=== PATIENT | female | born 1940 | race Caucasian/White ===

== ENCOUNTER 2024-01-27 08:31 | Outpatient (OUT) | payer MEDICARE, SELFPAY ==
[2024-01-27 09:09] LABS: Basophils Absolute Auto 0.1 10^3/uL (0.0-0.1); Basophils Percent Auto 0.9 % (0.2-2.0); Eosinophils Absolute Auto 0.7 10^3/uL (0.0-0.7); Eosinophils Percent Auto 8.2 % (0.9-7.0); Hematocrit 35.4 % (36.0-48.0); Immature Granulocytes Abs Auto 0.03 10^3/uL (0.00-0.03); Immature Granulocytes Pct Auto 0.4 % (0.0-0.5); Lymphocytes Absolute Auto 2.7 10^3/uL (1.2-3.8); Lymphocytes Percent Auto 32.1 % (20.5-60.0); Mean Corpuscular HGB Conc 31.1 g/dL (29.9-35.2); Mean Corpuscular Volume 102.9 fL (81.0-99.0); Mean Platelet Volume 10.3 fL (9.5-13.5); Monocytes Absolute Auto 0.7 10^3/uL (0.3-0.8); Monocytes Percent Auto 8.2 % (1.7-12.0); Neutrophils Absolute Auto 4.3 10^3/uL (1.4-6.5); Neutrophils Percent Auto 50.2 % (43.0-75.0); Platelet Count 171 10^3/uL (150-450); Red Blood Count 3.44 10^6/uL (4.20-5.40); Red Cell Distribution Width 13.3 % (11.0-15.0); White Blood Count 8.5 10^3/uL (4.0-11.0)
[2024-01-27 09:13] LABS: Alanine Aminotransferase 30 U/L (14-59); Albumin Globulin Ratio 0.8; Alkaline Phosphatase 92 U/L (46-116); Anion Gap 12.2; Aspartate Amino Transferase 38 U/L (15-37); BUN Creatinine Ratio 20.8; Bilirubin Total 0.9 mg/dL (0.2-1.0); Calcium 8.6 mg/dL (8.5-10.1); Carbon Dioxide 25.1 mmol/L (21.0-32.0); Chloride 107 mmol/L (98-107); Chol HDL Ratio 3.2; Cholesterol 155 mg/dL (<=200); Estimated GFR (African America 28 (>=60); Estimated GFR (Non-African Ame 23 (>=60); Globulin 3.9 g/dL; Glucose 109 mg/dL (74-106); HDL Cholesterol 48 mg/dL (40-60); Potassium 4.3 mmol/L (3.5-5.1); Sodium 140 mmol/L (136-145); Total Protein 6.9 g/dL (6.4-8.2); Triglycerides 243 mg/dL (<=150); VLDL CHOLESTEROL 48.6 mg/dL
== END 2024-01-27 08:32 | disposition home or self-care (01) ==
LOC: LAB 08:32
PROVIDERS: PCP Internal Medicine; Visit Provider Physician Assistant
DX: Z00.00 Encounter for general adult medical examination without abnormal findings (principal); E11.9 Type 2 diabetes mellitus without complications; I50.32 Chronic diastolic (congestive) heart failure; E78.2 Mixed hyperlipidemia
CPT/HCPCS: 36415; 80053; 80061; 85025

== ENCOUNTER 2024-02-29 23:01 | Emergency (ER) | payer MEDICARE, SELFPAY ==
[2024-02-29 23:12] VITALS: BP 155/60; PULSE 83; TEMP 36.7; O2SAT 95; BMI 26.7
--- NOTE | 2024-02-29 23:17 | XR_ITS ---
The [address] [address] Patient Name: NATALIE LOVELACE MRN: [id number] date: 1940 Sex: F Assigned Patient Location: ER Current Patient Location: ER Accession/Order Number: [id number] Exam Date: 02/29/2024 23:20 Report Date: 03/01/2024 00:05 At the request of: VALERIE ULLOA Procedure: XR ankle RT 2V EXAM: XR foot RT 2V, XR ankle RT 2V HISTORY: The patient is an 83-year-old female, injury COMPARISON: None. FINDINGS: The 2 views of the right foot are radiographically negative with no evidence of fracture, dislocation, joint space narrowing, or other osseous or articular abnormalities. No acute or ununited fractures are seen within or around the right ankle joint on the 2 views of the right ankle. The ankle mortise is intact and uniform. The syndesmosis is maintained. No soft tissue swelling is seen. XR/XR ankle RT 2V IMPRESSION: No fracture seen on the 2 views of the right foot or the 2 views of the right ankle. Electronically authenticated by: ARJUN SPENCE Date: 03/01/2024 00:05
--- NOTE | 2024-02-29 23:17 | XR_ITS ---
The [address] [address] Patient Name: NATALIE LOVELACE MRN: [id number] date: 1940 Sex: F Assigned Patient Location: ER Current Patient Location: ER Accession/Order Number: [id number] Exam Date: 02/29/2024 23:20 Report Date: 03/01/2024 00:05 At the request of: VALERIE ULLOA Procedure: XR foot RT 2V EXAM: XR foot RT 2V, XR ankle RT 2V HISTORY: The patient is an 83-year-old female, injury COMPARISON: None. FINDINGS: The 2 views of the right foot are radiographically negative with no evidence of fracture, dislocation, joint space narrowing, or other osseous or articular abnormalities. No acute or ununited fractures are seen within or around the right ankle joint on the 2 views of the right ankle. The ankle mortise is intact and uniform. The syndesmosis is maintained. No soft tissue swelling is seen. XR/XR foot RT 2V IMPRESSION: No fracture seen on the 2 views of the right foot or the 2 views of the right ankle. Electronically authenticated by: ARJUN SPENCE Date: 03/01/2024 00:05
--- OUTSIDE RECORDS SUMMARY | 2024-02-29 23:21 | XMS_ITS | CCD ---
Author Organization [facility] CliniSyoh Care Team Providers Care Stapler Machine Name Role Phone PHYSICIAN, DEFAULT Unavailable Unavailable PHYSICIAN, DEFAULT Unavailable Unavailable KINJAL ADAMS Unavailable Unavailable PHYSICIAN, DEFAULT Unavailable Unavailable PHYSICIAN, DEFAULT Unavailable Unavailable KINJAL ADAMS Unavailable Unavailable DOMINIQUE, DR LAYTON Primary Care Unavailable DOMINIQUE, DR LAYTON Admitting Unavailable ADAMS, DR LAYTON Attending Unavailable ADAMS, DR LAYTON Consulting Unavailable ZIEBER, DR SUSANA Alvarez Consulting Unavailable ADAMS, DR LAYTON Primary Care Unavailable DEBBIE CHEN Attending Unavailable APRILDEBBIE CAMPOS Consulting Unavailable APRIL, DEBBIE Admitting Unavailable APRILDEBBIE ANDREWS Attending Unavailable DEBBIE CHEN Consulting Unavailable ADAMS, DR LAYTON Primary Care Unavailable APRIL, DEBBIE Admitting Unavailable APRIL, DEBBIE Admitting Unavailable APRIL, DEBBIE Attending Unavailable ADAMS, DR LAYTON Primary Care Unavailable APRIL, DEBBIE Consulting Unavailable ADAMS, DR LAYTON Primary Care Unavailable APRIL, DEBBIE Attending Unavailable APRIL, DEBBIE Admitting Unavailable ADAMS, DR LAYTON Primary Care Unavailable APRIL, DEBBIE Attending Unavailable APRIL, DEBBIE Admitting Unavailable APRIL, DEBBIE Attending Unavailable TYSHAWN BO Attending Unavailable Problems Active Problems Problem Classification Problem Date Documented Date Episodic/Chronic Coronary atherosclerosis and other heart disease (6 sources) Atherosclerotic heart disease of [place] coronary artery without angina pectoris; Translations: [ASHD UPPER [place] CA W/O ANGINA PECTORIS] Onset: 02-27-2022 Chronic Disorders of lipid metabolism (2 sources) Mixed hyperlipidemia; Translations: [Mixed hyperlipidemia] Onset: 10-02-2022 Chronic Esophageal disorders (2 sources) Gastro-esophageal reflux disease without esophagitis; Translations: [Gastro-esophageal reflux disease without esophagitis] Onset: 10-08-2023 Chronic Heart valve disorders (4 sources) Nonrheumatic aortic (valve) stenosis; Translations: [NONRHEUMATIC AORTIC VALVE STENOSIS] Onset: 09-24-2022 Chronic Menopausal disorders (4 sources) Other primary ovarian failure; Translations: [OTHER PRIMARY OVARIAN FAILURE] Onset: 04-15-2022 Chronic Past or Other Problems Problem Classification Problem Date Documented Da te Episodic/Chronic Other bone disease and musculoskeletal deformities (1 source) Other specified disorders of bone density and structure, other site; Translations: [OTH D/O BONE DEN STRUCT OTH SITE] Onset: 04-16-2022 Episodic Results Test Name Value Interpretation Reference Range Facility Office Visiton 10-08-2023 Follow-up visit [id number] Dionna Lovelace ma 1940 F Date Provider Department Center 10/08/2023 DEBBIE [facility] No family history on file Level of Service:52850 [place] OFFICE/OUTPATIENT ESTABLISHED LOW MDM 20 MIN Reason for Visit and Comments: Coronary Artery Disease [187] Valve Disorder [3372] Hypertension [486729] Hyperlipidemia [182] Normal [facility] ECHOCARDIO M/2D COMPLETEon 0 09-24-2022 ECHOCARDIO M/2D COMPLETE Patient: NATALIE LOVELACE Exam Date: 09/24/2022 : 1940 Gender:F Ordering : DEBBIE CHEN [facility] Admission #: [id number] Family : Order #: [id number] CLICK HERE TO VIEW EXAM ECHOCARDIOGRAM REPORT PROCEDURE: CARDIO PULMONARY ECHOCARDIO M/2D COMP INDICATIONS: Aortic valve stenosis COMPARISON: None. DESCRIPTION: COMPLETE ECHOCARDIOGRAM Real-time transthoracic echocardiography with 2D, M-mode, spectral and color flow Doppler performed. QUALITY: Technical quality was good. LEFT VENTRICLE: Normal chamber size. Moderate concentric left ventricular hypertrophy. Normal left ventricular systolic function. Visual estimation of left ventricular ejection fraction is 70-75%. LV EF: DIASTOLIC: Grade I diastolic dysfunction. ATRIAL SEPTUM: LEFT ATRIUM: Normal chamber size. RIGHT ATRIUM: Normal chamber size. RIGHT VENTRICLE: Normal chamber size. Normal right ventricular systolic function. TRICUSPID VALVE: Normal mobility and thickness. No stenosis with trivial regurgitation. No evidence of pulmonary hypertension. RVSP is 26 mmHg MITRAL VALVE: Normal mobility and thickness. No mitral valve prolapse. No evidence of mitral valve stenosis. Moderate mitral annular calcification. Trivial mitral regurgitation. AORTIC VALVE: Normal trileaflet appearance. Moderately calcified aortic valve. Mildly diminished mobility. Doppler velocity suggest moderate aortic valve stenosis. DVI 0.5, JESUSITA 1.46 cm2, Mean gradient 15 mmHg. No aortic regurgitation. AORTIC ROOT: Normal diameter and appearance. PULMONIC VALVE: Normal thickness and mobility. No stenosis. No regurgitation. PERICARDIUM: No evidence of pericardial effusion. IVC: Collapses with inspirations. Normal size. PLEURA: CONCLUSION: 1. Moderate concentric left ventricular hypertrophy. Normal ventricular systolic function. LVEF is 70 to 75%. 2. Moderate aortic valve stenosis. 3. Normal right-sided pressures. 4. No pericardial effusion. Adult Echocardiography Procedure Report Left Ventricle LVEDD (3.7 - 5.6 cm): 3.08 cm LVESD (2.2 - 4.0 cm): 2.03 cm LVIVS thickness (0.6 - 1.2 cm): 1.53 cm LVPW thickness (0.5 - 1.0 cm): 1.36 cm e': 0.09 m/s E - e': 7.01 LVOT Max Gradient: 5.33 mm[Hg], 5.17 mm[Hg] Peak Velocity (LVOT): 1.15 m/s, 1.14 m/s Mean Velocity (LVOT): 0.77 m/s, 0.81 m/s LVOT Diameter 2.05 cm Left Ventricular Ejection Fraction: 70-75 % Left Atrium LA Volume Index (2D A2C): 44.95 ml, 44.95 ml Left Atrium Systolic Dimension: 3.71 cm Mitral Valve MV E to A Ratio: 0.69 Mitral Valve A-Wave Peak Velocity: 0.95 m/s Mitral Valve E-Wave Peak Velocity: 0.66 m/s Right Ventricle RV Internal Diastolic Dimension: 3.08 cm Aorta AO Root Diam: 2.83 cm Ascending Ao Diam: 2.69 cm Aortic Valve AoV Area (Peak Marcus): 1.58 cm2, 1.66 cm2 AoV Area (VTI): 1.64 cm2, 1.74 cm2 Peak Velocity(Antegrade Flow): 2.29 m/s, 2.47 m/s Peak Gradient(Antegrade Flow): 20.89 mm[Hg], 24.45 mm[Hg] Mean Velocity(Antegrade Flow): 1.52 m/s, 1.84 m/s Mean Gradient(Antegrade Flow): 10.67 mm[Hg], 14.68 mm[Hg] Velocity Time Integral: 45.49 cm, 54.34 cm Tricuspid Valve Peak Velocity (Regurgitant Flow): 2.22 m/s, 2.05 m/s, 2.40 m/s Peak Velocity: 0.65 m/s Pulmonic Valve Mean Gradient: 3.89 mm[Hg] Mean Velocity: 0.92 m/s Peak Velocity: 1.37 m/s, 1.19 m/s Peak Gradient: 7.50 mm[Hg], 5.68 mm[Hg] Right Atrium Right Atrium Systolic Pressure: 37.28 ml, 37.28 ml Dictated by: Ravinder Pérez M.D. on 09/25/2022 at 18:25 Approved by: Ravinder Pérez M.D. on 09/25/2022 at 18:30 Normal [facility] XR DEXA BONE DENSITYon 04-15 XR DEXA BONE DENSITY EXAMINATION: XR DEXA BONE DENSITY, 04/15/2022 1:07 PM EDT HISTORY: Primary ovarian failure COMPARISON: DEXA bone densitometry 01/26/2019 TECHNIQUE: Dual-energy X-ray absorptiometry (DEXA) bone density study performed for the axial skeleton. FINDINGS: SPINE ANALYSIS: Average bone mineral density is 1.237 g/cm2. T-score (standard deviation relative to young adult mean): 0.5 . +1.4% change since prior study. HIP ANALYSIS: Lowest bone mineral density is within the right femoral neck, 0.797 g/cm2. T-score (standard deviation relative to young adult mean): -1.7 . -10.6% change since prior study. IMPRESSION: World [employer] Classification: Osteopenia - Moderate Fracture Risk Electronically authenticated by: SUSANA REYEZ Date: 2022-04-15 15:15 Normal [facility] PROF CHEM 8 (BAS METB)on Anion gap [Moles/Vol] 11.9 mmol/L Normal [facility] Comment on above: Performed By: #### B MP #### [facility] [address] [place] [address] Dr. Troy Pickett Calcium [Mass/Vol] 8.6 mg/dL Normal 8.5-10.1 [facility] Comment on above: Performed By: #### B MP #### [facility] [address] [address] [address] Troy Pickett Chloride [Moles/Vol] 109 mmol/L Critically high 98-107 [facility] Comment on above: Performed By: #### B MP #### [facility] [address] [address] [address] Troy Pickett CO2 [Moles/Vol] 29.5 mmol/L Normal 21.0-32.0 [facility] Comment on above: Performed By: #### B MP #### [facility] [address] [address] [address] Troy Pickett Creatinine [Mass/Vol] 1.34 mg/dL Critically high 0.55-1.02 [facility] Comment on above: Performed By: #### B MP #### [facility] [address] [place] [address] Dr. Troy Pickett EGFR-AF MOROCCAN 46 mL/min/1.73m2 Critically low >=60 [facility] Comment on above: Performed By: #### B MP #### [facility] [address] [place] [address] Dr. Troy Pickett EGFR-NON AF M[place]AN 38 mL/min/1.73m2 Critically low >=60 [facility] Comment on above: Performed By: #### B MP #### [facility] [address] [address] [address] Troy Pickett Glucose [Mass/Vol] 130 mg/dL Critically high 74-106 [facility] Comment on above: Performed By: #### B MP #### [facility] [address] [address] [address] Troy Pickett Potassium [Moles/Vol] 4.4 mmol/L Normal 3.5-5.1 [facility] Comment on above: Performed By: #### B MP #### [facility] [address] [address] [address] Troy Pickett Sodium [Moles/Vol] 146 mmol/L Critically high 136-145 [facility] Comment on above: Performed By: #### B MP #### [facility] [address] [place] [address] Dr. Troy Pickett Urea nitrogen [Mass/Vol] 21.0 mg/dL Critically high 7.0-18.0 [facility] Comment on above: Performed By: #### B MP #### [facility] [address] [place] [address] Dr. Troy Pickett Urea nitrogen/Creatinin e [Mass ratio] 15.7 mg/mg Normal [facility] Comment on above: Performed By: #### B MP #### [facility] [address] [place] [address] Dr. Troy Pickett CBC AUTO DIFFon 11-15-2021 BASO # 0.1 103/ul Normal 0.0-0.1 [facility] Comment on above: Performed By: #### C BC #### [facility] [address] [place] [address] Dr. Troy Pickett Basophils/100 WBC (Bld) 0.8 % Normal 0.2-2.0 [facility] Comment on above: Performed By: #### C BC #### [facility] [address] [place] [address] Dr. Troy Pickett EO # 0.5 103/ul Normal 0.0-0.7 [facility] Comment on above: Performed By: #### C BC #### [facility] [address] [place] [address] Dr. Troy Pickett Eosinophils/100 WBC (Bld) 6.1 % Normal 0.9-7.0 [facility] Comment on above: Performed By: #### C BC #### [facility] [address] [place] [address] Dr. Troy Pickett Erythrocyte distribution width (RBC) [Ratio] 13.4 % Normal 11.0-15.0 [facility] Comment on above: Performed By: #### C BC #### [facility] [address] [place] [address] Dr. Troy Pickett Hematocrit (Bld) [Volume fraction] 35.7 % Critically low 36.0-48.0 [facility] Comment on above: Performed By: #### C BC #### [facility] [address] [place] [address] Dr. Troy Pickett Hemoglobin (Bld) [Mass/Vol] 11.3 g/dL Critically low 12.0-16.0 [facility] Comment on above: Performed By: #### C BC #### [facility] [address] [place] [address] Dr. Troy Pickett IG # 0.02 10e3/ul Normal 0.00-0.03 [facility] Comment on above: Performed By: #### C BC #### [facility] [address] [place] [address] Dr. Troy Pickett IG % 0.3 % Normal 0.0-0.5 [facility] Comment on above: Performed By: #### C BC #### [facility] [address] [place] [address] Dr. Troy Pickett LYMPH # 2.4 103/ul Normal 1.2-3.8 [facility] Comment on above: Performed By: #### C BC #### [facility] [address] [place] [address] Dr. Troy Pickett Lymphocytes/100 WBC (Bld) 30.9 % Normal 20.5-60.0 [facility] Comment on above: Performed By: #### C BC #### [facility] [address] [place] [address] Dr. Troy Pickett MANUAL DIFF REQ NO Normal [facility] Comment on above: Performed By: #### C BC #### [facility] [address] [place] [address] Dr. Troy Pickett MCH (RBC) [Entitic mass] 31.5 pg Normal 26.7-34.0 [facility] Comment on above: Performed By: #### C BC #### [facility] [address] [place] [address] Dr. Troy Pickett MCHC (RBC) [Mass/Vol] 31.7 g/dL Normal 29.9-35.2 [facility] Comment on above: Performed By: #### C BC #### [facility] [address] [address] [address] Troy Pickett MCV (RBC) [Entitic vol] 99.4 fL Critically high 81.0-99.0 [facility] Comment on above: Performed By: #### C BC #### [facility] [address] [address] [address] Troy Pickett MONO # 0.6 103/ul Normal 0.3-0.8 [facility] Comment on above: Performed By: #### C BC #### [facility] [address] [address] [address] Troy Pickett Monocytes/100 WBC (Bld) 7.4 % Normal 1.7-12.0 [facility] Comment on above: Performed By: #### C BC #### [facility] [address] [address] [address] Troy Pickett NEUT # 4.3 103/ul Normal 1.4-6.5 [facility] Comment on above: Performed By: #### C BC #### [facility] [address] [address] [address] Troy Pickett Neutrophils/100 WBC (Bld) 54.5 % Normal 43.0-75.0 [facility] Comment on above: Performed By: #### C BC #### [facility] [address] [address] [address] Troy Pickett Platelet mean volume (Bld) [Entitic vol] 9.2 fL Critically low 9.5-13.5 [facility] Comment on above: Performed By: #### C BC #### [facility] [address] [address] [address] Troy Pickett PLT 197 103/ul Normal 150-450 [facility] Comment on above: Performed By: #### C BC #### [facility] [address] [address] [address] Troy Pickett RBC 3.59 106/ul Critically low 4.20-5.40 [facility] Comment on above: Performed By: #### C BC #### [facility] [address] [place] [address] Dr. Troy Pickett WBC 7.9 103/ul Normal 4.0-11.0 [facility] Comment on above: Performed By: #### C BC #### [facility] [address] [place] [address] Dr. Troy Pickett LIPID PROFILEon 11-15-2021 CHOL-HDL RATIO NORM SEE BELOW Normal [facility] Comment on above: Result Comment: 3.3 - 4.4 LOW RISK 4.4 - 7.1 AVERAGE RISK 7.1 - 11.0 MODERATE RISK >11.0 HIGH RISK Performed By: #### C MP, LIPID #### [facility] [address] [place] [address] Dr. Troy Pickett Cholesterol [Mass/Vol] 173 mg/dL Normal <=200 [facility] Comment on above: Performed By: #### C MP, LIPID #### [facility] [address] [place] [address] Dr. Troy Pickett Cholesterol in HDL [Mass/Vol] 43 mg/dL Normal 40-60 [facility] Comment on above: Performed By: #### C MP, LIPID #### [facility] [address] [place] [address] Dr. Troy Pickett Cholesterol in LDL [Mass/Vol] 66.0 mg/dL Normal [facility] Comment on above: Performed By: #### C MP, LIPID #### [facility] [address] [place] [address] Dr. Troy Pickett Cholesterol.total/ Cholesterol in HDL [Mass ratio] 4.0 {ratio} Normal [facility] Comment on above: Performed By: #### C MP, LIPID #### [facility] [address] [place] [address] Dr. Troy Pickett HDL NORMAL > or = 60 mg/dl - LO W CARDIOVASCULAR RISK <40 mg/dl - HIGH CARDIOVASCULAR RISK Normal [facility] Comment on above: Performed By: #### C MP, LIPID #### [facility] [address] [place] [address] Dr. Troy Pickett LDL CALC NORMAL SEE BELOW Normal [facility] Comment on above: Result Comment: <100 mg/dl OPTIMAL 100 - 129 mg/dl NEAR OR ABOVE OPTIMAL 130 - 159 mg/dl BORDERLINE HIGH 160 - 189 mg/dl HIGH >190 mg/dl VERY HIGH Performed By: #### C MP, LIPID #### [facility] [address] [address] [address] Troy Pickett Triglyceride [Mass/Vol] 320 mg/dL Critically high <=150 [facility] Comment on above: Performed By: #### C MP, LIPID #### [facility] [address] [address] [address] Troy Pickett VLDL CALC 64.0 mg/dL Normal [facility] Comment on above: Performed By: #### C MP, LIPID #### [facility] [address] [place] [address] Dr. Troy Pickett PROF 14(COMP METB)on 022 Albumin [Mass/Vol] 3.3 g/dL Critically low 3.5-5.0 [facility] Comment on above: Performed By: #### C MP, LIPID #### [facility] [address] [address] [address] Troy Pickett Albumin/Globulin [Mass ratio] 0.9 {ratio} Normal [facility] Comment on above: Performed By: #### C MP, LIPID #### [facility] [address] [address] [address] Troy Pickett ALP [Catalytic activity/Vol] 103 U/L Normal 38-126 [facility] Comment on above: Performed By: #### C MP, LIPID #### [facility] [address] [address] [address] Troy Pickett ALT [Catalytic activity/Vol] 28 U/L Normal 9-52 [facility] Comment on above: Performed By: #### C MP, LIPID #### [facility] [address] [address] [address] Troy Pickett Anion gap [Moles/Vol] 12.1 mmol/L Normal [facility] Comment on above: Performed By: #### C MP, LIPID #### [facility] [address] [address] [address] Troy Pickett AST [Catalytic activity/Vol] 30 U/L Normal 14-36 [facility] Comment on above: Performed By: #### C MP, LIPID #### [facility] [address] [address] [address] Troy Pickett Bilirubin [Mass/Vol] 1.2 mg/dL Normal 0.2-1.3 [facility] Comment on above: Performed By: #### C MP, LIPID #### [facility] [address] [address] [address] Troy Pickett Calcium [Mass/Vol] 8.7 mg/dL Normal 8.4-10.2 [facility] Comment on above: Performed By: #### C MP, LIPID #### [facility] [address] [place] [address] Dr. Troy Pickett Chloride [Moles/Vol] 105 mmol/L Normal 98-107 [facility] Comment on above: Performed By: #### C MP, LIPID #### [facility] [address] [address] [address] Troy Pickett CO2 [Moles/Vol] 30.6 mmol/L Critically high 22.0-30.0 [facility] Comment on above: Performed By: #### C MP, LIPID #### [facility] [address] [address] [address] Troy Pickett Creatinine [Mass/Vol] 1.61 mg/dL Critically high 0.52-1.04 [facility] Comment on above: Performed By: #### C MP, LIPID #### [facility] [address] [address] [address] Troy Pickett EGFR-AF [place] 37 mL/min/1.73m2 Critically low >=60 [facility] Comment on above: Performed By: #### C MP, LIPID #### [facility] [address] [address] [address] Troy Pickett EGFR-NON AF [place] 31 mL/min/1.73m2 Critically low >=60 [facility] Comment on above: Performed By: #### C MP, LIPID #### [facility] [address] [address] [address] Troy Pickett Globulin (S) [Mass/Vol] 3.7 g/dL Normal [facility] Comment on above: Performed By: #### C MP, LIPID #### [facility] [address] [address] [address] Troy Pickett Glucose [Mass/Vol] 115 mg/dL Critically high 74-106 [facility] Comment on above: Performed By: #### C MP, LIPID #### [facility] [address] [address] [address] Troy Pickett Potassium [Moles/Vol] 4.7 mmol/L Normal 3.4-5.0 [facility] Comment on above: Performed By: #### C MP, LIPID #### [facility] [address] [address] [address] Troy Pickett Protein [Mass/Vol] 7.0 g/dL Normal 6.1-8.2 [facility] Comment on above: Performed By: #### C MP, LIPID #### [facility] [address] [address] [address] Troy Pickett Sodium [Moles/Vol] 143 mmol/L Normal 137-145 [facility] Comment on above: Performed By: #### C MP, LIPID #### [facility] [address] [address] [address] Troy Pickett Urea nitrogen [Mass/Vol] 24.0 mg/dL Critically high 7.0-17.0 [facility] Comment on above: Performed By: #### C MP, LIPID #### [facility] [address] [address] [address] Troy Pickett Urea nitrogen/Creatinin e [Mass ratio] 14.9 mg/mg Normal [facility] Comment on above: Performed By: #### C MP, LIPID #### [facility] [address] [address] [address] Troy Pickett Encounters Encounter Date Encounter Type Care Provider Facility Start: 11-12-2023 End: 11-12-2023 ambulatory TYSHAWN BO Not Available Start: 10-08-2023 End: 10-08-[address] [facility] Start: 09-24-2022 End: 09-25-2022 ambulatory DEBBIE CHEN Facility:[facility] Start: 06-01-[address] KINJAL ADAMS Facilit y:[facility] Start: 04-15-2022 End: 04-16-[address] KINJAL ADAMS Facility:[facility] Start: 02-27-2022 End: 02-28-[address] KINJAL ADAMS Facility:[facility] Start: 01-03-[address] KINJAL ADAMS Facilit y:[facility] Start: 11-15-2021 End: 11-16-2021 ambulatory DEBBIE MARTÍNEZCKER Facility:[facility] Start: 04-27-2018 End: 04-28-2018 Patient encounter DEFAULT PHYSICIAN Facility:[facility] Start: 04-20-2018 End: 04-21-2018 Patient encounter DEFAULT PHYSICIAN Facility:[facility] Payers Date Payer Category Payer Unknown [id number] Self-pay [id number] 1961 Unknown [id number] 1940 Unknown [id number] 2.16.84 [id number] 1940 Unknown [id number] 2.16.84 [id number] 1940 Unknown [id number] 2.16.84 [id number] 1940 Unknown [id number] 2.16.84 [id number] 1940 Unknown [id number] 2.16.84 [id number] 1940 Unknown [id number] 2.16.84 [id number] 1940 Unknown [id number] 2.16.84 [id number] Unknown Progress note 10-08-2023 Note Date & Type Note Facility 10-08-2023 Note Cardiovascular Medic [facility] SUBJECTIVE Chief Complaint Patient presents with Coronary Artery Disease Valve Disorder Hypertension Hyperlipidemia Natalie Lovelace is a 83 y.o. female here for follow-up. Her daughter accompanied her. HPI PMHx: CAD (mild to mod dz per 2012 cath), HTN, mild aortic stenosis, HLD She denies any changes since last seen. Her dyspnea is stable. Denies c/o CP, orthopnea, PND, LE edema, dizziness/LH, palpitations, syncope. 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 Social History Tobacco Use Smoking status: Former Types: Cigarettes Smokeless tobacco: Never Substance Use Topics Alcohol use: Not Currently No Known Allergies ROS HENT: Positive for hearing loss. Cardiovascular: Positive for leg swelling (minimal). All other systems reviewed and are negative. OBJECTIVE Visit Vitals BP 120/62 (BP Location: Right arm, Patient Position: Sitting) Pulse 68 Ht 1.549 m (5' 1 ) Wt 71.2 kg (157 lb) SpO2 97% BMI 29.66 kg/m??? Smoking Status Former BSA 1.75 m??? Medications: Current Outpatient Medications: aspirin 81 mg chewable tablet, in the morning., Disp: , Rfl: atorvastatin (Lipitor) 80 mg tablet, atorvastatin 80 mg tablet, Disp: , Rfl: citalopram (CeleXA) 40 mg tablet, citalopram 40 mg tablet, Disp: , Rfl: furosemide (Lasix) 20 mg tablet, Take 20 mg by mouth every other day., Disp: , Rfl: meloxicam (Mobic) 15 mg tablet, meloxicam 15 mg tablet, Disp: , Rfl: metoprolol tartrate (Lopressor) 25 mg tablet, Take 25 mg by mouth in the morning and at bedtime., Disp: , Rfl: oxybutynin XL (Ditropan-XL) 10 mg 24 hr tablet, oxybutynin chloride ER 10 mg tablet,extended release 24 hr, Disp: , Rfl: pantoprazole (ProtoNix) 40 mg EC tablet, Take 1 tablet (40 mg) by mouth before breakfast. Do not crush, chew, or split., Disp: 90 tablet, Rfl: 3 Physical Exam Vitals reviewed. Constitutional: Appearance: Normal appearance. She is normal weight. HENT: Head: Normocephalic and atraumatic. Right Ear: External ear normal. Left Ear: External ear normal. Eyes: Extraocular Movements: Extraocular movements intact. Conjunctiva/sclera: Conjunctivae normal. Pupils: Pupils are equal, round, and reactive to light. Neck: Vascular: No carotid bruit. Cardiovascular: Rate and Rhythm: Normal rate and regular rhythm. Pulses: Normal pulses. Heart sounds: Murmur heard. Pulmonary: Effort: Pulmonary effort is normal. Breath sounds: Normal breath sounds. Abdominal: General: Bowel sounds are normal. Palpations: Abdomen is soft. Musculoskeletal: Cervical back: Neck supple. Right lower leg: No edema. Left lower leg: No edema. Skin: General: Skin is warm and dry. Neurological: General: No focal deficit present. Mental Status: She is alert and oriented to person, place, and time. Psychiatric: Mood and Affect: Mood normal. Behavior: Behavior normal. Thought Content: Thought content normal. Judgment: Judgment normal. Labs: 11/15/2021 Hgb 11.3, hct35.7 plt 197 Cr 1.61, BUN 24, K 4.7, Na 143, eGFR 31, ALT 28, AST 30 Chol 173, HDL 43, trig 320, LDL 98 Testing/Procedures: Echocardiogram 09/2022: Global left ventricular systolic function is hyperdynamic. EF is 70 to 75%. Moderate concentric left ventricular hypertrophy. Mild to moderate aortic valve stenosis; Doppler velocities show a mean gradient of 50 mmHg. DVI 0.5. Aortic valve area is 1.46 cm grade.. Normal right-sided pressures. ECHO (08/30/2020) 1. Normal ventricular systolic function 2. Mild diastolic dysfunction 3. Mild aortic stenosis 4. Normal right-sided pressures 5. No pericardial effusion Echocardiogram 04/27/2018 Global left ventricular systolic function is hyperdynamic. Mild diastolic dysfunction. Mild aortic valve stenosis. Mild elevated right-sided pressures. Treadmill nuclear stress gena (more content not included)... [facility] Progress note 10-08-2023 Note Date & Type Note Facility 10-08-2023 Note Patient here for 1 y ear follow up CAD, hypertension, and valve disorder. Doing great. Denies chest pain, SOB, palpitations, and lightheadedness/syncope. No recent labs/imaging. Sees Dr. Adams next month for routine check up. Review of Systems HENT: Positive for hearing loss. Cardiovascular: Positive for leg swelling (minimal). All other systems reviewed and are negative. [facility] Summary Purpose Family History No Family History Records FoundNo Family History Records FoundNo Family History Records FoundNo Family History Records Found Advance Directives No Advanced Directives Records FoundNo Advanced Directives Records FoundNo Advanced Directives Records FoundNo Advanced Directives Records Found Additional Source Comments INFORMATION SOURCE (unrecogn ized section and content) DATE CREATED AUTHOR 04/30/2018 [facility] DATE CREATED AUTHOR AUTHOR'S ORGANIZ ATION 09/26/2022 [facility] DATE CREATED AUTHOR AUTHOR'S ORGANIZ ATION 10/17/2023 [facility] DATE CREATED AUTHOR AUTHOR'S ORGANIZ ATION 11/14/2023 [facility] FOR RECORDS PERTAINING TO PATIENTS WHO ARE OR HAVE BEEN ENROLLED IN A CHEMICAL DEPENDENCY/SUBSTANCEABUSE PROGRAM, SOME INFORMATION MAY BE OMITTED. This clinical summary was aggregated from multiple sources. Caution should be exercised in using it in the provision of clinical care. This summary normalizes information from multiple sources, and as a consequence, information in this document may materially change the coding, format and clinical context of patient data. In addition, data may be omitted in some cases. CLINICAL DECISIONS SHOULD BE BASED ON THE PRIMARY CLINICAL RECORDS. [employer] provides no warranty or guarantee of the accuracy or completeness of information in this document.
--- NOTE | 2024-03-01 00:09 | ED.LOWEXI1 ---
HPI HPI - Extremity Injury (Lower) General Chief Complaint: Extremity Injury, Lower Stated Complaint: R ANKLE PAIN Time Seen by Provider: 02/29/24 23:22 Source: patient Mode of arrival: Wheelchair Limitations: no limitations History of Present Illness HPI Narrative: left ankle injury. Wedged ankle in between wall and shed last week. Given Mobic for pain and it help. tonight again complaining of pain of the ankle. given another dose of Mobic. Brought to ER for evaluation. Not able to take Mobic regularly due to CKD no complaint of ankle weakness Related Data Allergies Allergy/AdvReac Type Severity Reaction Status Date / Time No Known Drug Allergies Allergy Verified 02/29/24 23:15 Opioid HPI Opioid Management Most Recent Pain and Opioid Data: No Data to Display Review of Systems ROS Status of ROS 10 or more systems reviewed and unremarkable except as noted in history and below Exam Constitutional Vital Signs, click to edit/add: Last Vital Signs Temp 98.0 F 02/29/24 23:12 Pulse 83 02/29/24 23:12 Resp 20 02/29/24 23:12 BP 155/60 H 02/29/24 23:12 Pulse Ox 95 02/29/24 23:12 O2 Del Method Room Air 02/29/24 23:12 Common normals: no apparent distress, average body habitus, oriented x3, no limitations, healthy appearing, alert and well nourished [facility] Common normals: normocephalic and head/scalp atraumatic Eye Common normals: EOMs intact bilaterally and conjunctivae normal Respiratory Common normals: normal respiratory effort, no retractions and no use of accessory muscles Cardio Common normals: regular rate, regular rhythm, S1 normal heart sound and S2 normal heart sound Extremity Other: right ankle exam grossly normal . no swelling or discoloration. mild tenderness Neuro Common normals: CN's II-XII intact bilaterally, moves all extremities and no focal motor deficits Psych Appearance: grossly normal Course Vital Signs Vital signs: Vital Signs Temperature 98.0 F 02/29/24 23:12 Pulse Rate 83 02/29/24 23:12 Respiratory Rate 20 02/29/24 23:12 Blood Pressure 155/60 H 02/29/24 23:12 Pulse Oximetry 95 02/29/24 23:12 Oxygen Delivery Method Room Air 02/29/24 23:12 Temperature 98.0 F 02/29/24 23:12 Pulse Rate 83 02/29/24 23:12 Respiratory Rate 20 02/29/24 23:12 Blood Pressure 155/60 H 02/29/24 23:12 Pulse Oximetry 95 02/29/24 23:12 Oxygen Delivery Method Room Air 02/29/24 23:12 MDM - Extremity Injury (Lower) MDM Narrative Medical decision making narrative: patient presents after injury to right ankle one week ago. Continues to have pain and limping gait. xray neg for acute fracture. Patient not able to take NSAID daily due to her CKD. given dose of prednisone in the department and a prescription for home Discharge Plan Discharge Stand Alone Forms: Portal Instructions Chief Complaint: Extremity Injury, Lower Clinical Impression: Ankle sprain and strain Patient Disposition: Home, Self-Care Print Language: Latvian Instructions: Ankle Sprain (ED) Referrals: KINJAL FOX [Primary Care Provider] - 1 week
[2024-03-01] MEDS: PREDNISONE 20 MG TABLET 40 MG PO (00:22)
== END 2024-03-01 00:46 | disposition home or self-care (01) ==
PROVIDERS: Emergency Provider Internal Medicine; PCP Internal Medicine
DX: S93.401A Sprain of unspecified ligament of right ankle, initial encounter (principal); S96.911A Strain of unspecified muscle and tendon at ankle and foot level, right foot, initial encounter; W23.0XXA Caught, crushed, jammed, or pinched between moving objects, initial encounter; N18.9 Chronic kidney disease, unspecified
CPT/HCPCS: 73600; 73620; 99284; J7512

== ENCOUNTER 2024-03-02 09:03 | Outpatient (OUT) | payer MEDICARE, SELFPAY ==
--- OUTSIDE RECORDS SUMMARY | 2024-03-02 09:09 | XMS_ITS ---
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 Conditioning Service Technician Name Role Phone PHYSICIAN, DEFAULT Unavailable Unavailable PHYSICIAN, DEFAULT Unavailable Unavailable KINJAL ADAMS Unavailable Unavailable PHYSICIAN, DEFAULT Unavailable Unavailable PHYSICIAN, DEFAULT Unavailable Unavailable KINJAL ADAMS Unavailable Unavailable DOMINIQUE, DR LAYTON Primary Care Unavailable ADAMS, DR LAYTON Admitting Unavailable ADAMS, DR LAYTON Attending Unavailable ADAMS, DR LAYTON Consulting Unavailable ZISLAVA, DR SUSANA Alvarez Consulting Unavailable ADAMS, DR LAYTON Primary Care Unavailable APRIL, DEBBIE Attending Unavailable DEBBIE CHEN Consulting Unavailable APRIL, DEBBIE Admitting Unavailable DEBBIE CHEN Attending Unavailable APRIL, DEBBIE Consulting Unavailable DOMINIQUE, DR LAYTON Primary Care Unavailable APRIL, DEBBIE Admitting Unavailable APRIL, DEBBIE Admitting Unavailable APRIL, DEBBIE Attending Unavailable ADAMS, DR LAYTON Primary Care Unavailable APRIL, DEBBIE Consulting Unavailable ADAMS, DR LAYTON Primary Care Unavailable APRIL, DEBBIE Attending Unavailable APRIL, DEBBIE Admitting Unavailable ADAMS, DR LAYTON Primary Care Unavailable APRIL, DEBBIE Attending Unavailable APRIL, DEBBIE Admitting Unavailable DEBBIE CHEN Attending Unavailable TYSHAWN BO Attending Unavailable Encounters Encounter Date Encounter Type Care Provider Facility Start: 11-12-2023 End: 11-12-2023 ambulatory TYSHAWN BO Not Available Start: 10-08-2023 End: 10-08-2023 ambulatory DEBBIE CHEN [facility] Start: 09-24-2022 End: 09-25-2022 ambulatory DEBBIE CHEN Facility:[facility] Start: 06-01-[address] KINJAL ADAMS Facilit y:[facility] Start: 04-15-2022 End: 04-16-[address] KINJAL ADAMS Facility:[facility] Start: 02-27-2022 End: 02-28-[address] KINJAL ADAMS Facility:[facility] Start: 01-03-[address] KINJAL ADAMS Kishan y:[facility] Start: 11-15-2021 End: 11-16-2021 ambulatory DEBBIE CHEN Facility:[facility] Start: 04-27-2018 End: 04-28-2018 Patient encounter DEFAULT PHYSICIAN Facility:[facility] Start: 04-20-2018 End: 04-21-2018 Patient encounter DEFAULT PHYSICIAN Facility:[facility] Payers Date Payer Category Payer Unknown [id number] Self-pay [id number] 1961 Unknown [id number] 1940 Unknown [id number] 2.16.84 [id number] 1940 Unknown [id number] 2.16.84 [id number] 1940 Unknown [id number] 2.16.84 [id number] 1940 Unknown [id number] 2.16.84 [id number] 1940 Unknown [id number] 2.16.84 [id number] 1940 Unknown [id number] 2.16.84 [id number] 1940 Unknown [id number] 2.16.84 [id number] Unknown Problems Active Problems Problem Classification Problem Date Documented Date Episodic/Chronic Coronary atherosclerosis and other heart disease (6 sources) Atherosclerotic heart disease of [place] coronary artery without angina pectoris; Translations: [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 PECTORIS] Onset: 02-27-2022 Chronic [...] Range Facility Office Visiton 10-08-2023 Follow-up visit [id number] Dionna Lovelace ma 1940 F Date Provider Department Center 10/08/2023 DEBBIE [facility] No family history on file Level of Service:41986 [place] OFFICE/OUTPATIENT ESTABLISHED LOW MDM 20 MIN Reason for Visit and Comments: Coronary Artery Disease [187] Valve Disorder [3372] Hypertension [271563] Hyperlipidemia [182] Normal [facility] ECHOCARDIO M/2D COMPLETEon 0 09-24-2022 ECHOCARDIO M/2D COMPLETE Patient: NATALIE LOVELACE Exam Date: 09/24/2022 : 1940 Gender:F Ordering : DEBBIE CHEN [facility] Admission #: [id number] Family : Order #: [id number] CLICK HERE TO VIEW EXAM ECHOCARDIOGRAM REPORT [...] Pérez M.D. on 09/25/2022 at 18:30 Normal [facility] XR DEXA BONE DENSITYon 04-15 XR DEXA [...] SUSANA REYEZ Date: 2022-04-15 15:15 Normal [facility] PROF CHEM 8 (BAS METB)on Anion gap [Moles/Vol] 11.9 mmol/L Normal [facility] Comment on above: Performed By: #### B MP #### [facility] [address] [place] [address] Dr. Troy Pickett Calcium [Mass/Vol] 8.6 mg/dL Normal 8.5-10.1 [facility] Comment on above: Performed By: #### B MP #### [facility] [address] [address] [address] Troy Pickett Chloride [Moles/Vol] 109 mmol/L Critically high 98-107 [facility] Comment on above: Performed By: #### B MP #### [facility] [address] [address] [address] Troy Pickett CO2 [Moles/Vol] 29.5 mmol/L Normal 21.0-32.0 [facility] Comment on above: Performed By: #### B MP #### [facility] [address] [address] [address] Troy Pickett Creatinine [Mass/Vol] 1.34 mg/dL Critically high 0.55-1.02 [facility] Comment on above: Performed By: #### B MP #### [facility] [address] [address] [address] Troy Pickett EGFR-AF MOSOTHO 46 mL/min/1.73m2 Critically low >=60 [facility] Comment on above: Performed By: #### B MP #### [facility] [address] [address] [address] Troy Pickett EGFR-NON AF [place] 38 mL/min/1.73m2 Critically low >=60 [facility] Comment on above: Performed By: #### B MP #### [facility] [address] [address] [address] Troy Pickett Glucose [Mass/Vol] 130 mg/dL Critically high 74-106 [facility] Comment on above: Performed By: #### B MP #### [facility] [address] [address] [address] Troy Pickett Potassium [Moles/Vol] 4.4 mmol/L Normal 3.5-5.1 [facility] Comment on above: Performed By: #### B MP #### [facility] [address] [address] [address] Troy Pickett Sodium [Moles/Vol] 146 mmol/L Critically high 136-145 [facility] Comment on above: Performed By: #### B MP #### [facility] [address] [place] [address] Dr. Troy Pickett Urea nitrogen [Mass/Vol] 21.0 mg/dL Critically high 7.0-18.0 [facility] Comment on above: Performed By: #### B MP #### [facility] [address] [place] [address] Dr. Troy Pickett Urea nitrogen/Creatinin e [Mass ratio] 15.7 mg/mg Normal [facility] Comment on above: Performed By: #### B MP #### [facility] [address] [place] [address] Dr. Troy Pickett CBC AUTO DIFFon 11-15-2021 BASO # 0.1 103/ul Normal 0.0-0.1 [facility] Comment on above: Performed By: #### C BC #### [facility] [address] [place] [address] Dr. Troy Pickett Basophils/100 WBC (Bld) 0.8 % Normal 0.2-2.0 [facility] Comment on above: Performed By: #### C BC #### [facility] [address] [place] [address] Dr. Troy Pickett EO # 0.5 103/ul Normal 0.0-0.7 [facility] Comment on above: Performed By: #### C BC #### [facility] [address] [place] [address] Dr. Troy Pickett Eosinophils/100 WBC (Bld) 6.1 % Normal 0.9-7.0 [facility] Comment on above: Performed By: #### C BC #### [facility] [address] [place] [address] Dr. Troy Pickett Erythrocyte distribution width (RBC) [Ratio] 13.4 % Normal 11.0-15.0 [facility] Comment on above: Performed By: #### C BC #### [facility] [address] [place] [address] Dr. Troy Pickett Hematocrit (Bld) [Volume fraction] 35.7 % Critically low 36.0-48.0 [facility] Comment on above: Performed By: #### C BC #### [facility] [address] [place] [address] Dr. Troy Pickett Hemoglobin (Bld) [Mass/Vol] 11.3 g/dL Critically low 12.0-16.0 [facility] Comment on above: Performed By: #### C BC #### [facility] [address] [place] [address] Dr. Troy Pickett IG # 0.02 10e3/ul Normal 0.00-0.03 [facility] Comment on above: Performed By: #### C BC #### [facility] [address] [place] [address] Dr. Troy Pickett IG % 0.3 % Normal 0.0-0.5 [facility] Comment on above: Performed By: #### C BC #### [facility] [address] [place] [address] Dr. Troy Pickett LYMPH # 2.4 103/ul Normal 1.2-3.8 [facility] Comment on above: Performed By: #### C BC #### [facility] [address] [place] [address] Dr. Troy Pickett Lymphocytes/100 WBC (Bld) 30.9 % Normal 20.5-60.0 [facility] Comment on above: Performed By: #### C BC #### [facility] [address] [place] [address] Dr. Troy Pickett MANUAL DIFF REQ NO Normal [facility] Comment on above: Performed By: #### C BC #### [facility] [address] [place] [address] Dr. Troy Pickett MCH (RBC) [Entitic mass] 31.5 pg Normal 26.7-34.0 [facility] Comment on above: Performed By: #### C BC #### [facility] [address] [place] [address] Dr. Troy Pickett MCHC (RBC) [Mass/Vol] 31.7 g/dL Normal 29.9-35.2 [facility] Comment on above: Performed By: #### C BC #### [facility] [address] [address] [address] Troy Pickett MCV (RBC) [Entitic vol] 99.4 fL Critically high 81.0-99.0 [facility] Comment on above: Performed By: #### C BC #### [facility] [address] [place] [address] Dr. Troy Pickett MONO # 0.6 103/ul Normal 0.3-0.8 [facility] Comment on above: Performed By: #### C BC #### [facility] [address] [place] [address] Dr. Troy Pickett Monocytes/100 WBC (Bld) 7.4 % Normal 1.7-12.0 [facility] Comment on above: Performed By: #### C BC #### [facility] [address] [place] [address] Dr. Troy Pickett NEUT # 4.3 103/ul Normal 1.4-6.5 [facility] Comment on above: Performed By: #### C BC #### [facility] [address] [place] [address] Dr. Troy Pikcett Neutrophils/100 WBC (Bld) 54.5 % Normal 43.0-75.0 [facility] Comment on above: Performed By: #### C BC #### [facility] [address] [place] [address] Dr. Troy Pickett Platelet mean volume (Bld) [Entitic vol] 9.2 fL Critically low 9.5-13.5 [facility] Comment on above: Performed By: #### C BC #### [facility] [address] [place] [address] Dr. Troy Pickett PLT 197 103/ul Normal 150-450 [facility] Comment on above: Performed By: #### C BC #### [facility] [address] [place] [address] Dr. Troy Pickett RBC 3.59 106/ul Critically low 4.20-5.40 [facility] Comment on above: Performed By: #### C BC #### [facility] [address] [address] [address] Troy Pickett WBC 7.9 103/ul Normal 4.0-11.0 [facility] Comment on above: Performed By: #### C BC #### [facility] [address] [address] [address] Troy Pickett LIPID PROFILEon 11-15-2021 CHOL-HDL RATIO NORM SEE BELOW Normal [facility] Comment on above: Result Comment: 3.3 - 4.4 LOW RISK 4.4 - 7.1 AVERAGE RISK 7.1 - 11.0 MODERATE RISK >11.0 HIGH RISK Performed By: #### C MP, LIPID #### [facility] [address] [place] [address] Dr. Troy Pickett Cholesterol [Mass/Vol] 173 mg/dL Normal <=200 [facility] Comment on above: Performed By: #### C MP, LIPID #### [facility] [address] [place] [address] Dr. Troy Pickett Cholesterol in HDL [Mass/Vol] 43 mg/dL Normal 40-60 [facility] Comment on above: Performed By: #### C MP, LIPID #### [facility] [address] [place] [address] Dr. Troy Pickett Cholesterol in LDL [Mass/Vol] 66.0 mg/dL Normal [facility] Comment on above: Performed By: #### C MP, LIPID #### [facility] [address] [place] [address] Dr. Troy Pickett Cholesterol.total/ Cholesterol in HDL [Mass ratio] 4.0 {ratio} Normal [facility] Comment on above: Performed By: #### C MP, LIPID #### [facility] [address] [place] [address] Dr. Troy Pickett HDL NORMAL > or = 60 mg/dl - LO W CARDIOVASCULAR RISK <40 mg/dl - HIGH CARDIOVASCULAR RISK Normal [facility] Comment on above: Performed By: #### C MP, LIPID #### [facility] [address] [place] [address] Dr. Troy Pickett LDL CALC NORMAL SEE BELOW Normal [facility] Comment on above: Result Comment: <100 mg/dl OPTIMAL 100 - 129 mg/dl NEAR OR ABOVE OPTIMAL 130 - 159 mg/dl BORDERLINE HIGH 160 - 189 mg/dl HIGH >190 mg/dl VERY HIGH Performed By: #### C MP, LIPID #### [facility] [address] [address] [address] Troy Pickett Triglyceride [Mass/Vol] 320 mg/dL Critically high <=150 [facility] Comment on above: Performed By: #### C MP, LIPID #### [facility] [address] [address] [address] Troy Pickett VLDL CALC 64.0 mg/dL Normal [facility] Comment on above: Performed By: #### C MP, LIPID #### [facility] [address] [place] [address] Dr. Troy Pickett PROF 14(COMP METB)on 022 Albumin [Mass/Vol] 3.3 g/dL Critically low 3.5-5.0 [facility] Comment on above: Performed By: #### C MP, LIPID #### [facility] [address] [address] [address] Troy Pickett Albumin/Globulin [Mass ratio] 0.9 {ratio} Normal [facility] Comment on above: Performed By: #### C MP, LIPID #### [facility] [address] [address] [address] Troy Pickett ALP [Catalytic activity/Vol] 103 U/L Normal 38-126 [facility] Comment on above: Performed By: #### C MP, LIPID #### [facility] [address] [address] [address] Troy Pickett ALT [Catalytic activity/Vol] 28 U/L Normal 9-52 [facility] Comment on above: Performed By: #### C MP, LIPID #### [facility] [address] [address] [address] Troy Pickett Anion gap [Moles/Vol] 12.1 mmol/L Normal [facility] Comment on above: Performed By: #### C MP, LIPID #### [facility] [address] [address] [address] Troy Pickett AST [Catalytic activity/Vol] 30 U/L Normal 14-36 [facility] Comment on above: Performed By: #### C MP, LIPID #### [facility] [address] [address] [address] Troy Pickett Bilirubin [Mass/Vol] 1.2 mg/dL Normal 0.2-1.3 [facility] Comment on above: Performed By: #### C MP, LIPID #### [facility] [address] [address] [address] Troy Pickett Calcium [Mass/Vol] 8.7 mg/dL Normal 8.4-10.2 [facility] Comment on above: Performed By: #### C MP, LIPID #### [facility] [address] [address] [address] Troy Pickett Chloride [Moles/Vol] 105 mmol/L Normal 98-107 [facility] Comment on above: Performed By: #### C MP, LIPID #### [facility] [address] [address] [address] Troy Pickett CO2 [Moles/Vol] 30.6 mmol/L Critically high 22.0-30.0 [facility] Comment on above: Performed By: #### C MP, LIPID #### [facility] [address] [address] [address] Troy Pickett Creatinine [Mass/Vol] 1.61 mg/dL Critically high 0.52-1.04 [facility] Comment on above: Performed By: #### C MP, LIPID #### [facility] [address] [address] [address] Troy Pickett EGFR-AF [place]OT[place] 37 mL/min/1.73m2 Critically low >=60 [facility] Comment on above: Performed By: #### C MP, LIPID #### [facility] [address] [address] [address] Troy Pickett EGFR-NON AF [place] 31 mL/min/1.73m2 Critically low >=60 [facility] Comment on above: Performed By: #### C MP, LIPID #### [facility] [address] [address] [address] Troy Pickett Globulin (S) [Mass/Vol] 3.7 g/dL Normal [facility] Comment on above: Performed By: #### C MP, LIPID #### [facility] [address] [address] [address] Troy Pickett Glucose [Mass/Vol] 115 mg/dL Critically high 74-106 [facility] Comment on above: Performed By: #### C MP, LIPID #### [facility] [address] [address] [address] Troy Pickett Potassium [Moles/Vol] 4.7 mmol/L Normal 3.4-5.0 [facility] Comment on above: Performed By: #### C MP, LIPID #### [facility] [address] [place] [address] Dr. Troy Pickett Protein [Mass/Vol] 7.0 g/dL Normal 6.1-8.2 [facility] Comment on above: Performed By: #### C MP, LIPID #### [facility] [address] [place] [address] Dr. Troy Pickett Sodium [Moles/Vol] 143 mmol/L Normal 137-145 [facility] Comment on above: Performed By: #### C MP, LIPID #### [facility] [address] [place] [address] Dr. Troy Pickett Urea nitrogen [Mass/Vol] 24.0 mg/dL Critically high 7.0-17.0 [facility] Comment on above: Performed By: #### C MP, LIPID #### [facility] [address] [place] [address] Dr. Troy Pickett Urea nitrogen/Creatinin e [Mass ratio] 14.9 mg/mg Normal [facility] Comment on above: Performed By: #### C MP, LIPID #### [facility] [address] [place] [address] Dr. Troy Pickett Progress note 10-08-2023 Note Date & Type Note Facility 02-07-2024 Note Cardiovascular Medic [facility] SUBJECTIVE Chief Complaint Patient presents with [...] nuclear stress gena (more content not included)... [facility] Progress note 10-08-2023 Note Date & Type [...] All other systems reviewed and are negative. [facility] Summary Purpose Family History No Family History Records FoundNo Family History Records FoundNo Family History Records FoundNo Family History Records Found Advance Directives No Advanced Directives Records FoundNo Advanced Directives Records FoundNo Advanced Directives Records FoundNo Advanced Directives Records Found Additional Source Comments INFORMATION SOURCE (unrecogn ized section and content) DATE CREATED AUTHOR 04/30/2018 [facility] DATE CREATED AUTHOR AUTHOR'S ORGANIZ ATION 09/26/2022 [facility] DATE CREATED AUTHOR AUTHOR'S ORGANIZ ATION 10/17/2023 [facility] DATE CREATED AUTHOR AUTHOR'S ORGANIZ ATION 11/14/2023 [facility] FOR RECORDS PERTAINING TO PATIENTS WHO ARE [...] BE BASED ON THE PRIMARY CLINICAL RECORDS. [facility]. provides no warranty or guarantee of the accuracy or completeness of information in this document.
[2024-03-02 09:30] LABS: Basophils Percent Auto 0.4 % (0.2-2.0); Eosinophils Absolute Auto 0.2 10^3/uL (0.0-0.7); Eosinophils Percent Auto 1.6 % (0.9-7.0); Hematocrit 32.3 % (36.0-48.0); Hemoglobin 10.4 g/dL (12.0-16.0); Immature Granulocytes Abs Auto 0.04 10^3/uL (0.00-0.03); Immature Granulocytes Pct Auto 0.4 % (0.0-0.5); Lymphocytes Absolute Auto 3.6 10^3/uL (1.2-3.8); Lymphocytes Percent Auto 32.4 % (20.5-60.0); Mean Corpuscular HGB Conc 32.2 g/dL (29.9-35.2); Mean Corpuscular Hemoglobin 32.2 pg (26.7-34.0); Monocytes Absolute Auto 0.6 10^3/uL (0.3-0.8); Monocytes Percent Auto 5.8 % (1.7-12.0); Neutrophils Absolute Auto 6.5 10^3/uL (1.4-6.5); Neutrophils Percent Auto 59.4 % (43.0-75.0); Platelet Count 245 10^3/uL (150-450); Red Blood Count 3.23 10^6/uL (4.20-5.40); Red Cell Distribution Width 13.4 % (11.0-15.0)
[2024-03-02 09:56] LABS: Anion Gap 11.7; Calcium 9.3 mg/dL (8.5-10.1); Carbon Dioxide 29.5 mmol/L (21.0-32.0); Chloride 104 mmol/L (98-107); Estimated GFR (African America 33 (>=60); Estimated GFR (Non-African Ame 27 (>=60); Glucose 139 mg/dL (74-106); Potassium 3.2 mmol/L (3.5-5.1); Sodium 142 mmol/L (136-145)
== END 2024-03-02 09:04 | disposition home or self-care (01) ==
LOC: LAB 09:04
PROVIDERS: PCP Internal Medicine; Visit Provider Physician Assistant
DX: N18.4 Chronic kidney disease, stage 4 (severe) (principal)
CPT/HCPCS: 36415; 80048; 85025

== ENCOUNTER 2024-03-03 14:49 | Outpatient (OUT) | payer MEDICARE, SELFPAY ==
[2024-03-03 15:24] LABS: Reticulocyte Pct Auto 2.68 % (0.60-3.10)
== END 2024-03-03 14:50 | disposition home or self-care (01) ==
LOC: LAB 14:50
PROVIDERS: PCP Internal Medicine; Visit Provider Physician Assistant
DX: D64.9 Anemia, unspecified (principal); N18.4 Chronic kidney disease, stage 4 (severe)
CPT/HCPCS: 36415; 82607; 82746; 85045

== ENCOUNTER 2024-07-02 08:38 | Outpatient (OUT) | payer MEDICARE, SELFPAY ==
--- OUTSIDE RECORDS SUMMARY | 2024-07-02 08:44 | XMS_ITS | CCD ---
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 Name Role Phone PHYSICIAN, DEFAULT Unavailable Unavailable PHYSICIAN, DEFAULT Unavailable Unavailable KEVIN ADAMS Unavailable Unavailable PHYSICIAN, DEFAULT Unavailable Unavailable PHYSICIAN, DEFAULT Unavailable Unavailable KEVIN ADAMS Unavailable Unavailable DOMINIQUE, DR LAYTON Primary Care Unavailable DOMINIQUE, DR LAYTON Admitting Unavailable DOMINIQUE, DR LAYTON Attending Unavailable DOMINIQUE, DR LAYTON Consulting Unavailable AISSATOU, DR SUSANA Alvarez Consulting Unavailable DOMINIQUE, DR LAYTON Primary Care Unavailable DEBBIE CHEN Attending Unavailable DEBBIE CHEN Consulting Unavailable GEORGE CHENA Admitting Unavailable DEBBIE CHEN Attending Unavailable DEBBIE CHEN Consulting Unavailable DOMINIQUE, DR LAYTON Primary Care Unavailable DEBBIE CHEN Admitting Unavailable DEBBIE CHEN Admitting Unavailable DEBBIE CHEN Attending Unavailable DOMINIQUE, DR LAYTON Primary Care Unavailable DEBBIE CHEN Consulting Unavailable DOMINIQUE, DR LAYTON Primary Care Unavailable GEORGE CHENA Attending Unavailable GEORGE CHENA Admitting Unavailable DOMINIQUE, DR LAYTON Primary Care Unavailable DEBBIE CHEN Attending Unavailable DEBBIE CHEN Admitting Unavailable DEBBIE CHEN Attending Unavailable SEB Adams Primary Care Provider JENNIFER Benavidez Attending Provider BRAEDEN Bo Referring Provider Vivian Benavidez Admitting Unavail able Vivian Benavidez Attending Unavail able Leatha Bo Referring Unavailable Kevin Adams Primary Care Unavailable Kevin Adams MD Unavailable Kevin Adams MD Primary Care Provider LEATHA BO Attending Unavailable KEVIN ADAMS Attending Unavailable KEVIN ADAMS Attending Unavailable Medications Current Medications Medication Drug Class(es) Dates Sig (Normalized) Sig (Original) albuterol 0.83 mg/ml inhalation solution (4 sources) beta2-Adrenergic Agonist Start: 2024 take 2.5 mg by inhalation three times daily Albuterol Sulfate Active 2.5 MG INHALATION Three times daily 2024 12:00am ascorbic acid 250 mg oral tablet (4 sources) Vitamin C Start: 2024 take 250 mg by mouth once daily Ascorbic Acid (Vitamin C) Active 250 MG PO Daily 2024 12:00am aspirin 81 mg delayed release oral tablet (4 sources) Platelet Aggregation Inhibitor, Nonsteroidal Anti-inflammatory Drug Start: 2024 take 81 mg by mouth once daily Aspirin Active 81 MG PO Daily 2024 12:00am aspirin 81 MG ch ewable tablet Chew 1 tablet 1 (one) time each day. Active atorvastatin 80 mg oral tablet (4 sources) HMG-CoA Reductase Inhibitor Start: 06-23-2024 End: 06-23-2025 take 1 tablet by mouth once daily atorvastatin (Lipitor) 80 MG tablet Indications: Mixed hyperlipidemia (CMS/HCC) Take 1 tablet (80 mg) by mouth 1 (one) time each day at the same time 90 tablet 3 06/23/2024 06/23/2025 Active Start: 2024 take 80 mg by mouth once daily Atorvastatin Active 80 MG PO Daily 2024 12:00am calcium carbonate 1500 mg oral tablet (4 sources) Start: 2024 take 600 mg by mouth once daily Calcium Carbonate Active 600 MG PO Daily 2024 12:00am citalopram 40 mg oral tablet (4 sources) Serotonin Reuptake Inhibitor Start: 04-01-2024 End: 04-01-2025 take 40 mg by mouth once daily Citalopram Active 40 MG PO Daily 2024 12:00am donepezil hydrochloride 5 mg oral tablet (2 sources) Start: 06-25-2024 End: 06-25-2025 take 1 tablet by mouth at bedtime donepezil (Aricept) 5 MG tablet Indications: Mild cognitive impairment Take 1 tablet (5 mg) by mouth at bedtime 30 tablet 1 06/25/2024 06/25/2025 Active furosemide 20 mg oral tablet (4 sources) Loop Diuretic Start: 2024 take 20 mg by mouth once daily Furosemide Active 20 MG PO Daily 2024 12:00am take 1 tablet by mouth every oth er day furosemide (Lasix) 20 MG tablet Take 1 tablet by mouth every other day. Active metoprolol tartrate 25 mg oral tablet (4 sources) beta-Adrenergic Uzair Start: 04-01-2024 take 25 mg by mouth twice daily Metoprolol Tartrate Active 25 MG PO Twice daily 2024 12:00am MULTIPLE VITAMINS PO (3 sources) take 1 tablet by mouth once daily MULTIPLE VITAMINS PO Take 1 tablet by mouth 1 (one) time each day. Active Multivitamin (Multiple Vitamins) tablet (1 source) Start: 2024 take 1 tablet by mouth once daily Multivitamin (Multiple Vitamins) tablet Active 1 TAB PO Daily 2024 12:00am Nutritional Supplements (Boost Compact) liquid (3 sources) Nutritional Supplements (Boost Compact) liquid Take by mouth. Active 24 hr oxybutynin chloride 10 mg extended release oral tablet (4 sources) Cholinergic Muscarinic Antagonist Start: 04-01-2024 End: 04-01-2025 take 10 mg by mouth once daily Oxybutynin Chloride Active 10 MG PO Daily 2024 12:00am pantoprazole 40 mg delayed release oral tablet (4 sources) Proton Pump Inhibitor Start: 04-01-2024 End: 04-01-2025 take 40 mg by mouth once daily Pantoprazole Active 40 MG PO Daily 2024 12:00am microencapsulated potassium chloride 10 meq extended release oral tablet (4 sources) Start: 06-23-2024 End: 06-23-2025 take 1 tablet by mouth once daily potassium chloride CR (Klor-Con M10) 10 MEQ ER tablet Indications: Hypokalemia Take 1 tablet (10 mEq) by mouth Daily Do not crush or chew. 90 tablet 3 06/23/2024 06/23/2025 Active Start: 2024 Potassium Chlo ride (Klor-Con M10) 10 mEq tablet,ER particles/crystals Active 10 MEQ PO Daily 2024 12:00am zinc gluconate 50 mg oral tablet (4 sources) Start: 2024 take 50 mg by mouth once daily Zinc Gluconate Active 50 MG PO Daily 2024 12:00am Completed/Discontinued Medications Medication Drug Class(es) Dates Sig (Normalized) Sig (Original) meloxicam 15 mg oral tablet (4 sources) Nonsteroidal Anti-inflammatory Drug Start: 2024 End: 2024 take 15 mg by mouth once daily Meloxicam Discontinued 15 MG PO Daily 2024 12:00am 2024 10:59am Start: 01-27-2024 take 0.5 tablet by m outh once daily as needed for pain meloxicam (Mobic) 15 MG tablet Indications: Localized, secondary osteoarthritis of the shoulder region, unspecified laterality Take 0.5 tablets (7.5 mg) by mouth Daily as needed for moderate pain 01/27/2024 Active Problems Active Problems Problem Classification Problem Date Documented Date Episodic/Chronic Anxiety disorders (3 sources) Generalized anxiety disorder; Translations: [Generalized anxiety disorder] Onset: 03-16-2023 03-16-2023 Chronic Chronic kidney disease (3 sources) Chronic kidney disease stage 4; Translations: [Chronic kidney disease, stage 4 (severe)] Onset: 03-03-2024 03-03-2024 Chronic Chronic obstructive pulmonary disease and bronchiectasis (3 sources) Chronic obstructive lung disease; Translations: [Chronic obstructive pulmonary disease, unspecified] Onset: 03-16-2023 03-16-2023 Chronic Congestive heart failure; nonhypertensive (3 sources) Chronic diastolic heart failure; Translations: [Chronic diastolic (congestive) heart failure] Onset: 03-16-2023 03-16-2023 Chronic Coronary atherosclerosis and other heart disease (9 sources) Atherosclerotic heart disease of [place] coronary artery without angina pectoris; Translations: [Coronary atherosclerosis] Onset: 02-27-2022 Chronic Deficiency and other anemia (1 source) Iron deficiency anemia, unspecified; Translations: [Iron deficiency anemia, unspecified] Onset: 06-18-2024 Episodic Diabetes mellitus without complication (6 sources) Type 2 diabetes mellitus without complication; Translations: [Type 2 diabetes mellitus without complications] Onset: 04-01-2012 Resolved: 11-12-2023 03-16-2023 Chronic Diseases of white blood cells (3 sources) Eosinophil count raised; Translations: [Eosinophilia] Onset: 03-16-2023 03-16-2023 Chronic Disorders of lipid metabolism (5 sources) Mixed hyperlipidemia; Translations: [Mixed hyperlipidemia] Onset: 10-02-2022 Chronic Esophageal disorders (5 sources) Gastro-esophageal reflux disease without esophagitis; Translations: [Gastroesophageal reflux disease] Onset: 03-16-2023 Chronic Heart valve disorders (7 sources) Nonrheumatic aortic (valve) stenosis; Translations: [Aortic valve disorders] Onset: 09-24-2022 Chronic Menopausal disorders (7 sources) Other primary ovarian failure; Translations: [Primary ovarian failure] Onset: 04-15-2022 Chronic Mood disorders (3 sources) Depressive disorder; Translations: [Depressive disorder] Onset: 03-16-2023 03-16-2023 Chronic Osteoarthritis (3 sources) Localized, secondary osteoarthritis of the shoulder region; Translations: [Secondary osteoarthritis, unspecified shoulder] Onset: 06-07-2020 05-14-2023 Chronic Other diseases of bladder and urethra (3 sources) Overactive bladder; Translations: [Overactive bladder] Onset: 03-16-2023 03-16-2023 Chronic Other ear and sense organ disorders (3 sources) Mixed conductive AND sensorineural hearing loss; Translations: [Mixed conductive and sensorineural hearing loss, unilateral, right ear with restricted hearing on the contralateral side] Onset: 03-16-2023 03-16-2023 Chronic Other hereditary and degenerative nervous system conditions (4 sources) Impaired cognition; Translations: [Mild cognitive impairment, so stated] Onset: 06-25-2024 06-25-2024 Chronic Other nervous system disorders (3 sources) Chronic pain; Translations: [Other chronic pain] Onset: 03-16-2023 03-16-2023 Chronic Other screening for suspected conditions (not mental disorders or infectious disease) (3 sources) Radiology result abnormal; Translations: [Abnormal findings on diagnostic imaging of other specified body structures] Onset: 03-16-2023 03-16-2023 Chronic Other upper respiratory disease (3 sources) Allergic rhinitis; Translations: [Allergic rhinitis, unspecified] Onset: 03-16-2023 03-16-2023 Chronic Other upper respiratory infections (3 sources) Chronic ethmoidal sinusitis; Translations: [Chronic ethmoidal sinusitis] Onset: 03-16-2023 03-16-2023 Chronic Past or Other Problems Problem Classification Problem Date Documented Da te Episodic/Chronic Deficiency and other anemia (3 sources) Anemia; Translations: [Anemia, unspecified] Onset: 03-03-2024 03-03-2024 Episodic Fluid and electrolyte disorders (3 sources) Hypokalemia; Translations: [Hypokalemia] Onset: 03-03-2024 03-03-2024 Episodic Mood disorders (3 sources) Mood disorders Onset: 11-12-2023 11-12-2023 Nonspecific chest pain (3 sources) Chest pain; Translations: [Chest pain, unspecified] Onset: 2012 05-14-2023 Episodic Other bone disease and musculoskeletal deformities (1 source) Other specified disorders of bone density and structure, other site; Translations: [OTH D/O BONE DEN STRUCT OTH SITE] Onset: 04-16-2022 Episodic Other bone disease and musculoskeletal deformities (3 sources) Disorder of bone and articular cartilage; Translations: [Disorder of bone, unspecified] Onset: 04-01-2012 05-14-2023 Episodic Other circulatory disease (3 sources) Orthostatic hypotension; Translations: [Orthostatic hypotension] Onset: 03-16-2023 03-16-2023 Episodic Other ear and sense organ disorders (3 sources) Hearing loss; Translations: [Unspecified hearing loss, unspecified ear] Onset: 03-16-2023 Resolved: 05-14-2023 05-14-2023 Chronic Other lower respiratory disease (3 sources) Disorder of lung; Translations: [Other disorders of lung] Onset: 03-16-2023 03-16-2023 Episodic Other lower respiratory disease (3 sources) Dyspnea; Translations: [Dyspnea, unspecified] Onset: 2012 05-14-2023 Episodic Other upper respiratory disease (3 sources) Hoarse; Translations: [Dysphonia] Onset: 03-16-2023 03-16-2023 Episodic Residual codes; unclassified (3 sources) Localized edema; Translations: [Localized edema] Onset: 03-16-2023 03-16-2023 Episodic Results Test Name Value Interpretation Reference Range Facility RPR (MONITOR) W/REFL TITERon 06-28-2024 RPR (MONITOR) W/REFL TITER Non-Reactive Normal NON-REACTIVE [facility] Comment on above: Performed By: #### 3 6127, 927, 799 #### [facility] [address], [address] [place] [address] Mfts: Landen Rogers MD TSH W/REFLEX TO FT4on 2023 TSH W/REFLEX TO FT4 2.44 mIU/L Normal 0.40-4.50 [facility] Comment on above: Performed By: #### 3 6127, 927, 799 #### [facility] [address], [address] [place] [address] Mfts: Landen Rogers MD VITAMIN B12on 06-28-2024 Cobalamin (Vitamin B12) [Mass/Vol] 955 pg/mL Normal 200-1100 [facility] Comment on above: Performed By: #### 3 6127, 927, 799 #### [facility] [place] [address] Mfts: Landen Rogers MD Complete Blood Count Auto Di ffon 2024 Basophils (Bld) [#/Vol] 0.1 10*3/uL Normal 0.0-0.2 [facility] Comment on above: Result Comment: PERF ORMED BY: [place] [address] PATHOLOGIST RUG WEAVER MARGRET CALLES M.D. Performed By: #### C BC, THEODORE, FE and TIBC #### [address] #### METH, EPO #### [facility] , Basophils/100 WBC (Bld) 0.8 % Normal . [facility] Comment on above: Performed By: #### C BC, THEODORE, FE and TIBC #### [address] #### METH, EPO #### [facility] , Eosinophils (Bld) [#/Vol] 0.3 10*3/uL Normal 0.0-0.45 [facility] Comment on above: Performed By: #### C BC, THEODORE, FE and TIBC #### [place] [address] [place] #### METH, EPO #### [facility] , Eosinophils/100 WBC (Bld) 3.1 % Normal . [facility] Comment on above: Performed By: #### C BC, THEODORE, FE and TIBC #### [place] [address] [place] #### METH, EPO #### [facility] , Erythrocyte distribution width (RBC) [Ratio] 14.2 % Normal 11.9-15.3 [facility] Comment on above: Performed By: #### C BC, THEODORE, FE and TIBC #### [address] #### METH, EPO #### [facility] , Hematocrit (Bld) [Volume fraction] 35.2 % Normal 34.0-46.4 [facility] Comment on above: Performed By: #### C BC, THEODORE, FE and TIBC #### [address] #### METH, EPO #### [facility] , Hemoglobin (Bld) [Mass/Vol] 11.8 g/dL Normal 11.8-15.4 [facility] Comment on above: Performed By: #### C BC, THEODORE, FE and TIBC #### [place] [address] [place] #### METH, EPO #### [facility] , Lymphocytes (Bld) [#/Vol] 2.5 10*3/uL Normal 1.00-4.8 [facility] Comment on above: Performed By: #### C BC, THEODORE, FE and TIBC #### [place] [address] [place] #### METH, EPO #### [facility] , Lymphocytes/100 WBC (Bld) 26.8 % Normal . [facility] Comment on above: Performed By: #### C BC, THEODORE, FE and TIBC #### [place] [address] [place] #### METH, EPO #### [facility] , MCH (RBC) [Entitic mass] 32.6 pg Normal 24.7-34.3 [facility] Comment on above: Performed By: #### C BC, THEODORE, FE and TIBC #### [place] [address] [place] #### METH, EPO #### [facility] , MCV (RBC) [Entitic vol] 97.4 fL Normal 80-100 [facility] Comment on above: Performed By: #### C BC, THEODORE, FE and TIBC #### [address] #### METH, EPO #### [facility] , Mean Corpuscular HGB Conc 33.4 g/dL Normal 32.0-35.0 [facility] Comment on above: Performed By: #### C BC, THEODORE, FE and TIBC #### [address] #### METH, EPO #### [facility] , Monocytes (Bld) [#/Vol] 0.9 10*3/uL High 0.0-0.8 [facility] Comment on above: Performed By: #### C BC, THEODORE, FE and TIBC #### [place] [address] [place] #### METH, EPO #### [facility] , Monocytes/100 WBC (Bld) 9.6 % Normal . [facility] Comment on above: Performed By: #### C BC, THEODORE, FE and TIBC #### [place] [address] [place] #### METH, EPO #### [facility] , Neutrophils (Bld) [#/Vol] 5.5 10*3/uL Normal 1.8-7.7 [facility] Comment on above: Performed By: #### C BC, THEODORE, FE and TIBC #### [address] #### METH, EPO #### [facility] , Neutrophils/100 WBC (Bld) 59.7 % Normal . [facility] Comment on above: Performed By: #### C BC, THEODORE, FE and TIBC #### [address] #### METH, EPO #### [facility] , NRBC% 0.1 /100{WBC} Normal 0-0.5 [facility] Comment on above: Performed By: #### C BC, THEODORE, FE and TIBC #### [place] [address] [place] #### METH, EPO #### [facility] , Platelet mean volume (Bld) [Entitic vol] 8.4 fL Normal 6.3-10.7 [facility] Comment on above: Performed By: #### C BC, THEODORE, FE and TIBC #### [address] #### METH, EPO #### [facility] , Platelets (Bld) [#/Vol] 243 10*3/uL Normal 150-450 [facility] Comment on above: Performed By: #### C BC, THEODORE, FE and TIBC #### [place] [address] [place] #### METH, EPO #### [facility] , RBC (Bld) [#/Vol] 3.61 10*6/uL Normal 3.60-5.00 [facility] Comment on above: Performed By: #### C BC, THEODORE, FE and TIBC #### [address] #### METH, EPO #### [facility] , WBC (Bld) [#/Vol] 9.3 10*3/uL Normal 3.8-11.6 [facility] Comment on above: Performed By: #### C BC, THEODORE, FE and TIBC #### [address] #### METH, EPO #### [facility] , Erythropoetin (EPO), Serumon 2024 Erythropoetin (EPO), Serum 14.9 m[iU]/mL Normal 2.6-18.5 [facility] Comment on above: Result Comment: [employer] UniCel DxI 800 Immunoassay System Values obtained with different assay methods or kits cannot be used interchangeably. Results cannot be interpreted as absolute evidence of the presence or absence of malignant disease. Performed at: [address] [id number] Sales Program Coordinator: Srinath Patel PhD, Phone: [phone] PERFORMED BY: [place] [address] PATHOLOGIST RUG WEAVER MARGRET CALLES M.D. Performed By: #### C BC, THEODORE, FE and TIBC #### [address] #### METH, EPO #### [facility] , Ferritinon 2024 Ferritin [Mass/Vol] 27.2 ng/mL Normal 11.0-306.8 [facility] Comment on above: Result Comment: PERF ORMED BY: [place] [address] PATHOLOGIST RUG WEAVER MARGRET CALLES M.D. Performed By: #### C BC, THEODORE, FE and TIBC #### [place] [address] [place] #### METH, EPO #### [facility] , Iron and TIBC Profileon % Iron Saturation 22.7 % Normal 20-50 [facility] Comment on above: Performed By: #### C BC, THEODORE, FE and TIBC #### [place] [address] [place] #### METH, EPO #### [facility] , Iron [Mass/Vol] 83 ug/dL Normal 50-212 [facility] Comment on above: Performed By: #### C BC, THEODORE, FE and TIBC #### [place] [address] [place] #### METH, EPO #### [facility] , Total Iron Binding Capacity 365 ug/dL Normal 255-450 [facility] Comment on above: Performed By: #### C BC, THEODORE, FE and TIBC #### [place] [address] [place] #### METH, EPO #### [facility] , Transferrin [Mass/Vol] 261 mg/dL Normal 203-362 [facility] Comment on above: Performed By: #### C BC, THEODORE, FE and TIBC #### [place] [address] [place] #### METH, EPO #### [facility] , Methylmalonic Acidon 024 Methylmalonic Acid 402 High 0-378 [facility] Comment on above: Result Comment: This test was developed and its performance characteristics determined by [facility]. It has not been cleared or approved by the Food and Drug Administration. Performed at: [address] [id number] Sales Program Coordinator: Grisel Koehler MD, Phone: [phone] Performed By: #### C BC, THEODORE, FE and TIBC #### [place] [address] [place] #### METH, EPO #### [facility] , Office Visiton 10-08-2023 Follow-up visit [id number] Natalie Lovelace 1940 F Date Provider Department Center 10/08/2023 StefanoKikaDEBBIE CHEN CARD [facility] No family history on file Level of Service:28532 [place] OFFICE/OUTPATIENT ESTABLISHED LOW MDM 20 MIN Reason for Visit and Comments: Coronary Artery Disease [187] Valve Disorder [3372] Hypertension [114628] Hyperlipidemia [182] Normal [facility] ECHOCARDIO M/2D COMPLETEon 0 09-24-2022 ECHOCARDIO M/2D COMPLETE Patient: NATALIE LOVELACE Exam Date: 09/24/2022 : 1940 Gender:F Ordering : DEBBIE CHEN [facility] Admission #: [id number] Family : Order #: [id number] CLICK HERE TO VIEW EXAM ECHOCARDIOGRAM REPORT [...] Pérez M.D. on 09/25/2022 at 18:30 Normal [facility] XR DEXA BONE DENSITYon 04-15 XR DEXA [...] by: SUSANA REYEZ Date: 2022-04-15 15:15 Normal [facility] PROF CHEM 8 (BAS METB)on Anion gap [Moles/Vol] 11.9 mmol/L Normal [facility] Comment on above: Performed By: #### B MP #### [facility] [address] [address] [address] Troy Pickett Calcium [Mass/Vol] 8.6 mg/dL Normal 8.5-10.[address] [facility] Comment on above: Performed By: #### B MP #### [facility] [address] [place] [address] [address] Troy Pickett Chloride [Moles/Vol] 109 mmol/L Critically high 98-107 [facility] Comment on above: Performed By: #### B MP #### [facility] [address] [place] [address] [address] Troy Pickett CO2 [Moles/Vol] 29.5 mmol/L Normal 21.0-32.0 [facility] Comment on above: Performed By: #### B MP #### [facility] [address] [place] [address] [address] Troy Pickett Creatinine [Mass/Vol] 1.34 mg/dL Critically high 0.55-1.02 [facility] Comment on above: Performed By: #### B MP #### [facility] [address] [place] [address] [address] Troy Pickett EGFR-AF SYRIAN 46 mL/min/1.73m2 Critically low >=60 [facility] Comment on above: Performed By: #### B MP #### [facility] [address] [place] [address] [address] Troy Pickett EGFR-NON AF SYRIAN 38 mL/min/1.73m2 Critically low >=60 [facility] Comment on above: Performed By: #### B MP #### [facility] [address] [address] [address] Troy Pickett Glucose [Mass/Vol] 130 mg/dL Critically high 74-106 [facility] Comment on above: Performed By: #### B MP #### [facility] [address] [address] [address] Troy Pickett Potassium [Moles/Vol] 4.4 mmol/L Normal 3.5-5.1 [facility] Comment on above: Performed By: #### B MP #### [facility] [address] [address] [address] Troy Pickett Sodium [Moles/Vol] 146 mmol/L Critically high 136-145 [facility] Comment on above: Performed By: #### B MP #### [facility] [address] [address] [address] Troy Pickett Urea nitrogen [Mass/Vol] 21.0 mg/dL Critically high 7.0-18.0 [facility] Comment on above: Performed By: #### B MP #### [facility] [address] [address] [address] Troy Pickett Urea nitrogen/Creatinin e [Mass ratio] 15.7 mg/mg Normal [facility] Comment on above: Performed By: #### B MP #### [facility] [address] [place] [address] Dr. Troy Pickett CBC AUTO DIFFon 11-15-2021 BASO # 0.1 103/ul Normal 0.0-0.1 [facility] Comment on above: Performed By: #### C BC #### [facility] [address] [place] [address] Dr. Troy Pickett Basophils/100 WBC (Bld) 0.8 % Normal 0.2-2.0 [facility] Comment on above: Performed By: #### C BC #### [facility] [address] [place] [address] Dr. Troy Pickett EO # 0.5 103/ul Normal 0.0-0.7 [facility] Comment on above: Performed By: #### C BC #### [facility] [address] [place] [address] Dr. Troy Pickett Eosinophils/100 WBC (Bld) 6.1 % Normal 0.9-7.0 [facility] Comment on above: Performed By: #### C BC #### [facility] [address] [place] [address] Dr. Troy Pickett Erythrocyte distribution width (RBC) [Ratio] 13.4 % Normal 11.0-15.0 [facility] Comment on above: Performed By: #### C BC #### [facility] [address] [place] [address] Dr. Troy Pickett Hematocrit (Bld) [Volume fraction] 35.7 % Critically low 36.0-48.0 [facility] Comment on above: Performed By: #### C BC #### [facility] [address] [place] [address] Dr. Troy Pickett Hemoglobin (Bld) [Mass/Vol] 11.3 g/dL Critically low 12.0-16.0 [facility] Comment on above: Performed By: #### C BC #### [facility] [address] [place] [address] Dr. Troy Pickett IG # 0.02 10e3/ul Normal 0.00-0.03 [facility] Comment on above: Performed By: #### C BC #### [facility] [address] [place] [address] Dr. Troy Pickett IG % 0.3 % Normal 0.0-0.5 [facility] Comment on above: Performed By: #### C BC #### [facility] [address] [place] [address] Dr. Troy Pickett LYMPH # 2.4 103/ul Normal 1.2-3.8 [facility] Comment on above: Performed By: #### C BC #### [facility] [address] [place] [address] Dr. Troy Pickett Lymphocytes/100 WBC (Bld) 30.9 % Normal 20.5-60.0 [facility] Comment on above: Performed By: #### C BC #### [facility] [address] [place] [address] Dr. Troy Pickett MANUAL DIFF REQ NO Normal [facility] Comment on above: Performed By: #### C BC #### [facility] [address] [place] [address] Dr. Troy Pickett MCH (RBC) [Entitic mass] 31.5 pg Normal 26.7-34.0 [facility] Comment on above: Performed By: #### C BC #### [facility] [address] [place] [address] Dr. Troy Pickett MCHC (RBC) [Mass/Vol] 31.7 g/dL Normal 29.9-35.2 [facility] Comment on above: Performed By: #### C BC #### [facility] [address] [place] [address] Dr. Troy Pickett MCV (RBC) [Entitic vol] 99.4 fL Critically high 81.0-99.0 [facility] Comment on above: Performed By: #### C BC #### [facility] [address] [place] [address] Dr. Troy Pickett MONO # 0.6 103/ul Normal 0.3-0.8 [facility] Comment on above: Performed By: #### C BC #### [facility] [address] [address] [address] Troy Pickett Monocytes/100 WBC (Bld) 7.4 % Normal 1.7-12.0 [facility] Comment on above: Performed By: #### C BC #### [facility] [address] [address] [address] Troy Pickett NEUT # 4.3 103/ul Normal 1.4-6.5 [facility] Comment on above: Performed By: #### C BC #### [facility] [address] [address] [address] Troy Pickett Neutrophils/100 WBC (Bld) 54.5 % Normal 43.0-75.0 [facility] Comment on above: Performed By: #### C BC #### [facility] [address] [address] [address] Troy Pickett Platelet mean volume (Bld) [Entitic vol] 9.2 fL Critically low 9.5-13.5 [facility] Comment on above: Performed By: #### C BC #### [facility] [address] [address] [address] Troy Pickett PLT 197 103/ul Normal 150-450 [facility] Comment on above: Performed By: #### C BC #### [facility] [address] [address] [address] Troy Pickett RBC 3.59 106/ul Critically low 4.20-5.40 [facility] Comment on above: Performed By: #### C BC #### [facility] [address] [address] [address] Troy Pickett WBC 7.9 103/ul Normal 4.0-11.0 [facility] Comment on above: Performed By: #### C BC #### [facility] [address] [address] [address] Troy Pickett LIPID PROFILEon 11-15-2021 CHOL-HDL RATIO NORM SEE BELOW Normal [facility] Comment on above: Result Comment: 3.3 - 4.4 LOW RISK 4.4 - 7.1 AVERAGE RISK 7.1 - 11.0 MODERATE RISK >11.0 HIGH RISK Performed By: #### C MP, LIPID #### [facility] [address] [address] [address] Troy Pickett Cholesterol [Mass/Vol] 173 mg/dL Normal <=200 [facility] Comment on above: Performed By: #### C MP, LIPID #### [facility] [address] [address] [address] Troy Pickett Cholesterol in HDL [Mass/Vol] 43 mg/dL Normal 40-60 [facility] Comment on above: Performed By: #### C MP, LIPID #### [facility] [address] [place] [address] Dr. Troy Pickett Cholesterol in LDL [Mass/Vol] 66.0 mg/dL Normal [facility] Comment on above: Performed By: #### C MP, LIPID #### [facility] [address] [place] [address] Dr. Troy Pickett Cholesterol.total/ Cholesterol in HDL [Mass ratio] 4.0 {ratio} Normal [facility] Comment on above: Performed By: #### C MP, LIPID #### [facility] [address] [place] [address] Dr. Troy Pickett HDL NORMAL > or = 60 mg/dl - LO W CARDIOVASCULAR RISK <40 mg/dl - HIGH CARDIOVASCULAR RISK Normal [facility] Comment on above: Performed By: #### C MP, LIPID #### [facility] [address] [place] [address] Dr. Troy Pickett LDL CALC NORMAL SEE BELOW Normal [facility] Comment on above: Result Comment: <100 mg/dl OPTIMAL 100 - 129 mg/dl NEAR OR ABOVE OPTIMAL 130 - 159 mg/dl BORDERLINE HIGH 160 - 189 mg/dl HIGH >190 mg/dl VERY HIGH Performed By: #### C MP, LIPID #### [facility] [address] [place] [address] Dr. Troy Pickett Triglyceride [Mass/Vol] 320 mg/dL Critically high <=150 [facility] Comment on above: Performed By: #### C MP, LIPID #### [facility] [address] [place] [address] Dr. Troy Pickett VLDL CALC 64.0 mg/dL Normal [facility] Comment on above: Performed By: #### C MP, LIPID #### [facility] [address] [place] [address] Dr. Troy Pickett PROF 14(COMP METB)on 022 Albumin [Mass/Vol] 3.3 g/dL Critically low 3.5-5.0 [facility] Comment on above: Performed By: #### C MP, LIPID #### [facility] [address] [place] [address] Dr. Troy Pickett Albumin/Globulin [Mass ratio] 0.9 {ratio} Normal [facility] Comment on above: Performed By: #### C MP, LIPID #### [facility] [address] [place] [address] Dr. Troy Pickett ALP [Catalytic activity/Vol] 103 U/L Normal 38-126 [facility] Comment on above: Performed By: #### C MP, LIPID #### [facility] [address] [place] [address] Dr. Troy Pickett ALT [Catalytic activity/Vol] 28 U/L Normal 9-52 [facility] Comment on above: Performed By: #### C MP, LIPID #### [facility] [address] [place] [address] Dr. Troy Pickett Anion gap [Moles/Vol] 12.1 mmol/L Normal [facility] Comment on above: Performed By: #### C MP, LIPID #### [facility] [address] [place] [address] Dr. Troy Pickett AST [Catalytic activity/Vol] 30 U/L Normal 14-36 [facility] Comment on above: Performed By: #### C MP, LIPID #### [facility] [address] [place] [address] Dr. Troy Pickett Bilirubin [Mass/Vol] 1.2 mg/dL Normal 0.2-1.3 [facility] Comment on above: Performed By: #### C MP, LIPID #### [facility] [address] [address] [address] Troy Pickett Calcium [Mass/Vol] 8.7 mg/dL Normal 8.4-10.[address] [facility] Comment on above: Performed By: #### C MP, LIPID #### [facility] [address] [address] [address] Troy Pickett Chloride [Moles/Vol] 105 mmol/L Normal 98-107 [facility] Comment on above: Performed By: #### C MP, LIPID #### [facility] [address] [address] [address] Troy Pickett CO2 [Moles/Vol] 30.6 mmol/L Critically high 22.0-30.0 [facility] Comment on above: Performed By: #### C MP, LIPID #### [facility] [address] [place] [address] Dr. Troy Pickett Creatinine [Mass/Vol] 1.61 mg/dL Critically high 0.52-1.04 [facility] Comment on above: Performed By: #### C MP, LIPID #### [facility] [address] [address] [address] Troy Pickett EGFR-AF SYRIAN 37 mL/min/1.73m2 Critically low >=60 [facility] Comment on above: Performed By: #### C MP, LIPID #### [facility] [address] [place] [address] Dr. Troy Pickett EGFR-NON AF SYRIAN 31 mL/min/1.73m2 Critically low >=60 [facility] Comment on above: Performed By: #### C MP, LIPID #### [facility] [address] [address] [address] Troy Pickett Globulin (S) [Mass/Vol] 3.7 g/dL Normal [facility] Comment on above: Performed By: #### C MP, LIPID #### [facility] [address] [address] [address] Troy Pickett Glucose [Mass/Vol] 115 mg/dL Critically high 74-106 T [facility] Comment on above: Performed By: #### C MP, LIPID #### [facility] [address] [address] [address] Troy Pickett Potassium [Moles/Vol] 4.7 mmol/L Normal 3.4-5.0 [facility] Comment on above: Performed By: #### C MP, LIPID #### [facility] [address] [address] [address] Troy Pickett Protein [Mass/Vol] 7.0 g/dL Normal 6.1-8.[address] [facility] Comment on above: Performed By: #### C MP, LIPID #### [facility] [address] [address] [address] Troy Pickett Sodium [Moles/Vol] 143 mmol/L Normal 137-[address] [facility] Comment on above: Performed By: #### C MP, LIPID #### [facility] [address] [address] [address] Troy Pickett Urea nitrogen [Mass/Vol] 24.0 mg/dL Critically high 7.0-17.0 [facility] Comment on above: Performed By: #### C MP, LIPID #### [facility] [address] [address] [address] Troy Pickett Urea nitrogen/Creatinin e [Mass ratio] 14.9 mg/mg Normal [facility] Comment on above: Performed By: #### C MP, LIPID #### [facility] [address] [address] [address] Troy Pickett Vital Signs Date Time Vital Sign Value Performing Clinician Facility 06-25-2024 11: Body height 154.9 cm Kevin Adams MD Work Phone: [facility] 06-25-2024 11: Body mass index (BMI) [Ratio] 30.04 kg/m2 Kevin Adams MD Work Phone: [facility] 06-25-2024 11: Body weight 72.12 kg Kevin Adams MD Work Phone: [facility] 06-25-2024 11:040 Diastolic blood pressure 74 mm[Hg] Kevin Adams MD Work Phone: [facility] 06-25-2024 11:23-0400 Heart rate 94 /min Kevin Adams MD Work Phone: [facility] 06-25-2024 11:23-0400 SaO2% (BldA) [Mass fraction] 97 % Kevin Adams MD Work Phone: [facility] 06-25-2024 11:23-0400 Systolic blood pressure 130 mm[Hg] Kevin Adams MD Work Phone: [facility] 2024 10:56-0400 Body height 157.48 cm II Kevin Adams Work Phone: [facility] 2024 10:56-0400 Body mass index (BMI) [Ratio] 28.3 kg/m2 II Kevin Adams Work Phone: [facility] 2024 10:56-0400 Body temperature 97.8 [degF] II Kevin Adams Work Phone: [facility] 2024 10:56-0400 Body weight 70.3 kg II Kevin Adams Work Phone: [facility] 2024 10:56-0400 Diastolic blood pressure 75 mm[Hg] II Kevin Adams Work Phone: [facility] 2024 10:56-0400 Heart rate 89 /min II Kevin Adams Work Phone: [facility] 2024 10:56-0400 Respiratory rate 16 /min II Kevin Adams Work Phone: [facility] 2024 10:56-0400 SaO2% (BldA) [Mass fraction] 98 % II Kevin Adams Work Phone: [facility] 2024 10:56-0400 Systolic blood pressure 128 mm[Hg] II Kevin Adams Work Phone: [facility] Encounters Encounter Date Encounter Type Care Provider Facility Start: 06-25-2024 End: 06-25-2024 Bamboo flowsheet Kevin Adams MD Work Phone: [facility] Start: 06-25-2024 End: 06-25-2024 Bamboo flowsheet Kevin Adams MD Work Phone: [facility] Start: 06-25-2024 End: 06-25-2024 Office outpatient visit 25 minutes Kevin Adams MD Work Phone: [facility] Comment on above: Mild cognitive impai rment (Primary Dx) Start: 06-25-2024 End: 06-25-2024 ambulatory KEVIN ADAMS Not Available Start: 06-18-2024 ambulatory Vivian Benavidez Facility:[facility] Start: 05-17-2024 End: 05-17-2024 ambulatory KEVIN ADAMS Not Available Start: 2024 End: 2024 ambulatory II Kevin Adams Work Phone: [facility] Work Phone: Start: 2024 End: 2024 Patient encounter procedure II Kevin Adams Work Phone: [facility] Work Phone: Start: 2024 Registered Recurring II Kevin Adams Work Phone: [facility] Work Phone: Start: 11-12-2023 End: 11-12-2023 ambulatory LEATHA BO Not Available Start: 10-08-2023 End: 10-08-2023 ambulatory [facility] Start: 09-24-2022 End: 09-25-2022 ambulatory DEBBIE CHEN Facility:[facility] Start: 06-01-[address] KEVIN ADAMS Facilit y:[facility] Start: 04-15-2022 End: 04-16-[address] KEVIN ADAMS Facility:[facility] Start: 02-27-2022 End: 02-28-[address] KEVIN ADAMS Facility:[facility] Start: 01-03-[address] KEVIN ADAMS Facilit y:[facility] Start: 11-15-2021 End: 11-16-2021 ambulatory DEBBIE CHEN Facility:[facility] Start: 04-27-2018 End: 04-28-2018 Patient encounter DEFAULT PHYSICIAN Facility:[facility] Start: 04-20-2018 End: 04-21-2018 Patient encounter DEFAULT PHYSICIAN Facility:[facility] Plan of Treatment Date Care Activity Detail Author Start: 05-13-2026 Glaucoma screening Diabetes: R etinopathy Screening [facility] Start: 11-15-2024 End: 11-15-2024 Patient encounter procedure 11/15/2024 3:00 PM EDT Office Visit [facility] [address] [place] [id number] Kevin Adams MD [address] [place] [address] [facility] Start: 11-11-2024 Medicare Annual Well ness (AWV) Medicare Annual Wellness (AWV) [facility] Start: 06-25-2024 End: 06-25-2025 Cobalamin (Vitamin B12) [Mass/volume] in Serum or Plasma Vitamin B12 Lab Routine Mild cognitive impairment Expected: 06/25/2024 (Approximate), Expires: 06/25/2025 [facility] Comment on above: Expected: 06/25/2024 (Approximate), Expires: 06/25/2025 Start: 06-25-2024 End: 06-25-2025 Reagin Ab [Presence] in Serum by RPR RPR Lab Routine Mild cognitive impairment Expected: 06/25/2024 (Approximate), Expires: 06/25/2025 [facility] Comment on above: Expected: 06/25/2024 (Approximate), Expires: 06/25/2025 Start: 06-25-2024 End: 06-25-2025 TSH W/REFLEX TO FT4 TSH W/REFLEX TO FT4 Lab Routine Mild cognitive impairment Expected: 06/25/2024 (Approximate), Expires: 06/25/2025 [facility] Work Phone: Comment on above: Expected: 06/25/2024 (Approximate), Expires: 06/25/2025 Start: 06-25-2024 End: 06-25-2024 Patient encounter procedure 06/25/2024 11:30 AM EDT Office Visit [facility] [address] [facility] [address] [place] [id number] Kevin Adams MD [address] [facility] [address] [place] [address] Arrived [facility] Comment on above: Arrived Start: 05-02-2024 Influenza vaccination Influenza Vacc ine (#1) [facility] Start: 02-12-2024 Hemoglobin A1c measurement Diabetes: Hemoglobin A1C [facility] Start: 02-27-2023 Urine screening for protein Diabetes: Urine Protein Screening [facility] Comprehensive metabo lic 2000 panel - Serum or Plasma [facility] Erythropoietin (EPO) [Units/volume] in Serum or Plasma [facility] Immunizations Immunization Date Immunization Notes Care Provider Fa cility 10-08-2023 Influenza, Seasonal, Quadrivalent, Adjuvanted Kevin Adams MD Work Phone: [facility] 10-08-2023 Pneumococcal Conjuga te PCV 20 Kevin Adams MD Work Phone: [facility] 10-08-2023 influenza virus vacc ine, unspecified formulation Kevin Adams MD Work Phone: [facility] 06-05-2022 Influenza, High-dose Seasonal, Quadrivalent, Preservative Free Kevin Adams MD Work Phone: [facility] 06-05-2022 Pneumococcal Conjuga te PCV 20 Kevin Adams MD Work Phone: [facility] 06-05-2021 influenza, high dose seasonal, preservative-free Kevin Adams MD Work Phone: [facility] 05-24-2020 Seasonal trivalent influenza vaccine, adjuvanted, preservative free Kevin Adams MD Work Phone: [facility] 08-27-2019 zoster vaccine recombinant D hilario Adams MD Work Phone: [facility] 08-03-2019 influenza, injectabl e, quadrivalent, contains preservative Kevin Adams MD Work Phone: [facility] 05-28-2019 zoster vaccine recombinant D hilario Adams MD Work Phone: [facility] 01-20-2019 tetanus toxoid, redu dyana diphtheria toxoid, and acellular pertussis vaccine, adsorbed Kevin Adams MD Work Phone: [facility] 06-03-2018 pneumococcal polysaccharide vaccine, 23 valent Kevin Adams MD Work Phone: [facility] 06-03-2018 Seasonal trivalent influenza vaccine, adjuvanted, preservative free Kevin Adams MD Work Phone: [facility] 05-28-2017 Influenza, High-dose Seasonal, Quadrivalent, Preservative Free Kevin Adams MD Work Phone: [facility] 02-07-2017 pneumococcal conjuga te vaccine, 13 valdwaine Adams MD Work Phone: [facility] 06-29-2016 influenza, injectabl e, quadrivalent, preservative free Kevin Adams MD Work Phone: [facility] 08-17-2015 pneumococcal conjuga te vaccine, 13 valdwaine Adams MD Work Phone: [facility] 08-17-2015 pneumococcal polysaccharide vaccine, 23 valent Kevin Adams MD Work Phone: [facility] 07-11-2015 seasonal influenza, intradermal, preservative free Kevin Adams MD Work Phone: [facility] 06-27-2014 zoster vaccine, live Kevin Adams MD Work Phone: [facility] 06-01-2014 influenza, seasonal, injectable Kevin Adams MD Work Phone: [facility] 07-05-2013 seasonal influenza, intradermal, preservative free Kevin Adams MD Work Phone: [facility] 06-25-2010 pneumococcal polysaccharide vaccine, 23 valdwaine Adams MD Work Phone: [facility] 02-27-2007 tetanus and diphther ia toxoids, adsorbed, preservative free, for adult use (5 Lf of tetanus toxoid and 2 Lf of diphtheria toxoid) Kevin Adams MD Work Phone: [facility] 02-27-2007 tetanus toxoid, redu dyana diphtheria toxoid, and acellular pertussis vaccine, adsorbed Kevin Adams MD Work Phone: [facility] Payers Date Payer Category Payer Self-pay [id number] 2022 Medicare (Managed Care) [employer] [id number] 2020 Unknown [id number] 1959 Self-pay [id number] 1959 Unknown [id number] 1938 Unknown [id number] 1938 Unknown [id number] 1938 Unknown [id number] 1938 Unknown [id number] 1938 Unknown [id number] 1938 Unknown [id number] 1938 Unknown [id number] 1938 Unknown [id number] 1938 Unknown [id number] Medicare Medicare [id number] Medicare [facility] PF [id number] Unknown Unknown [employer] [id number] Unknown [id number] Social History Date Type Detail Facility Start: 05-13-2023 End: 2024 Tobacco smoking status NYIS Ex-smoker (finding) [facility] Start: 1940 Sex Assigned At Female F [facility] End: 11-01-1999 History of tobacco use Current smoker [facility] End: 11-01-1999 History of tobacco use Cigarette Smoker [facility] Start: 05-13-2023 Tobacco use and exposure Smokeless tobacco non-user [facility] Start: 05-17-2024 End: 06-25-2024 Alcoholic beverage intake Ex-drinker (finding) [facility] Start: 05-09-2023 End: 05-10-2024 History of Social function [facility] Work Phone: Start: 05-09-2023 End: 05-10-2024 [id number] Health Literacy [facility] Work Phone: How often do you nee d to have someone help you when you read instructions, pamphlets, or other written material from your doctor or pharmacy [SILS] Always [facility] Work Phone: Within the last year , have you been afraid of your partner or ex-partner? No [facility] Are you now , , , , never or living with a partner? [facility] How often to you hav e a drink containing alcohol? Monthly or less [facility] How many standard drinks containing alcohol do you have on a typical day? 1 or 2 [facility] How often do you hav e 6 or more drinks on 1 occasion? Never [facility] Do you feel stress - tense, restless, nervous, or anxious, or unable to sleep at night because your mind is troubled all the time - these days [OSQ] Only a little [facility] (I/We) worried elida er (my/our) food would run out before (I/we) got money to buy more. Never true [facility] Start: 05-13-2023 Tobacco Comment Last smoked : > 10 years [facility] Start: 05-13-2023 Alcohol Comment Caffeine intak e : 1-2 cup per day coffee [facility] Start: 1940 Sex assigned at Not on file N [facility] Start: 11-13-2022 Gender identity Identifies as female gender (finding) [facility] Medical Equipment Procedure Code Equipment Code Equipment Origin al Text Equipment Identifier Dates [id number] Start: 12-17-2022 History of Present illness Narrative 06-25-2024 Kevin Adams MD - 06/25/2024 11:30 AM EDT Note Date & Type Note Facility 06-25-2024 History of Presen t illness Narrative Images from the original note were not included. HPI HERE FOR MMSE Additional comments: Pt scored low on MWV screening Last edited by Lidia Chadwick LPN on 06/25/2024 11:23 AM. Subjective Patient ID: Natalie Lovelace is a 84 y.o. female who presents for HERE FOR MMSE (Pt scored low on MWV screening). Pt here for mmse Pt family has noticed decreased memory/forgetfulness Pt has not been driving for over 1 year family did not feel she was safe Current Outpatient Medications on File Prior to Visit Medication Sig Dispense Refill albuterol (2.5 MG/3ML) 0.083% nebulizer solution Take 3 mL by nebulization in the morning and 3 mL in the evening and 3 mL before bedtime. Ascorbic Acid (vitamin C) 250 MG tablet Take 250 mg by mouth in the morning. aspirin 81 MG chewable tablet Chew 1 tablet 1 (one) time each day. atorvastatin (Lipitor) 80 MG tablet Take 1 tablet (80 mg) by mouth 1 (one) time each day at the same time 90 tablet 3 calcium carbonate 1500 (600 Ca) MG tablet Take 1 tablet by mouth in the morning. citalopram (CeleXA) 40 MG tablet Take 1 tablet (40 mg) by mouth 1 (one) time each day at the same time 90 tablet 3 furosemide (Lasix) 20 MG tablet Take 1 tablet by mouth every other day. Lancets ([employer] Delica Plus [id number]) misc USE DAILY FOR FINGER STICK meloxicam (Mobic) 15 MG tablet Take 0.5 tablets (7.5 mg) by mouth Daily as needed for moderate pain metoprolol tartrate (Lopressor) 25 MG tablet Take 1 tablet (25 mg) by mouth in the morning and 1 tablet (25 mg) before bedtime. 180 tablet 3 MULTIPLE VITAMINS PO Take 1 tablet by mouth 1 (one) time each day. Nutritional Supplements (Boost Compact) liquid Take by mouth. [employer] Ultra test strip USE TO TEST ONCE A DAY DIRECTED 100 strip 1 oxybutynin XL (Ditropan-XL) 10 MG 24 hr tablet Take 1 tablet (10 mg) by mouth 1 (one) time each day at the same time 90 tablet 3 pantoprazole (ProtoNix) 40 MG EC tablet Take 1 tablet (40 mg) by mouth in the morning. Take before meals. 90 tablet 3 potassium chloride CR (Klor-Con M10) 10 MEQ ER tablet Take 1 tablet (10 mEq) by mouth Daily Do not crush or chew. 90 tablet 3 zinc gluconate 50 MG tablet Take 50 mg by mouth in the morning. [DISCONTINUED] atorvastatin (Lipitor) 80 MG tablet Take 1 tablet by mouth 1 (one) time each day at the same time. [DISCONTINUED] potassium chloride CR (Klor-Con M10) 10 MEQ ER tablet Take 1 tablet (10 mEq) by mouth Daily Do not crush or chew. 30 tablet 5 No current facility-administered medications on file prior to visit. I have reviewed and reconciled the history and medication list with the patient today. No Known Allergies Social History Tobacco Use Smoking status: Former Current packs/day: 0.00 Types: Cigarettes Quit date: 11/01/1999 Years since quittin.6 Smokeless tobacco: Never Tobacco comments: Last smoked : > 10 years Vaping Use Vaping status: Never Used Substance Use Topics Alcohol use: Not Currently Comment: Caffeine intake : 1-2 cup per day coffee Drug use: Never No family history on file. Past Medical History: Diagnosis Date Allergic rhinitis Anxiety Arthritis Chronic sinusitis Coronary atherosclerosis (CMS/HCC) Depression (CMS/HCC) Diabetes mellitus, type 2 (CMS/HCC) Disorder of bone and cartilage Disorder of joint GERD (gastroesophageal reflux disease) HL (hearing loss) Hoarse Joint disorder, unspecified Metrorrhagia Mixed hyperlipidemia (CMS/HCC) Orthostatic hypotension Osteoarthrosis unspecified type of vessel, [place] or graft Rotator cuff tear right Sinusitis Past Surgical History: Procedure Laterality Date CHOLECYSTECTOMY 2005 COLONOSCOPY 2003 COLONOSCOPY 2013 IR JOINT ASPIRATION Right x4 knee IR JOINT ASPIRATION Left x3 knee ROTATOR CUFF REPAIR 2004 SEPTOPLASTY 03/16/2013 and ESS TOTAL ABDOMINAL HYSTERECTOMY 1975 Visit Vitals BP 130/74 Pulse 94 Ht 5' 1 Wt 159 lb SpO2 97% BMI 30.04 kg/m Smoking Status Former BSA 1.76 m Review of Systems Objective Physical Exam Cardiovascular: Rate and Rhythm: Normal rate and regular rhythm. Pulmonary: Effort: Pulmonary effort is normal. Breath sounds: Normal breath sounds. Neurological: General: No focal deficit present. Mental Status: She is oriented to person, place, and time. Maximum Score Orientation 5 ( 0 ) What is the (year), (season), (date), (day), (month)? 5 ( 4 ) Where are we (state), (county), (town), (hospital), (floor)? Registration 3 ( 3 ) Name 3 Objects: One second to say each. Then ask the patient all 3 after you have said them. Give 1 point for each correct answer. Then repeat them until patient learns all 3. Count trials and record. Attention and Calculation 5 ( 5 ) Serial 7's: One point for each correct. Stop after 5 answers. Alternatively, spell world backwards. Recall 3 ( 0 ) Ask for 3 the 3 objects repeated above. Give 1 point for each correct. Language 2 ( 2 ) Name a pencil and watch (2 points). 1 ( 1 ) Repeat the following: No ifs ands or buts (1 point). 3 ( 3 ) Follow a 3-stage command: Take a paper in your right hand, fold it in half and put it on the floor (3 points). 1 ( 1 ) Read and obey the following: Close your eyes (1 point). 1 ( 1 ) Write a sentence (1 point). 1 ( 1 ) Copy design (1 point). Total Score ( ) 25-30: Normal score 20-24: Suggests mild dementia 13-20: Suggests moderate dementia Less than 12: Indicates severe dementia Assessment/Plan Diagnoses and all orders for this visit: Mild cognitive impairment - TSH W/REFLEX TO FT4; Future - RPR; Future - Vitamin B12; Future - donepezil (Aricept) 5 MG tablet; Take 1 tablet (5 mg) by mouth at bedtime No follow-ups on file. documented in this encounter [facility] Healthcare Progress note 10-08-2023 Note Date & Type Note Facility 10-08-2023 Note Cardiovascular Medic [facility] SUBJECTIVE Chief Complaint Patient presents [...] nuclear stress gena (more content not included)... [facility] Progress note 10-08-2023 Note Date & [...] All other systems reviewed and are negative. [facility] Evaluation note Note Date & Type Note Facility Evaluation note No assessment information [facility] Work Phone: Evaluation note Note Date & Type Note Facility Evaluation note Diagnosis Mild cognitive impairment- Primary Mild cognitive impairment, so stated documented in this encounter [facility] Summary Purpose Family History No Family History Records FoundNo Family History Records FoundNo Family History Records FoundNo Family History Records FoundNo Family History Records FoundNo Family History Records Found Advance Directives No Advanced Directives Records Found Advance Directive Response Recorded Date/ Time Advance Directives No August 5:47pm Documents on File Type Date Recorded Patient [place] [employer] Expl anation Advance Directives and Livjay g Will 12/31/2022 2022-12-23 DNR [facility] Chief Complaint and Reason for Visit Chief Complaint Macrocytic anemia NEW Macrocytic anemia Additional Source Comments INFORMATION SOURCE (unrecogn ized section and content) DATE CREATED AUTHOR 04/30/2018 [facility] DATE CREATED AUTHOR AUTHOR'S ORGANIZ ATION 09/26/2022 [facility] DATE CREATED AUTHOR AUTHOR'S ORGANIZ ATION 10/17/2023 [facility] DATE CREATED AUTHOR AUTHOR'S ORGANIZ ATION 06/20/2024 [facility] DATE CREATED AUTHOR AUTHOR'S ORGANIZ ATION 06/27/[address] [facility] EPIC DATE CREATED AUTHOR AUTHOR'S ORGANIZ ATION 06/29/2024 [facility] Care Teams (unrecognized sec tion and content) Team Status: Active Member Role Status Dates Kevin Adams II MD Primary Care Provider Active Team Status: Active Member Role Status Dates Kevin Adams II MD Primary Care Provider Active Start: 2024 Vivian Benavidez APRN Attending Provider Acti ve Start: 2024 BRAEDEN Higginbotham Referring Provider Active St art: 2024 Team Status: Inactive Member Role Status Dates Kevin Adams II MD Primary Care Provider Active Start: 2024 End: 2024 Vivian Benavidez APRN Attending Provider Acti ve Start: 2024 End: 2024 BAREDEN Higginbotham Referring Provider Active St art: 2024 End: 2024 [employer] 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 Relationship Specialty Start Date End Date Kevin Adams MD [address] [facility] [address] [place] [address] PCP - Paolo PLATA 11/30/22 Kevin Adams MD [address] [facility] [address] [place] [address] PCP - General Internal Medicine 03/17/23 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 Relationship Specialty Start Date End Date Kevin Adams MD [address] [facility] [place] [address] PCP - Paolo PLATA 11/30/22 Kevin Adams MD [address] [facility] [place] [address] PCP - General Internal Medicine 03/17/23 Goals (unrecognized section and content) Goals may be documented in a n alternate section Reason for Visit (unrecogniz ed section and content) Reason Comments HERE FOR MMSE Pt scored low on MWV screening FOR RECORDS PERTAINING TO PATIENTS WHO ARE [...] BE BASED ON THE PRIMARY CLINICAL RECORDS. [employer] [facility]. provides no warranty or guarantee of the accuracy or completeness of information in this document.
[2024-07-02 08:58] LABS: Basophils Absolute Auto 0.1 10^3/uL (0.0-0.1); Basophils Percent Auto 0.9 % (0.2-2.0); Eosinophils Absolute Auto 0.5 10^3/uL (0.0-0.7); Hematocrit 35.2 % (36.0-48.0); Hemoglobin 11.1 g/dL (12.0-16.0); Immature Granulocytes Abs Auto 0.02 10^3/uL (0.00-0.03); Immature Granulocytes Pct Auto 0.2 % (0.0-0.5); Lymphocytes Absolute Auto 2.8 10^3/uL (1.2-3.8); Lymphocytes Percent Auto 35.3 % (20.5-60.0); Mean Corpuscular HGB Conc 31.5 g/dL (29.9-35.2); Mean Corpuscular Volume 101.4 fL (81.0-99.0); Mean Platelet Volume 9.6 fL (9.5-13.5); Monocytes Absolute Auto 0.7 10^3/uL (0.3-0.8); Monocytes Percent Auto 8.2 % (1.7-12.0); Neutrophils Percent Auto 49.4 % (43.0-75.0); Platelet Count 222 10^3/uL (150-450); Red Blood Count 3.47 10^6/uL (4.20-5.40); Red Cell Distribution Width 13.9 % (11.0-15.0)
[2024-07-02 09:21] LABS: Alanine Aminotransferase 22 U/L (14-59); Albumin Globulin Ratio 0.7; Albumin Level 2.8 g/dL (3.4-5.0); Alkaline Phosphatase 100 U/L (46-116); Anion Gap 15.4; Aspartate Amino Transferase 22 U/L (15-37); BUN Creatinine Ratio 19.3; Bilirubin Total 0.6 mg/dL (0.2-1.0); Calcium 8.8 mg/dL (8.5-10.1); Carbon Dioxide 24.6 mmol/L (21.0-32.0); Chloride 109 mmol/L (98-107); Estimated GFR (African America 40 (>=60 mL/min/1.73m^2); Estimated GFR (Non-African Ame 33 (>=60 mL/min/1.73m^2); Globulin 3.8 g/dL; Glucose 122 mg/dL (74-106); Sodium 145 mmol/L (136-145); Total Protein 6.6 g/dL (6.4-8.2)
== END 2024-07-02 08:39 | disposition home or self-care (01) ==
LOC: LAB 08:39
PROVIDERS: PCP Internal Medicine; Visit Provider Nurse Practitioner Gerontology
DX: D64.9 Anemia, unspecified (principal)
CPT/HCPCS: 36415; 80053; 85025

== ENCOUNTER 2024-10-08 08:22 | Outpatient (OUT) | payer MEDICARE, SELFPAY ==
[2024-10-08 08:56] LABS: Basophils Absolute Auto 0.1 10^3/uL (0.0-0.1); Basophils Percent Auto 0.8 % (0.2-2.0); Eosinophils Absolute Auto 0.6 10^3/uL (0.0-0.7); Eosinophils Percent Auto 6.4 % (0.9-7.0); Hemoglobin 12.4 g/dL (12.0-16.0); Immature Granulocytes Abs Auto 0.02 10^3/uL (0.00-0.03); Immature Granulocytes Pct Auto 0.2 % (0.0-0.5); Lymphocytes Absolute Auto 3.4 10^3/uL (1.2-3.8); Lymphocytes Percent Auto 35.7 % (20.5-60.0); Mean Corpuscular HGB Conc 32.6 g/dL (29.9-35.2); Mean Corpuscular Hemoglobin 32.5 pg (26.7-34.0); Mean Corpuscular Volume 99.5 fL (81.0-99.0); Monocytes Absolute Auto 0.8 10^3/uL (0.3-0.8); Monocytes Percent Auto 8.2 % (1.7-12.0); Neutrophils Absolute Auto 4.6 10^3/uL (1.4-6.5); Neutrophils Percent Auto 48.7 % (43.0-75.0); Platelet Count 251 10^3/uL (150-450); Red Blood Count 3.82 10^6/uL (4.20-5.40); Red Cell Distribution Width 13.2 % (11.0-15.0); White Blood Count 9.5 10^3/uL (4.0-11.0)
[2024-10-08 10:59] LABS: Alanine Aminotransferase 25 U/L (14-59); Albumin Globulin Ratio 0.8; Albumin Level 3.3 g/dL (3.4-5.0); Alkaline Phosphatase 116 U/L (46-116); Anion Gap 12.8; Aspartate Amino Transferase 28 U/L (15-37); BUN Creatinine Ratio 19.4; Bilirubin Total 0.8 mg/dL (0.2-1.0); Calcium 8.9 mg/dL (8.5-10.1); Carbon Dioxide 29.4 mmol/L (21.0-32.0); Chloride 102 mmol/L (98-107); Estimated GFR (African America 29 (>=60 mL/min/1.73m^2); Estimated GFR (Non-African Ame 24 (>=60 mL/min/1.73m^2); Glucose 133 mg/dL (74-106); Potassium 3.2 mmol/L (3.5-5.1); Sodium 141 mmol/L (136-145); Total Protein 7.3 g/dL (6.4-8.2)
== END 2024-10-08 08:23 | disposition home or self-care (01) ==
PROVIDERS: PCP Internal Medicine; Visit Provider Nurse Practitioner Gerontology
DX: D64.9 Anemia, unspecified (principal)
CPT/HCPCS: 36415; 80053; 82668; 85025

== ENCOUNTER 2024-10-11 13:41 | Outpatient (OUT) | payer MEDICARE, SELFPAY ==
--- NOTE | 2024-10-11 13:45 | MR_ITS ---
[facility] [place] [id number] Patient Name: NATALIE LOVELACE MRN: [id number] date: 1940 Sex: F Assigned Patient Location: MRI Current Patient Location: MRI Accession/Order Number: [id number] Exam Date: 10/11/2024 14:00 Report Date: 10/11/2024 15:45 At the request of: DEWAYNE ESQUEDA Procedure: MR head/brain wo/w con MR head/brain wo/w con, 10/11/2024 2:00 PM EST INDICATION: Mild Cognitive Impairment COMPARISON: There is no appropriate prior study for comparison. TECHNIQUE: Multiplanar, multisequence MRI images of brain were obtained without and with injection of contrast. FINDINGS: The cerebral sulci as well as ventricular system are enlarged consistent with moderate ex vacuo cerebral volume loss. There is no restricted diffusion. Hyperintensities on T2 and FLAIR images in the varela radiata and centrum semiovale with sparing of U fibers are nonspecific, statistically most likely consistent with mild microvascular ischemic changes. There is no intracranial mass, mass effect, midline shift, intra or extra-axial fluid collection or large hemorrhage. No abnormal enhancing lesion is noted. Normal flow-void in the intracranial vessels is noted. The visualized portions of orbits, mastoid air cells as well as paranasal sinuses are unremarkable. MR/MR head/brain wo/w con IMPRESSION: No acute intracranial process is noted. Mild microvascular ischemic changes. No finding to suggest a typical neurodegenerative process. Electronically authenticated by: SONG MICHAEL Date: 10/11/2024 15:45
--- OUTSIDE RECORDS SUMMARY | 2024-10-11 14:03 | XMS_ITS | CCD ---
Author Organization [facility] Care Team Providers Care Business Specialist Name Role Phone PHYSICIAN, DEFAULT Unavailable Unavailable PHYSICIAN, DEFAULT Unavailable Unavailable KEVIN ADAMS Unavailable Unavailable PHYSICIAN, DEFAULT Unavailable Unavailable PHYSICIAN, DEFAULT Unavailable Unavailable KEVIN ADAMS Unavailable Unavailable BRYAN, DR BROWN Primary Care Unavailable ADAMS, DR BROWN Admitting Unavailable ADAMS, DR BROWN Attending Unavailable ADAMS, DR BROWN Consulting Unavailable ZIEBER, DR SUSANA Alvarez Consulting Unavailable ADAMS, DR BROWN Primary Care Unavailable APRIL, DEBBIE Attending Unavailable DEBBIE CHEN Consulting Unavailable APRIL, DEBBIE Admitting Unavailable GEORGE CHENA Attending Unavailable APRIL, DEBBIE Consulting Unavailable ADAMS, DR BROWN Primary Care Unavailable APRIL, DEBBIE Admitting Unavailable APRIL, DEBBIE Admitting Unavailable APRIL, DEBBIE Attending Unavailable ADAMS, DR BROWN Primary Care Unavailable APRIL, DEBBIE Consulting Unavailable ADAMS, DR BROWN Primary Care Unavailable APRIL, DEBBIE Attending Unavailable APRIL, DEBBIE Admitting Unavailable ADAMS, DR BROWN Primary Care Unavailable APRIL, DEBBIE Attending Unavailable APRIL, DEBBIE Admitting Unavailable GEORGE CHENA Attending Unavailable Bryan, SEB Brown Primary Care Provider JENNIFER Benavidez Attending Provider BRAEDEN Bo Referring Provider Kevin Adams MD Unavailable Kevin Adams MD Primary Care Provider [phone] SEB Adams Primary Care Provider [phone] JENNIFER Benavidez Attending Provider BRAEDEN Bo Referring Provider [phone] Dewayne Gilbert DO Unavailable [phone] LEATHA BO Attending Unavailable KEVIN ADAMS Attending Unavailable KEVIN ADAMS Attending Unavailable KEVIN ADAMS Attending Unavailable DEWAYNE GILBERT Attending Unavailable KEVIN ADAMS Referring Unavailable ROBBIE MÉNDEZ Attending Unavailable DEWAYNE GILBERT Referring Unavailable Vivian Benavidez Admitting Unavail able Vivian Benavidez Attending Unavail able Leatha Bo Referring Unavailable Kevin Adams Primary Care Unavailable Kevin Adams MD Unavailable [phone] Medications Current Medications Medication Drug Class(es) Dates Sig (Normalized) Sig (Original) albuterol 0.83 mg/ml inhalation solution (20 sources) beta2-Adrenergic Agonist Start: 2024 take 2.5 mg by inhalation three times daily Albuterol Sulfate Active 2.5 MG INHALATION Three times daily April 05, 2024 11:00pm ascorbic acid 250 mg oral tablet (20 sources) Vitamin C Start: 2024 take 250 mg by mouth once daily Ascorbic Acid (Vitamin C) Active 250 MG PO Daily April 05, 2024 11:00pm aspirin 81 mg delayed release oral tablet (20 sources) Platelet Aggregation Inhibitor, Nonsteroidal Anti-inflammatory Drug Start: 2024 take 81 mg by mouth once daily Aspirin Active 81 MG PO Daily April 05, 2024 11:00pm aspirin 81 MG ch ewable tablet Chew 1 tablet 1 (one) time each day. Active atorvastatin 80 mg oral tablet (20 sources) HMG-CoA Reductase Inhibitor Start: 2024 End: 06-23-2025 take 1 tablet by mouth once daily atorvastatin (Lipitor) 80 MG tablet Indications: Mixed hyperlipidemia (CMS/HCC) Take 1 tablet (80 mg) by mouth 1 (one) time each day at the same time 90 tablet 3 06/23/2024 06/23/2025 Active calcium carbonate 1500 mg oral tablet (20 sources) Start: 2024 take 600 mg by mouth once daily Calcium Carbonate Active 600 MG PO Daily April 05, 2024 11:00pm citalopram 40 mg oral tablet (20 sources) Serotonin Reuptake Inhibitor Start: 04-01-2024 End: 07-26-2025 take 1 tablet by mouth once daily citalopram (CeleXA) 40 MG tablet Indications: Depressive disorder (CMS/HCC) Take 1 tablet (40 mg) by mouth 1 (one) time each day at the same time 90 tablet 3 07/26/2024 07/26/2025 Active donepezil hydrochloride 10 mg oral tablet (18 sources) Start: 07-26-2024 End: 07-26-2025 take 1 tablet by mouth at bedtime donepezil (Aricept) 10 MG tablet Indications: Mild cognitive impairment Take 1 tablet (10 mg) by mouth at bedtime 90 tablet 3 07/26/2024 07/26/2025 Active Start: 06-25-2024 End: 06-25-2025 take 1 tablet by mouth at bedtime donepezil (Aricept) 5 MG tablet Indications: Mild cognitive impairment TAKE 1 TABLET BY MOUTH AT BEDTIME 90 tablet 1 07/19/2024 07/26/2024 Discontinued (Reorder) furosemide 20 mg oral tablet (20 sources) Loop Diuretic Start: 2024 take 20 mg by mouth once daily Furosemide Active 20 MG PO Daily April 05, 2024 11:00pm take 1 tablet by mouth every oth er day furosemide (Lasix) 20 MG tablet Take 1 tablet by mouth every other day. Active metoprolol tartrate 25 mg oral tablet (20 sources) beta-Adrenergic Uzair Start: 04-01-2024 End: 07-26-2024 take 1 tablet by mouth in the morning metoprolol tartrate (Lopressor) 25 MG tablet Indications: Chronic diastolic congestive heart failure (CMS/HCC) Take 1 tablet (25 mg) by mouth in the morning and 1 tablet (25 mg) before bedtime. 180 tablet 3 07/26/2024 Active MULTIPLE VITAMINS PO (19 sources) take 1 tablet by mouth once daily MULTIPLE VITAMINS PO Take 1 tablet by mouth 1 (one) time each day. Active Multivitamin (Multiple Vitamins) tablet (2 sources) Start: 2024 take 1 tablet by mouth once daily Multivitamin (Multiple Vitamins) tablet Active 1 TAB PO Daily April 05, 2024 11:00pm Start: 2024 take 1 tablet by jen th once daily Multivitamin (Multiple Vitamins) tablet Active 1 TAB PO Daily 2024 12:00am Nutritional Supplements (Boost Compact) liquid (19 sources) Nutritional Supplements (Boost Compact) liquid Take by mouth. Active 24 hr oxybutynin chloride 10 mg extended release oral tablet (20 sources) Cholinergic Muscarinic Antagonist Start: End: take 1 tablet by mouth once daily oxybutynin XL (Ditropan-XL) 10 MG 24 hr tablet Indications: Overactive bladder Take 1 tablet (10 mg) by mouth 1 (one) time each day at the same time 90 tablet 3 07/26/2024 07/26/2025 Active pantoprazole 40 mg delayed release oral tablet (20 sources) Proton Pump Inhibitor Start: End: take 1 tablet by mouth before mealtime pantoprazole (ProtoNix) 40 MG EC tablet Indications: Gastroesophageal reflux disease, unspecified whether esophagitis present Take 1 tablet (40 mg) by mouth in the morning. Take before meals. 90 tablet 3 07/26/2024 07/26/2025 Active microencapsulated potassium chloride 10 meq extended release oral tablet (20 sources) Start: End: take 1 tablet by mouth once daily potassium chloride CR (Klor-Con M10) 10 MEQ ER tablet Indications: Hypokalemia Take 1 tablet (10 mEq) by mouth Daily Do not crush or chew. 90 tablet 3 06/23/2024 06/23/2025 Active zinc gluconate 50 mg oral tablet (20 sources) Start: take 50 mg by mouth once daily Zinc Gluconate Active 50 MG PO Daily April 05, 2024 11:00pm Completed/Discontinued Medications Medication Drug Class(es) Dates Sig (Normalized) Sig (Original) meloxicam 15 mg oral tablet (20 sources) Nonsteroidal Anti-inflammatory Drug Start: 2024 End: 2024 take 15 mg by mouth once daily Meloxicam Discontinued 15 MG PO Daily April 05, 2024 11:00pm 2024 9:59am Start: 01-27-2024 take 0.5 tablet by m outh once daily as needed for pain meloxicam (Mobic) 15 MG tablet Indications: Localized, secondary osteoarthritis of the shoulder region, unspecified laterality Take 0.5 tablets (7.5 mg) by mouth Daily as needed for moderate pain 01/27/2024 Active Problems Active Problems Problem Classification Problem Date Documented Date Episodic/Chronic Anxiety disorders (20 sources) Generalized anxiety disorder; Translations: [Generalized anxiety disorder] Onset: 03-16-2023 03-16-2023 Chronic Chronic kidney disease (20 sources) Chronic kidney disease stage 4; Translations: [Chronic kidney disease, stage 4 (severe)] Onset: 03-03-2024 03-03-2024 Chronic Chronic obstructive pulmonary disease and bronchiectasis (19 sources) Chronic obstructive lung disease; Translations: [Chronic obstructive pulmonary disease, unspecified] Onset: 03-16-2023 03-16-2023 Chronic Congestive heart failure; nonhypertensive (20 sources) Chronic diastolic heart failure; Translations: [Chronic diastolic (congestive) heart failure] Onset: 03-16-2023 03-16-2023 Chronic Coronary atherosclerosis and other heart disease (20 sources) Atherosclerotic heart disease of [place] coronary artery without angina pectoris; Translations: [Coronary atherosclerosis] Onset: 02-27-2022 Chronic Deficiency and other anemia (1 source) Anemia, unspecified; Translations: [Anemia, unspecified] 07-07-2024 Episodic Deficiency and other anemia (1 source) Iron deficiency anemia, unspecified; Translations: [Iron deficiency anemia, unspecified] Onset: 09-17-2024 Episodic Delirium, dementia, and amnestic and other cognitive disorders (2 sources) Senile dementia; 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] 10-05-2024 Chronic Diabetes mellitus with complications (2 sources) Chronic kidney disease due to type 2 diabetes mellitus; Translations: [Type 2 diabetes mellitus with diabetic chronic kidney disease] 05-17-2024 Chronic Diabetes mellitus without complication (20 sources) Type 2 diabetes mellitus without complication; Translations: [Type 2 diabetes mellitus without complications] Onset: 04-01-2012 Resolved: 11-12-2023 03-16-2023 Chronic Diseases of white blood cells (19 sources) Eosinophil count raised; Translations: [Eosinophilia] Onset: 03-16-2023 03-16-2023 Chronic Disorders of lipid metabolism (20 sources) Mixed hyperlipidemia; Translations: [Mixed hyperlipidemia] Onset: 10-02-2022 Chronic Esophageal disorders (20 sources) Gastro-esophageal reflux disease without esophagitis; Translations: [Gastroesophageal reflux disease] Onset: 03-16-2023 Chronic Heart valve disorders (20 sources) Nonrheumatic aortic (valve) stenosis; Translations: [Aortic valve disorders] Onset: 09-24-2022 Chronic Menopausal disorders (20 sources) Other primary ovarian failure; Translations: [Primary ovarian failure] Onset: 04-15-2022 Chronic Mood disorders (20 sources) Depressive disorder; Translations: [Depressive disorder] Onset: 03-16-2023 03-16-2023 Chronic Nutritional deficiencies (2 sources) Cobalamin deficiency; Translations: [Deficiency of other specified B group vitamins] 07-07-2024 Episodic Osteoarthritis (19 sources) Localized, secondary osteoarthritis of the shoulder region; Translations: [Secondary osteoarthritis, unspecified shoulder] Onset: 06-07-2020 05-14-2023 Chronic Other diseases of bladder and urethra (20 sources) Overactive bladder; Translations: [Overactive bladder] Onset: 03-16-2023 03-16-2023 Chronic Other ear and sense organ disorders (19 sources) Mixed conductive AND sensorineural hearing loss; Translations: [Mixed conductive and sensorineural hearing loss, unilateral, right ear with restricted hearing on the contralateral side] Onset: 03-16-2023 03-16-2023 Chronic Other hereditary and degenerative nervous system conditions (20 sources) Impaired cognition; Translations: [Mild cognitive impairment, so stated] Onset: 06-25-2024 06-25-2024 Chronic Other nervous system disorders (20 sources) Chronic pain; Translations: [Other chronic pain] Onset: 03-16-2023 03-16-2023 Chronic Other nervous system disorders (6 sources) Impaired cognition 07-26-2024 Episodic Other nervous system disorders (2 sources) Trigeminal neuralgia; Translations: [Trigeminal neuralgia] 05-19-2024 Episodic Other screening for suspected conditions (not mental disorders or infectious disease) (19 sources) Radiology result abnormal; Translations: [Abnormal findings on diagnostic imaging of other specified body structures] Onset: 03-16-2023 03-16-2023 Chronic Other upper respiratory disease (19 sources) Allergic rhinitis; Translations: [Allergic rhinitis, unspecified] Onset: 03-16-2023 03-16-2023 Chronic Other upper respiratory infections (19 sources) Chronic ethmoidal sinusitis; Translations: [Chronic ethmoidal sinusitis] Onset: 03-16-2023 03-16-2023 Chronic Peripheral and visceral atherosclerosis (2 sources) Atherosclerosis of aorta; Translations: [Atherosclerosis of aorta] 05-17-2024 Chronic Residual codes; unclassified (4 sources) Insomnia; Translations: [Other insomnia] 09-13-2024 Chronic Residual codes; unclassified (2 sources) Amnesia; Translations: [Other amnesia] 09-13-2024 Episodic Past or Other Problems Problem Classification Problem Date Documented Da te Episodic/Chronic Deficiency and other anemia (20 sources) Anemia; Translations: [Anemia, unspecified] Onset: 03-03-2024 03-03-2024 Episodic Fluid and electrolyte disorders (19 sources) Hypokalemia; Translations: [Hypokalemia] Onset: 03-03-2024 03-03-2024 Episodic Mood disorders (19 sources) Mood disorders Onset: 11-12-2023 11-12-2023 Nonspecific chest pain (19 sources) Chest pain; Translations: [Chest pain, unspecified] Onset: 2012 05-14-2023 Episodic Other bone disease and musculoskeletal deformities (1 source) Other specified disorders of bone density and structure, other site; Translations: [OTH D/O BONE DEN STRUCT OTH SITE] Onset: 04-16-2022 Episodic Other bone disease and musculoskeletal deformities (19 sources) Disorder of bone and articular cartilage; Translations: [Disorder of bone, unspecified] Onset: 04-01-2012 05-14-2023 Episodic Other circulatory disease (19 sources) Orthostatic hypotension; Translations: [Orthostatic hypotension] Onset: 03-16-2023 03-16-2023 Episodic Other ear and sense organ disorders (20 sources) Hearing loss; Translations: [Unspecified hearing loss, unspecified ear] Onset: 03-16-2023 Resolved: 05-14-2023 05-14-2023 Chronic Other lower respiratory disease (19 sources) Disorder of lung; Translations: [Other disorders of lung] Onset: 03-16-2023 03-16-2023 Episodic Other lower respiratory disease (19 sources) Dyspnea; Translations: [Dyspnea, unspecified] Onset: 2012 05-14-2023 Episodic Other upper respiratory disease (19 sources) Hoarse; Translations: [Dysphonia] Onset: 03-16-2023 03-16-2023 Episodic Residual codes; unclassified (19 sources) Localized edema; Translations: [Localized edema] Onset: 03-16-2023 03-16-2023 Episodic Results Test Name Value Interpretation Reference Range Facility ALL CBC WITH AUTO DIFFon BASOPHILS ABSOLUTE AUTO 0.1 [facility] Basophils/100 WBC (Bld) 0.8 % 0.2 - 2.0 % [facility] Eosinophils/100 WBC (Bld) 6.4 % 0.9 - 7.0 % [facility] Erythrocyte distribution width (RBC) [Ratio] 13.2 % 11.0 - 15.0 % [facility] Hematocrit (Bld) [Volume fraction] 38 % 36.0 - 48.0 % [facility] Hemoglobin (Bld) [Mass/Vol] 12.4 g/dL 12.0 - 16.0 g/dL [facility] IMMATURE GRANULOCYTES ABS AUTO 0.02 [facility] Immature granulocytes/100 WBC (Bld) 0.2 % 0.0 - 0.5 % [facility] Interpretation and review of laboratory results Abnormal [facility] LYMPHOCYTES ABSOLUTE AUTO 3.4 [facility] Lymphocytes/100 WBC (Bld) 35.7 % 20.5 - 60.0 % [facility] MCH (RBC) [Entitic mass] 32.5 pg 26.7 - 34.0 pg [facility] MCHC (RBC) [Mass/Vol] 32.6 g/dL 29.9 - 35.2 g/dL [facility] MCV (RBC) [Entitic vol] 99.5 fL High 81.0 - 99.0 fL [facility] MONOCYTES ABSOLUTE AUTO 0.8 [facility] Monocytes/100 WBC (Bld) 8.2 % 1.7 - 12.0 % [facility] NEUTROPHILS ABSOLUTE AUTO 4.6 [facility] Neutrophils/100 WBC (Bld) 48.7 % 43.0 - 75.0 % [facility] Platelet mean volume (Bld) [Entitic vol] 10 fL 9.5 - 13.5 fL [facility] TBH EO # 0.6 [facility] TB PLT 251 [facility] RBC 3.82 Low [facility] WBC 9.5 [facility] ALL CBC WITH AUTO DIFFon BASOPHILS ABSOLUTE AUTO 0.1 [facility] Basophils/100 WBC (Bld) 0.9 % 0.2 - 2.0 % [facility] Eosinophils/100 WBC (Bld) 6 % 0.9 - 7.0 % [facility] Erythrocyte distribution width (RBC) [Ratio] 13.9 % 11.0 - 15.0 % [facility] Hematocrit (Bld) [Volume fraction] 35.2 % Low 36.0 - 48.0 % [facility] Hemoglobin (Bld) [Mass/Vol] 11.1 g/dL Low 12.0 - 16.0 g/dL [facility] IMMATURE GRANULOCYTES ABS AUTO 0.02 [facility] Immature granulocytes/100 WBC (Bld) 0.2 % 0.0 - 0.5 % [facility] Interpretation and review of laboratory results Abnormal [facility] LYMPHOCYTES ABSOLUTE AUTO 2.8 [facility] Lymphocytes/100 WBC (Bld) 35.3 % 20.5 - 60.0 % [facility] MCH (RBC) [Entitic mass] 32 pg 26.7 - 34.0 pg [facility] MCHC (RBC) [Mass/Vol] 31.5 g/dL 29.9 - 35.2 g/dL [facility] MCV (RBC) [Entitic vol] 101.4 fL High 81.0 - 99.0 fL [facility] MONOCYTES ABSOLUTE AUTO 0.7 [facility] Monocytes/100 WBC (Bld) 8.2 % 1.7 - 12.0 % [facility] NEUTROPHILS ABSOLUTE AUTO 4 [facility] Neutrophils/100 WBC (Bld) 49.4 % 43.0 - 75.0 % [facility] Platelet mean volume (Bld) [Entitic vol] 9.6 fL 9.5 - 13.5 fL [facility] TBH EO # 0.5 [facility] PLT 222 [facility] RBC 3.47 Low [facility] WBC 8 [facility] RPR (MONITOR) W/REFL TITERon 06-28-2024 RPR (MONITOR) W/REFL TITER Non-Reactive Normal NON-REACTIV E [facility] Comment on above: Performed By: #### 3 1043, 982, 697 #### [facility] [address], [address] [place] [address] [employer] Wheel Truer: Landen Rogers MD TSH W/REFLEX TO FT4on 2023 TSH W/REFLEX TO FT4 2.44 mIU/L Normal 0.40-4.50 [facility] Comment on above: Performed By: #### 3 6127, 927, 799 #### [facility] [address] , [address] [place] [address] [employer]er: Landen Rogers MD VITAMIN B12on 06-28-2024 Cobalamin (Vitamin B12) [Mass/Vol] 955 pg/mL Normal 200-1100 [facility] Comment on above: Performed By: #### 3 6127, 927, 799 #### [facility] [address] , [address] [place] [address] [employer]er: Landen Rogers MD Automated basophil %Ordered By: Vivian Reema on 2024 Basophils/100 WBC (Bld) 0.8 % Normal . [facility] Comment on above: Performed By: #### C BC, FE and TIBC, THEODORE #### [address] #### METH, EPO #### [facility] , Automated basophil countOrde red By: Vivian Benavidez on 2024 Basophils (Bld) [#/Vol] 0.1 10*3/uL Normal 0.0-0.[address] [facility] Comment on above: Result Comment: PERF ORMED BY: [place] [address] PATHOLOGIST POOLING OPERATOR MARGRET CALLES M.D. Performed By: #### C BC, FE and TIBC, THEODORE #### [place] [address] [place] #### METH, EPO #### [facility] , Automated blood monocyte cou ntOrdered By: Vivian Benavidez on 2024 Monocytes (Bld) [#/Vol] 0.9 10*3/uL High 0.0-0.[address] [facility] Comment on above: Performed By: #### C BC, FE and TIBC, THEODORE #### [place] [address] [place] #### METH, EPO #### [facility] , Automated eosinophil %Ordere d By: Vivian Benavidez on 2024 Eosinophils/100 WBC (Bld) 3.1 % Normal . [facility] Comment on above: Performed By: #### C BC, FE and TIBC, THEODORE #### [place] [address] [place] #### METH, EPO #### [facility] , Automated eosinophil countOr dered By: Vivian Benavidez on 2024 Eosinophils (Bld) [#/Vol] 0.3 10*3/uL Normal 0.0-0.[address] [facility] Comment on above: Performed By: #### C BC, FE and TIBC, THEODORE #### [place] [address] [place] #### METH, EPO #### [facility] , Automated monocyte %Ordered By: Vivian Benavidez on 2024 Monocytes/100 WBC (Bld) 9.6 % Normal . [facility] Comment on above: Performed By: #### C BC, FE and TIBC, THEODORE #### [place] [address] [place] #### METH, EPO #### [facility] , Automated neutrophil %Ordere d By: Vivian Benavidez on 2024 Neutrophils/100 WBC (Bld) 59.7 % Normal . [facility] Comment on above: Performed By: #### C BC, FE and TIBC, THEODORE #### [place] [address] [place] #### METH, EPO #### [facility] , Complete Blood Count Auto Di ffon 2024 Mean Corpuscular HGB Conc 33.4 g/dL Normal 32.0-35.0 [facility] Comment on above: Performed By: #### C BC, FE and TIBC, THEODORE #### [place] [address] [place] #### METH, EPO #### [facility] , NRBC% 0.1 /100{WBC} Normal 0-0.5 [facility] Comment on above: Performed By: #### C BC, FE and TIBC, THEODORE #### [place] [address] [place] #### METH, EPO #### [facility] , Erythrocyte distribution wid th [Ratio] by Automated countOrdered By: Vivian Huitronevin on 2024 Erythrocyte distribution width (RBC) [Ratio] 14.2 % Normal 11.9-15.[address] [facility] Comment on above: Performed By: #### C BC, FE and TIBC, THEODORE #### [place] [address] [place] #### METH, EPO #### [facility] , Erythrocytes [#/volume] in B lood by Automated countOrdered By: Vivian Huitronevin on 2024 RBC (Bld) [#/Vol] 3.61 10*6/uL Normal 3.60-5.00 [facility] Comment on above: Performed By: #### C BC, FE and TIBC, THEODORE #### [place] [address] [place] #### METH, EPO #### [facility] , Erythropoetin (EPO), Serumon 2024 Erythropoetin (EPO), Serum 14.9 m[iU]/mL Normal 2.6-18.5 [facility] Comment on above: Result Comment: [employer] UniCel DxI 800 Immunoassay System Values obtained with different assay methods or kits cannot be used interchangeably. Results cannot be interpreted as absolute evidence of the presence or absence of malignant disease. Performed at: [address] [id number] Neurophysiological Technician: Srinath Patel PhD, Phone: [phone] PERFORMED BY: [place] [address] PATHOLOGIST POOLING OPERATOR MARGRET CALLES M.D. Performed By: #### C BC, FE and TIBC, THEODORE #### [address] #### METH, EPO #### [facility] , Ferritin [Mass/volume] in Se rum or PlasmaOrdered By: Vivian Benavidez on 2024 Ferritin [Mass/Vol] 27.2 ng/mL Normal 11.0-306.[address] [facility] Comment on above: Result Comment: PERF ORMED BY: [place] [address] PATHOLOGIST POOLING OPERATOR MARGRET CALLES M.D. Performed By: #### C BC, FE and TIBC, THEODORE #### [address] #### METH, EPO #### [facility] , Hematocrit [Volume Fraction] of Blood by Automated countOrdered By: Vivian Benavidez on 2024 Hematocrit (Bld) [Volume fraction] 35.2 % Normal 34.0-46.[address] [facility] Comment on above: Performed By: #### C BC, FE and TIBC, THEODORE #### [place] [address] [place] #### METH, EPO #### [facility] , Hemoglobin [Mass/volume] in BloodOrdered By: Vivian Benavidez on 2024 Hemoglobin (Bld) [Mass/Vol] 11.8 g/dL Normal 11.8-15.[address] [facility] Comment on above: Performed By: #### C BC, FE and TIBC, THEODORE #### [place] [address] [place] #### METH, EPO #### [facility] , Iron [Mass/volume] in Serum or PlasmaOrdered By: Vivian Benavidez on 2024 Iron [Mass/Vol] 83 ug/dL Normal 50-[address] [facility] Comment on above: Performed By: #### C BC, FE and TIBC, THEODORE #### [facility] [address] [place] [address] [place] #### METH, EPO #### [facility] , Iron and TIBC Profileon % Iron Saturation 22.7 % Normal 20-50 [facility] Comment on above: Performed By: #### C BC, FE and TIBC, THEODORE #### [facility] [address] [place] [address] [place] #### METH, EPO #### [facility] , Total Iron Binding Capacity 365 ug/dL Normal 255-450 [facility] Comment on above: Performed By: #### C BC, FE and TIBC, THEODORE #### [facility] [address] [place] [address] [place] #### METH, EPO #### [facility] , Iron binding capacity [Mass/ volume] in Serum or PlasmaOrdered By: Vivian Benavidez on 2024 Iron binding capacity [Mass/Vol] 365 ug/dL 255-[address] [facility] Iron saturation [Mass Fracti on] in Serum or PlasmaOrdered By: Vivian Benavidez on 2024 Iron saturation [Mass fraction] 22.7 % 20-[address] [facility] Leukocytes [#/volume] correc parminder for nucleated erythrocytes in Blood by Automated counOrdered By: Vivian Benavidez on 2024 WBC corrected for nucl RBC Auto (Bld) [#/Vol] 9.3 10*3/uL 3.8-11.[address] [facility] Leukocytes [#/volume] in Blo od by Automated countOrdered By: Vivian Benavidez on 2024 WBC (Bld) [#/Vol] 9.3 10*3/uL Normal 3.8-11.6 [facility] Comment on above: Performed By: #### C BC, FE and TIBC, THEODORE #### [place] [address] [place] #### METH, EPO #### [facility] , Lymphocytes [#/volume] in Bl ood by Automated countOrdered By: Vivian Reema on 2024 Lymphocytes (Bld) [#/Vol] 2.5 10*3/uL Normal 1.00-4.[address] [facility] Comment on above: Performed By: #### C BC, FE and TIBC, THEODORE #### [place] [address] [place] #### METH, EPO #### [facility] , Lymphocytes/100 leukocytes i n Blood by Automated countOrdered By: Vivian Reema on 2024 Lymphocytes/100 WBC (Bld) 26.8 % Normal . [facility] Comment on above: Performed By: #### C BC, FE and TIBC, THEODORE #### [place] [address] [place] #### METH, EPO #### [facility] , MCH [Entitic mass] by Automa parminder countOrdered By: Vivian Reema on 2024 MCH (RBC) [Entitic mass] 32.6 pg Normal 24.7-34.[address] [facility] Comment on above: Performed By: #### C BC, FE and TIBC, THEODORE #### [place] [address] [place] #### METH, EPO #### [facility] , MCHC Auto (RBC) [Mass/Vol]Or dered By: Vivian Reema on 2024 MCHC (RBC) [Mass/Vol] 33.4 g/dL 32.0-35.[address] [facility] MCV [Entitic volume] by Auto mated countOrdered By: Vivian Reema on 2024 MCV (RBC) [Entitic vol] 97.4 fL Normal 80-[address] [facility] Comment on above: Performed By: #### C BC, FE and TIBC, THEODORE #### [place] [address] [place] #### METH, EPO #### [facility] , Methylmalonic Acidon 024 Methylmalonic Acid 402 High 0-378 [facility] Comment on above: Result Comment: This test was developed and its performance characteristics determined by [facility]. It has not been cleared or approved by the Food and Drug Administration. Performed at: [address] [id number] Neurophysiological Technician: Grisel Koehler MD, Phone: [phone] Performed By: #### C BC, FE and TIBC, THEODORE #### [place] [address] [place] #### METH, EPO #### [facility] , Neutrophils [#/volume] in Bl ood by Automated countOrdered By: Vivian Benavidez on 2024 Neutrophils (Bld) [#/Vol] 5.5 10*3/uL Normal 1.8-7.[address] [facility] Comment on above: Performed By: #### C BC, FE and TIBC, THEODORE #### [facility] [address] [place] [address] [place] #### METH, EPO #### [facility] , Nucleated erythrocytes [Pres ence] in Blood by Automated countOrdered By: Vivian Benavidez on 2024 Nucleated RBC Auto Ql (Bld) 0.1 /100{WBC} 0-0.[address] [facility] Platelet mean volume [Entiti c volume] in Blood by Automated countOrdered By: Vivian Benavidez on 2024 Platelet mean volume (Bld) [Entitic vol] 8.4 fL Normal 6.3-10.[address] [facility] Comment on above: Performed By: #### C BC, FE and TIBC, THEODORE #### [place] [address] [place] #### METH, EPO #### [facility] , Platelets [#/volume] in Bloo d by Automated countOrdered By: Vivian Benavidez on 2024 Platelets (Bld) [#/Vol] 243 10*3/uL Normal 150-[address] [facility] Comment on above: Performed By: #### C BC, FE and TIBC, THEODORE #### [facility] [address] [place] [address] [place] #### METH, EPO #### [facility] , Serum or plasma erythropoiet in (EPO) measurement (units/volume)Ordered By: Vivian Benavidez on 2024 Erythropoietin (EPO) Qn 14.9 mIU/mL 2.6-18.[address] [facility] Comment on above: Butlr el DxI 800 Immunoassay SystemValues obtained with different assay methods or kits cannotbe used interchangeably. Results cannot be interpreted asabsolute evidence of the presence or absence of malignantdisease.Performed at: [facility] [email or web address] [id number] Director: Srinath Patel PhD, Phone: [phone] Serum or plasma methylmalona te measurement (moles/volume)Ordered By: Vivian Benavidez on 2024 Methylmalonate [Moles/Vol] 402 nmol/L High 0-[address] [facility] Comment on above: This test was develo ped and its performance characteristicsdetermined by [employer]. It has not been cleared orapproved by the Food and Drug Administration.Performed at: [facility] [email or web address] [id number] Director: Grisel Koehler MD, Phone: [phone] Transferrin [Mass/volume] in Serum or PlasmaOrdered By: Vivian Huitronevin on 2024 Transferrin [Mass/Vol] 261 mg/dL Normal 203-[address] [facility] Comment on above: Performed By: #### C BC, FE and TIBC, THEODORE #### [facility] [address] [place] [address] [place] #### METH, EPO #### [facility] , Office Visiton 10-08-2023 Follow-up visit [id number] Dionna Lovelace ma 1940 F Date Provider Department Center 10/08/2023 [facility]-DEBBIE [facility] No family history on file Level of Service:13125 [place] OFFICE/OUTPATIENT ESTABLISHED LOW MDM 20 MIN Reason for Visit and Comments: Coronary Artery Disease [187] Valve Disorder [3372] Hypertension [747133] Hyperlipidemia [182] Normal [facility] ECHOCARDIO M/2D COMPLETEon 0 09-24-2022 ECHOCARDIO M/2D COMPLETE Patient: NATALIE LOVELACE Exam Date: 09/24/2022 : 1940 Gender:F Ordering : DEBBIE CHEN [facility] Admission #: [id number] Family : Order #: [id number] CLICK HERE TO VIEW EXAM ECHOCARDIOGRAM REPORT [...] Pérez M.D. on 09/25/2022 at 18:30 Normal [facility] XR DEXA BONE DENSITYon 04-15 XR DEXA [...] SUSANA REYEZ Date: 2022-04-15 15:[address] [facility] PROF CHEM 8 (BAS METB)on Anion gap [Moles/Vol] 11.9 mmol/L Normal [facility] Comment on above: Performed By: #### B MP #### [facility] [address] [address] [address] Troy Pickett Calcium [Mass/Vol] 8.6 mg/dL Normal 8.5-10.[address] [facility] Comment on above: Performed By: #### B MP #### [facility] [address] [address] [address] Troy Pickett Chloride [Moles/Vol] 109 mmol/L Critically high 98-[address] [facility] Comment on above: Performed By: #### B MP #### [facility] [address] [address] [address] Troy Pickett CO2 [Moles/Vol] 29.5 mmol/L Normal 21.0-32.0 [facility] Comment on above: Performed By: #### B MP #### [facility] [address] [address] [address] Troy Pickett Creatinine [Mass/Vol] 1.34 mg/dL Critically high 0.55-1.02 [facility] Comment on above: Performed By: #### B MP #### [facility] [address] [address] [address] Troy Pickett EGFR-AF PANAMANIAN 46 mL/min/1.73m2 Critically low >=60 [facility] Comment on above: Performed By: #### B MP #### [facility] [address] [address] [address] Troy Pickett EGFR-NON AF PANAMANIAN 38 mL/min/1.73m2 Critically low >=60 [facility] Comment on above: Performed By: #### B MP #### [facility] [address] [address] [address] Troy Pickett Glucose [Mass/Vol] 130 mg/dL Critically high 74-106 [facility] Comment on above: Performed By: #### B MP #### [facility] [address] [address] [address] Troy Pickett Potassium [Moles/Vol] 4.4 mmol/L Normal 3.5-5.1 [facility] Comment on above: Performed By: #### B MP #### [facility] [address] [address] [address] Troy Pickett Sodium [Moles/Vol] 146 mmol/L Critically high 136-145 [facility] Comment on above: Performed By: #### B MP #### [facility] [address] [address] [address] Troy Pickett Urea nitrogen [Mass/Vol] 21.0 mg/dL Critically high 7.0-18.0 [facility] Comment on above: Performed By: #### B MP #### [facility] [address] [address] [address] Troy Pickett Urea nitrogen/Creatini ne [Mass ratio] 15.7 mg/mg Normal [facility] Comment on above: Performed By: #### B MP #### [facility] [address] [address] [address] Troy Pickett CBC AUTO DIFFon 11-15-2021 BASO # 0.1 103/ul Normal 0.0-0.1 [facility] Comment on above: Performed By: #### C BC #### [facility] [address] [address] [address] Troy Pickett Basophils/100 WBC (Bld) 0.8 % Normal 0.2-2.0 [facility] Comment on above: Performed By: #### C BC #### [facility] [address] [address] [address] Troy Pickett EO # 0.5 103/ul Normal 0.0-0.7 [facility] Comment on above: Performed By: #### C BC #### [facility] [address] [place] [address] Dr. Troy Pickett Eosinophils/100 WBC (Bld) 6.1 % Normal 0.9-7.0 [facility] Comment on above: Performed By: #### C BC #### [facility] [address] [address] [address] Troy Pickett Erythrocyte distribution width (RBC) [Ratio] 13.4 % Normal 11.0-15.0 [facility] Comment on above: Performed By: #### C BC #### [facility] [address] [place] [address] Dr. Troy Pickett Hematocrit (Bld) [Volume fraction] 35.7 % Critically low 36.0-48.0 [facility] Comment on above: Performed By: #### C BC #### [facility] [address] [address] [address] Troy Pickett Hemoglobin (Bld) [Mass/Vol] 11.3 g/dL Critically low 12.0-16.0 [facility] Comment on above: Performed By: #### C BC #### [facility] [address] [address] [address] Troy Pickett IG # 0.02 10e3/ul Normal 0.00-0.03 [facility] Comment on above: Performed By: #### C BC #### [facility] [address] [place] [address] Dr. Troy Pickett IG % 0.3 % Normal 0.0-0.5 [facility] Comment on above: Performed By: #### C BC #### [facility] [address] [place] [address] Dr. Troy Pickett LYMPH # 2.4 103/ul Normal 1.2-3.8 [facility] Comment on above: Performed By: #### C BC #### [facility] [address] [place] [address] Dr. Troy Pickett Lymphocytes/100 WBC (Bld) 30.9 % Normal 20.5-60.0 [facility] Comment on above: Performed By: #### C BC #### [facility] [address] [place] [address] Dr. Troy Pickett MANUAL DIFF REQ NO Normal [facility] Comment on above: Performed By: #### C BC #### [facility] [address] [place] [address] Dr. Troy Pickett MCH (RBC) [Entitic mass] 31.5 pg Normal 26.7-34.0 [facility] Comment on above: Performed By: #### C BC #### [facility] [address] [place] [address] Dr. Troy Pickett MCHC (RBC) [Mass/Vol] 31.7 g/dL Normal 29.9-35.2 [facility] Comment on above: Performed By: #### C BC #### [facility] [address] [place] [address] Dr. Troy Pickett MCV (RBC) [Entitic vol] 99.4 fL Critically high 81.0-99.0 [facility] Comment on above: Performed By: #### C BC #### [facility] [address] [place] [address] Dr. Troy Pickett MONO # 0.6 103/ul Normal 0.3-0.8 [facility] Comment on above: Performed By: #### C BC #### [facility] [address] [address] [address] Troy Pickett Monocytes/100 WBC (Bld) 7.4 % Normal 1.7-12.0 [facility] Comment on above: Performed By: #### C BC #### [facility] [address] [address] [address] Troy Pickett NEUT # 4.3 103/ul Normal 1.4-6.5 [facility] Comment on above: Performed By: #### C BC #### [facility] [address] [address] [address] Troy Pickett Neutrophils/100 WBC (Bld) 54.5 % Normal 43.0-75.0 [facility] Comment on above: Performed By: #### C BC #### [facility] [address] [place] [address] Dr. Troy Pickett Platelet mean volume (Bld) [Entitic vol] 9.2 fL Critically low 9.5-13.5 [facility] Comment on above: Performed By: #### C BC #### [facility] [address] [address] [address] Troy Pickett PLT 197 103/ul Normal 150-450 [facility] Comment on above: Performed By: #### C BC #### [facility] [address] [place] [address] Dr. Troy Pickett RBC 3.59 106/ul Critically low 4.20-5.40 [facility] Comment on above: Performed By: #### C BC #### [facility] [address] [place] [address] Dr. Troy Pickett WBC 7.9 103/ul Normal 4.0-11.[address] [facility] Comment on above: Performed By: #### C BC #### [facility] [address] [place] [address] Dr. Troy Pickett LIPID PROFILEon 11-15-2021 CHOL-HDL RATIO NORM SEE BELOW Normal [facility] Comment on above: Result Comment: 3.3 - 4.4 LOW RISK 4.4 - 7.1 AVERAGE RISK 7.1 - 11.0 MODERATE RISK >11.0 HIGH RISK Performed By: #### C MP, LIPID #### [facility] [address] [address] [address] Troy Pickett Cholesterol [Mass/Vol] 173 mg/dL Normal <=200 [facility] Comment on above: Performed By: #### C MP, LIPID #### [facility] [address] [address] [address] Troy Pickett Cholesterol in HDL [Mass/Vol] 43 mg/dL Normal 40-60 [facility] Comment on above: Performed By: #### C MP, LIPID #### [facility] [address] [address] [address] Troy Pickett Cholesterol in LDL [Mass/Vol] 66.0 mg/dL Normal [facility] Comment on above: Performed By: #### C MP, LIPID #### [facility] [address] [place] [address] Dr. Troy Pickett Cholesterol.total /Cholesterol in HDL [Mass ratio] 4.0 {ratio} Normal [facility] Comment on above: Performed By: #### C MP, LIPID #### [facility] [address] [place] [address] Dr. Troy Pickett HDL NORMAL > or = 60 mg/dl - LO W CARDIOVASCULAR RISK <40 mg/dl - HIGH CARDIOVASCULAR RISK Normal [facility] Comment on above: Performed By: #### C MP, LIPID #### [facility] [address] [place] [address] Dr. Troy Pickett LDL CALC NORMAL SEE BELOW Normal [facility] Comment on above: Result Comment: <100 mg/dl OPTIMAL 100 - 129 mg/dl NEAR OR ABOVE OPTIMAL 130 - 159 mg/dl BORDERLINE HIGH 160 - 189 mg/dl HIGH >190 mg/dl VERY HIGH Performed By: #### C MP, LIPID #### [facility] [address] [place] [address] Dr. Troy Pickett Triglyceride [Mass/Vol] 320 mg/dL Critically high <=150 [facility] Comment on above: Performed By: #### C MP, LIPID #### [facility] [address] [place] [address] Dr. Troy Pickett VLDL CALC 64.0 mg/dL Normal [facility] Comment on above: Performed By: #### C MP, LIPID #### [facility] [address] [place] [address] Dr. Troy Pickett PROF 14(COMP METB)on 022 Albumin [Mass/Vol] 3.3 g/dL Critically low 3.5-5.0 [facility] Comment on above: Performed By: #### C MP, LIPID #### [facility] [address] [place] [address] Dr. Troy Pickett Albumin/Globulin [Mass ratio] 0.9 {ratio} Normal [facility] Comment on above: Performed By: #### C MP, LIPID #### [facility] [address] [place] [address] Dr. Troy Pickett ALP [Catalytic activity/Vol] 103 U/L Normal 38-[address] [facility] Comment on above: Performed By: #### C MP, LIPID #### [facility] [address] [place] [address] Dr. Troy Pickett ALT [Catalytic activity/Vol] 28 U/L Normal 9-[address] [facility] Comment on above: Performed By: #### C MP, LIPID #### [facility] [address] [place] [address] Dr. Troy Pickett Anion gap [Moles/Vol] 12.1 mmol/L Normal [facility] Comment on above: Performed By: #### C MP, LIPID #### [facility] [address] [place] [address] Dr. Troy Pickett AST [Catalytic activity/Vol] 30 U/L Normal 14-36 [facility] Comment on above: Performed By: #### C MP, LIPID #### [facility] [address] [place] [address] Dr. Troy Pickett Bilirubin [Mass/Vol] 1.2 mg/dL Normal 0.2-1.3 [facility] Comment on above: Performed By: #### C MP, LIPID #### [facility] [address] [address] [address] Troy Pickett Calcium [Mass/Vol] 8.7 mg/dL Normal 8.4-10.[address] [facility] Comment on above: Performed By: #### C MP, LIPID #### [facility] [address] [address] [address] Troy Pickett Chloride [Moles/Vol] 105 mmol/L Normal 98-[address] [facility] Comment on above: Performed By: #### C MP, LIPID #### [facility] [address] [place] [address] Dr. Troy Pickett CO2 [Moles/Vol] 30.6 mmol/L Critically high 22.0-30.0 [facility] Comment on above: Performed By: #### C MP, LIPID #### [facility] [address] [place] [address] Dr. Troy Pickett Creatinine [Mass/Vol] 1.61 mg/dL Critically high 0.52-1.04 [facility] Comment on above: Performed By: #### C MP, LIPID #### [facility] [address] [place] [address] Dr. Troy Pickett EGFR-AF PANAMANIAN 37 mL/min/1.73m2 Critically low >=[address] [facility] Comment on above: Performed By: #### C MP, LIPID #### [facility] [address] [place] [address] Dr. Troy Pickett EGFR-NON AF PANAMANIAN 31 mL/min/1.73m2 Critically low >=[address] [facility] Comment on above: Performed By: #### C MP, LIPID #### [facility] [address] [place] [address] Dr. Troy Pickett Globulin (S) [Mass/Vol] 3.7 g/dL Normal [facility] Comment on above: Performed By: #### C MP, LIPID #### [facility] [address] [place] [address] Dr. Troy Picktet Glucose [Mass/Vol] 115 mg/dL Critically high 74-[address] [facility] Comment on above: Performed By: #### C MP, LIPID #### [facility] [address] [address] [address] Troy Pickett Potassium [Moles/Vol] 4.7 mmol/L Normal 3.4-5.0 [facility] Comment on above: Performed By: #### C MP, LIPID #### [facility] [address] [address] [address] Troy Pickett Protein [Mass/Vol] 7.0 g/dL Normal 6.1-8.2 [facility] Comment on above: Performed By: #### C MP, LIPID #### [facility] [address] [address] [address] Troy Pickett Sodium [Moles/Vol] 143 mmol/L Normal 137-145 [facility] Comment on above: Performed By: #### C MP, LIPID #### [facility] [address] [place] [address] Dr. Troy Pickett Urea nitrogen [Mass/Vol] 24.0 mg/dL Critically high 7.0-17.0 [facility] Comment on above: Performed By: #### C MP, LIPID #### [facility] [address] [address] [address] Troy Pickett Urea nitrogen/Creatini ne [Mass ratio] 14.9 mg/mg Normal [facility] Comment on above: Performed By: #### C MP, LIPID #### [facility] [address] [place] [address] Dr. Troy Pickett Vital Signs Date Time Vital Sign Value Performing Clinician Eleno bob 09-06-2024 15:14-0500 Body mass index (BMI) [Ratio] 29.48 kg[facility]m2 [facility] [employer] Work Phone: [facility] 09-06-2024 15:14-050 Body weight 70.76 kg [facility] [employer] Work Phone: [facility] 09-06-2024 15:14-0500 Diastolic blood pressure 76 mm[Hg] [facility] [employer] Work Phone: [facility] 09-06-2024 15:14-050 Heart rate 66 /min Dewayne Gilbert DO Work Phone: [facility] 09-06-2024 15:14-0500 SaO2% (BldA) [Mass fraction] 95 % Dewayne Gilbert DO Work Phone: [facility] 09-06-2024 15:14-0500 Systolic blood pressure 138 mm[Hg] Dewayne Gilbert DO Work Phone: [facility] 07-26-2024 13:22-0500 Body height 154.9 cm Kevin Adams MD Work Phone: [facility] 07-26-2024 13:22-0500 Body mass index (BMI) [Ratio] 30.42 kg/m2 Kevin Adams MD Work Phone: [facility] 07-26-2024 13:22-0500 Body weight 73.03 kg Kevin Adams MD Work Phone: [facility] 07-26-2024 13:22-0500 Diastolic blood pressure 62 mm[Hg] Kevin Adams MD Work Phone: [facility] 07-26-2024 13:22-0500 Heart rate 80 /min Kevin Adams MD Work Phone: [facility] 07-26-2024 13:22-0500 SaO2% (BldA) [Mass fraction] 95 % Kevin Adams MD Work Phone: [facility] 07-26-2024 13:22-0500 Systolic blood pressure 130 mm[Hg] Kevin Adams MD Work Phone: [facility] 07-07-2024 13:01-0500 Body height 157.48 cm II Kevin Adams Work Phone: [facility] 07-07-2024 13:01-0500 Body mass index (BMI) [Ratio] 29.9 kg/m2 II Kevin Adams Work Phone: [facility] 07-07-2024 13:01-0500 Body temperature 97.9 [degF] II Kevin Adams Work Phone: [facility] 07-07-2024 13:01-0500 Body weight 74.38 kg II Kevin Adams Work Phone: [facility] 07-07-2024 13:01-0500 Heart rate 85 /min II Kevin Adams Work Phone: [facility] 07-07-2024 13:01-0500 Respiratory rate 20 /min II Kevin Adams Work Phone: [facility] 07-07-2024 13:01-0500 SaO2% (BldA) [Mass fraction] 95 % II Kevin Adams Work Phone: [facility] 06-25-2024 11:23-0400 Body height 154.9 cm Kevin Adams MD Work Phone: [facility] 06-25-2024 11:23-0400 Body mass index (BMI) [Ratio] 30.04 kg/m2 Kevin Adams MD Work Phone: [facility] 06-25-2024 11:23-0400 Body weight 72.12 kg Kevin Adams MD Work Phone: [facility] 06-25-2024 11:23-0400 Diastolic blood pressure 74 mm[Hg] Kevin Adams MD Work Phone: [facility] 06-25-2024 11:23-0400 Heart rate 94 /min Kevin Adams MD Work Phone: [facility] 06-25-2024 11:23-0400 SaO2% (BldA) [Mass fraction] 97 % Kevin Adams MD Work Phone: [facility] 06-25-2024 11:23-0400 Systolic blood pressure 130 mm[Hg] Kevin Adams MD Work Phone: [facility] 05-17-2024 15:05-0400 Body height 154.9 cm Kvein Adams MD Work Phone: [facility] 05-17-2024 15:05-0400 Body mass index (BMI) [Ratio] 29.85 kg/m2 Kevin Adams MD Work Phone: [facility] 05-17-2024 15:05-0400 Body weight 71.67 kg Kevin Adams MD Work Phone: [facility] 05-17-2024 15:05-0400 Diastolic blood pressure 66 mm[Hg] Kevin Adams MD Work Phone: [facility] 05-17-2024 15:05-0400 Heart rate 71 /min Kevin Adams MD Work Phone: [facility] 05-17-2024 15:05-0400 SaO2% (BldA) [Mass fraction] 96 % Kevin Adams MD Work Phone: [facility] 05-17-2024 15:05-0400 Systolic blood pressure 128 mm[Hg] Kevin Adams MD Work Phone: [facility] 2024 10:56-0400 Body height 157.48 cm II Kevin Adams Work Phone: [facility] 2024 10:56-0400 Body mass index (BMI) [Ratio] 28.3 kg/m2 II Kevin Adams Work Phone: [facility] 2024 10:56-0400 Body temperature 97.8 [degF] II Kevin Adams Work Phone: [facility] 2024 10:56-0400 Body weight 70.3 kg II Kevin Adams Work Phone: [facility] 2024 10:56-0400 Diastolic blood pressure 75 mm[Hg] II Kevin Adams Work Phone: [facility] 2024 10:56-0400 Heart rate 89 /min II Kevin Adams Work Phone: [facility] 2024 10:56-0400 Respiratory rate 16 /min II Kevin Adams Work Phone: [facility] 2024 10:56-0400 SaO2% (BldA) [Mass fraction] 98 % II Kevin Adams Work Phone: [facility] 2024 10:56-0400 Systolic blood pressure 128 mm[Hg] II Kevin Adams Work Phone: 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 Start: 09-13-2024 End: 09-13-2024 Bamboo flowsheet Robbie Méndez PhD Work Phone: [facility] Start: 09-13-2024 End: 09-13-2024 Bammargieo flowsheet Robbie Méndez PhD Work Phone: [facility] Start: 09-13-2024 End: 09-13-2024 Patient encounter procedure Robbie Méndez PhD Work Phone: [facility] Comment on above: Memory loss (Primary Dx); Anxiety; Hard of hearing; Other insomnia; Other chronic pain Start: 09-13-2024 End: 09-13-2024 ambulatory ROBBIE MÉNDEZ Not Available Start: 09-06-2024 End: 09-06-2024 Office outpatient new 45 minutes Dewayne Gilbert DO Work Phone: [facility] Comment on above: Mild cognitive impai rment Start: 09-06-2024 End: 09-06-2024 ambulatory FELECIAJUDI OFELIA Not Available Start: 09-06-2024 End: 09-06-2024 Bamboo flowsheet Dewayne Gilbert DO Work Phone: [facility] [place] [address] Start: 09-06-2024 End: 09-06-2024 Bamboo flowsheet Dewayne Gilbert DO [facility] [address] [facility] Start: 07-26-2024 End: 07-26-2024 Bamboo flowsheet Kevin Adams MD Work Phone: [facility] Start: 07-26-2024 End: 07-26-2024 Bamboo flowsheet Kevin Adams MD Work Phone: [facility] Start: 07-26-2024 End: 07-26-2024 Office outpatient visit 25 minutes Kevin Adams MD Work Phone: [facility] Comment on above: Depressive disorder (CMS/HCC); Chronic diastolic congestive heart failure (CMS/HCC); Overactive bladder; Gastroesophageal reflux disease, unspecified whether esophagitis present; Mild cognitive impairment Start: 07-26-2024 End: 07-26-2024 ambulatory KEVIN ADAMS Not Available Start: 07-07-2024 Registered Recurring II Kevin Adams Work Phone: [facility] Work Phone: Start: 07-07-2024 End: 07-07-2024 ambulatory II Kevin Adams Work Phone: [facility] Work Phone: Start: 07-07-2024 End: 07-07-2024 Patient encounter procedure II Kevin Adams [facility]: Start: 07-02-2024 End: 07-02-2024 Clinisync Result Encounter Generic External Data Provider [facility] External Department Unsolicited Start: 07-02-2024 End: 07-02-2024 Clinisync Result Encounter Generic External Data Provider [facility] External Department Unsolicited Start: 06-25-2024 End: 06-25-2024 Bamboo flowsheet Kevin [...] 06-25-2024 ambulatory KEVIN ADAMS Not Available Start: 05-17-2024 End: 05-17-2024 ambulatory KEVIN ADAMS Not Available Start: 05-17-2024 End: 05-17-2024 Office outpatient visit 25 minutes Kevin Adams MD Work Phone: [facility] Comment on above: Trigeminal neuralgia pain (CMS/HCC) (Primary Dx); 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 Work Phone: Start: 2024 Registered Recurring II Kevin Adams Work Phone: [facility] Work Phone: Start: 11-12-2023 End: 11-12-2023 ambulatory LEATHA BO Not Available Start: 10-08-2023 End: 10-08-2023 [facility] Start: 09-24-2022 End: 09-25-2022 ambulatory DEBBIE CHEN Facility:[facility] Start: 06-01-[address] KEVIN ADAMS Facilit y:[facility] Start: 04-15-2022 End: 04-16-[address] KEVIN ADAMS Facility:[facility] Start: 02-27-2022 End: 02-28-[address] KEVNI ADAMS Facility:[facility] Start: 01-03-[address] KEVIN ADAMS Facilit y:[facility] Start: 11-15-2021 End: 11-16-2021 ambulatory DEBBIE APRIL Facility:[facility] Start: 04-27-2018 End: 04-28-2018 Patient encounter DEFAULT PHYSICIAN Facility:[facility] Start: 04-20-2018 End: 04-21-2018 Patient encounter DEFAULT PHYSICIAN Facility:[facility] Procedures Date Procedure Procedure Detail Performing Clinician Start: 10-08-2024 ALL CBC WITH AUTO DIFF Generic External Data Provider Start: 07-02-2024 ALL CBC WITH AUTO DIFF Generic External Data Provider Plan of Treatment Date Care Activity Detail Author Start: 05-13-2026 Glaucoma screening Diabetes: R etinopathy Screening [facility] Start: 11-22-2024 End: 11-22-2024 Patient encounter procedure 11/22/2024 3:00 PM EDT Office Visit [facility] [address] [facility] [address] [place] [address] Kevin Adams MD [address] [facility] [address] [place] [address] [facility] Start: 11-15-2024 End: 11-15-2024 Patient encounter procedure 11/15/2024 3:00 PM EDT Office Visit [facility] [address] [facility] [address] [place] [phone] Kevin Adams MD [address] [facility] [address] [place] [address] [facility] Start: 11-11-2024 Medicare Annual Well ness (AWV) Medicare Annual Wellness (AWV) [facility] Start: 11-04-2024 End: 11-04-2024 Patient encounter procedure 11/04/2024 2:40 PM EST Office Visit [facility] [address] [place] [phone] Gloria Wolf NP [address] [place] [phone] [facility] Start: 10-06-2024 End: 10-06-2024 Patient encounter procedure 10/06/2024 3:00 PM EST Office Visit [facility] [address] [place] [phone] Gloria Wolf NP [address] [place] [phone] [facility] Start: 10-04-2024 End: 10-04-2024 Patient encounter procedure 10/04/2024 12:30 PM EST Office Visit [facility] [address] [place] [phone] [facility] Start: 09-13-2024 End: 09-13-2024 Patient encounter procedure 09/13/2024 1:30 PM EST Office Visit [facility] [address] [facility] [address] [place] [phone] Robbie Méndez, PhD [address] [place] [address] Mild cognitive impairment [facility] Comment on above: Mild cognitive impai rment Start: 09-06-2024 End: 09-06-2024 Patient encounter procedure 09/06/2024 3:30 PM EST Office Visit [facility]QU[facility] A[facility]UST[facility] [address] [place] [phone] Dewayne Glibert, [address] [place], [place] [id number] Mild cognitive impairment [facility] [place] [address] Comment on above: Mild cognitive impai rment Start: 09-06-2024 End: 09-06-2025 MR Brain WO and W contrast IV MR brain w and wo contrast routine Imaging Routine Mild cognitive impairment Expected: 09/06/2024, Expires: 09/06/2025 [facility] Work Phone: Comment on above: Expected: 09/06/2024 , Expires: 09/06/2025 Start: 07-26-2024 End: 07-26-2024 Patient encounter procedure [facility] Comment on above: Arrived Start: 06-25-2024 End: 06-25-2025 Cobalamin (Vitamin B12) [Mass/volume] in Serum or Plasma Vitamin B12 Lab Routine Mild cognitive impairment Expected: 06/25/2024 (Approximate), Expires: 06/25/2025 [facility] Comment on above: Expected: 06/25/2024 (Approximate), Expires: 06/25/2025 Start: 06-25-2024 End: 06-25-2025 Reagin Ab [Presence] in Serum by RPR RPR Lab Routine Mild cognitive impairment Expected: 06/25/2024 (Approximate), Expires: 06/25/2025 [facility] Comment on above: Expected: 06/25/2024 (Approximate), Expires: 06/25/2025 Start: 06-25-2024 End: 06-25-2025 TSH W/REFLEX TO FT4 TSH W/REFLEX TO FT4 Lab Routine Mild cognitive impairment Expected: 06/25/2024 (Approximate), Expires: 06/25/2025 [facility] Work Phone: Comment on above: Expected: 06/25/2024 (Approximate), Expires: 06/25/2025 Start: 06-25-2024 End: 06-25-2024 Patient encounter procedure 06/25/2024 11:30 AM EDT Office Visit [facility] [address] [facility] [address] [place] [phone] Kevin Adams MD [address] [facility] [address] [place] [address] Arrived [facility] Comment on above: Arrived Start: 06-08-[address] [facility] Start: 06-07-2024 End: 06-07-2024 Patient encounter procedure 06/07/2024 3:30 PM EDT Office Visit [facility] [address] [facility] [address] [place] [address] Kevin Adams MD [address] [facility] [address] [place] [address] [facility] Start: 05-02-2024 Influenza vaccination Influenza Vacc ine (#1) [facility] Start: 02-12-2024 Hemoglobin A1c measurement Diabetes: Hemoglobin A1C [facility] Start: 02-27-2023 Urine screening for protein Diabetes: Urine Protein Screening [facility] Start: 02-22-2021 Urine screening for protein Diabetes: Urine Protein Screening [facility] metabo lic 1999 panel - Serum or Plasma [facility] Comprehensive metabo lic 1999 panel - Serum or Plasma [facility] Erythropoietin (EPO) [Units/volume] in Serum or Plasma [facility] Erythropoietin (EPO) [Units/volume] in Serum or Plasma [facility] Immunizations Immunization Date Immunization Notes Care Provider Fa [facility] 10-08-2023 Influenza, Seasonal, Quadrivalent, Adjuvanted Kevin Admas MD Work Phone: [facility] 10-08-2023 Pneumococcal Conjuga te PCV 20 Kevin Adams MD Work Phone: [facility] 10-08-2023 influenza virus vacc ine, unspecified formulation Kevin Adams MD Work Phone: [facility] 06-05-2022 Influenza, High-dose Seasonal, Quadrivalent, Preservative Free Kevni Adams MD Work Phone: [facility] 06-05-2022 Pneumococcal Conjuga te PCV 20 Kevin Adams MD Work Phone: [facility] 06-05-2021 influenza, high dose seasonal, preservative-free Kevin Adams MD Work Phone: [facility] 05-24-2020 Seasonal trivalent influenza vaccine, adjuvanted, preservative free Kevin Adams MD Work Phone: [facility] 08-27-2019 zoster vaccine recombinant Sanam Adams MD Work Phone: [facility] 08-03-2019 influenza, injectabl e, quadrivalent, contains preservative Kevin Adams MD Work Phone: [facility] 05-28-2019 zoster vaccine recombinant Sanam Adams MD Work Phone: [facility] 01-20-2019 tetanus toxoid, redu dyana diphtheria toxoid, and acellular pertussis vaccine, adsorbed Kevin Adams MD Work Phone: [facility] 06-03-2018 pneumococcal polysaccharide vaccine, 23 valent Kevin Adams MD Work Phone: [facility] 06-03-2018 Seasonal trivalent influenza vaccine, adjuvanted, preservative free Kevin Adams MD Work Phone: [facility] 05-28-2017 Influenza, High-dose Seasonal, Quadrivalent, Preservative Free Kevin Adams MD Work Phone: [facility] 02-07-2017 pneumococcal conjuga te vaccine, 13 valent Kevin Adams MD Work Phone: [facility] 06-29-2016 influenza, injectabl e, quadrivalent, preservative free Kevin Adams MD Work Phone: [facility] 08-17-2015 pneumococcal conjuga te vaccine, 13 valent Kevin Adams MD Work Phone: [facility] 08-17-2015 pneumococcal polysaccharide vaccine, 23 valdwaine Adams MD Work Phone: [facility] 07-11-2015 seasonal influenza, intradermal, preservative free Kevin Adams MD Work Phone: [facility] 06-27-2014 zoster vaccine, live Kevin Adams MD Work Phone: [facility] 06-01-2014 influenza, seasonal, injectable Kevin Adams MD Work Phone: [facility] 07-05-2013 seasonal influenza, intradermal, preservative free Kevin Adams MD Work Phone: [facility] 06-25-2010 pneumococcal polysaccharide vaccine, 23 valent Kevin Adams MD Work Phone: [facility] 02-27-2007 tetanus and diphther ia toxoids, adsorbed, preservative free, for adult use (5 Lf of tetanus toxoid and 2 Lf of diphtheria toxoid) Kevin Adams MD Work Phone: [facility] 02-27-2007 tetanus toxoid, redu dyana diphtheria toxoid, and acellular pertussis vaccine, adsorbed Kevin Adams MD Work Phone: [facility] Healthcare Payers Date Payer Category Payer Medicaid [employer] MEDICARE A DVANTAGE [id number] 2024 Self-pay [id number] 2024 Medicare [id number] 2022 Medicare [id number] 2022 Medicare (Managed Care) PAOLO RAYMOND ADVANTAGE [id number] 2020 Unknown [id number] 1959 Self-pay [id number] 1959 Unknown [id number] 1938 Unknown [id number] [id number]. 593 1938 Unknown [id number] 2.16.840.1.275309.3.579.2. 593 1938 Unknown [id number] 2.16.840.1.549102.3.579.2. 593 1938 Unknown [id number] 2.16.840.1.903585.3.579.2. 593 1938 Unknown [id number] 2.16.840.1.849713.3.579.2. 593 1938 Unknown [id number] 2.16.840.1.741039.3.579.2. 593 1938 Unknown [id number] 2.16.840.1.004460.3.579.2. 1259 1938 Unknown [id number] 2.16.840.1.757868.3.579.2. 1259 1938 Unknown [id number] 2.16.840.1.051172.3.579.2. 1259 1938 Unknown [id number] 2.16.840.1.242077.3.579.2. 1259 1938 Unknown [id number] 2.16.840.1.373257.3.579.2. 1259 1938 Unknown [id number] 2.16.840.1.094955.3.579.2. 1259 1938 Unknown [id number] 2.16.840.1.702600.3.579.2. 1259 Medicare Medicare [id number] Unknown Unknown [employer] [id number] Unknown [id number]. 531 Social History Date Type Detail Facility Start: 05-13-2023 End: 2024 Tobacco smoking status PRIS Ex-smoker (finding) [facility] Start: 1940 Sex Assigned At Female F [facility] End: 11-01-1999 History of tobacco use Current smoker [facility] End: 11-01-1999 History of tobacco use Cigarette Smoker [facility] Start: 05-13-2023 Tobacco use and exposure Smokeless tobacco non-user [facility] Start: 06-25-2024 End: 07-26-2024 Alcoholic beverage intake Ex-drinker (finding) [facility] [...] Only a little [facility] (I/We) worried wheth er (my/our) food would run out before (I/we) got money to buy more. Never true [facility] Start: 05-13-2023 Tobacco Comment Last smoked : > 10 years [facility] Start: 05-13-2023 Alcohol Comment Caffeine intak e : 1-2 cup per day coffee [facility] Start: 1940 Sex assigned at Not on file N [facility] Start: 11-13-2022 Gender identity Identifies as female gender (finding) [facility] Medical Equipment Procedure Code Equipment Code Equipment Origin al Text Equipment Identifier Dates [id number] Start: 12-17-2022 Clinical Notes 10-08-2023 to 10-04-2024 Robbie Méndez, PhD - 10/04/2024 12:30 PM Yair Méndez, - 09/13/2024 1:30 PM Walt Gilbert DO - 09/06/2024 3:30 PM Briseida Adams MD - 07/26/2024 1:30 PM EST Note Date & Type Note Facility 10-04-2024 History of Present illness Narrative Images from the original note were not included. Neuropsychology Robbie Méndez, PhD NEUROPSYCHOLOGICAL EVALUATION Natalie Lovelace is a 84 y.o. female referred for neuropsychological evaluation to assist with facilitating and informing medical differential diagnosis and clinical decision-making. The following information was obtained during an interview with the patient and daughter, as well as review of available records. PRESENTING PROBLEM: Patient denied any issues with cognition or memory. Daughter reported noticing a slow progressive decline such as forgetting conversations, forgetting activities participated in such as her own birthday, and also forgot gifts received for her birthday. Daughter also reported patient has a history of excessive phlegm and has lately been wiping it on random things which is unusual for her. Additionally, experiencing urinary incontinence both day and night, wears adult diaper. Patient reported lacking sensation as well as experiencing urgency. Also experiencing poor hearing which could be contributing. Capable of ADLs although family has to fight with her in order to shower. Can forget whether or not she has eaten. Leaves food in the microwave. Minimal contribution around the home. Daughter manages finances and medication. No driving after family took the keys away about a year ago due to memory problems. Bored around the home and spends a lot of time watching mindless television or reading. Minimal physical activity. Fluctuating sleep quality. Often sleeps all day long and then is up throughout the night. Experiencing chronic back and knee pain. No prior neurological history. Prior MoCA testing and . On Aricept. No family neurological history. Psychiatric history notable for anxiety. History of heavy smoking and drinking, none for several years. [place] language Malaysian. Completed 8 years of formal education. 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 . Patient's daughter, son-in-law, and granddaughter live in her home as well. Has 3 total children. MEDICAL HISTORY/MEDICATION: MEDICATIONS: Current Outpatient Medications Medication Instructions albuterol (2.5 MG/3ML) 0.083% nebulizer solution 3 mL, 3 times daily RT aspirin 81 MG chewable tablet 1 tablet, Daily atorvastatin (LIPITOR) 80 mg, Oral, Every 24 hours calcium carbonate 1500 (600 Ca) MG tablet 1 tablet, Daily citalopram (CELEXA) 40 mg, Oral, Every 24 hours donepezil (ARICEPT) 10 mg, Oral, Nightly furosemide (Lasix) 20 MG tablet 1 tablet, Every other day Lancets (2smsuch Delica Plus [id number]) [facility] [place] DAILY FOR FINGER STICK meloxicam (MOBIC) 7.5 mg, Oral, Daily PRN metoprolol tartrate (LOPRESSOR) 25 mg, Oral, 2 times daily MULTIPLE VITAMINS PO 1 tablet, Daily Nutritional Supplements (Boost Compact) liquid Take by mouth. 2smsuch Ultra test strip USE TO TEST ONCE A DAY DIRECTED oxybutynin XL (DITROPAN-XL) 10 mg, Oral, Every 24 hours pantoprazole (PROTONIX) 40 mg, Oral, Daily before breakfast potassium chloride CR (Klor-Con M10) 10 MEQ ER tablet 10 mEq, Oral, Daily, Do not crush or chew. vitamin C 250 mg, Daily zinc gluconate 50 mg, Daily ASSESSMENT: Presented to appointment on time, alert, and Ox2, temporally disoriented . Rapport easily established. Good eye contact. Poor hearing. Ambulated independently. Purpose for current evaluation explained and patient agreed to participate. Socially very distractible and frequently interrupted testing. Difficult to keep on track. In addition, she constantly coughed up phlegm throughout assessment, necessitating regular breaks, further disrupting testing. Performance validity testing revealed variable levels of effort. Findings are therefore interpreted with caution. Vision/Visuoconstruction: Binocular near-point visual acuity 20/25. Visual varma full to confrontation. Visuoconstruction 93rd %ile. Nonverbal abstract reasoning 21st %ile. Copy of a complex geometric design >16th %ile. Motor/Speed of Processing: Right-handed. Biomedical Service Engineer strength 16th %ile, bilaterally. Speeded graphomotor transcoding 62nd %ile. Attention/Working Memory: Auditory attention/working memory 62nd %ile (6 digits forward, 3 digits backward, 3 digits during sequencing). Speeded visual scanning/attention 7th %ile. Speeded visual divided attention d/c. Speech/Language: Expressive speech fluent and absent of paraphasic errors. Comprehension adequate for current purposes. Single-word reading 25th %ile. Generative naming to phonemic and semantic cues <1st %ile. Confrontation naming 24th %ile. Verbal abstract reasoning 21st %ile. Learning and Memory: Learning of a word list <1st %ile (2-2-3-2-3), delayed recall <1st %ile. Recognition discriminability 2nd %ile. Forced-choice 13/16. Immediate recall for prose passages 14th %ile, delayed 2nd %ile. Recognition <2nd %ile. Immediate recall for a variety of geometric figures 69th %ile, delayed 7th %ile. Recognition 51-75th %ile. Executive Functioning: Novel problem-solving and cognitive flexibility >16th %ile, 2/6 categories completed in 64 sorts. Responding absent of significant perseveration. Emotional Functioning: Minimal depression and anxiety. Denied any thoughts of self-harm. FINDINGS AND RECOMMENDATIONS: CONCLUSIONS: 1. Estimated average pre-morbid intellectual functioning. 2. Preserved visual acuity without signs of visual field cut or neglect. 3. Preserved bilateral gross motor function. 4. Minimal depression and anxiety. OPINION: Current neuropsychological evaluation demonstrates highly variable levels of focus/engagement throughout assessment. As a results, findings are interpreted with caution. That being said, there are clearly some cognitive struggles going on. Most notably, patient struggles with retaining and recalling newly presented information, as well as with verbal fluency, visual attention, and complex divided visual attention. Overall findings and history raise strong suspicion for mild Alzheimer's dementia, exacerbated by poor hearing fluctuating sleep quality, and chronic pain. Minimal psychiatric contribution. RECOMMENDATIONS: Results and recommendations forwarded to treating physician for review during their next appointment. Audiology consultation for the hearing loss. Continued refrain from driving. Family should continued managing finances and medication. Continued memory agent in an attempt to temporarily slow cognitive decline. Improved sleep quality. Improved pain management. For improved attention and memory: Regularly and frequently review information that must be remembered. When encountering new information, link it in as many ways as possible to already known information. This strategy creates several avenues for remembering the information later. Extra repetition of new information, as well as rehearsal of new skills and note taking. New information should be presented in concise and succinct steps to maximize recall. Visual cues and reminders would also be beneficial, as would external memory aids such as smartphone or calendar/daily materials planner. Active listening, such as repeating and summarizing information back to presenter when learning important information for future recall may be beneficial as opposed to simply passive listening. Establish a structured and consistent daily routine. Designate a single location to keep personal belongings such as keys, wallet, glasses, watch, and phone. Establish regular physical activity for optimal cognitive function, sleep, and stress management. Neuropsychological re-evaluation deferred to family and treating physician. Thank you for allowing me to participate in the care of this individual. Please contact me with any questions at [phone]. documented in this encounter [facility] 09-13-2024 History of Present illness Narrative Images from the original note were not included. Robbie Méndez, PhD NEUROBEHAVIORAL STATUS EXAMINATION Natalie Lovelace is a 84 y.o. female referred for neuropsychological evaluation to assist with facilitating and informing medical differential diagnosis and clinical decision-making. The following information was obtained during an interview with the patient and daughter, as well as review of available records. PRESENTING PROBLEM AND HISTORY Patient denied any issues with cognition or memory. Daughter reported noticing a slow progressive decline such as forgetting conversations, forgetting activities participated in such as her own birthday, and also forgot gifts received for her birthday. Daughter also reported patient has a history of excessive phlegm and has lately been wiping it on random things which is unusual for her. Additionally, experiencing urinary incontinence both day and night, wears adult diaper. Patient reported lacking sensation as well as experiencing urgency. Also experiencing poor hearing which could be contributing. Capable of ADLs although family has to fight with her in order to shower. Can forget whether or not she has eaten. Leaves food in the microwave. Minimal contribution around the home. Daughter manages finances and medication. No driving after family took the keys away about a year ago due to memory problems. Board around the home and spends a lot of time watching mindless television or reading. Minimal physical activity. Fluctuating sleep quality. Often sleeps all day long and then is up throughout the night. Experiencing chronic back and knee pain. No prior neurological history. Prior MoCA testing and /. On Aricept. No family neurological history. Psychiatric history notable for nerves and anxiety. History of heavy smoking and drinking, none for several years. [place] language Malaysian. Completed 8 years of formal education. 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 . Patient's daughter, son-in-law, and granddaughter live in her home as well. Has 3 total children. MEDICAL HISTORY/MEDICATION: Past Medical History: Diagnosis Date Allergic rhinitis Anxiety Arthritis Chronic sinusitis Coronary atherosclerosis (CMS/HCC) Depression (CMS/HCC) Diabetes mellitus, type 2 (CMS/HCC) Disorder of bone and cartilage Disorder of joint GERD (gastroesophageal reflux disease) HL (hearing loss) Hoarse Joint disorder, unspecified Metrorrhagia Mixed hyperlipidemia (CMS/HCC) Orthostatic hypotension Osteoarthrosis unspecified type of vessel, [place] or graft Rotator cuff tear right Sinusitis MEDICATIONS: Current Outpatient Medications Medication Instructions albuterol (2.5 MG/3ML) 0.083% nebulizer solution 3 mL, 3 times daily RT aspirin 81 MG chewable tablet 1 tablet, Daily atorvastatin (LIPITOR) 80 mg, Oral, Every 24 hours calcium carbonate 1500 (600 Ca) MG tablet 1 tablet, Daily citalopram (CELEXA) 40 mg, Oral, Every 24 hours donepezil (ARICEPT) 10 mg, Oral, Nightly furosemide (Lasix) 20 MG tablet 1 tablet, Every other day Lancets (OneTouch Delica Plus [id number]) misc USE DAILY FOR FINGER STICK meloxicam (MOBIC) 7.5 mg, Oral, Daily PRN metoprolol tartrate (LOPRESSOR) 25 mg, Oral, 2 times daily MULTIPLE VITAMINS PO 1 tablet, Daily Nutritional Supplements (Boost Compact) liquid Take by mouth. OneTouch Ultra test strip USE TO TEST ONCE A DAY DIRECTED oxybutynin XL (DITROPAN-XL) 10 mg, Oral, Every 24 hours pantoprazole (PROTONIX) 40 mg, Oral, Daily before breakfast potassium chloride CR (Klor-Con M10) 10 MEQ ER tablet 10 mEq, Oral, Daily, Do not crush or chew. vitamin C 250 mg, Daily zinc gluconate 50 mg, Daily INITIAL IMPRESSION AND PLAN: Memory loss, anxiety, hard of hearing, insomnia, and chronic pain: The patient will be scheduled for neuropsychological assessment, which will include tests for memory, reasoning, language, problem-solving, attention, and mood. Thank you for allowing me to participate in the care of this individual. Please contact me with any questions at [phone]. documented in this encounter [facility] 09-06-2024 History of Present illness Narrative Images from the original note were not included. Chief complaint: Memory impairment Subjective Natalie Ben Lovelace, 84 y.o., female Patient presents today for a neurologic consult at the request of Dr. Adams for mild cognitive impairment. She is accompanied by her daughter, Bernadine. Bernadine states she has been having issues with her memory for a few years. Her daughter states she was put on donepezil by her PCP. She states this has not been helpful. Patient lives at home with her daughter. She states she is having accidents quite frequently. She is wearing depends all the time. She has also lost control of her bowels a few times. Her daughter states she is able to bathe and get dressed on her own but she has to force her to bathe. Patient admits to some anxiety and agitation. Her daughter is needing to tell her to take her medications or she will not take them. Patient states she sleeps well at night. Neither of them are unsure of how many hours because the daughter works nights. Review of Systems Constitutional: Negative for appetite change, fatigue and fever. Respiratory: Negative for cough, shortness of breath and wheezing. Cardiovascular: Negative for chest pain, palpitations and leg swelling. Gastrointestinal: Negative for abdominal pain, constipation, diarrhea and nausea. Musculoskeletal: Negative for arthralgias, gait problem and myalgias. Neurological: Negative for dizziness, tremors, numbness and headaches. Memory loss Past Medical History: Diagnosis Date Allergic rhinitis Anxiety Arthritis Chronic sinusitis Coronary atherosclerosis (CMS/HCC) Depression (CMS/HCC) Diabetes mellitus, type 2 (CMS/HCC) Disorder of bone and cartilage Disorder of joint GERD (gastroesophageal reflux disease) HL (hearing loss) Hoarse Joint disorder, unspecified Metrorrhagia Mixed hyperlipidemia (CMS/HCC) Orthostatic hypotension Osteoarthrosis unspecified type of vessel, [place] or graft Rotator cuff tear right Sinusitis Past Surgical History: Procedure Laterality Date CHOLECYSTECTOMY 2006 COLONOSCOPY 2003 COLONOSCOPY 2013 IR JOINT ASPIRATION Right x4 knee IR JOINT ASPIRATION Left x3 knee ROTATOR CUFF REPAIR 2004 SEPTOPLASTY 03/16/2013 and ESS TOTAL ABDOMINAL HYSTERECTOMY 1974 No family history on file. Social History Tobacco Use Smoking status: Former Current packs/day: 0.00 Types: Cigarettes Quit date: 11/01/1999 Years since quittin.8 Smokeless tobacco: Never Tobacco comments: Last smoked : > 10 years Substance Use Topics Alcohol use: Not Currently Comment: Caffeine intake : 1-2 cup per day coffee Allergies: Patient has no known allergies. Vitals: 09/06/24 1514 BP: 138/76 Pulse: 66 SpO2: 95% Body mass index is 29.48 kg/m . weight: 156 lb Neurologic exam: Mental status: Awake, alert to person, place and time. Impaired 3 object recall. Impaired [place] 3 step. Patient did ask me my name a few times during the encounter. Language is fluent without aphasia. Attention and concentration are normal. Fund of knowledge is appropriate for level of education. Cranial nerves: CN II: Visual acuity is normal. Visual varma full to confrontation. CN III, IV, : pupils equal round and reactive to light. Extraocular movements intact. No ptosis present. CN V: Facial sensation is normal. CN VII: Full and symmetric facial movement. CN VIII: Hearing is normal to finger rub bilaterally: CN IX and X: Palate elevates symmetrically. CN XI: Shoulder shrug is normal bilaterally. CN XII: Tongue is midline without atrophy or fasciculation. Motor: RUE Strength deltoid, , biceps , triceps , wrist extensors , wrist flexor , tire cord weaver strength 5/5. LUE Strength deltoid , biceps , triceps , wrist extensors , wrist flexor , tire cord weaver strength 5/5. RLE Strength illopsoas, quadriceps, tibialis anterior, and gastrocnemius strength 5/5. LLE Strength illopsoas, quadriceps, tibialis anterior, and gastrocnemius strength 5/5. Normal tone x4 extremities. Bulk is normal. Sensory: Sensation is intact to light touch throughout Four extremities. Reflexes: RUE biceps reflex 1+ brachioradialis reflex 2+ . LUE biceps reflex 1+ brachioradialis reflex 2+ . RLE knee reflex 0 . LLE knee reflex 0 . Ashford's sign negative. Coordination: [id number] testing and rapid alternating movements are normal Gait: Normal Review and summary of old records: TSH with reflex on 06/25/2024: Normal RPR with reflex on : Normal Vitamin B12 on 06/25/2024: 955 normal Mini-mental status examination on 07/26/2024 with primary care: and previously noted to be I have reviewed notations from primary Care noting the patient was started on Aricept 10 mg p.o. q.h.s. on 07/26/2024 Assessment/Plan Diagnoses and all orders for this visit: Mild cognitive impairment It is my impression that the patient has mild cognitive impairment. B12, TSH and RPR are negative/ normal. Mini-mental status exam was noted to be 22/30 and 21/30. Patient has been started on Aricept and seems to tolerate it well. Otherwise, neurological examination is largely unremarkable. Certainly we will need to evaluate for any other potential reversible causes of memory impairment that could be life-threatening or debilitating not correctly identified and treated. Plan: MRI of the brain with and without contrast Neuropsych evaluation to further understand the patient's memory deficits and further determine type and severity Okay to continue Aricept 10 mg p.o. q.h.s.. The patient's daughter, Lidia, accompanied her to the visit today and provided additional information. Pt has been fully educated on their diagnosis, lab results, treatment options, follow up plan, return instructions, and discussion of mental health issues documented in this encounter [facility] 07-26-2024 History of Present illness Narrative Images from the original note were not included. HPI Results Additional comments: Lab results Last edited by Lidia Chadwick LPN on 07/26/2024 1:22 PM. Subjective Patient ID: Natalie Lovelace is a 84 y.o. female who presents for Results (Lab results) and Memory Loss. Pt taking aricept as directed since last office visit-tolerating well Pt and family have not noticed much improvement in memory since starting Labs completed Todays mmse was 22 Last mmse was Memory Loss Current Outpatient Medications on File Prior to [...] 1 tablet by mouth in the morning. furosemide (Lasix) 20 MG tablet Take 1 tablet by mouth every other day. Lancets (2smsuch Delica Plus [id number]) misc USE DAILY FOR FINGER STICK meloxicam (Mobic) 15 MG tablet Take 0.5 tablets (7.5 mg) by mouth Daily as needed for moderate pain MULTIPLE VITAMINS PO Take 1 tablet by mouth 1 (one) time each day. Nutritional Supplements (Boost Compact) liquid Take by mouth. 2smsuch Ultra test strip USE TO TEST ONCE A DAY DIRECTED 100 strip 1 potassium chloride CR (Klor-Con M10) 10 MEQ ER tablet Take 1 tablet (10 mEq) by mouth Daily Do not crush or chew. 90 tablet 3 zinc gluconate 50 MG tablet Take 50 mg by mouth in the morning. [DISCONTINUED] citalopram (CeleXA) 40 MG tablet Take 1 tablet (40 mg) by mouth 1 (one) time each day at the same time 90 tablet 3 [DISCONTINUED] donepezil (Aricept) 5 MG tablet TAKE 1 TABLET BY MOUTH AT BEDTIME 90 tablet 1 [DISCONTINUED] metoprolol tartrate (Lopressor) 25 MG tablet Take 1 tablet (25 mg) by mouth in the morning and 1 tablet (25 mg) before bedtime. 180 tablet 3 [DISCONTINUED] oxybutynin XL (Ditropan-XL) 10 MG 24 hr tablet Take 1 tablet (10 mg) by mouth 1 (one) time each day at the same time 90 tablet 3 [DISCONTINUED] pantoprazole (ProtoNix) 40 MG EC tablet Take 1 tablet (40 mg) by mouth in the morning. Take before meals. 90 tablet 3 No current facility-administered medications on file prior to visit. I have reviewed and reconciled the history and medication list with the patient today. No Known Allergies Social History Tobacco Use Smoking status: Former Current packs/day: 0.00 Types: Cigarettes Quit date: 11/01/1999 Years since quittin.7 Smokeless tobacco: Never Tobacco comments: Last smoked [...] Orthostatic hypotension Osteoarthrosis unspecified type of vessel, [place] or graft Rotator cuff tear right Sinusitis Past Surgical History: Procedure Laterality Date CHOLECYSTECTOMY 2005 COLONOSCOPY 2003 COLONOSCOPY 2013 IR JOINT ASPIRATION Right x4 knee IR JOINT ASPIRATION Left x3 knee ROTATOR CUFF REPAIR 2004 SEPTOPLASTY 03/16/2013 and ESS TOTAL ABDOMINAL HYSTERECTOMY 1975 Visit Vitals BP 130/62 Pulse 80 Ht 5' 1 Wt 161 lb SpO2 95% BMI 30.42 kg/m Smoking Status Former BSA 1.77 m Review of Systems Objective Physical Exam Cardiovascular: Rate and Rhythm: Normal rate and regular rhythm. Pulmonary: Effort: Pulmonary effort is normal. Breath sounds: Normal breath sounds. Neurological: General: No focal deficit present. Mental Status: She is oriented to person, place, and time. Maximum Score Orientation 5 ( 2 ) What is the (year), (season), (date), [...] ands or buts (1 point). 3 ( 2 ) Follow a 3-stage command: Take a [...] dementia Less than 12: Indicates severe dementia Clinisync Result Encounter on 07/02/2024 Component Date Value Ref Range Status [facility] WBC 07/02/2024 8.0 4.0 - 11.0 10 3/uL Final [facility] RBC 07/02/2024 3.47 (L) 4.20 - 5.40 10 6/uL Final [facility] HGB 07/02/2024 11.1 (L) 12.0 - 16.0 g/dL Final [facility] HCT 07/02/2024 35.2 (L) 36.0 - 48.0 % Final [facility] MCV 07/02/2024 101.4 (H) 81.0 - 99.0 fL Final [facility] MCH 07/02/2024 32.0 26.7 - 34.0 pg Final [facility] MCHC 07/02/2024 31.5 29.9 - 35.2 g/dL Final [facility] RDW 07/02/2024 13.9 11.0 - 15.0 % Final [facility] PLT 07/02/2024 222 150 - 450 10 3/uL Final [facility] MPV 07/02/2024 9.6 9.5 - 13.5 fL Final NEUTROPHILS PERCENT AUTO 07/02/2024 49.4 43.0 - 75.0 % Final LYMPHOCYTES PERCENT AUTO 07/02/2024 35.3 20.5 - 60.0 % Final MONOCYTES PERCENT AUTO 07/02/2024 8.2 1.7 - 12.0 % Final [facility] EO % 07/02/2024 6.0 0.9 - 7.0 % Final BASOPHILS PERCENT AUTO 07/02/2024 0.9 0.2 - 2.0 % Final IMMATURE GRANULOCYTES PCT AUTO 07/02/2024 0.2 0.0 - 0.5 % Final NEUTROPHILS ABSOLUTE AUTO 07/02/2024 4.0 1.4 - 6.5 10 3/uL Final LYMPHOCYTES ABSOLUTE AUTO 07/02/2024 2.8 1.2 - 3.8 10 3/uL Final MONOCYTES ABSOLUTE AUTO 07/02/2024 0.7 0.3 - 0.8 10 3/uL Final [facility] EO # 07/02/2024 0.5 0.0 - 0.7 10 3/uL Final BASOPHILS ABSOLUTE AUTO 07/02/2024 0.1 0.0 - 0.1 10 3/uL Final IMMATURE GRANULOCYTES ABS AUTO 07/02/2024 0.02 0.00 - 0.03 10 3/uL Final SODIUM 07/02/2024 145 136 - 145 mmol/L Final POTASSIUM 07/02/2024 4.0 3.5 - 5.1 mmol/L Final CHLORIDE 07/02/2024 109 (H) 98 - 107 mmol/L Final CARBON DIOXIDE 07/02/2024 24.6 21.0 - 32.0 mmol/L Final ANION GAP 07/02/2024 15.4 Final GLUCOSE 07/02/2024 122 (H) 74 - 106 mg/dL Final BLOOD UREA NITROGEN 07/02/2024 29.0 (H) 7.0 - 18.0 mg/dL Final CREATININE 07/02/2024 1.50 (H) 0.55 - 1.02 mg/dL Final [facility] EGFR-AF PANAMANIAN 07/02/2024 40 (L) >=60 mL/min/1.73m 2 Final [facility] EGFR-NON AF PANAMANIAN 07/02/2024 33 (L) >=60 mL/min/1.73m 2 Final BUN CREATININE RATIO 07/02/2024 19.3 Final CALCIUM 07/02/2024 8.8 8.5 - 10.1 mg/dL Final BILIRUBIN TOTAL 07/02/2024 0.6 0.2 - 1.0 mg/dL Final ASPARTATE AMINO TRANSFERASE 07/02/2024 22 15 - 37 U/L Final ALANINE AMINOTRANSFERASE 07/02/2024 22 14 - 59 U/L Final ALKALINE PHOSPHATASE 07/02/2024 100 46 - 116 U/L Final TOTAL PROTEIN 07/02/2024 6.6 6.4 - 8.2 g/dL Final ALBUMIN LEVEL 07/02/2024 2.8 (L) 3.4 - 5.0 g/dL Final GLOBULIN 07/02/2024 3.8 g/dL Final ALBUMIN GLOBULIN RATIO 07/02/2024 0.7 Final Office Visit on 06/25/2024 Component Date Value Ref Range Status TSH W/REFLEX TO FT4 06/25/2024 2.44 0.40 - 4.50 mIU/L Final RPR (MONITOR) W/REFL TITER 06/25/2024 NON-REACTIVE NON-REACTIVE Final VITAMIN B12 06/25/2024 955 200 - 1,100 pg/mL Final Assessment/Plan Diagnoses and all orders for this visit: Depressive disorder ([facility]) - citalopram (CeleXA) 40 MG tablet; Take 1 tablet (40 mg) by mouth 1 (one) time each day at the same time Chronic diastolic congestive heart failure ([facility]) - metoprolol tartrate (Lopressor) 25 MG tablet; Take 1 tablet (25 mg) by mouth in the morning and 1 tablet (25 mg) before bedtime. Overactive bladder - oxybutynin XL (Ditropan-XL) 10 MG 24 hr tablet; Take 1 tablet (10 mg) by mouth 1 (one) time each day at the same time Gastroesophageal reflux disease, unspecified whether esophagitis present - pantoprazole (ProtoNix) 40 MG EC tablet; Take 1 tablet (40 mg) by mouth in the morning. Take before meals. Mild cognitive impairment - donepezil (Aricept) 10 MG tablet; Take 1 tablet (10 mg) by mouth at bedtime - Ambulatory referral to Neurology; Future Follow up in about 4 months (around 11/23/2024). documented in this encounter [facility] 06-25-2024 History of Present illness Narrative Images from the original note [...] tablet by mouth every other day. Lancets (2smsuch Delica Plus [id number]) misc USE DAILY FOR FINGER STICK meloxicam [...] Supplements (Boost Compact) liquid Take by mouth. 2smsuch Ultra test strip USE TO TEST ONCE [...] Orthostatic hypotension Osteoarthrosis unspecified type of vessel, [place] or graft Rotator cuff tear right Sinusitis Past Surgical History: Procedure Laterality Date CHOLECYSTECTOMY 2006 COLONOSCOPY 2004 COLONOSCOPY 2013 IR JOINT ASPIRATION Right x4 [...] Copy design (1 point). Total Score ( 21/30 ) 25-30: Normal score 20-24: Suggests mild [...] follow-ups on file. documented in this encounter [facility] 05-17-2024 History of Present illness Narrative Images from the original note were not included. Subjective Patient ID: Natalie Lovelace is a 84 y.o. female who presents for Coronary Artery Disease. Coronary Artery Disease Patient presents for routine coronary artery disease follow-up. Current symptoms: none. Denies CP,dyspnea.syncope Right ear pain x 3 days Denies cough,nasal congestion/drainage Coronary Artery Disease Current Outpatient Medications on File Prior to [...] time each day at the same time. calcium carbonate 1500 (600 Ca) MG tablet Take 1 tablet by mouth in the morning. citalopram (CeleXA) 40 MG tablet Take 1 tablet (40 mg) by mouth 1 (one) time each day at the same time 90 tablet 3 furosemide (Lasix) 20 MG tablet Take 1 tablet by mouth every other day. Lancets (2smsuch Delica Plus [id number]) [facility] [place] DAILY FOR FINGER STICK meloxicam (Mobic) [...] Supplements (Boost Compact) liquid Take by mouth. 2smsuch Ultra test strip USE TO TEST ONCE [...] not crush or chew. 30 tablet 5 zinc gluconate 50 MG tablet Take 50 mg by mouth in the morning. No current facility-administered medications on file prior to visit. I have reviewed and reconciled the history and medication list with the patient today. No Known Allergies Social History Tobacco Use Smoking status: Former Current packs/day: 0.00 Types: Cigarettes Quit date: 11/01/1999 Years since quittin.5 Smokeless tobacco: Never Tobacco comments: Last smoked [...] Orthostatic hypotension Osteoarthrosis unspecified type of vessel, [place] or graft Rotator cuff tear right Sinusitis Past Surgical History: Procedure Laterality Date CHOLECYSTECTOMY 2005 COLONOSCOPY 2003 COLONOSCOPY 2014 IR JOINT ASPIRATION Right x4 knee IR JOINT ASPIRATION Left x3 knee ROTATOR CUFF REPAIR 2004 SEPTOPLASTY 03/16/2013 and ESS TOTAL ABDOMINAL HYSTERECTOMY 1975 Visit Vitals BP 128/66 Pulse 71 Ht 5' 1 Wt 158 lb SpO2 96% BMI 29.85 kg/m Smoking Status Former BSA 1.76 m Review of Systems Objective Physical Exam Constitutional: General: She is not in acute distress. Appearance: Normal appearance. She is well-developed. HENT: Head: Normocephalic and atraumatic. Right Ear: Tympanic membrane and ear canal normal. Left Ear: Tympanic membrane and ear canal normal. Nose: Nose normal. Mouth/Throat: Mouth: Mucous membranes are moist. Pharynx: No posterior oropharyngeal erythema. Eyes: General: No scleral icterus. Extraocular Movements: Extraocular movements intact. Conjunctiva/sclera: Conjunctivae normal. Pupils: Pupils are equal, round, and reactive to light. Neck: Vascular: No carotid bruit. Cardiovascular: Rate and Rhythm: Normal rate and regular rhythm. Heart sounds: Normal heart sounds. No murmur heard. Pulmonary: Effort: Pulmonary effort is normal. No respiratory distress. Breath sounds: Normal breath sounds. No wheezing, rhonchi or rales. Abdominal: General: Bowel sounds are normal. There is no distension. Palpations: Abdomen is soft. Tenderness: There is no abdominal tenderness. There is no guarding. Musculoskeletal: General: No swelling or deformity. Normal range of motion. Cervical back: Normal range of motion and neck supple. No tenderness. Skin: General: Skin is warm and dry. Capillary Refill: Capillary refill takes less than 2 seconds. Findings: No rash. Neurological: General: No focal deficit present. Mental Status: She is alert and oriented to person, place, and time. Cranial Nerves: No cranial nerve deficit. Sensory: No sensory deficit. Motor: No weakness. Gait: Gait abnormal. Deep Tendon Reflexes: Reflexes normal. Comments: Gait slow and steady Psychiatric: Mood and Affect: Mood normal. Behavior: Behavior normal. Thought Content: Thought content normal. Judgment: Judgment normal. Assessment/Plan Diagnoses and all orders for this visit: Trigeminal neuralgia pain (CMS/HCC) - Injured at fall. Should improve over the next few weeks. Medications considered, but risks outweigh benefit. 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) - This office visit was spent in consultation regarding the patient's current medical problems, differential diagnoses, testing/imaging results, and treatment options. Greater than 25 minutes was spent in [id number] consultation and coordination of care. Chronic kidney disease, stage 4 (severe) (CMS/HCC) Atherosclerosis of aorta (CMS/HCC) Follow up in about 6 months (around 11/14/2024) for Routine F/U. documented in this encounter [facility] 10-08-2023 Note Cardiovascular Medic [facility] SUBJECTIVE Chief Complaint Patient presents [...] nuclear stress gena (more content not included)... [facility] 10-08-2023 Note Patient here for 1 y ear follow up CAD, hypertension, and valve disorder. Doing great. Denies chest pain, SOB, palpitations, and lightheadedness/syncope. No recent labs/imaging. Sees Dr. Adams next month for routine check up. Review of Systems HENT: Positive for hearing loss. Cardiovascular: Positive for leg swelling (minimal). All other systems reviewed and are negative. [facility] Evaluation note No assessment inform ation available [facility] Work Phone: Evaluation note Diagnosis Mild cognitive impairment- Primary Mild cognitive impairment, so stated [facility] Diagnosis Onset Date Resolution Status Anemia acute B12 deficiency acute [facility] Work Phone: Evaluation note* Diagnosis Depressive disorder ([facility]) Depressive disorder, not elsewhere classified Chronic diastolic congestive heart failure ([facility]) Overactive bladder Hypertonicity of bladder Gastroesophageal reflux disease, unspecified whether esophagitis present Mild cognitive impairment Mild cognitive impairment, so stated [facility] Diagnosis Trigeminal neuralgia pain ([facility])- Primary Trigeminal neuralgia Type 2 diabetes mellitus with diabetic chronic kidney disease ([facility]) Chronic kidney disease, stage 4 (severe) ([facility]) Atherosclerosis of aorta ([facility]) Atherosclerosis of aorta [facility] Diagnosis Mild cognitive impairment Mild cognitive impairment, so stated [facility]* Diagnosis Memory loss- Primary Anxiety Anxiety state, unspecified Hard of hearing Unspecified hearing loss Other insomnia Other chronic pain [facility] Diagnosis Mild late onset Alzheimer's dementia without behavioral disturbance, psychotic disturbance, mood disturbance, or anxiety ([facility])- Primary Hard of hearing Unspecified hearing loss Other insomnia Other chronic pain [facility] this [facility] N[facility]* Consultation (Routine) - Pending Review Specialty Diagnoses / Procedures Referred By Emmy t Referred To Contact Neurology Diagnoses Mild cognitive impairment Procedures [place] [facility]PATIENT [facility] Kevin Adams MD [address] [facility] [address] [place] [address] Phone: tel: fax: Dewayne Gilbert DO [address] [place] [address] Phone: tel: fax: Referral ID Status Reason Start Date Expiration Date Visits Requested Visits Authorized [id number] Pending Review Consult and Treat 4 01/22/2025 1 1 [facility]* Consultation (Routine) - Closed Specialty Diagnoses / Procedures Referred By Emmy t Referred To Contact Psychology Diagnoses Mild cognitive impairment Procedures [place] [facility] NEW HIGH MDM 60 MINUTES Dewayne Gilbert DO [address] [place] [address] Phone: tel: fax: Robbie Méndez, PhD [address] [address] Phone: tel: fax: Referral ID Status Reason Start Date Expiration Date V isits Requested Visits Authorized [id number] Closed Specialty Services Required 09/06/2024 03/05/2025 1 1 [facility] Summary Purpose Family History No Family History Records FoundNo Family History Records FoundNo Family History Records FoundNo Family History Records FoundNo Family History Records FoundNo Family History Records Found Advance Directives Advance Directive Response Recorded Date/ Time Advance Directives No August 5:47pm Documents on File Type Date Recorded Patient [employer]er Expl anation Advance Directives and Livin g Will 12/31/2022 2022-12-23 DNR CCA Advance Directive Response Recorded Date/ Time Advance Directives No August 4:47pm Documents on File Type Date Recorded Patient [employer] Expl anation Advance Directives and Livin g Will 12/31/2022 2022-12-23 DNR CCA Chief Complaint and Reason for Visit Chief Complaint Macrocytic anemia NEW Macrocytic anemia Chief Complaint Follow Up Macrocytic anemia Reason for Visit Anemia B12 deficiency Additional Source Comments INFORMATION SOURCE (unrecogn ized section and content) DATE CREATED AUTHOR 04/30/2018 [facility] DATE CREATED AUTHOR AUTHOR'S ORGANIZ ATION 09/26/2022 [facility] DATE CREATED AUTHOR AUTHOR'S ORGANIZ ATION 10/17/2023 [facility] DATE CREATED AUTHOR AUTHOR'S ORGANIZ ATION 06/29/2024 [facility] DATE CREATED AUTHOR AUTHOR'S ORGANIZ ATION 10/05/2024 [facility] DATE CREATED AUTHOR AUTHOR'S ORGANIZ ATION 10/06/2024 [facility] Care Teams (unrecognized sec tion and content) Team Status: Active Member Role Status Dates Kevin Adams II MD Primary Care Provider Active Team Status: Inactive Member Role Status Dates Kevin Adams II MD Primary Care Provider Active Start: July 07, 2024 End: July 07, 2024 Vivian Benavidez APRN Attending Provider Acti ve Start: July 07, 2024 End: July 07, 2024 Team Status: Active Member Role Status Dates Kevin Adams II MD Primary Care Provider Active Start: July 07, 2024 Vivian Benavidez APRN Attending Provider Acti ve Start: July 07, 2024 Leatha Bo NP-C Referring Provider Active St art: July 07, 2024 Team Status: Active Member Role Status Dates Kevin Adams II MD Primary Care Provider Active Start: 2024 Vivian Benavidez APRN Attending Provider Acti ve Start: 2024 Leatha Bo NP-C Referring Provider Active St art: 2024 Team Status: Inactive Member Role Status Dates Kevin Adams II MD Primary Care Provider Active Start: 2024 End: 2024 Vivian Benavidez APRN Attending Provider Acti ve Start: 2024 End: 2024 Leatha Bo BENCH SHEAR OPERATOR-C Referring Provider Active St art: 2024 End: 2024 Business Specialist Relationship Specialty Start Date End Date Kevin Adams MD [address] [facility] [address] [place] [address] PCP - Paolo PLATA 11/30/22 Kevin Adams MD [address] [facility] [address] [place] [address] PCP - General Internal Medicine 03/17/23 Business Specialist Relationship Specialty Start Date End Date Kevin Adams MD [address] [facility] [address] [place] [address] PCP - Paolo PLATA 11/30/22 Kevin Adams MD [address] [place] [address] [place] [address] PCP - General Internal Medicine 03/17/23 Business Specialist Relationship Specialty Start Date End Date Kevin Adams MD [address] [place] [address] [place] [address] PCP - Paolo PLATA 11/30/22 Kevin Adams MD [address] [place] [address] [place] [address] PCP - General Internal Medicine 03/17/23 Business Specialist Relationship Specialty Start Date End Date Kevin Adams MD [address] [place] [address] [place] [address] PCP - Paolo PLATA 11/30/22 Kevin Adams MD [address] [place] [address] [place] [address] PCP - General Internal Medicine 03/17/23 Business Specialist Relationship Specialty Start Date End Date Kevin Adams MD [address] [place] [address] [place] [address] PCP - Paolo PLATA 11/30/22 Kevin Adams MD [address] [place] [address] [place] [address] PCP - General Internal Medicine 03/17/23 Business Specialist Relationship Specialty Start Date End Date Kevin Adams MD [address] [place] [address] [place] [address] PCP - Paolo PLATA 11/30/22 Kevin Adams MD [address] [place] [address] [place] [address] PCP - General Internal Medicine 03/17/23 Business Specialist Relationship Specialty Start Date End Date Kevin Adams MD [address] [place] [address] [place] [address] PCP - Paolo PLATA 11/30/22 Kevin Adams MD [address] [place] [address] [place] [address] PCP - General Internal Medicine 03/17/23 Business Specialist Relationship Specialty Start Date End Date Kevin Adams MD [address] [place] [address] [place] [address] PCP - Paolo PLATA 11/30/22 Kevin Adams MD [address] [place] [address] [place] [address] PCP - General Internal Medicine 03/17/23 Business Specialist Relationship Specialty Start Date End Date Kevin Adams MD [address] [place] [address] [place] [address] PCP - Paolo PLATA 11/30/22 Kevin Adams MD [address] [place] [address] [place] [address] PCP - General Internal Medicine 03/17/23 Dewayne Gilbert DO [address] [place] [address] Referring Physician Neurology 09/13/24 Business Specialist Relationship Specialty Start Date End Date Kevin Adams MD [address] [place] [address] [place] [address] PCP - Paolo PLATA 11/30/22 Kevin Adams MD [address] [place] [address] [place] [address] PCP - General Internal Medicine 03/17/23 Dewayne Gilbert DO [address] [place] [address] Referring Physician Neurology 09/13/24 Business Specialist Relationship Specialty Start Date End Date Kevin Adams MD [address] [place] [address] [place] [address] PCP - Paolo PLATA 11/30/22 Kevin Adams MD [address] [place] [address] [place] [address] PCP - General Internal Medicine 03/17/23 Dewayne Gilbert DO [address] [place] [address] Referring Physician Neurology 09/13/24 Business Specialist Relationship Specialty Start Date End Date Kevin Adams MD [address] [place] [address] [place] [address] PCP - General Internal Medicine 03/17/23 Kevin Adams MD [address] [place] [address] [place] [address] PCP - Aetollie 09/01/24 Dewayne Gilbert DO [address] [address] Referring Physician Neurology 09/13/24 Goals (unrecognized section and content) Goals may be documented in a n alternate sectionGoals may be documented in an alternate section Reason for Visit (unrecogniz ed section and content) Reason Comments HERE FOR MMSE Pt scored low on MWV screening Reason Comments Results Lab results Memory Loss Reason Comments Coronary Artery Disease FOR RECORDS PERTAINING TO PATIENTS WHO ARE [...] BE BASED ON THE PRIMARY CLINICAL RECORDS. [facility] [employer] [facility]. provides no warranty or guarantee of the accuracy or completeness of information in this document.
== END 2024-10-11 13:42 | disposition home or self-care (01) ==
LOC: MRI 13:41
PROVIDERS: PCP Internal Medicine; Visit Provider Psychiatry & Neurology Neurology
DX: G31.84 Mild cognitive impairment of uncertain or unknown etiology (principal)
CPT/HCPCS: 70553; A9575

== ENCOUNTER 2024-11-30 13:39 | Outpatient (OUT) | payer MEDICARE, SELFPAY | END 2024-11-30 13:40 | disposition home or self-care (01) | LOC: RAD 13:39 | PROVIDERS: PCP Internal Medicine; Visit Provider Internal Medicine | DX: E28.39 Other primary ovarian failure (principal); M81.0 Age-related osteoporosis without current pathological fracture; M85.80 Other specified disorders of bone density and structure, unspecified site | CPT/HCPCS: 77080 ==

== ENCOUNTER 2024-12-30 13:05 | Outpatient (OUT) | payer MEDICARE, SELFPAY ==
--- NOTE | 2024-12-30 13:00 | CA_ITS ---
Patient Name: NATALIE LOVELACE MR#: [id number] : 1940 Exam Date: 12/30/2024 Ordering Doctor: DR WAYNE GAN M.D. ECHOCARDIOGRAM REPORT PROCEDURE: CA ECHO DOPPLER COMPLETE INDICATIONS: Mitral valve and aortic valve stenosis, diabetes COMPARISON: None. DESCRIPTION: COMPLETE ECHOCARDIOGRAM Real-time transthoracic echocardiography with 2D, M-mode, spectral and color flow Doppler performed. QUALITY: Technical quality was good. LEFT VENTRICLE: Normal chamber size. Mild concentric left ventricular hypertrophy. Normal systolic function. LV EF: Normal left ventricular ejection fraction, (60-65%). DIASTOLIC: ATRIAL SEPTUM: Visually appears intact. LEFT ATRIUM: Normal chamber size. RIGHT ATRIUM: Normal chamber size. RIGHT VENTRICLE: Normal chamber size. Normal right ventricular systolic function. TRICUSPID VALVE: Normal mobility and thickness. No stenosis with trivial regurgitation. No evidence of pulmonary hypertension. RVSP 26 mmHg MITRAL VALVE: Normal mobility and thickness. No mitral valve stenosis. Mean gradient 1.2 mmHg at a heart rate of 62 bpm. Moderate mitral annular calcification. Trivial mitral regurgitation. AORTIC VALVE: Normal trileaflet appearance. Moderately calcified aortic valve. Moderately diminished mobility. Doppler velocity suggest moderate aortic valve stenosis. Mean gradient 14 mmHg. DVI 0.42, JESUSITA 1.3 cm2. No aortic regurgitation. AORTIC ROOT: Normal diameter and appearance (3.2 cm). Aortic arch is normal in size. PULMONIC VALVE: Normal thickness and mobility. No stenosis. No regurgitation. PERICARDIUM: No evidence of pericardial effusion. IVC: Collapses with inspirations. PLEURA: CONCLUSION: 1. Mild concentric left ventricular hypertrophy with normal systolic function. LVEF is estimated at 60-65%. 2. Normal right ventricular size and systolic function. 3. Moderate aortic valve stenosis. 4. Moderate mitral annular calcifications with no significant mitral stenosis. 5. Normal right sided pressures. Adult Echocardiography Procedure Report Left Ventricle LVEDD (3.7 - 5.6 cm): 3.31 cm LVESD (2.2 - 4.0 cm): 2.11 cm LVIVS thickness (0.6 - 1.2 cm): 1.13 cm LVPW thickness (0.5 - 1.0 cm): 1.32 cm e': 0.07 m/s E - e': 9.18 LVOT Max Gradient: 3.81 mm[Hg] LVOT Area (cm2): 0.98 m/s Peak Velocity (LVOT): 0.98 m/s Mean Velocity (LVOT): 0.63 m/s LVOT Diameter 2.03 cm Left Atrium LA Volume Index (2D A2C): 26.00 ml/m2 Left Atrium Systolic Dimension: 3.08 cm Mitral Valve MV E to A Ratio: 0.70 Mitral Valve A-Wave Peak Velocity: 0.86 m/s Mitral Valve E-Wave Peak Velocity: 0.60 m/s Right Ventricle Aorta AO Root Diam: 3.23 cm Aortic Valve AoV Area (Peak Marcus): 1.35 cm2, 1.35 cm2 AoV Area (VTI): 1.24 cm2, 1.38 cm2 Peak Velocity(Antegrade Flow): 2.35 m/s, 2.26 m/s Peak Gradient(Antegrade Flow): 22.16 mm[Hg], 20.45 mm[Hg] Mean Velocity(Antegrade Flow): 1.71 m/s, 1.60 m/s Mean Gradient(Antegrade Flow): 13.67 mm[Hg], 11.48 mm[Hg] Velocity Time Integral: 51.22 cm, 57.23 cm Tricuspid Valve Peak Velocity (Regurgitant Flow): 2.38 m/s Pulmonic Valve Mean Gradient: 1.84 mm[Hg] Mean Velocity: 0.64 m/s Peak Velocity: 0.91 m/s, 1.03 m/s Peak Gradient: 4.27 mm[Hg], 3.32 mm[Hg] Right Atrium Right Atrium Systolic Pressure: 32.55 ml, 32.55 ml Dictated by: Ravinder Pérez M.D. on 12/30/2024 at 18:37 Approved by: Ravinder Pérez M.D. on 12/30/2024 at 18:42
== END 2024-12-30 13:06 | disposition home or self-care (01) ==
LOC: CARD 13:06
PROVIDERS: PCP Internal Medicine; Visit Provider Internal Medicine Interventional Cardiology
DX: I08.0 Rheumatic disorders of both mitral and aortic valves (principal)
CPT/HCPCS: 93306

== ENCOUNTER 2024-12-30 13:09 | Outpatient (OUT) | payer MEDICARE, SELFPAY ==
[2024-12-30 14:32] LABS: Basophils Absolute Auto 0.1 10^3/uL (0.0-0.1); Basophils Percent Auto 0.8 % (0.2-2.0); Eosinophils Absolute Auto 0.5 10^3/uL (0.0-0.7); Hematocrit 37.5 % (36.0-48.0); Hemoglobin 12.2 g/dL (12.0-16.0); Immature Granulocytes Abs Auto 0.03 10^3/uL (0.00-0.03); Immature Granulocytes Pct Auto 0.3 % (0.0-0.5); Lymphocytes Absolute Auto 2.4 10^3/uL (1.2-3.8); Lymphocytes Percent Auto 27.1 % (20.5-60.0); Mean Corpuscular HGB Conc 32.5 g/dL (29.9-35.2); Mean Corpuscular Hemoglobin 32.5 pg (26.7-34.0); Mean Platelet Volume 10.3 fL (9.5-13.5); Monocytes Absolute Auto 0.7 10^3/uL (0.3-0.8); Monocytes Percent Auto 8.1 % (1.7-12.0); Neutrophils Absolute Auto 5.3 10^3/uL (1.4-6.5); Neutrophils Percent Auto 58.7 % (43.0-75.0); Platelet Count 201 10^3/uL (150-450); Red Blood Count 3.75 10^6/uL (4.20-5.40); Red Cell Distribution Width 13.6 % (11.0-15.0); White Blood Count 8.9 10^3/uL (4.0-11.0)
[2024-12-30 15:05] LABS: Alanine Aminotransferase 32 U/L (14-59); Albumin Globulin Ratio 0.9; Albumin Level 3.4 g/dL (3.4-5.0); Alkaline Phosphatase 95 U/L (46-116); Anion Gap 11.6; Aspartate Amino Transferase 32 U/L (15-37); BUN Creatinine Ratio 19.2; Bilirubin Total 0.9 mg/dL (0.2-1.0); Calcium 9.3 mg/dL (8.5-10.1); Carbon Dioxide 31.4 mmol/L (21.0-32.0); Chloride 103 mmol/L (98-107); Estimated GFR (African America 27 (>=60 mL/min/1.73m^2); Estimated GFR (Non-African Ame 22 (>=60 mL/min/1.73m^2); Globulin 3.8 g/dL; Glucose 108 mg/dL (74-106); Sodium 142 mmol/L (136-145); Total Protein 7.2 g/dL (6.4-8.2)
[2024-12-31 16:09] LABS: Erythropoietin (EPO), Serum 13.9 mIU/mL (2.6-18.5)
== END 2024-12-30 13:10 | disposition home or self-care (01) ==
LOC: LAB 13:11
PROVIDERS: PCP Internal Medicine; Visit Provider Nurse Practitioner Gerontology
DX: D64.9 Anemia, unspecified (principal)
CPT/HCPCS: 36415; 80053; 82668; 85025

== ENCOUNTER 2025-07-06 11:09 | Outpatient (OUT) | payer MEDICARE, SELFPAY ==
--- OUTSIDE RECORDS SUMMARY | 2025-07-06 11:14 | XMS_ITS | Clinical Summary ---
Author Organization [facility] Healthcare Address [address] [place] [address] Care Team Providers Care Inspector Machined Parts Name Role Phone Kevin Adams MD Primary Care Provider [phone] Oliver Gilbert DO Unavailable [phone] Kevin Adams MD Unavailable [phone] Gloria Wolf NP Unavailable Unavailable Allergies No known active allergies Medications MedicationSigDispense QuantityRefillsLast FilledStart DateEnd DateStatus calcium carbonate 1500 (600 Ca) MG tablet Take 1 tablet by mouth in the morning.Active MULTIPLE VITAMINS PO Take 1 tablet by mouth 1 (one) time each day.Active albuterol (2.5 MG/3ML) 0.083% nebulizer solution Take 3 mL by nebulization in the morning and 3 mL in the evening and 3 mL before bedtime.Active Lancets (OneTouch Delica Plus Jbezug33K) misc USE DAILY FOR FINGER STICK12/17/2022ctive aspirin 81 MG chewable tablet Chew 1 tablet 1 (one) time each day.Active zinc gluconate 50 MG tablet Take 50 mg by mouth DailyActive Ascorbic Acid (vitamin C) 250 MG tablet Take 250 mg by mouth in the morning.Active Nutritional Supplements (Boost Compact) liquid Take by mouth.Active OneTouch Ultra test strip Indications:Type 2 diabetes mellitus without complication, without long-term current use of insulin (HCC)USE TO TEST ONCE A DAY DIRECTED 100 strip ctive donepezil (Aricept) 10 MG tablet Indications:Mild cognitive impairmentTake 1 tablet (10 mg) by mouth at bedtime 90 tablet 305//108736/ctive atorvastatin (Lipitor) 80 MG tablet Indications:Mixed hyperlipidemiaTake 1 tablet (80 mg) by mouth 1 (one) time each day at the same time 100 tablet ctive oxybutynin XL (Ditropan-XL) 10 MG 24 hr tablet Indications:Overactive bladderTake 1 tablet (10 mg) by mouth 1 (one) time each day at the same time 90 tablet ctive pantoprazole (ProtoNix) 40 MG EC tablet Indications:Gastroesophageal reflux disease, unspecified whether esophagitis presentTake 1 tablet (40 mg) by mouth in the morning. Take before meals. 90 tablet ctive metoprolol tartrate (Lopressor) 25 MG tablet Indications:Chronic diastolic congestive heart failure (HCC)Take 1 tablet (25 mg) by mouth in the morning and 1 tablet (25 mg) before bedtime. 180 tablet tive potassium chloride CR (Klor-Con M10) 10 MEQ ER tablet Indications:HypokalemiaTake 1 tablet (10 mEq) by mouth Daily Do not crush or chew. 90 tablet ctive furosemide (Lasix) 20 MG tablet Indications:Chronic diastolic congestive heart failure (HCC)Take 1 tablet (20 mg) by mouth every other day 15 tablet tive citalopram (CeleXA) 20 MG tablet Indications:Depressive disorderTake 1 tablet (20 mg) by mouth 1 (one) time each day at the same time 90 tablet 5005/23/2026ctive Active Problems ProblemNoted DateDiagnosed DateMild cognitive triddpjsxy04/25/2024Hypokalemia 03/03/20247967Htwfao56/03/2024KD (chronic kidney disease) stage 4, GFR 15-29 ml/min 03/03/2024bnormal radiographic xdwyhfmdwas99/16/2023ortic stenosis, mild 03/16/2023hronic diastolic congestive heart qnfoizi6703/16/2023hronic ethmoidal ngkbuprnj25/16/2023llergic pqgyxead72/16/2023hronic obstructive pulmonary uothnlc8903/16/2023oronary hbmcmkryhlixajv61/16/2023epressive kiphawwz65/16/2023 DM w/o complication type II03/16/20230640Ogfbqijqirtq04/16/2023Esophageal reflux 03/16/2023eneralized anxiety /16/7400Qlwudb99/16/2023Localized edema 03/16/2023Mixed conductive and sensorineural hearing loss, unilateral, right ear with restricted hearing on the contralateral side03/16/2023Mixed hyperlipidemia 03/16/2023Orthostatic heyulihzzgl55/16/2023Other chronic pain03/16/2023 Overactive efukagq6603/16/2023rimary ovarian cmqxvxg8003/16/2023Small airways axisyiz3703/16/2023Localized, secondary osteoarthritis of the shoulder region 06/07/2020Chest pain04/06/20122498Gydnezt49/06/2012Disorder of bone and articular utpenphzn59/01/2012 Resolved Problems ProblemNoted DateDiagnosed DateResolved DateHearing lossType 1 diabetes hfmbobew64 Encounters DateTypeDepartmentCare UbbxQjiegbruvee80/22/2025 3:15 PM EDTOffice Visit [facility] [address] [place] [address] Kevin Adams MD Chronic diastolic congestive heart failure (HCC) (Primary Dx); Chronic obstructive pulmonary disease, unspecified COPD type (HCC); Type 2 diabetes mellitus without complication, without long-term current use of insulin (HCC); Major depressive disorder, recurrent, in remission, unspecified ; Depressive /22/2025amboo flowsheet [facility] [address] [place] [address] Kevin Adams MD 05/23/2025Travelfrom Last 3 Months Immunizations ImmunizationAdministration DatesNext DueInfluenza, High Dose Seasonal, Preservative Free06/05/2021Influenza, High-dose Seasonal, Quadrivalent, Preservative Free06/05/2022,05/28/2017Influenza, Seasonal, Quadrivalent, Ppugrubpbx25/07/2024Influenza, injectable, wgamyumygryk53/03/2019Influenza, injectable, quadrivalent, preservative free06/29/2016Influenza, seasonal, xfosfpmlpk98/01/2014Influenza, seasonal, intradermal, preservative free 07/11/2015,07/05/2013Influenza, trivalent, bvavyzxtjp16/23/2020,06/03/2018 Pneumococcal Conjugate PCV 1306,08/17/2015Pneumococcal Conjugate PCV 20 10/08/2023,2Pneumococcal Polysaccharide WNGC9806,08/17/2015, 06/25/2010Td (adult), 5 Lf tetanus toxoid, preservative free, qlflopdf09/29/2007 Tdap01/20/2019,02/27/2007Zoster, Flygwsdhlsw73/27/2019,05/28/2019Zoster, live 06/27/2014 Family History RelationNameStatusCommentsFatherDeceasedMotherDeceased Social History Tobacco UseTypesPacks/DayYears UsedDateSmoking Tobacco: FormerCigarettesQuit: 11/01/1999Smokeless Tobacco: Never Tobacco Cessation:Counseling Given: Not Answered Comments:Last smoked : > 10 years Alcohol UseStandard Drinks/WeekCommentsNot Currently0 (1 standard drink = 0.6 oz pure alcohol)Caffeine intake : 1-2 cup per day mffoiyF6242 Health LiteracyAnswer Date RecordedHow often do you need to have someone help you when you read instructions, pamphlets, or other written material from your doctor or pharmacy? Stadpg0505/10/2024Humiliation, Afraid, Rape, and Kick questionnaireAnswerDate RecordedWithin the last year, have you been afraid of your partner or ex-partner?No05/10/2024Within the last year, have you been humiliated or emotionally abused in other ways by your partner or ex-partner?No05/10/2024 Within the last year, have you been kicked, hit, slapped, or otherwise physically hurt by your partner or ex-partner?No05/10/2024Within the last year, have you been raped or forced to have any kind of sexual activity by your part ner or ex-partner?No05/10/2024Social Connection and Isolation PanelAnswerDate RecordedIn a typical week, how many times do you talk on the phone with family, friends, or neighbors?Once a week05/09/2023How often do you get together with friends or relatives?Once a week05/09/2023How often do you attend restorationism or episcopal services?Never05/09/2023o you belong to any clubs or organizations such as restorationism groups, unions, fraternal or athletic groups, or school groups?No 05/09/2023How often do you attend meetings of the clubs or organizations you belong to?Never05/09/2023re you , , , , never , or living with a partner?Qbkvbnx1305/09/2023UDIT-CAnswerDate RecordedQ1: How often do you have a drink containing alcohol?Monthly or less05/09/2023Q2: How many drinks containing alcohol do you have on a typical day when you are drinking?1 or Q3: How often do you have six or more drinks on one occasion?Never05/09/2023Overall Financial Resource Strain (CARDIA)AnswerDate RecordedHow hard is it for you to pay for the very basics like food, housing, medical care, and heating?Not hard at all05/09/2023HQ-2AnswerDate Recorded Patient Health Questionnaire-2 Fthtm791Finhe[facility] [place] of Occupational Health - Occupational Stress QuestionnaireAnswerDate RecordedDo you feel stress - tense, restless, nervous, or anxious, or unable to sleep at night because your mind is troubled all the time - these days?Only a tadzmr1005/09/2023Exercise Vital SignAnswerDate RecordedOn average, how many days per week do you engage in moderate to strenuous exercise (like a brisk walk)?0 days05/09/2023On average, how many minutes do you engage in exercise at this level?0 min05/09/2023Hunger Vital SignAnswerDate RecordedWithin the past 12 months, you worried that your food would run out before you got the money to buymore.Never true05/09/2023 Within the past 12 months, the food you bought just didn't last and you didn't have money to get more.Never true05/09/2023RAPARE - TransportationAnswerDate RecordedIn the past 12 months, has lack of transportation kept you from medical appointments or from getting medications?No05/09/2023In the past 12 months, has lack of transportation kept you from meetings, work, or from getting things needed for daily living?No05/09/2023Housing Stability Vital SignAnswerDate RecordedIn the last 12 months, was there a time when you were not able to pay the mortgage or rent on time?No05/09/2023In the last 12 months, how many places have you lived?In the last 12 months, was there a time when you did not have a steady place to sleep or slept in ashelter (including now)?No 05/09/2023CommentsUnknownSex and Gender InformationValueDate RecordedSex Assigned at BirthNot on fileLegal RpvBnkcwq57/15/2023 7:01 PM EDTGender Identity Cjtuto0011/13/2022 7:01 PM EDTSexual OrientationNot on file Last Filed Vital Signs Vital SignReadingTime TakenCommentsBlood Snqshfla147/7809 3:21 PM EDT Jnghe8861 3:21 PM EDTTemperature--Respiratory Lono0822 3:08 PM EDTOxygen Jbsoheehxw46%05/23/2025 3:21 PM EDTInhaled Oxygen Concentration-- Fjijdc86.7 kg (136 lb)05/23/2025 3:21 PM WDYDqpaye123.9 cm (5' 1 )05/23/2025 3:21 PM EDTBody Mass Index25.709 3:21 PM EDT Plan of Treatment DateTypeDepartmentCare Team (Latest Contact Info)Yyunxicfzrx88/17/2025 2:00 PM ESTOffice Visit [facility] [address] [place] [id number] Kevin Adams MD [address] [facility] [address] [place] [address] Health MaintenanceDue DateLast DoneCommentsDiabetes: Urine Protein Screening /, 01/20/2019, 11/26/2017COVID-19 Vaccine ( season)511/09/2020, 10/19/2020, 09/18/2020Influenza Vaccine (#1) 502/03/2024, 06/05/2022, 06/05/2021, Additional history existsDiabetes: Hemoglobin A1C9/, 11/12/2023, 05/14/2023, Additional history existsMedicare Annual Wellness (AWV)6011/15/2024, 11/15/2024, 11/12/2023, Additional history existsDiabetes: Retinopathy Ktnalvzsv76/12/2026 05/13/2024, 05/13/2023, 08/17/2018Pneumococcal Vaccine: 65+ YearsCompleted 10/08/2023, 06/05/2022, 06/03/2018, Additional history exists Procedures Procedure NamePriorityDate/TimeAssociated DiagnosisCommentsPOCT GLYCATED HEMOGLOBIN, JSDMEIhdinyp93/22/2025 4:33 PM EDT Type 2 diabetes mellitus without complication, without long-term current use of insulin (HCC) DIABETIC RETINOPATHY SCREENING - OU - BOTH ITPHTvyhrqt99/12/2024 MICROALBUMIN / CREATININE URINE DVTTIAkzwnox48/24/2020 from Last 3 Months or Most Recently Relevant to Health Maintenance Results * POCT Glycated hemoglobin, total (05/23/2025 4:33 PM EDT)ComponentValueRef RangeTest MethodAnalysis TimePerformed AtPathologist SignatureHemoglobin A1C 5.2Specimen (Source)Anatomical Location / LateralityCollection Method / Volume Collection TimeReceived XedkAfcnh86/22/2025 4:33 PM EDT Narrative Authorizing ProviderResult TypeResult StatusDadaljit Adams MDPOINT OF CARE TEST ENTER/EDIT ORDERABLESFinal Result * Diabetic Retinopathy Screening - OU - Both Eyes (05/13/2024)ComponentValueRef RangeTest MethodAnalysis TimePerformed AtPathologist SignatureRESULTSNDR Anatomical RegionLateralityModalityHeadOtherSpecimen (Source)Anatomical Location / LateralityCollection Method / VolumeCollection TimeReceived Time 05/13/2024 Narrative Authorizing ProviderResult TypeResult StatusLeatha Sherice Kiara PAOPH PHOTOGRAPHY Final Result * (ABNORMAL) Microalbumin / creatinine urine ratio (02/23/2020)ComponentValueRef RangeTest MethodAnalysis TimePerformed AtPathologist SfaedvciqLOVGP7100 - 217 [facility] LEGACY EXTERNAL LABMALB<1.2(L)[facility] LEGACY EXTERNAL LABComment: Unable to calculate mALB/Crea ratio, mALB is <1.2 mg/dL mALB reference range not established. Specimen (Source)Anatomical Location / LateralityCollection Method / Volume Collection TimeReceived Time02/23/2020 Narrative Authorizing ProviderResult TypeResult StatusDadaljit HIGUERA URINE ORDERABLESFinal ResultPerforming OrganizationAddressCity/State/ZIP CodePhone Number [facility] from Last 3 Months or Most Recently Relevant to Health Maintenance Insurance Advance Directives TypeDate RecordedPatient RepresentativeExplanationAdvance Directives and Living [phone] DNR CCA Care Teams Team MemberRelationshipSpecialtyStart DateEnd Date Kevin Adams MD [address] [facility] [address] [place] [address] PCP - GeneralInternal Medicine03/17/23 Kevin Adams MD [address] [facility] [address] [place], [place] [id number] PCP - [employer]09/01/24 Oliver Gilbert DO [address] [place] [id number] Referring PhysicianNeurolog09/13/24 Gloria Wolf NP [address] [facility] [address] [place] [address] Nurse PractitionerNeurology11/04/24
--- OUTSIDE RECORDS SUMMARY | 2025-07-06 11:14 | XMS_ITS | Clinical Summary ---
Author Organization [facility] Address [address] [place] [address] Care Team Providers Care Land Degradation Analyst Name Role Phone Kevin Adams MD Primary Care Provider [phone] Allergies No known active allergies Medications MedicationSigDispense QuantityRefillsLast FilledStart DateEnd DateStatus aspirin 81 mg chewable tablet in the morning.Active atorvastatin (Lipitor) 80 mg tablet Take 80 mg by mouth at bedtime.Active citalopram (CeleXA) 40 mg tablet citalopram 40 mg tabletActive furosemide (Lasix) 20 mg tablet Take 20 mg by mouth every other day.Active meloxicam (Mobic) 15 mg tablet meloxicam 15 mg tabletActive metoprolol tartrate (Lopressor) 25 mg tablet Take 25 mg by mouth in the morning and at bedtime.Active oxybutynin XL (Ditropan-XL) 10 mg 24 hr tablet oxybutynin chloride ER 10 mg tablet,extended release 24 hrActive pantoprazole (ProtoNix) 40 mg EC tablet Indications:Gastroesophageal reflux disease without esophagitisTake 1 tablet (40 mg) by mouth before breakfast. Do not crush, chew, or split. 90 tablet ctive donepezil (Aricept) 10 mg tablet Take 10 mg by mouth at bedtime.Active Klor-Con M10 10 mEq ER tablet Take by mouth in the morning.ctive Active Problems ProblemNoted DateDiagnosed DateMild cognitive ndtgpmpail63/25/2024nemia 03/03/2024KD (chronic kidney disease) stage 4, GFR 15-29 ml/min03/03/2024 Isyjyuozdgq54/03/2024ortic stenosis, mildM w/o complication type II/03/2024Esophageal Localized edemaOveractive qecutzn37 Localized, secondary osteoarthritis of the shoulder jdxvke3906/07/2020Chronic pain 09/06/2019Abnormal radiographic nilpgckfirt32/19/1288Wyrhapowevlb01/19/2018 Chronic ncrebelwvi31/17/6597Ebukkq25/13/2018Mixed conductive and sensorineural hearing loss of right ear with restricted hearing of left ear10/06/2017Hearing loss04/16/2017Chronic obstructive pulmonary vdrjuvi3910/10/2016Acute exacerbation of chronic obstructive airways vgtmftn0109/26/2016Chronic diastolic heart failure 08/29/2016Disorder of lung08/29/2016Chronic ethmoidal peytztlll37/08/2016 Coronary oyfrxkuhekrjzzp05/08/2016Orthostatic nbkgqfkagfe63/08/2016Arthropathy 07/09/2016Disorder of bone07/09/20165711Xdugdmjxxrjcsn15/08/2016Primary ovarian nzcimvs5207/09/2016Chest pain2012ortic valve ajcallht33/06/2012Dyspnea 2012Mixed lffktjhoxcpmno95/06/2012llergic /01/2012Depressive ictaisgc29/01/2012Disorder of bone and articular vqkmadajg81/01/2012Generalized anxiety /01/2012Type 1 diabetes /01/2012 Social History Tobacco UseTypesPacks/DayYears UsedDateSmoking Tobacco: FormerCigarettes Smokeless Tobacco: Never Tobacco Cessation:Counseling Given: Not Answered Alcohol UseStandard Drinks/WeekCommentsNot Currently0 (1 standard drink = 0.6 oz pure alcohol)UT Safety & EnvironmentAnswerDate RecordedFear of Current or Ex-PartnerNot on file10/23/2023Emotionally AbusedNot on file10/23/2023hysically AbusedNot on file10/23/2023Sexually AbusedNot on file10/23/2023hysically or Sexually AbusedNot on file10/23/2023CommentsUnknownSex and Gender InformationValueDate RecordedSex Assigned at BirthNot on fileLegal SexFemale 02/27/2022 9:50 PM EDTGender IdentityNot on fileSexual OrientationNot on file Last Filed Vital Signs Vital SignReadingTime TakenCommentsBlood Gdstbaro841/72012/08/2024 2:14 PM EDT Dvuup1623/09/2025 2:14 PM EDTTemperature--Respiratory Rate--Oxygen Gsjfkefkzv20% 12/08/2024 2:14 PM EDTInhaled Oxygen Concentration--Oseola42.6 kg (149 lb) 12/08/2024 2:14 PM NQJLvsaei969.9 cm (5' 1 )12/08/2024 2:14 PM EDTBody Mass Index28.15012/08/2024 2:14 PM EDT Plan of Treatment Health MaintenanceDue DateLast DoneCommentsDiabetes: Hemoglobin A1C1938 Medicare Annual Wellness (AWV)1938Diabetes: Retinopathy Screening 1948Depression Vmwbrhuzr68/06/1950Fall Risk Jfpzmnvqv99/06/2003Diabetes: Urine Protein Vlpdhiwod11COVID-19 Vaccine ( season) , 07/02/2021, 10/19/2020, Additional history existsInfluenza Vaccine (#1)502/03/2024, 06/05/2022, 06/05/2021, Additional history existsAdult Zxafhdf27, 02/27/2007, 02/27/2007Zoster Vaccines Eowuvihhr10/27/2019, 05/28/2019, 06/27/2014Pneumococcal Vaccine: 50+ Years Qohosvofa71/07/2024, 06/05/2022, 06/03/2018, Additional history existsHIB VaccinesAged OutNo longer eligible based on patient's age to complete this topic HPV VaccinesAged OutNo longer eligible based on patient's age to complete this topicIPV VaccinesAged OutNo longer eligible based on patient's age to complete this topicMeningococcal B VaccineAged OutNo longer eligible based on patient's age to complete this topicMeningococcal VaccineAged OutNo longer eligible based on patient's age to complete this topicRotavirus VaccinesAged OutNo longer eligible based on patient's age to complete this topic Insurance Care Teams Team MemberRelationshipSpecialtyStart DateEnd Date Kevin Adams MD [address] [facility] [address] [place] [address] PCP - General10/02/22
--- OUTSIDE RECORDS SUMMARY | 2025-07-06 11:24 | XMS_ITS | CCD ---
Author Organization [facility] Providers Care Rn Staff Name Role Phone PHYSICIAN, DEFAULT Unavailable Unavailable [...] Unavailable APRIL, DEBBIE Attending Unavailable APRIL, DEBBIE Consulting Unavailable APRIL, DEBBIE Admitting Unavailable APRILGEORGE CAMPOSA Attending Unavailable APRIL, DEBBIE Consulting Unavailable ADAMS, DR BROWN Primary Care Unavailable APRIL, DEBBIE Admitting Unavailable APRIL, DEBBIE Admitting Unavailable APRIL, DEBBIE Attending Unavailable ADAMS, DR BROWN Primary Care Unavailable APRIL, DEBBIE Consulting Unavailable ADAMS, DR BROWN Primary Care Unavailable APRIL, DEBBIE Attending Unavailable APRIL, DEBBIE Admitting Unavailable ADAMS, DR BROWN Primary Care Unavailable APRIL, DEBBIE Attending Unavailable APRIL, DEBBIE Admitting Unavailable Bryan, SEB Brown Primary Care Provider [phone] JENNIFER Benavidez Attending Provider BRAEDEN Craig Referring Provider [phone] Kevin Adams MD Unavailable Kevin Adams MD Primary Care Provider SEB Adams Primary Care Provider [phone] JENNIFER Benavidez Attending Provider BRAEDEN Craig Referring Provider [phone] Dewayne Gilbert DO Unavailable Kevin Adams MD Unavailable Gloria Corley NP Unavailable ARASH CÁRDENAS Attending Unavailable Kevin Adams II Primary Care Provider Vivian Benavidez APRN Attending Provider Hemmer DUAL HOSE CEMENTER-CLeatha Referring Provider Kevin Adams II Primary Care Provider Minnie Chou APRN Attending Provider Vivian Benavidez APRN Attending Provider Hemmer DUAL HOSE CEMENTER-CLeatha Referring Provider [phone] Luciano RODRIGUEZ-INTERNAL MEDICINE DOCTOR-CGloria Attending Provider Dewayne Gilbert DO Unavailable [phone] Gloria Corley NP Unavailable Unavailable GLORIA CORLEY Attending Unavailable KEVIN ADAMS Attending Unavailable KEVIN ADAMS Attending Unavailable KEVIN ADAMS Attending Unavailable KEVIN ADAMS Attending Unavailable DEWAYNE GILBERT Attending Unavailable KEVIN ADAMS Referring Unavailable ROBBIE MÉNDEZ Attending Unavailable DEWAYNE GILBERT Referring Unavailable Yamilet King Attending Unavailable Yamilet King Admitting Unavailable Leatha Craig Referring Unavailable Kevin Adams Primary Care Unavailable Medications Current Medications MedicationDrug Class(es)DatesSig (Normalized)Sig (Original)albuterol 0.83 mg/ml inhalation solution (20 sources)beta2-Adrenergic AgonistStart: 78-38-3815sdhx 2.5 mg by inhalation three times dailyAlbuterol Sulfate 2.5 mg /3 mL (0.083 %) solution for nebulization Active 2.5 MG INHALATION Three times daily 2024 12:00am Complies with drug therapyascorbic acid 250 mg oral tablet (20 sources)Vitamin CStart: 03-14-1099fohl 1 tablet by mouth once dailyAscorbic Acid (Vitamin C) 250 mg tablet Active 250 MG PO Daily 2024 12:00am Complies with drug therapyaspirin 81 mg delayed release oral tablet (20 sources)Platelet Aggregation Inhibitor, Nonsteroidal Anti-inflammatory Drug Start: 51-70-0074auhm 1 tablet by mouth once dailyAspirin 81 mg tablet,delayed release (DR/EC) Active 81 MG PO Daily 2024 12:00am Complies with drug therapyaspirin 81 MG chewable tablet Chew 1 tablet 1 (one) time each day. Activeatorvastatin 80 mg oral tablet (20 sources)HMG-CoA Reductase InhibitorStart: 2024 End: 34-15-1677wwqe 1 tablet by mouth once dailyatorvastatin (Lipitor) 80 MG tablet Indications: Mixed hyperlipidemia Take 1 tablet (80 mg) by mouth 1 (one) time each day at the same time 100 tablet 3 01/27/2025 01/27/2026 Activecalcium carbonate 1500 mg oral tablet (20 sources)Start: 06-17-0674qsdx 1 tablet by mouth once dailyCalcium Carbonate 600 mg calcium (1,500 mg) tablet Active 600 MG PO Daily 2024 12:00am Complies with drug therapycitalopram 20 mg oral tablet (20 sources)Serotonin Reuptake InhibitorStart: 05-23-2025 End: 57-47-3571taom 1 tablet by mouth once dailycitalopram (CeleXA) 20 MG tablet Indications: Depressive disorder Take 1 tablet (20 mg) by mouth 1 (one) time each day at the same time 90 tablet 3 05/23/2025 05/23/2026 ActiveStart: 04-01-2024 End: 09-11-3126dcek 1 tablet by mouth once dailycitalopram (CeleXA) 40 MG tablet Indications: Depressive disorder Take 1 tablet (40 mg) by mouth 1 (one) time each day at the same time 90 tablet 3 01/27/2025 05/23/2025 Discontinued (Reorder)donepezil hydrochloride 10 mg oral tablet (20 sources)Start: 07-26-2024 End: 85-31-5580zppy 1 tablet by mouth at bedtimedonepezil (Aricept) 10 MG tablet Indications: Mild cognitive impairment Take 1 tablet (10 mg) by mouth at bedtime 90 tablet 3 01/27/2025 01/27/2026 ActiveStart: 06-25-2024 End: 45-31-6713vxix 1 tablet by mouth once daily at bedtimeDonepezil 5 mg tablet Active 5 MG PO Daily at bedtime July 07, 2024 1:00am Complies with drug t herapyfurosemide 20 mg oral tablet (20 sources)Loop DiureticStart: 05-23-2025 End: 49-88-9998yxcr 1 tablet by mouth every other dayfurosemide (Lasix) 20 MG tablet Indications: Chronic diastolic congestive heart failure (HCC) Take 1 tablet (20 mg) by mouth every other day 15 tablet 3 05/23/2025 ActiveStart: 30-32-5309wetg 1 tablet by mouth once dailyFurosemide 20 mg tablet Active 20 MG PO Daily 2024 12:00am Complies with drug therapymetoprolol tartrate 25 mg oral tablet (20 sources)beta-Adrenergic BlockerStart: 70-57-3439gdog 1 tablet by mouth in the morningmetoprolol tartrate (Lopressor) 25 MG tablet Indications: Chronic diastolic congestive heart failure (HCC) Take 1 tablet (25 mg) by mouth in the morning and 1 tablet (25 mg) before bedtime. 180 tablet 3 01/27/2025 Active Start: 04-01-2024 End: 78-03-8773wtsv 1 tablet by mouth twice dailyMetoprolol Tartrate 25 mg tablet Active 25 MG PO Twice daily 2024 12:00am Complies withdrug therapyMULTIPLE VITAMINS PO (20 sources)take 1 tablet by mouth once dailyMULTIPLE VITAMINS PO Take 1 tablet by mouth 1 (one) time each day. ActiveMultivitamin (Multiple Vitamins) tablet (4 sources)Start: 77-98-4699wjqy 1 tablet by mouth once dailyMultivitamin (Multiple Vitamins) tablet Active 1 TAB PO Daily 2024 12:00am Complies with drug therapyStart: 48-95-8799hfok 1 tablet by mouth once daily Multivitamin (Multiple Vitamins) tablet Active 1 TAB PO Daily April 05, 2024 11:00pmStart: 21-18-7401yatg 1 tablet by mouth once dailyMultivitamin (Multiple Vitamins) tablet Active 1 TAB PO Daily 2024 12:00amNutritional Supplements (Boost Compact) liquid (20 sources)Nutritional Supplements (Boost Compact) liquid Take by mouth. Active 24 hr oxybutynin chloride 10 mg extended release oral tablet (20 sources)Cholinergic Muscarinic AntagonistStart: 04-01-2024 End: 46-67-2366ijbz 1 tablet by mouth once dailyoxybutynin XL (Ditropan-XL) 10 MG 24 hr tablet Indications: Overactive bladder Take 1 tablet (10 mg) by mouth 1 (one) time each day at the same time 90 tablet 3 01/27/2025 01/27/2026 Active pantoprazole 40 mg delayed release oral tablet (20 sources)Proton Pump InhibitorStart: 04-01-2024 End: 67-30-9521wbti 1 tablet by mouth before mealtimepantoprazole (ProtoNix) 40 MG EC tablet Indications: Gastroesophageal reflux disease, unspecified whether esophagitis present Take 1 tablet (40 mg) by mouth in the morning. Take before meals. 90 tablet 3 01/27/2025 01/27/2026 Activemicroencapsulated potassium chloride 10 meq extended release oral tablet (20 sources)Start: 03-03-2024 End: 27-38-3719myat 1 tablet by mouth once dailypotassium chloride CR (Klor-Con M10) 10 MEQ ER tablet Indications: Hypokalemia Take 1 tablet (10 mEq) by mouth Daily Do not crush or chew. 90 tablet 3 01/27/2025 01/27/2026 Activezinc gluconate 50 mg oral tablet (20 sources)Start: 02-69-2272gayj 1 tablet by mouth once dailyZinc Gluconate 50 mg tablet Active 50 MG PO Daily 2024 12:00am Complies with drug therapy Completed/Discontinued Medications MedicationDrug Class(es)DatesSig (Normalized)Sig (Original)meloxicam 15 mg oral tablet (20 sources)Nonsteroidal Anti-inflammatory DrugStart: 2024 End: 44-41-7498grew 1 tablet by mouth once dailyMeloxicam 15 mg tablet Discontinued 15 MG PO Daily 2024 12:00am 2024 10:59am Start: 01-27-2024 End: 49-09-9524qtwo 0.5 tablet by mouth once daily as needed for painmeloxicam (Mobic) 15 MG tablet Indications: Localized, secondary osteoarthritis of the shoulder region, unspecified laterality Take 0.5 tablets (7.5 mg) by mouth Daily as needed for moderate pain 01/27/2024 05/23/2025 Discontinued Problems Active Problems Problem ClassificationProblemDateDocumented DateEpisodic/ChronicAnxiety disorders (20 sources)Generalized anxiety disorder; Translations: [Generalized anxiety disorder]Onset: 930266-74-4723BlxezkzQnpqiot kidney disease (20 sources)Chronic kidney disease stage 4; Translations: [Chronic kidney disease, stage 4 (severe)]Onset: 396381-88-2131ErtnervDzasjoo obstructive pulmonary disease and bronchiectasis (20 sources)Chronic obstructive lung disease; Translations: [Chronic obstructive pulmonary disease, unspecified]Onset: 896176-46-7341GyzdysxWizsqbjehj heart failure; nonhypertensive (20 sources)Chronic diastolic heart failure; Translations: [Chronic diastolic (congestive) heart failure]Onset: 159818-87-2894IvcnssgPdvaejgk atherosclerosis and other heart disease (20 sources)Atherosclerotic heart disease of [place] coronary artery without angina pectoris; Translations: [Coronary atherosclerosis]Onset: 02-27-2022 ChronicDeficiency and other anemia (2 sources)Anemia, unspecified; Translations: [Anemia, unspecified]07-07-2024 EpisodicDelirium, dementia, and amnestic and other cognitive disorders (4 sources)Senile dementia; 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] 84-46-5339AqwratjLvpjqpgh mellitus with complications (2 sources)Chronic kidney disease due to type 2 diabetes mellitus; Translations: [Type 2 diabetes mellitus with diabetic chronic kidney disease]83-98-0554Zszhxff Diabetes mellitus without complication (20 sources)Type 2 diabetes mellitus without complication; Translations: [Type 2 diabetes mellitus without complications]Onset: 04-01-2012 Resolved: 998925-48-3212BggjahqYpatodab of white blood cells (20 sources)Eosinophil count raised; Translations: [Eosinophilia]Onset: 348271-22-1691ZdtlqduSvirlbmmi of lipid metabolism (20 sources)Mixed hyperlipidemia; Translations: [Mixed hyperlipidemia]Onset: 713688-70-8049OjbnuvwHreqswihjw disorders (20 sources)Gastroesophageal reflux disease; Translations: [Gastro-esophageal reflux disease without esophagitis]Onset: 604999-05-3859XnzsdoaTvkoq valve disorders (20 sources)Nonrheumatic aortic (valve) stenosis; Translations: [Aortic valve disorders]Onset: 11-90-7675JudwmkuMnqzrpltzv disorders (20 sources)Other primary ovarian failure; Translations: [Primary ovarian failure]Onset: 33-92-7065KslbzrfAorn disorders (20 sources)Depressive disorder; Translations: [Depressive disorder]Onset: 286938-48-0181WcpfjwoSyszymrbclm deficiencies (7 sources)Cobalamin deficiency; Translations: [Deficiency of other specified B group vitamins]Onset: 622957-75-0175RaxamaryPzxafcvhcabbhn (20 sources)Localized, secondary osteoarthritis of the shoulder region; Translations: [Secondary osteoarthritis, unspecified shoulder]Onset: 06-07-2020 48-24-3687IrfxgreHsgyv diseases of bladder and urethra (20 sources)Overactive bladder; Translations: [Overactive bladder]Onset: 745692-41-7949JdgeimcLpbku ear and sense organ disorders (20 sources)Mixed conductive AND sensorineural hearing loss; Translations: [Mixed conductive and sensorineural hearing loss, unilateral, right ear with restricted hearing on the contralateral side]Onset: hronic Other hereditary and degenerative nervous system conditions (20 sources)Impaired cognition; Translations: [Mild cognitive impairment, so stated]Onset: 131963-68-3657EuohudmQpxkd nervous system disorders (20 sources)Chronic pain; Translations: [Other chronic pain]Onset: 03-16-2023 01-97-6134JvammmwNolll nervous system disorders (6 sources)Impaired twvfamydx96-88-8096NzdjghcqXnpne nervous system disorders (2 sources)Trigeminal neuralgia; Translations: [Trigeminal neuralgia]05-19-2024 EpisodicOther screening for suspected conditions (not mental disorders or infectious disease) (20 sources)Radiology result abnormal; Translations: [Abnormal findings on diagnostic imaging of other specified body structures]Onset: 03-16-2023 25-94-0284NgbfehdCjjrs upper respiratory disease (20 sources)Allergic rhinitis; Translations: [Allergic rhinitis, unspecified] Onset: 915779-18-1004WfdblkmGelad upper respiratory infections (20 sources)Chronic ethmoidal sinusitis; Translations: [Chronic ethmoidal sinusitis]Onset: 875157-41-1159NuebltdKjulhnclnw and visceral atherosclerosis (2 sources)Atherosclerosis of aorta; Translations: [Atherosclerosis of aorta] 83-85-7245DinasyySdimjwhl codes; unclassified (4 sources)Insomnia; Translations: [Other insomnia]55-74-9488UpugssuAehwnhty codes; unclassified (2 sources)Amnesia; Translations: [Other amnesia]32-32-9370Lkxlngqh Past or Other Problems Problem ClassificationProblemDateDocumented DateEpisodic/ChronicDeficiency and other anemia (20 sources)Anemia; Translations: [Anemia, unspecified]Onset: 03-03-2024 03-56-6080KriaguqmQydgw and electrolyte disorders (20 sources)Hypokalemia; Translations: [Hypokalemia]Onset: 691953-43-2261 EpisodicMood disorders (20 sources)Mood disordersOnset: 115560-81-1754Fmgrhxcykyv chest pain (20 sources)Chest pain; Translations: [Chest pain, unspecified]Onset: 2012 89-22-5057ZasvbemmQeybj bone disease and musculoskeletal deformities (1 source)Other specified disorders of bone density and structure, other site; Translations: [OTH D/O BONE DEN STRUCT OTH SITE]Onset: 59-52-9006KpficgnrVgcec bone disease and musculoskeletal deformities (20 sources)Disorder of bone and articular cartilage; Translations: [Disorder of bone, unspecified]Onset: 853621-51-9250RksparghNqtcv circulatory disease (20 sources)Orthostatic hypotension; Translations: [Orthostatic hypotension] Onset: 294862-46-3793LuhmrrirRiwcy ear and sense organ disorders (20 sources)Hearing loss; Translations: [Unspecified hearing loss, unspecified ear]Onset: 03-16-2023 Resolved: 576218-17-1051ZxkntozIwmgb lower respiratory disease (20 sources)Disorder of lung; Translations: [Other disorders of lung]Onset: 264921-28-8167JoksdvtkWxets lower respiratory disease (20 sources)Dyspnea; Translations: [Dyspnea, unspecified]Onset: 2012 13-98-8584LpxjuxfkJkqdz upper respiratory disease (20 sources)Hoarse; Translations: [Dysphonia]Onset: 569333-73-1195Usmldadl Residual codes; unclassified (20 sources)Localized edema; Translations: [Localized edema]Onset: 03-16-2023 63-48-1411Gjgnravu Results Test NameValueInterpretationReference RangeFacilityLaboratory - Hematology and Cell countson 89-07-5348CnI7f (Bld) [Mass fraction]5.2 %NOMS HealthcareNo Panel Informationon 21-05-4234PRNI HealthcareALL CBC WITH AUTO DIFFon 12-30-2024 BASOPHILS ABSOLUTE AUTO0.1NOMS HealthcareBasophils/100 WBC (Bld)0.8 %0.2 - 2.0 % NOMS HealthcareEosinophils/100 WBC (Bld)5 %0.9 - 7.0 %NOM HealthcareErythrocyte distribution width (RBC) [Ratio]13.6 %11.0 - 15.0 %[facility]OMS HealthcareHematocrit (Bld) [Volume fraction]37.5 %36.0 - 48.0 %NOM HealthcareHemoglobin (Bld) [Mass/Vol]12.2 g/dL12.0 - 16.0 g/dLNOAR HealthcareIMMATURE GRANULOCYTES ABS AUTO 0.03NOMS HealthcareImmature granulocytes/100 WBC (Bld)0.3 %0.0 - 0.5 %NOM HealthcareInterpretation and review of laboratory resultsAbnormalNOAR Healthcare LYMPHOCYTES ABSOLUTE AUTO2.4NOMS HealthcareLymphocytes/100 WBC (Bld)27.1 %20.5 - 60.0 %[facility] HospitalMCH (RBC) [Entitic mass]32.5 pg26.7 - 34.0 pgNOCox NorthMCHC (RBC) [Mass/Vol]32.5 g/dL29.9 - 35.2 g/dLNOCox NorthMCV (RBC) [Entitic vol]100 gTKyty49.0 - 99.0 fLNOAR HealthcareMONOCYTES ABSOLUTE AUTO0.7 NOMS HealthcareMonocytes/100 WBC (Bld)8.1 %1.7 - 12.0 %[facility] Healthcare NEUTROPHILS ABSOLUTE AUTO5.3NOMS HealthcareNeutrophils/100 WBC (Bld)58.7 %43.0 - 75.0 %NOMS HealthcarePlatelet mean volume (Bld) [Entitic vol]10.3 fL9.5 - 13.5 fLNOMS HealthcareTBH EO #0.5NOMS HealthcareTBH [id number] HealthcareTBH RBC3.75 LowNOMS HealthcareTBH WBC8.9NOMS HealthcareCLINISYNCNOMS HealthcareCA ECHO DOPPLER COMPLETEon 10-31-6832Rrn[place] [address] Cardiology Report Signed Patient: SHASTA LOVELACE MR#: [id number] : 1940 Acct:[id number] Age/Sex: 84 / F ADM Date: 12/30/24 Loc: CARD Attending Dr: Arash Cárdenas M.D. Ordering Physician: Arash Cárdenas M.D. Date of Service: 12/30/24 Procedure(s): CA echo doppler complete Accession Number(s): [id number] cc: KEVIN ADAMS ; Arash Cárdenas M.D. Patient Name: SHASTA LOVELACE MR#: [id number] : 1940 Exam Date: 12/30/2024 Ordering Doctor: DR ARASH CÁRDENAS M.D. ECHOCARDIOGRAM REPORT PROCEDURE: CA ECHO DOPPLER COMPLETE INDICATIONS: Mitral valve and aortic valve stenosis, diabetes COMPARISON: None. DESCRIPTION: COMPLETE ECHOCARDIOGRAM Real-time transthoracic echocardiography with 2D, M-mode, spectral and color flow Doppler performed. QUALITY: Technical quality was good. LEFT VENTRICLE: Normal chamber size. Mild concentric left ventricular hypertrophy. Normal systolic function. LV EF: Normal left ventricular ejection fraction, (60-65%). DIASTOLIC: ATRIAL SEPTUM: Visually appears intact. LEFT ATRIUM: Normal chamber size. RIGHT ATRIUM: Normal chamber size. RIGHT VENTRICLE: Normal chamber size. Normal right ventricular systolic function. TRICUSPID VALVE: Normal mobility and thickness. No stenosis with trivial regurgitation. No evidence of pulmonary hypertension. RVSP 26 mmHg MITRAL VALVE: Normal mobility and thickness. No mitral valve stenosis. Mean gradient 1.2 mmHg at a heart rate of 62 bpm. Moderate mitral annular calcification. Trivial mitral regurgitation. AORTIC VALVE: Normal trileaflet appearance. Moderately calcified aortic valve. Moderately diminished mobility. Doppler velocity suggest moderate aortic valve stenosis. Mean gradient 14 mmHg. DVI 0.42, JESUSITA 1.3 cm2. No aortic regurgitation. AORTIC ROOT: Normal diameter and appearance (3.2 cm). Aortic arch is normal in size. PULMONIC VALVE: Normal thickness and mobility. No stenosis. No regurgitation. PERICARDIUM: No evidence of pericardial effusion. IVC: Collapses with inspirations. PLEURA: CONCLUSION: 1. Mild concentric left ventricular hypertrophy with normal systolic function. LVEF is estimated at 60-65%. 2. Normal right ventricular size and systolic function. 3. Moderate aortic valve stenosis. 4. Moderate mitral annular calcifications with no significant mitral stenosis. 5. Normal right sided pressures. Adult Echocardiography Procedure Report Left Ventricle LVEDD (3.7 - 5.6 cm): 3.31 cm LVESD (2.2 - 4.0 cm): 2.11 cm LVIVS thickness (0.6 - 1.2 cm): 1.13 cm LVPW thickness (0.5 - 1.0 cm): 1.32 cm e': 0.07 m/s E - e': 9.18 LVOT Max Gradient: 3.81 mm[Hg] LVOT Area (cm2): 0.98 m/s Peak Velocity (LVOT): 0.98 m/s Mean Velocity (LVOT): 0.63 m/s LVOT Diameter 2.03 cm Left Atrium LA Volume Index (2D A2C): 26.00 ml/m2 Left Atrium Systolic Dimension: 3.08 cm Mitral Valve MV E to A Ratio: 0.70 Mitral Valve A-Wave Peak Velocity: 0.86 m/s Mitral Valve E-Wave Peak Velocity: 0.60 m/s Right Ventricle Aorta AO Root Diam: 3.23 cm Aortic Valve AoV Area (Peak Marcus): 1.35 cm2, 1.35 cm2 AoV Area (VTI): 1.24 cm2, 1.38 cm2 Peak Velocity(Antegrade Flow): 2.35 m/s, 2.26 m/s Peak Gradient(Antegrade Flow): 22.16 mm[Hg], 20.45 mm[Hg] Mean Velocity(Antegrade Flow): 1.71 m/s, 1.60 m/s Mean Gradient(Antegrade Flow): 13.67 mm[Hg], 11.48 mm[Hg] Velocity Time Integral: 51.22 cm, 57.23 cm Tricuspid Valve Peak Velocity (Regurgitant Flow): 2.38 m/s Pulmonic Valve Mean Gradient: 1.84 mm[Hg] Mean Velocity: 0.64 m/s Peak Velocity: 0.91 m/s, 1.03 m/s Peak Gradient: 4.27 mm[Hg], 3.32 mm[Hg] Right Atrium Right Atrium Systolic Pressure: 32.55 ml, 32.55 ml Dictated by: Chuy Vargas M.D. on 12/30/2024 at 18:37 Approved by: Chuy Vargas M.D. on 12/30/2024 at 1 (more content not included)...TBHRadiology, Radiologist, MD - 12/30/2024 [place] [address] Cardiology Report Signed Patient: SHASTA LOVELACE MR#: [id number] : 1940 Acct:[id number] Age/Sex: 84 / F ADM Date: 12/30/24 Loc: CARD Attending Dr: Arash Cárdenas M.D. Ordering Physician: Arash Cárdenas M.D. Date of Service: 12/30/24 Procedure(s): CA echo doppler complete Accession Number(s): [id number] cc: KEVIN ADAMS ; Arash Cárdenas M.D. Patient Name: SHASTA LOVELACE MR#: [id number] : 1940 Exam Date: 12/30/2024 Ordering Doctor: DR ARASH CÁRDENAS M.D. ECHOCARDIOGRAM REPORT PROCEDURE: CA ECHO DOPPLER COMPLETE INDICATIONS: Mitral valve and aortic valve stenosis, diabetes COMPARISON: None. DESCRIPTION: COMPLETE ECHOCARDIOGRAM Real-time transthoracic echocardiography with 2D, M-mode, spectral and color flow Doppler performed. QUALITY: Technical quality was good. LEFT VENTRICLE: Normal chamber size. Mild concentric left ventricular hypertrophy. Normal systolic function. LV EF: Normal left ventricular ejection fraction, (60-65%). DIASTOLIC: ATRIAL SEPTUM: Visually appears intact. LEFT ATRIUM: Normal chamber size. RIGHT ATRIUM: Normal chamber size. RIGHT VENTRICLE: Normal chamber size. Normal right ventricular systolic function. TRICUSPID VALVE: Normal mobility and thickness. No stenosis with trivial regurgitation. No evidence of pulmonary hypertension. RVSP 26 mmHg MITRAL VALVE: Normal mobility and thickness. No mitral valve stenosis. Mean gradient 1.2 mmHg at a heart rate of 62 bpm. Moderate mitral annular calcification. Trivial mitral regurgitation. AORTIC VALVE: Normal trileaflet appearance. Moderately calcified aortic valve. Moderately diminished mobility. Doppler velocity suggest moderate aortic valve stenosis. Mean gradient 14 mmHg. DVI 0.42, JESUSITA 1.3 cm2. No aortic regurgitation. AORTIC ROOT: Normal diameter and appearance (3.2 cm). Aortic arch is normal in size. PULMONIC VALVE: Normal thickness and mobility. No stenosis. No regurgitation. PERICARDIUM: No evidence of pericardial effusion. IVC: Collapses with inspirations. PLEURA: CONCLUSION: 1. Mild concentric left ventricular hypertrophy with normal systolic function. LVEF is estimated at 60-65%. 2. Normal right ventricular size and systolic function. 3. Moderate aortic valve stenosis. 4. Moderate mitral annular calcifications with no significant mitral stenosis. 5. Normal right sided pressures. Adult Echocardiography Procedure Report Left Ventricle LVEDD (3.7 - 5.6 cm): 3.31 cm LVESD (2.2 - 4.0 cm): 2.11 cm LVIVS thickness (0.6 - 1.2 cm): 1.13 cm LVPW thickness (0.5 - 1.0 cm): 1.32 cm e': 0.07 m/s E - e': 9.18 LVOT Max Gradient: 3.81 mm[Hg] LVOT Area (cm2): 0.98 m/s Peak Velocity (LVOT): 0.98 m/s Mean Velocity (LVOT): 0.63 m/s LVOT Diameter 2.03 cm Left Atrium LA Volume Index (2D A2C): 26.00 ml/m2 Left Atrium Systolic Dimension: 3.08 cm Mitral Valve MV E to A Ratio: 0.70 Mitral Valve A-Wave Peak Velocity: 0.86 m/s Mitral Valve E-Wave Peak Velocity: 0.60 m/s Right Ventricle Aorta AO Root Diam: 3.23 cm Aortic Valve AoV Area (Peak Marcus): 1.35 cm2, 1.35 cm2 AoV Area (VTI): 1.24 cm2, 1.38 cm2 Peak Velocity(Antegrade Flow): 2.35 m/s, 2.26 m/s Peak Gradient(Antegrade Flow): 22.16 mm[Hg], 20.45 mm[Hg] Mean Velocity(Antegrade Flow): 1.71 m/s, 1.60 m/s Mean Gradient(Antegrade Flow): 13.67 mm[Hg], 11.48 mm[Hg] Velocity Time Integral: 51.22 cm, 57.23 cm Tricuspid Valve Peak Velocity (Regurgitant Flow): 2.38 m/s Pulmonic Valve Mean Gradient: 1.84 mm[Hg] Mean Velocity: 0.64 m/s Peak Velocity: 0.91 m/s, 1.03 m/s Peak Gradient: 4.27 mm[Hg], 3.32 mm[Hg] Right Atrium Right Atrium Systolic Pressure: 32.55 ml, 32.55 ml Dictated by: Chuy Vargas M.D. on 12/30/2024 at 18:37 Approved by: Chuy Vargas M.D. on 12/30/2024 at 18:42 Dictated By: CHUY VARGAS Signed By: 12/30/241842 DD/ 41 TD/TT: Solids Control Technician: JOAQUIN HealthcareRadiology Study observation (narrative)[facility] HospitalCA ECHO DOPPLER COMPLETEOrdered By: Radiologist Radiology on 34-91-5622[facility] Work Phone: Office [place] [phone]-up [phone] NomanShasta Ben 1940 F Date Provider Department Center 12/08/2024 [id number], E[facility]AB [facility] No family history on file Level of Service:51689 [place] OFFICE/OUTPATIENT ESTABLISHED MOD [facility] HEAD/BRAIN WO/W CONTRon 25-33-6170[place] [address] Magnetic Resonance Report Signed Patient: SHASTA LOVELACE Ben MR#: [id number] : 1940 Acct:[id number] Age/Sex: 84 / F ADM Date: 10/11/24 Loc: MRI Attending Dr: Dewayne Gilbert D.O. Ordering Physician: Dewayne Gilbert D.O. Date of Service: 10/11/24 Procedure(s): MR head/brain wo/w con Accession Number(s): [id number] cc: KEVIN ADAMS ; Dewayne Gilbert D.O. [place] [id number] Patient Name: SHASTA LOVELACE MRN: [id number] date: 1940 Sex: F Assigned Patient Location: MRI Current Patient Location: MRI Accession/Order Number: [id number] Exam Date: 10/11/2024 14:00 Report Date: 10/11/2024 15:45 At the request of: DEWAYNE GILBERT Procedure: MR head/brain wo/w con MR head/brain wo/w con, 10/11/2024 2:00 PM EST INDICATION: Mild Cognitive Impairment COMPARISON: There is no appropriate prior study for comparison. TECHNIQUE: Multiplanar, multisequence MRI images of brain were obtained without and with injection of contrast. FINDINGS: The cerebral sulci as well as ventricular system are enlarged consistent with moderate ex vacuo cerebral volume loss. There is no restricted diffusion. Hyperintensities on T2 and FLAIR images in the varela radiata and centrum semiovale with sparing of U fibers are nonspecific, statistically most likely consistent with mild microvascular ischemic changes. There is no intracranial mass, mass effect, midline shift, intra or extra-axial fluid collection or large hemorrhage. No abnormal enhancing lesion is noted. Normal flow-void in the intracranial vessels is noted. The visualized portions of orbits, mastoid air cells as well as paranasal sinuses are unremarkable. MR/MR head/brain wo/w con IMPRESSION: No acute intracranial process is noted. Mild microvascular ischemic changes. No finding to suggest a typical neurodegenerative process. Electronically authenticated by: HENRY MICHAEL Date: 10/11/2024 15:45 Dictated By: Henry Michael M.D. Signed By: 10/11/24 1547 DD/ 154 TD/TT: Solids Control Technician:TBHRadiology, Radiologist, - 10/11/2024 [place] [address] Magnetic Resonance Report Signed Patient: SHASTA LOVELACE MR#: [id number] : 1940 Acct:[id number] Age/Sex: 84 / F ADM Date: 10/11/24 Loc: MRI Attending Dr: Dewayne Gilbert D.O. Ordering Physician: Dewayne Gilbert D.O. Date of Service: 10/11/24 Procedure(s): MR head/brain wo/w con Accession Number(s): [id number] cc: KEVIN ADAMS ; Dewayne Gilbert D.O. The [place] [id number] Patient Name: SHASTA LOVELACE MRN: [id number] date: 1940 Sex: F Assigned Patient Location: MRI Current Patient Location: MRI Accession/Order Number: [id number] Exam Date: 10/11/2024 14:00 Report Date: 10/11/2024 15:45 At the request of: DEWAYNE GILBERT Procedure: MR head/brain wo/w con MR head/brain wo/w con, 10/11/2024 2:00 PM EST INDICATION: Mild Cognitive Impairment COMPARISON: There is no appropriate prior study for comparison. TECHNIQUE: Multiplanar, multisequence MRI images of brain were obtained without and with injection of contrast. FINDINGS: The cerebral sulci as well as ventricular system are enlarged consistent with moderate ex vacuo cerebral volume loss. There is no restricted diffusion. Hyperintensities on T2 and FLAIR images in the varela radiata and centrum semiovale with sparing of U fibers are nonspecific, statistically most likely consistent with mild microvascular ischemic changes. There is no intracranial mass, mass effect, midline shift, intra or extra-axial fluid collection or large hemorrhage. No abnormal enhancing lesion is noted. Normal flow-void in the intracranial vessels is noted. The visualized portions of orbits, mastoid air cells as well as paranasal sinuses are unremarkable. MR/MR head/brain wo/w con IMPRESSION: No acute intracranial process is noted. Mild microvascular ischemic changes. No finding to suggest a typical neurodegenerative process. Electronically authenticated by: HENRY MICHAEL Date: 10/11/2024 15:45 Dictated By: Henry Michael M.D. Signed By: 10/11/241546 DD/ 44 TD/TT: Solids Control Technician: [facility] HospitalRadiology Study observation (narrative)[facility] HospitalMRI HEAD/BRAIN WO/W CONTROrdered By: Radiologist Radiology on 72-94-4638FX[facility] Work Phone: all CBC WITH AUTO DIFFon 80-70-2582CLQOZUOYW ABSOLUTE AUTO0.1NOMS HealthcareBasophils/100 WBC (Bld)0.8 %0.2 - 2.0 %[facility]OMPer[facility] County Memorial Hospital Eosinophils/100 WBC (Bld)6.4 %0.9 - 7.0 %[facility] HealthcareErythrocyte distribution width (RBC) [Ratio]13.2 %11.0 - 15.0 %[facility] HospitalHematocrit (Bld) [Volume fraction]38 %36.0 - 48.0 %[facility] HospitalHemoglobin (Bld) [Mass/Vol]12.4 g/dL 12.0 - 16.0 g/dLRipley County Memorial HospitalIMMATURE GRANULOCYTES ABS AUTO0.02NOMS [facility] Immature granulocytes/100 WBC (Bld)0.2 %0.0 - 0.5 %[facility] HospitalInterpretation and review of laboratory resultsAbnormalNOCox NorthLYMPHOCYTES ABSOLUTE AUTO3.4NOMS [facility] CenterLymphocytes/100 WBC (Bld)35.7 %20.5 - 60.0 %[facility] HospitalMCH (RBC) [Entitic mass]32.5 pg26.7 - 34.0 pgNOReynolds County General Memorial HospitalHC (RBC) [Mass/Vol]32.6 g/dL29.9 - 35.2 g/dLRipley County Memorial HospitalMCV (RBC) [Entitic vol]99.5 fL High81.0 - 99.0 fLNOAR HealthcareMONOCYTES ABSOLUTE AUTO0.8NOMS [facility] Monocytes/100 WBC (Bld)8.2 %1.7 - 12.0 %NOM HealthcareNEUTROPHILS ABSOLUTE AUTO 4.6NOMS HealthcareNeutrophils/100 WBC (Bld)48.7 %43.0 - 75.0 %[facility] Platelet mean volume (Bld) [Entitic vol]10 fL9.5 - 13.5 fLNOCox NorthTBH EO #0.6NOMS [facility] CenterTB ERA143ZAGN [facility] RBC3.82LowNOMS [facility] WBC 9.5NOMS [facility] CenterCLINISYNCNFAIRVIEW REGIONAL [facility] HealthcareALL CBC WITH AUTO DIFFon 07-02-2024 BASOPHILS ABSOLUTE AUTO0.1NOMS HealthcareBasophils/100 WBC (Bld)0.9 %0.2 - 2.0 % NOMS HealthcareEosinophils/100 WBC (Bld)6 %0.9 - 7.0 %[facility] HospitalErythrocyte distribution width (RBC) [Ratio]13.9 %11.0 - 15.0 %NOMPerry County Memorial HospitalHematocrit (Bld) [Volume fraction]35.2 %Low36.0 - 48.0 %[facility] HospitalHemoglobin (Bld) [Mass/Vol]11.1 g/dLLow12.0 - 16.0 g/dLRipley County Memorial HospitalIMMATURE GRANULOCYTES ABS AUTO0.02NOMS [facility] CenterImmature granulocytes/100 WBC (Bld)0.2 %0.0 - 0.5 %[facility] HospitalInterpretation and review of laboratory resultsAbnormalNOCox North LYMPHOCYTES ABSOLUTE AUTO2.8NOMS [facility] CenterLymphocytes/100 WBC (Bld)35.3 %20.5 - 60.0 %[facility] HospitalMCH (RBC) [Entitic mass]32 pg26.7 - 34.0 pgNOCox North MCHC (RBC) [Mass/Vol]31.5 g/dL29.9 - 35.2 g/dLRipley County Memorial HospitalMCV (RBC) [Entitic vol]101.4 pLCldu38.0 - 99.0 fLNOCox NorthMONOCYTES ABSOLUTE AUTO0.7NOMS HealthcareMonocytes/100 WBC (Bld)8.2 %1.7 - 12.0 %NOMPerry County Memorial HospitalNEUTROPHILS ABSOLUTE PQWQ7OHDQ HealthcareNeutrophils/100 WBC (Bld)49.4 %43.0 - 75.0 %NOMPerry County Memorial HospitalPlatelet mean volume (Bld) [Entitic vol]9.6 fL9.5 - 13.5 fLNOAR HealthcareTB EO #0.5NOMS HealthcareTBH [id number] HealthcareTB RBC3.47LowNOMS HealthcareTBH [id number] HealthcareCLINISYNCNOMS HealthcareRPR (MONITOR) W/REFL TITERon 71-73-3777HBD (MONITOR) W/REFL XMHZMOan-NbducqmcJqzdxuXFR-LFYPVFNVZkuue DiagnosticsComment on above:Performed By: ###Eli 420[address], 927, 799 #### [facility] [place] [address] Marine Cargo Specialist: Landen Rogers MDTSH W/REFLEX TO FT4on 17-16-6350WLF W/REFLEX TO FT42.44 mIU/LNormal0.40-4.50Quest DiagnosticsComment on above:Performed By: ###Eli Sweet, Gavin, 799 #### [facility] [place] [address] [employer] Cargo Specialist: Landen Rogers MDVITAMIN B12on 91-78-6867Woiumfnlh (Vitamin B12) [Mass/Vol]955 pg/lTIffsye112-7381Ptaem DiagnosticsComment on above: Performed By: ###Eli Sweet, 92Kishore, 799 #### [facility] [place] [address] [employer]argo Specialist: Landen Rogers MDBasophils Auto (Bld) [#/Vol]Ordered By: Vivian Benavidez on 37-35-2090Zkocurlxs (Bld) [#/Vol]0.1 10*3/uL0.0-0.2FFayette County Memorial HospitalBasophils (Bld) [#/Vol]Automated basophil count0.0-0.2 [facility] [facility] HospitalBasophils/100 WBC Auto (Bld)Ordered By: Vivina Benavidez on 13-94-8665Ujqzkpeac/100 WBC (Bld)0.8 %.[facility] HospitalBasophils/100 WBC (Bld)Automated basophil %.[facility] HospitalEosinophils Auto (Bld) [#/Vol]Ordered By: Vivian Benavidez on 2024 Eosinophils (Bld) [#/Vol]0.3 10*3/uL0.0-0.45[facility] Eosinophils (Bld) [#/Vol]Automated eosinophil count0.0-0.45St. [facility] HospitalEosinophils/100 WBC Auto (Bld)Ordered By: Vivian Benavidez on 63-71-8928Ftswivovyvk/100 WBC (Bld)3.1 %.[facility] Eosinophils/100 WBC (Bld)Automated eosinophil %.[facility] HospitalErythrocyte distribution width Auto (RBC) [Ratio]Ordered By: Vivian Benavidez on 09-76-7519Jofskcowwlj distribution width (RBC) [Ratio]14.2 %11.9-15.3 [facility] HospitalErythrocyte distribution width (RBC) [Ratio] Erythrocyte distribution width [Ratio] by Automated count11.9-15.3FFayette County Memorial HospitalFerritin [Mass/volume] in Serum or PlasmaOrdered By: Vivian Benavidez on 36-06-6916Txlgjlql [Mass/Vol]27.2 ng/mL11.0-306.8St. [facility] HospitalFerritin [Mass/Vol]Ferritin [Mass/volume] in Serum or Plasma 11.0-306.8[facility]. [facility] HospitalHematocrit Auto (Bld) [Volume fraction]Ordered By: Vivian Benavidez on 76-42-3825Yhmhhwcecv (Bld) [Volume fraction]35.2 %34.0-46.4FFayette County Memorial HospitalHematocrit (Bld) [Volume fraction]Hematocrit [Volume Fraction] of Blood by Automated count 34.0-46.4FFayette County Memorial HospitalHemoglobin [Mass/volume] in Blood Ordered By: Vivian Benavidez on 50-22-7240Iyttwvgkwo (Bld) [Mass/Vol]11.8 g/dL 11.8-15.4FFayette County Memorial HospitalHemoglobin (Bld) [Mass/Vol]Hemoglobin [Mass/volume] in Blood11.8-15.4FFayette County Memorial HospitalIron [Mass/volume] in Serum or PlasmaOrdered By: Vivian Benavidez on 82-54-1739Ugep [Mass/Vol]83 ug/yA01-310TgnrdszseSt. Elizabeth HospitalIron [Mass/Vol]Iron [Mass/volume] in Serum or Qznena62-462BpzunlxjkSt. Elizabeth HospitalIron binding capacity [Mass/volume] in Serum or PlasmaOrdered By: Vivian Benavidez on 03-98-9410Zycb binding capacity [Mass/Vol]365 ug/rB438-366FebxrdljjSt. Elizabeth HospitalIron saturation [Mass Fraction] in Serum or PlasmaOrdered By: Vivian Benavidez on 29-43-1291Vvib saturation [Mass fraction]22.7 %20-50St. [facility] HospitalLeukocytes [#/volume] corrected for nucleated erythrocytes in Blood by Automated counOrdered By: Vivian Benavidez on 2024 WBC corrected for nucl RBC Auto (Bld) [#/Vol]9.3 10*3/uL3.8-11.6FFayette County Memorial HospitalWBC corrected for nucl RBC Auto (Bld) [#/Vol]Leukocytes [#/volume] corrected for nucleated erythrocytes in Blood by Automated coun 3.8-11.6FFayette County Memorial HospitalLymphocytes Auto (Bld) [#/Vol]Ordered By: Vivian Benavidez on 19-63-7490Rmnffprehsn (Bld) [#/Vol]2.5 10*3/uL1.00-4.8 [facility] HospitalLymphocytes (Bld) [#/Vol]Lymphocytes [#/volume] in Blood by Automated count1.00-4.8[facility] Lymphocytes/100 WBC Auto (Bld)Ordered By: Vivian Benavidez on 2024 Lymphocytes/100 WBC (Bld)26.8 %.[facility] HospitalLymphocytes/100 WBC (Bld)Lymphocytes/100 leukocytes in Blood by Automated count.[facility] Auto (RBC) [Entitic mass]Ordered By: Vivian Benavidez on 22-13-1965GTG (RBC) [Entitic mass]32.6 pg24.7-34.3FSheltering Arms Hospital (RBC) [Entitic mass]MCH [Entitic mass] by Automated count24.7-34.3 [facility] Auto (RBC) [Mass/Vol]Ordered By: Vivian Benavidez on 18-95-7593XQFR (RBC) [Mass/Vol]33.4 g/dL32.0-35.0[facility] CenterHC (RBC) [Mass/Vol]MCHC [Mass/volume] by Automated count 32.0-35.0St. [facility] HospitalMCV Auto (RBC) [Entitic vol]Ordered By: Vivian Benavidez on 77-18-3794SAP (RBC) [Entitic vol]97.4 sA11-923AststzehxOhioHealth Nelsonville Health CenterV (RBC) [Entitic vol]MCV [Entitic volume] by Automated zpaot72-471MxsyiqhezSt. Elizabeth HospitalMonocytes Auto (Bld) [#/Vol]Ordered By: Vivian Benavidez on 85-06-1742Ztttpeyrj (Bld) [#/Vol]0.9 10*3/uLHigh0.0-0.8 [facility] HospitalMonocytes (Bld) [#/Vol]Automated blood monocyte countHigh0.0-0.8St. [facility] HospitalMonocytes/100 WBC Auto (Bld) Ordered By: Vivian Benavidez on 71-63-3125Tvupmzaom/100 WBC (Bld)9.6 %.[facility] HospitalMonocytes/100 WBC (Bld)Automated monocyte %.[facility]. [facility] HospitalNeutrophils Auto (Bld) [#/Vol]Ordered By: Vivian Benavidez on 65-33-6493Kcyaltjdfqd (Bld) [#/Vol]5.5 10*3/uL1.8-7.7FFayette County Memorial HospitalNeutrophils (Bld) [#/Vol]Neutrophils [#/volume] in Blood by Automated count1.8-7.7FFayette County Memorial HospitalNeutrophils/100 WBC Auto (Bld)Ordered By: Vivian Benavidez on 10-40-1110Cxtpggoyeqi/100 WBC (Bld)59.[address] [facility] HospitalNeutrophils/100 WBC (Bld)Automated neutrophil % .[facility] HospitalNucleated erythrocytes [Presence] in Blood by Automated countOrdered By: Vivina Benavidez on 50-08-5058Rnajhpqtw RBC Auto Ql (Bld)0.1 /100{WBC}0-0.5FFayette County Memorial HospitalNucleated RBC Auto Ql (Bld)Nucleated erythrocytes [Presence] in Blood by Automated count0-0.5FFayette County Memorial HospitalPlatelet mean volume Auto (Bld) [Entitic vol]Ordered By: Vivian Reema on 06-01-8784Irifyckx mean volume (Bld) [Entitic vol]8.4 fL 6.3-10.7FFayette County Memorial HospitalPlatelet mean volume (Bld) [Entitic vol]Platelet mean volume [Entitic volume] in Blood by Automated count6.3-10.7 [facility] [facility] HospitalPlatelets Auto (Bld) [#/Vol]Ordered By: Vivian Reema on 95-56-1775Jddzatvth (Bld) [#/Vol]243 10*3/aD727-793XvzcofmoqSt. Elizabeth HospitalPlatelets (Bld) [#/Vol]Platelets [#/volume] in Blood by Automated tfjuw494-621HlsupyxtgSt. Elizabeth HospitalRBC Auto (Bld) [#/Vol] Ordered By: Vivian Reema on 51-95-7308UFG (Bld) [#/Vol]3.61 10*6/uL3.60-5.00 [facility] HospitalRBC (Bld) [#/Vol]Erythrocytes [#/volume] in Blood by Automated count3.60-5.00Ohio[facility]ady Memorial Hospitalerum or plasma erythropoietin (EPO) measurement (units/volume)Ordered By: Vivian Reema on 00-91-2835Hgvmwrbeufgjxz (EPO) Qn14.9 mIU/mL2.6-18.5FFayette County Memorial HospitalComment on above:Lidia Cactusel DxI 800 Immunoassay SystemValues obtained with different assay methods or kits cannotbe used interchangeably. Results cannot be interpreted asabsolute evidence of the presence or absence of malignantdisease.Performed at: [address] [id number] Director: Srinath Patel PhD, Phone: [phone] (EPO) QnSerum or plasma erythropoietin (EPO) measurement (units/volume)2.6-18.5FFayette County Memorial HospitalComment on above:Lidia Cactusel DxI 800 Immunoassay SystemValues obtained with different assay methods or kits cannotbe used interchangeably. Results cannot be interpreted asabsolute evidence of the presence or absence of malignantdisease.Performed at: [place] [id number] [place], [place] [id number] Director: Srinath Patel PhD, Phone: [phone] or plasma iron binding capacity measurement (mass/volume)Ordered By: Vivian Benavidez on 43-13-2586Ebbu binding capacity [Mass/Vol]Iron binding capacity [Mass/volume] in Serum or Obbzrk800-272QohtjzlquOhioHealth Grady Memorial Hospitalerum or plasma iron saturation measurement (mass fraction)Ordered By: Vivian Benavidez on 2024 Iron saturation [Mass fraction]Iron saturation [Mass Fraction] in Serum or Oekbkm23-71ZneaiobszOhioHealth Grady Memorial Hospitalerum or plasma methylmalonate measurement (moles/volume)Ordered By: Vivian Benavidez on 64-38-1247Ocbbfoplypiafd [Moles/Vol]402 nmol/LHwebster county memorial hospital029 Cox StreetComment on above: This test was developed and its performance characteristicsdetermined by [facility] [employer]. It has not been cleared orapproved by the Food and Drug Administration.Performed at: [facility] [employer] [id number] Director: Grisel Koehler MD, Phone: [phone] [Moles/Vol]Serum or plasma methylmalonate measurement (moles/volume)[facility] Reyes StreetComment on above:This test was developed and its performance characteristicsdetermined by [employer]. It has not been cleared orapproved by the Food and Drug Administration.Performed at: [facility] [employer] [id number] Director: Grisel Koehler MD, Phone: [phone] [Mass/volume] in Serum or PlasmaOrdered By: Vivian Benavidez on 90-47-9976Thrwelmsotn [Mass/Vol]261 mg/pG230-850Lvowwvjys90 Dickerson StreetTransferrin [Mass/Vol]Transferrin [Mass/volume] in Serum or Niompm932-757OmbngsnneSt. Elizabeth HospitalWBC Auto (Bld) [#/Vol]Ordered By: Vivian Benavidez on 57-53-6739KZU (Bld) [#/Vol]9.3 10*3/uL3.8-11.6FFayette County Memorial HospitalWBC (Bld) [#/Vol]Leukocytes [#/volume] in Blood by Automated count3.8-11.6FFayette County Memorial HospitalECHOCARDIO M/2D COMPLETE on 61-01-0779WPQRNMDPAJ M/2D COMPLETEPatient: SHASTA LOVELACE Exam Date: 09/24/2022 : 1940 Gender:F Ordering : DEBBIE CHEN [facility] Admission #: [id number] Family : Order #: [id number] CLICK HERE TO VIEW EXAM ECHOCARDIOGRAM REPORT [...] Pressure: 37.28 ml, 37.28 ml Dictated by: Chuy Vargas M.D. on 09/25/2022 at 18:25 Approved by: Chuy Vargas M.D. on 09/25/2022 at 18:30[facility] HospitalXR DEXA BONE DENSITYon 40-63-6781FR DEXA BONE DENSITYEXAMINATION: XR DEXA BONE DENSITY, 04/15/2022 1:07 PM [...] Electronically authenticated by: SUSANA REYEZ Date: 2022-04-15 15:15NormalAdena Health SystemPROF CHEM 8 (BAS METB)on 51-48-0908Wxeuc gap [Moles/Vol]11.9 mmol/LNormalThe [facility]ostoria Community HospitalComment on above:Performed By: #### BMP #### [facility] [address] [place] [address] Dr. Troy PickettCalcium [Mass/Vol]8.6 mg/dLNormal8.5-10.1The [facility] Comment on above:Performed By: #### BMP #### [facility] [address] [place] [address] [address] Troy PickettChloride [Moles/Vol]109 mmol/LCritically qdkp18-919Ptz [facility] HospitalComment on above:Performed By: #### BMP #### [facility] [address] [place] [address] [address] Troy PickettCO2 [Moles/Vol]29.5 mmol/IMlrugq02.0-32.0The [facility] Comment on above:Performed By: #### BMP #### [facility] [address] [place] [address] [address] Troy PickettCreatinine [Mass/Vol]1.34 mg/dLCritically high0.55-1.02The [facility] HospitalComment on above:Performed By: #### BMP #### [facility] [address] [place] [address] [address] Troy NunezGFR-AF APPMDRCJ88 mL/min/1.34n0Vtdrawhlnh low>=60The [facility] HospitalComment on above:Performed By: #### BMP #### [facility] [address] [place] [address] Dr. Troy NunezGFR-NON AF KJBRWRMU29 mL/min/1.97r0Esdttbltqb low>=60The [facility] HospitalComment on above:Performed By: #### BMP #### [facility] [address] [place] [address] Dr. Troy PickettGlucose [Mass/Vol]130 mg/dLCritically jxhz60-667Bhj [facility] HospitalComment on above:Performed By: #### BMP #### [facility] [address] [place] [address] Dr. Troy PickettPotassium [Moles/Vol]4.4 mmol/LNormal3.5-5.1The [facility] Comment on above:Performed By: #### BMP #### [facility] [address] [place] [address] Dr. Troy PickettSodium [Moles/Vol]146 mmol/LCritically fddm746-059Dmb [facility] HospitalComment on above:Performed By: #### BMP #### [facility] [address] [place] [address] Dr. Troy PickettUrea nitrogen [Mass/Vol]21.0 mg/dLCritically high7.0-18.0The [facility] Community HospitalComment on above:Performed By: #### BMP #### [facility] [address] [place] [address] Dr. Yilan ChangUrea nitrogen/Creatinine [Mass ratio]15.7 mg/mgNormalThe [facility] Community HospitalComment on above:Performed By: #### BMP #### [facility] [address] [place] [address] Dr. Troy RíosC AUTO DIFFon 65-72-0138YRZE #0.1 103/ulNormal0.0-0.1The [facility] Community HospitalComment on above:Performed By: #### CBC #### [facility] [address] [place] [address] Dr. Troy PickettBasophils/100 WBC (Bld)0.8 %Normal0.2-2.0The [facility] Comment on above:Performed By: #### CBC #### [facility] [address] [place] [address] Dr. Troy Page #0.5 103/ulNormal0.0-0.7The [facility] HospitalComment on above: Performed By: #### CBC #### [facility] [address] [place] [address] Dr. Troy Nunezosinophils/100 WBC (Bld)6.1 %Normal0.9-7.0The [facility] Comment on above:Performed By: #### CBC #### [facility] [address] [place] [address] Dr. Troy Nunezrythrocyte distribution width (RBC) [Ratio]13.4 %Boapye86.0-15.0 [facility] SystemComment on above:Performed By: #### CBC #### [facility] [address] [place] [address] Dr. Troy PickettHematocrit (Bld) [Volume fraction]35.7 %Critically low36.0-48.0 The [facility] Community HospitalComment on above:Performed By: #### CBC #### [facility] [address] [place] [address] Dr. Troy PickettHemoglobin (Bld) [Mass/Vol]11.3 g/dLCritically low12.0-16.0The [facility] HospitalComment on above:Performed By: #### CBC #### [facility] [address] [place] [address] Dr. Troy Lloyd #0.02 10e3/ulNormal0.00-0.03[facility] on above:Performed By: #### CBC #### [facility] [address] [place] [address] Dr. Troy Lloyd %0.3 %Normal0.0-0.5The [facility] Community HospitalComment on above: Performed By: #### CBC #### [facility] [address] [place] [address] Dr. Troy Tovar #2.4 103/ulNormal1.2-3.8The [facility] HospitalComment on above:Performed By: #### CBC #### [facility] [address] [place] [address] Dr. Troy Oliviahocytes/100 WBC (Bld)30.9 %Pusfwa62.5-60.0[facility] on above:Performed By: #### CBC #### [facility] [address] [place] [address] Dr. Troy AngelesUAL DIFF REQNONormalThe [facility] HospitalComment on above: Performed By: #### CBC #### [facility] [address] [place] [address] Dr. Troy Lord (RBC) [Entitic mass]31.5 vvFjrnrl43.7-34.0The [facility] on above:Performed By: #### CBC #### [facility] [address] [place] [address] Dr. Troy Lord (RBC) [Mass/Vol]31.7 g/lJUqnoto80.9-35.2The [facility] HospitalComment on above:Performed By: #### CBC #### [facility] [address] [place] [address] Dr. Troy Lord (RBC) [Entitic vol]99.4 fLCritically high81.0-99.0The [facility] HospitalComment on above:Performed By: #### CBC #### [facility] [address] [address] [address] Troy Anand #0.6 103/ulNormal0.3-0.8The [facility] Community HospitalComment on above:Performed By: #### CBC #### [facility] [address] [address] [address] Troy Lincolnocytes/100 WBC (Bld)7.4 %Normal1.7-12.0The [facility]ica [facility] Comment on above:Performed By: #### CBC #### [facility] [address] [place] [address] Dr. Troy Mckeon #4.3 103/ulNormal1.4-6.5The [facility] HospitalComment on above:Performed By: #### CBC #### [facility] [address] [place] [address] Dr. Troy PickettNeutrophils/100 WBC (Bld)54.5 %Feslzi24.0-75.0The [facility] HospitalComment on above:Performed By: #### CBC #### [facility] [address] [place] [address] Dr. Troy Portillo mean volume (Bld) [Entitic vol]9.2 fLCritically low 9.5-13.5The [facility] HospitalComment on above:Performed By: #### CBC #### [facility] [address] [place] [address] Dr. Troy PickettPLT197 103/ktWepxto613-160Kwn [facility] HospitalComment on above: Performed By: #### CBC #### [facility] [address] [place] [address] Dr. Troy PickettRBC3.59 106/ulCritically low4.20-5.40The [facility] HospitalComment on above:Performed By: #### CBC #### [facility] [address] [place] [address] Dr. Troy PickettWBC7.9 103/ulNormal4.0-11.0The [facility] HospitalComment on above: Performed By: #### CBC #### [facility] [address] [address] [address] Troy PickettLIPID PROFILEon [id number]-HDL RATIO NORMSMount St. Mary HospitalComment on above:Result Comment: 3.3 - 4.4 LOW RISK 4.4 - 7.1 AVERAGE RISK 7.1 - 11.0 MODERATE RISK >11.0 HIGH RISKPerformed By: #### CMP, LIPID #### [facility] [address] [address] [address] Troy PickettCholesterol [Mass/Vol]173 mg/dLNormal<=200The [facility] Comment on above:Performed By: #### CMP, LIPID #### [facility] [address] [address] [address] Troy PickettCholesterol in HDL [Mass/Vol]43 mg/wDYehcsa83-01XutAdena Health SystemComment on above:Performed By: #### CMP, LIPID #### [facility] [address] [address] [address] Troy PickettCholesterol in LDL [Mass/Vol]66.0 mg/dLMagruder Memorial HospitalComment on above:Performed By: #### CMP, LIPID #### [facility] [address] [place] [address] Dr. Troy Anguloestercaren.total/Cholesterol in HDL [Mass ratio]4.0 {ratio} NormalAdena Health SystemComment on above:Performed By: #### CMP, LIPID #### [facility] [address] [place] [address] Dr. Troy Martinez NORMAL> or = 60 mg/dl - LOW CARDIOVASCULAR RISK <40 mg/dl - HIGH CARDIOVASCULAR RISKMagruder Memorial HospitalComment on above:Performed By: #### CMP, LIPID #### [facility] [address] [place] [address] Dr. Troy PickettLDL CALC NORMALSEE [facility] - WestComment on above:Result Comment: <100 mg/dl OPTIMAL 100 - 129 mg/dl NEAR OR ABOVE OPTIMAL 130 - 159 mg/dl BORDERLINE HIGH 160 - 189 mg/dl HIGH >190 mg/dl VERY HIGH Performed By: #### CMP, LIPID #### [facility] [address] [address] [address] Troy PickettTriglyceride [Mass/Vol]320 mg/dLCritically high<=150The [facility] HospitalComment on above:Performed By: #### CMP, LIPID #### [facility] [address] [address] [address] Troy PickettVLDL CALC64.0 mg/dLNormalThe [facility] HospitalComment on above: Performed By: #### CMP, LIPID #### [facility] [address] [address] [address] Troy PickettPROShannan 14(COMP METB)on 87-57-8481Vdctndm [Mass/Vol]3.3 g/dL Critically low3.5-5.0The [facility] HospitalComment on above:Performed By: #### CMP, LIPID #### [facility] [address] [place] [address] Dr. Troy PickettAlbumin/Globulin [Mass ratio]0.9 {ratio}NormalThe [facility] HospitalComment on above:Performed By: #### CMP, LIPID #### [facility] [address] [place] [address] Dr. Troy Gloria [Catalytic activity/Vol]103 U/NElcknz02-672Cdp [facility] HospitalComment on above:Performed By: #### CMP, LIPID #### [facility] [address] [place] [address] Dr. Troy Carter [Catalytic activity/Vol]28 U/LNormal9-52The [facility] Comment on above:Performed By: #### CMP, LIPID #### [facility] [address] [place] [address] Dr. Troy Torres gap [Moles/Vol]12.1 mmol/LNormalThe [facility] Comment on above:Performed By: #### CMP, LIPID #### [facility] [address] [place] [address] Dr. Troy Jackson [Catalytic activity/Vol]30 U/QOflzrv95-28Yfi [facility] HospitalComment on above:Performed By: #### CMP, LIPID #### [facility] [address] [address] [address] Troy PickettBilirubin [Mass/Vol]1.2 mg/dLNormal0.2-1.3The [facility] Comment on above:Performed By: #### CMP, LIPID #### [facility] [address] [place] [address] Dr. Troy PickettCalcium [Mass/Vol]8.7 mg/dLNormal8.4-10.2The [facility] Comment on above:Performed By: #### CMP, LIPID #### [facility] [address] [place] [address] Dr. Troy PickettChloride [Moles/Vol]105 mmol/BSauhoo36-721Vuy [facility] Comment on above:Performed By: #### CMP, LIPID #### [facility] [address] [place] [address] Dr. Troy PickettCO2 [Moles/Vol]30.6 mmol/LCritically high22.0-30.0The [facility] HospitalComment on above:Performed By: #### CMP, LIPID #### [facility] [address] [place] [address] Dr. Troy PickettCreatinine [Mass/Vol]1.61 mg/dLCritically high0.52-1.04The [facility] HospitalComment on above:Performed By: #### CMP, LIPID #### [facility] [address] [place] [address] Dr. Troy NunezGFR-AF CKZHDGOC90 mL/min/1.19c7Mnlyfndrrd low>=60The [facility] HospitalComment on above:Performed By: #### CMP, LIPID #### [facility] [address] [place] [address] Dr. Troy NunezGFR-NON AF MCSBYEZO08 mL/min/1.83y5Ovhuwbswji low>=60The [facility] HospitalComment on above:Performed By: #### CMP, LIPID #### [facility] [address] [place] [address] Dr. Troy PickettGlobulin (S) [Mass/Vol]3.7 g/dLNormKettering Health – Soin Medical CenterComment on above:Performed By: #### CMP, LIPID #### [facility] [address] [address] [address] Troy PickettGlucose [Mass/Vol]115 mg/dLCritically ekgk38-984Myb [facility] HospitalComment on above:Performed By: #### CMP, LIPID #### [facility] [address] [address] [address] Troy PickettPotassium [Moles/Vol]4.7 mmol/LNormal3.4-5.0The [facility] Comment on above:Performed By: #### CMP, LIPID #### [facility] [address] [place] [address] Dr. Troy PickettProtein [Mass/Vol]7.0 g/dLNormal6.1-8.2The [facility] Comment on above:Performed By: #### CMP, LIPID #### [facility] [address] [place] [address] Dr. Troy PickettSodium [Moles/Vol]143 mmol/GTsvwpb450-841Fsv [facility] Comment on above:Performed By: #### CMP, LIPID #### [facility] [address] [place] [address] Dr. Troy PickettUrea nitrogen [Mass/Vol]24.0 mg/dLCritically high7.0-17.0The [facility] HospitalComment on above:Performed By: #### CMP, LIPID #### [facility] [address] [place] [address] Dr. Troy PickettUrea nitrogen/Creatinine [Mass ratio]14.9 mg/mgNoLicking Memorial HospitalComment on above:Performed By: #### CMP, LIPID #### [facility] [address] [place] [address] Dr. Troy Pickett Vital Signs Date TimeVital SignValuePerforming VoyynyrdnZciggslv42-62-4482 15:21-0400Body hgnwxa159.9 cmKevin Adams MD Work Phone: [facility] HospitalJwqariuhhy48-13-5259 15:21-0400Body mass index (BMI) [Ratio]25.7 kg/k6VbvkpkKevin Adams MD Work Phone: 1(306)[facility]-7251[facility] HospitalQubmryvtuj76-63-1769 15:21-0400Body rcoygu33.69 kgKevin Adams MD Work Phone: 1(343)[facility] [place], [place] [address]Byzyuqpchc30-05-9575 15:21-0400Diastolic blood wfiidwqs81 mm[Hg]Kevin Adams MD Work Phone: 1(007)[facility] [place], [place] [address]Eqnewlxxgr01-98-9010 15:21-0400Heart rate62 /min Kevin Adams MD Work Phone: 1(707)[address] [place], [place] 6734409-22-2025 15:21-3854DcQ9% (BldA) [Mass fraction]96 %Kevin Adams MD Work Phone: 1(952)[facility] [place], [place] [address]Zlwjwmtxkl35-74-6153 15:21-0400Systolic blood nejzqzrn399 mm[Hg]Kevin Adams MD Work Phone: 1(580)[address] [place], [place] 6734406-26-2025 14:40-0400Body ngwhgb9418.96 cmDadaljit Adams II Work Phone: 1(886)[address] [place], [place] 9120306-26-2025 14:40-0400 Body mass index (BMI) [Ratio]0.5 kg/l4Oynsex Aadms II Work Phone: 1(918)[address] [place], [place] 9120306-26-2025 14:40-0400 Body kgDadaljit Adams II Work Phone: 1(389)[address] [place], [place] 9120306-26-2025 14:40-0400 Diastolic blood mjvmippz85 mm[Hg]Kevin Adams II Work Phone: 1(329)[address] [place], [place] 9120306-26-2025 14:40-0400 Heart rate65 /minDhilario Adams II Work Phone: 1(960)[address]06-26-2025 14:40-0400 Respiratory rate16 /minDobduliael Adams II Work Phone: 1(866)377-[address] [place], [place] [address]87[address]06-26-2025 14:40-0400 SaO2% (BldA) [Mass fraction]93 %Kevin Adams II Work Phone: 1(365)705-[address] [place], [place] 4207606-26-2025 14:40-0400 Systolic blood juaisvss545 mm[Hg]Kevin Adams II Work Phone: 1(742)[address]68[address] [place], [place] 4207605-08-2025 13:57-0400 Body jikmwf594.48 cmDadaljit Adams II Work Phone: 1(205)[address]05-08-2025 13:57-0400 Body mass index (BMI) [Ratio]26.9 kg/t9Uqwhffdaljit Adams II Work Phone: 1(466)[address]05-08-2025 13:57-0400 Body styngchjfpp24.4 [degF]Kevin Adams II Work Phone: 1(801)[address]05-08-2025 13:57-0400 Body moffro31.67 kgDadaljit Adams II Work Phone: 1(565)[address]05-08-2025 13:57-0400 Diastolic blood btohbbaf23 mm[Hg]Kevin Adams II Work Phone: 1(747)153-[address] [place], [place] [address]0105-08-2025 13:57-0400 Heart rate72 /Armani Adams II Work Phone: 1(100)[address]05-08-2025 13:57-0400 Respiratory rate16 /Armani Adams II Work Phone: 1(871)104-[address] [place], [place] [address]0105-08-2025 13:57-0400 SaO2% (BldA) [Mass fraction]96 %Kevin Adams II Work Phone: 1(042)341-[address] [place], [place] [address]0105-08-2025 13:57-0400 Systolic blood twpuzokb645 mm[Hg]Kevin Adams II Work Phone: 1(702)259-[address] [place], [place] 4207601-06-2025 15:14-0500 Body mass index (BMI) [Ratio]29.48 kg/n4Uzjzdlgzyfr Ofelia AGUIAR Work Phone: [facility] HospitalTorxwxjbmy97-19-4186 15:14-0500Body gkxrpa92.76 kgChristopher Ofelia DO Work Phone: [facility] HospitalTxbaopxyfg20-98-0291 15:14-0500Diastolic blood zazwevry72 mm[Hg]Waier Ofelia DO Work Phone: 1(617)[facility]-0588[facility] HospitalQkbmdxlekc47-29-9627 15:14-0500Heart rate66 /min Christweroer Ofelia DO Work Phone: 1(838)[facility] [place], [place] [address]Vlhznuuayu24-83-9761 15:14-8219WlQ4% (BldA) [Mass fraction]95 %Christjani Gilbert DO Work Phone: 1(879)[facility]-2523[facility] HospitalZasnkaxabb76-40-7419 15:14-0500Systolic blood pxpamrhd140 mm[Hg]Dewayne Gilbert DO Work Phone: 1(602)[facility]-9180[facility] HospitalPostebywyx83-11-1772 13:22-0500Body zieqqf182.9 cmKevin Adams MD Work Phone: 1(896)[facility]-[address] [place], [place] [address]Yguvqfyrvk88-16-5367 13:22-0500Body mass index (BMI) [Ratio]30.42 kg/z1AdqedhKevin Adams MD Work Phone: 1(944)296-[address] [place], [place] [address]Qgbbopmqns54-97-2109 13:22-0500Body qwwinj01.03 kgKevin Adams MD Work Phone: 1(748)555-[address] [place], [place] [address]Pujltnhplb17-67-1740 13:22-0500Diastolic blood afveikxt54 mm[Hg]Kevin Adams MD Work Phone: 1(822)936-[address] [place], [place] [address]Opahumskwv76-26-3464 13:22-0500Heart rate80 /min Kevin Adams MD Work Phone: 1(401)[facility]-[address] [place], [place] [address]Cmrexnngkc97-27-5237 13:22-6497JyE4% (BldA) [Mass fraction]95 %Kevin Adams MD Work Phone: 1(407)[facility]-[address] [place], [place] [address]Onkdklilop13-20-1726 13:22-0500Systolic blood tuqigvxd058 mm[Hg]Kevin Adams MD Work Phone: 1(510)[facility]-[address] [place], [place] [address]Wrrhvqjfvq03-24-8720 13:01-0500Body .48 cmII Kevin Adams Work Phone: 1(870)[address]11-06-2024 13:01-0500 Body mass index (BMI) [Ratio]29.9 kg/m2II Kevin Adams Work Phone: 1(804)[address]11-06-2024 13:01-0500 Body etplscgpwpj58.9 [degF]II Kevin Adams Work Phone: 1(458)[address]11-06-2024 13:01-0500 Body tmhdta27.38 kgII Kevin Adams Work Phone: 1(512)[address]11-06-2024 13:01-0500 Heart rate85 /minII Kevin Adams Work Phone: 1(843)[address]11-06-2024 13:01-0500 Respiratory rate20 /minII Kevin Bryan Work Phone: 1(863)[address]11-06-2024 13:01-0500 SaO2% (BldA) [Mass fraction]95 %II Kevin Adasm Work Phone: 1(538)[address]10-25-2024 11:23-0400 Body taelpo344.9 cmKevin Adams MD Work Phone: 1(075)560-[address] [place], [place] [address]Lmmlrqfdnk90-16-0552 11:23-0400Body mass index (BMI) [Ratio]30.04 kg/e5UuxrwdKevin Adams MD Work Phone: [facility] HospitalKyhrwgkuqn97-83-8138 11:23-0400Body szlihg28.12 kgKevin Adams MD Work Phone: [facility] HospitalGnckuawipd98-37-3437 11:23-0400Diastolic blood ayvcxcct99 mm[Hg]Kevin Adams MD Work Phone: [facility] HospitalZdpnibumfe87-23-8809 11:23-0400Heart rate94 /min Kevin Adams MD Work Phone: [facility] HospitalWtnrotekao07-48-1118 11:23-1349KuO9% (BldA) [Mass fraction]97 %Kevin Adams MD Work Phone: [facility] HospitalCiumvjggws16-17-1258 11:23-0400Systolic blood ptiopoeb357 mm[Hg]Kevin Adams MD Work Phone: [facility] HospitalKdcycptfqb73-79-5566 15:05-0400Body ltniir317.9 cmDadaljit Adams MD Work Phone: [facility] HospitalPowgkgbgmz13-16-3702 15:05-0400Body mass index (BMI) [Ratio]29.85 kg/g1EgwwdnKevin Adams MD Work Phone: [facility] HospitalUllxpvihgm28-01-2103 15:05-0400Body sakljl36.67 kgKevin Adams MD Work Phone: [facility] HospitalRbamifidtv62-94-0684 15:05-0400Diastolic blood krbkiclc15 mm[Hg]Kevin Adams MD Work Phone: [facility] HospitalUfqxgpptfb42-27-2110 15:05-0400Heart rate71 /min Kevin Adams MD Work Phone: [facility] HospitalCmuxsvdjtg93-31-9434 15:05-5255XqK0% (BldA) [Mass fraction]96 %Kevin Adams MD Work Phone: [facility] HospitalCkcpppjrpg47-54-8119 15:05-0400Systolic blood edbnflsl556 mm[Hg]Kevin Adams MD Work Phone: [facility] HospitalVsvypkbdlg80-12-5266 10:56-0400Body gpxeit759.48 cmII Kevin Adams Work Phone: 1(150)121-[address] [place], [place] [address]0108-06-2024 10:56-0400 Body mass index (BMI) [Ratio]28.3 kg/m2II Kevin Adams Work Phone: 1(881)[address]08-06-2024 10:56-0400 Body mqsiekrmmtt98.8 [degF]II Kevin Adams Work Phone: 1(431)[address]08-06-2024 10:56-0400 Body jchaha30.3 kgII Kevin Adams Work Phone: [facility]08-06-2024 10:56-0400 Diastolic blood ymseezzl11 mm[Hg]II Kevin Bryan Work Phone: [facility]08-06-2024 10:56-0400 Heart rate89 /minII Kevin Bryan Work Phone: [facility]08-06-2024 10:56-0400 Respiratory rate16 /minII Kevin Bryan Work Phone: 1(358)525-[address] [place], [place] 4207608-06-2024 10:56-0400 SaO2% (BldA) [Mass fraction]98 %II Kevin Bryan Work Phone: [facility]08-06-2024 10:56-0400 Systolic blood onkucwjy117 mm[Hg]II Kevin Bryan Work Phone: 1(132)368-[address] [place] [address] Encounters Encounter DateEncounter TypeCare ProviderFacilityStart: 94-18-9312ghlvkahfeq Caitlin E StarkFacility:[facility] Hospitaltart: 05-23-2025 End: 40-26-7373jismghbpnoYAKVZY B BERRYNot AvailableStart: 05-23-2025 End: 00-60-1114Rnxvht outpatient visit 25 minutesDadaljit Adams MD Work Phone: NOEO Cricket Daley MedinceComment on above:Chronic diastolic congestive heart failure (HCC) (Primary Dx); Chronic obstructive pulmonary disease, unspecified COPD type (HCC); Type 2 diabetes mellitus without complication, without long-term current use of insulin (HCC); Major depressive disorder, recurrent, in remission, unspecified ; Depressive disorderStart: 05-23-2025 End: 56-14-4527Ivnudh Kavitha Adams MD Work Phone: [facility] Cricketnadine Daley MedinceStart: 05-23-2025 End: 10-61-8491Wtxjyybarry Adams MD Work Phone: NOLJ Cricketnadine Daley MedinceStart: 02-24-2025 End: 05-69-4996odynqvdetuAihluz Berry II Work Phone: [facility] Work Phone: Start: 02-24-2025 End: 36-54-8699Rgzvvsw encounter procedureScarmelo Corley WPHX-ILT-F-FPG [facility] [place] Work Phone: Start: 85-85-1437Ccdeyfarqz RecurringMary K Elanaboske [facility] Work Phone: Start: 75-67-5554Tebqhypwyx RecurringDanibonifacio Adams II Work Phone: [facility] Work Phone: Start: 01-06-2025 End: 34-97-0218znorfqmdfmIabfju Adams II Work Phone: [facility] Work Phone: Start: 01-06-2025 End: 21-56-2453Cnnbqcx encounter procedureDadaljit Adams II Work Phone: [facility] Work Phone: Start: 12-30-2024 End: 66-67-4864Frpsvnvzj Result EncounterGeneric External Data ProviderNOMS External Department UnsolicitedStart: 12-30-2024 End: 29-94-2442Vvgzcovcv Result EncounterGeneric External Data ProviderNOMS External Department UnsolicitedStart: 12-08-2024 End: 04-73-6511edvkervyrfNGFS [facility] Westtart: 11-15-2024 End: 16-11-4579cppklrqxnqOYXVBO B BERRYNot AvailableStart: 11-04-2024 End: 87-43-8527vlxjumusauUZOYO CARROLLNot AvailableStart: 11-04-2024 End: 29-96-1759Ikpepr flowsSheeba Corley DUAL HOSE CEMENTER Work Phone: aNA BELLEVUEStart: 11-04-2024 End: 95-65-1437Roaadk Carolyn Corley DUAL HOSE CEMENTER Work Phone: aNA BELLEVUEStart: 10-11-2024 End: 03-94-7092Vpqwnxkev Result EncounterChristopher Ofelia DO Work Phone: noms External Department UnsolicitedStart: 10-11-2024 End: 45-75-5354Msavdqdkf Result EncounterChristopher Ofelia DO Work Phone: noms External Department UnsolicitedStart: 10-08-2024 End: 92-24-9455Avpyajcuh Result EncounterGeneric External Data ProviderNOMS External Department UnsolicitedStart: 10-08-2024 End: 96-49-8029Unpgipdje Result EncounterGeneric External Data ProviderNOMS External Department UnsolicitedStart: 10-04-2024 End: 79-48-0895Iqgvvoa encounter procedureRobbie Méndez PhD Work Phone: aNA JAGDISHUSKYComment on above:Mild late onset Alzheimer's dementia without behavioral disturbance, psychotic disturbance, mood disturbance, or anxiety (CMS/HCC) (Primary Dx); Hard of hearing; Other insomnia; Other chronic painStart: 10-04-2024 End: 43-35-0918wknpkakgepXRQYR CARROLLNot AvailableStart: 09-13-2024 End: 28-98-9759Nzovmm Lisa Méndez PhD Work Phone: aNA SANDUSKYStart: 09-13-2024 End: 22-51-8357Zgitaa Lisa Méndez PhD Work Phone: aNA SANDUSKYStart: 09-13-2024 End: 06-21-8696Omsxgwc encounter procedureRobbie Méndez PhD Work Phone: aNA SANDMORENOYComment on above:Memory loss (Primary Dx); Anxiety; Hard of hearing; Other insomnia; Other chronic painStart: 09-13-2024 End: 29-38-6874wapqqxweztWHEZPWUA DENBESTENNot AvailableStart: 09-06-2024 End: 02-32-7874Gwfttz outpatient new 45 minutesChristopher Ofelia DO Work Phone: noMS [facility] STATE ROUTEComment on above:Mild cognitive impairmentStart: 09-06-2024 End: 53-75-4963mdywuzzwupFWHTARQVERZ HASSETTNot AvailableStart: 09-06-2024 End: 14-44-9618Phnayg flowsheetChristopher Ofelia DO Work Phone: NOSG [place] STATE ROUTEStart: 09-06-2024 End: 06-43-6550Jpgwzx flowsheetChristopher Ofelia DO Work Phone: [facility] [place] STATE ROUTEStart: 07-26-2024 End: 96-25-6779Rkuuhg Kavitha Adams MD Work Phone: [facility] CI FMStart: 07-26-2024 End: 79-49-3235Xposra Kavitha Adams MD Work Phone: [facility] CI FMStart: 07-26-2024 End: 19-81-0806Soraid outpatient visit 25 minutesDadaljit Adams MD Work Phone: [facility] CI FMComment on above:Depressive disorder (CMS/HCC); Chronic diastolic congestive heart failure (CMS/HCC); Overactive bladder; Gastroesophageal reflux disease, unspecified whether esophagitis present; Mild cognitive impairmentStart: 07-26-2024 End: 68-20-9843wzpwbrsldqFSRKIR B BERRYNot AvailableStart: 02-80-2815Bmdtpxgpki RecurringII Kevin Adams Work Phone: [facility] Work Phone: Start: 07-07-2024 End: 95-68-3217dakmvtjrveJB Kevin Adams Work Phone: [facility] Work Phone: Start: 07-07-2024 End: 56-30-6437Weakvdm encounter procedureII Kevin Adams Work Phone: [facility] Work Phone: Start: 07-02-2024 End: 42-65-9781Ejydpxhel Result EncounterGeneric External Data ProviderNOMS External Department UnsolicitedStart: 07-02-2024 End: 25-25-5697Fuoxbndbx Result EncounterGeneric External Data ProviderNOMS External Department UnsolicitedStart: 06-25-2024 End: 64-64-6398Imeafi Kavitha Adams MD Work Phone: [facility] CI FMStart: 06-25-2024 End: 87-25-7069Xyadti Kavitha Adams MD Work Phone: [facility] CI FMStart: 06-25-2024 End: 28-59-1588Nkjomn outpatient visit 25 minutesKevin Adams MD Work Phone: [facility] CI FMComment on above:Mild cognitive impairment (Primary Dx)Start: 06-25-2024 End: 49-33-2886vvzkdolfotPBWKSD B BERRYNot AvailableStart: 05-17-2024 End: 05-88-1191Shgfmm outpatient visit 25 minutesKevin Adams MD Work Phone: [facility] CI FMComment on above:Trigeminal neuralgia pain (CMS/HCC) (Primary Dx); 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); Chronic kidney disease, stage 4 (severe) (CMS/HCC); Atherosclerosis of aorta (CMS/HCC)Start: 05-17-2024 End: 38-55-4271Nfefxv Kavitha Adams MD Work Phone: [facility] CI FMStart: 05-17-2024 End: 86-73-5682Kdeudt Kavitha Adams MD Work Phone: [facility] CI FMStart: 2024 End: 77-02-5417stplimddbtFW Daniel Berry Work Phone: [facility] Work Phone: Start: 2024 End: 28-90-6317Jllzvbk encounter procedureII Kevin Adams Work Phone: [facility] Work Phone: Start: 17-88-9843Cxflxmvwap RecurringII Kevin Bryan Work Phone: [facility] Work Phone: Start: 09-24-2022 End: 53-92-2549yuzmtdfutjMOAIKXV TUCKERFacility:Q0Oyggd: 82-10-0715fbsxsrtixmHQ KEVIN BRYANFacility:R8Sslon: 04-15-2022 End: 35-89-6729hlugxdjvnmDI KEVIN BRYANFacility:Y2Yghuj: 02-27-2022 End: 96-52-3045apvwmsfkozIJ KEVIN BRYANFacility:X8Xhpch: 45-27-9310lbviezsfdwNZ KEVIN BRYANFacility:G8Zbxjm: 11-15-2021 End: 30-20-4681fpliwyblexGVAUZQP MAURICIOCKERFacility:V4Uhufl: 04-27-2018 End: 83-67-2334Touvkvg encounterDEFAULT PHYSICIANFacility:[facility]ENTERtart: 04-20-2018 End: 29-84-6516Kaviacr encounterDEFAULT PHYSICIANFacility:[facility] Procedures DateProcedureProcedure DetailPerforming ClinicianStart: 07-00-6338Tnvtoptnjj glycosylated t5qRofdwlbonifacio Adams MD Work Phone: Start: 15-24-1695UY ECHO DOPPLER COMPLETEGeneric External Data ProviderStart: 18-42-6918TNR CBC WITH AUTO DIFFGeneric External Data ProviderStart: 77-59-5841ZOL HEAD/BRAIN WO/W CONTRChristopher Ofelia DO Work Phone: Start: 82-01-7495LXD CBC WITH AUTO DIFFGeneric External Data ProviderStart: 15-08-5084RFJ CBC WITH AUTO DIFFGeneric External Data Provider Plan of Treatment DateCare ActivityDetailAuthorStart: 28-10-8563Xvgmczdm screeningDiabetes: Retinopathy ScreeningNOMS HealthcareStart: 03-17-2026Medicare Annual Wellness (AWV)Medicare Annual Wellness (AWV)[facility] HealthcareStart: 26-51-2389Fspxpcvgxz A1c measurementDiabetes: Hemoglobin F9JXBVI HealthcareStart: 07-18-2025 End: 11-64-7552Vlbkdjw encounter koricgrii47/17/2025 2:00 PM EST Office Visit [facility] [place] [facility] [place] [address] [place] [address] [place] [address] Kevin Adams MD [address] [place] [address] [facility] [place] MedinceStart: 05-23-2025 End: 53-46-5310Idxyzmn encounter ftcylgzzw62/22/2025 3:00 PM EDT Office Visit [facility] [address] [place] [address] Kevin Adams MD [address] [place] [address] [facility] CI FMStart: 87-75-5179Llywothbn vaccinationLOGAN REGIONAL HOSPITAL HealthcareStart: 02-24-2025 End: 29-51-9814Awyopts encounter bmknymayz99/26/2025 2:40 PM EDT Office Visit YELITZA [place] [address] [place] [address] Gloria Corley NP [address] [place] [address] [facility]PITALtart: 55-59-0007SzhfnabwxCleveland Clinic Mercy Hospital CenterStart: 01-04-2025 [facility] CenterStart: 83-66-7261XbaddnevsCleveland Clinic Mercy Hospital CenterStart: 11-22-2024 End: 15-15-1182Acilmvy encounter oyxynipvv09/24/2025 3:00 PM EDT Office Visit [facility] [address] [place] [address] Kevin Adams MD [address] [place] [address] NOMS CI FMStart: 11-15-2024 End: 07-46-3680Fciaagw encounter pslnkyxxz61/17/2025 3:00 PM EDT Office Visit [facility] [address] [facility] [address] [place] [address] Kevin Adams MD [address] [facility] [address] [place] [address] NOMS CI FMStart: 03-13-2025Medicare Annual Wellness (AWV) Medicare Annual Wellness (AWV)[facility] HealthcareStart: 78-05-8721YxqyxljwqOhioHealth Grady Memorial Hospitaltart: 11-04-2024 End: 81-50-7207Pjehftj encounter procedureANA DAVIDEComment on above:Arrived Start: 10-06-2024 End: 89-40-3489Oxnsuxn encounter vrevelqdh08/05/2025 3:00 PM EST Office Visit YELITZA AUGUSTINE [address] [place] [address] Gloria Corley NP [address] [place] [address] YELITZA VIZCARRAtart: 10-04-2024 End: 55-49-9741Mdqwlzl encounter kepcoobma62/03/2025 12:30 PM EST Office Visit YELITZA Burger [address] [address] aNA JAGDISHMORENOYStart: 67-52-0404RiddmhprfOhioHealth Grady Memorial Hospitaltart: 09-13-2024 End: 86-65-6546Gfmddwt encounter pootcfmsp94/13/2025 1:30 PM EST Office Visit YELITZA [place] [address] [address] [place] [address] Robbie Méndez, PhD [address] [place] [address] Mild cognitive impairmentANA LIDYAYComment on above:Mild cognitive impairmentStart: 09-06-2024 End: 57-35-7698Nkoasbl encounter hrlxzvuds41/06/2025 3:30 PM EST Office Visit NOMDerrick [address] [place] [address] Dewayne Gilbert, DO [address] [place] [address] Mild cognitive impairmentNOSELECT MEDICAL TRIHEALTH REHABILITATION [facility]OSPITAL ROUTEComment on above:Mild cognitive impairmentStart: 09-06-2024 End: 08-26-0037CR Brain WO and W contrast IVMR brain w and wo contrast routine Imaging Routine Mild cognitive impairment Expected: 09/06/2024, Expires: 09/06/2025[facility] Work Phone: comment on above:Expected: 09/06/2024, Expires: 09/06/2025Start: 68-30-9436FddksfqafOhioHealth Grady Memorial Hospitaltart: 07-26-2024 End: 34-17-1382Gdofqcn encounter procedureNOMS CI FMComment on above:Arrived Start: 61-33-7333LvhipbvypOhioHealth Grady Memorial Hospitaltart: 75-66-3406JdlgmfiozOhioHealth Grady Memorial Hospitaltart: 06-25-2024 End: 25-33-7795Xhbhcwucz (Vitamin B12) [Mass/volume] in Serum or PlasmaVitamin B12 Lab Routine Mild cognitive impairment Expected: 06/25/2024 (Approximate), Expires: 06/25/2025 HealthcareComment on above:Expected: 06/25/2024 (Approximate), Expires: 06/25/2025Start: 06-25-2024 End: 16-36-2840Uunefb Ab [Presence] in Serum by RPRRPR Lab Routine Mild cognitive impairment Expected: 06/25/2024 (Approximate), Expires: 06/25/2025NOMS HealthcareComment on above:Expected: 06/25/2024 (Approximate), Expires: 06/25/2025Start: 06-25-2024 End: 86-59-4387HME W/REFLEX TO FT4TSH W/REFLEX TO FT4 Lab Routine Mild cognitive impairment Expected: 06/25/2024 (Approximate), Expires: 06/25/2025[facility] Work Phone: Comment on above:Expected: 06/25/2024 (Approximate), Expires: 06/25/2025Start: 06-25-2024 End: 11-52-1043Shohsws encounter xvmjywbqb88/25/2024 11:30 AM EDT Office Visit [facility] [address] [facility] [address] [place] [address] Kevin Adams MD [address] [facility] [address] [place] [address] ArrivedNOMS CI FMComment on above:ArrivedStart: 06-08-2024 [facility] Hospitaltart: 06-07-2024 End: 65-93-8855Ebdqbrs encounter jwgpdbotm75/07/2024 3:30 PM EDT Office Visit [facility] [address] [facility] [address] [place] [address] Kevin Adams MD [address] [facility] [address] [place] [address] NOMS CI FMStart: 67-22-3923Drexdbpxd vaccinationInfluenza Vaccine (#1)NOMS HealthcareStart: 60-28-4277Revjiprdnr A1c measurementDiabetes: Hemoglobin E7AVDQG HealthcareStart: 64-01-1168Spykb screening for protein Diabetes: Urine Protein ScreeningNOAR HealthcareStart: 74-77-8382Hwotz screening for proteinDiabetes: Urine Protein ScreeningNOCox NorthComprehensi metabolic 1999 panel - Serum or [facility] Comprehensive metabolic 1999 panel - Serum or [facility] HospitalComprehensive metabolic 1999 panel - Serum or [facility] HospitalErythropoietin (EPO) [Units/volume] in Serum or [facility] HospitalErythropoietin (EPO) [Units/volume] in Serum or Plasma [facility] HospitalErythropoietin (EPO) [Units/volume] in Serum or [facility] Immunizations Immunization DateImmunizationNotesCare CwmzhgonXaixxnbs36-14-6548Lqfvmmbdg, Seasonal, Quadrivalent, AdjuvantedDanibonifacio Adams MD Work Phone: [facility] HospitalRgprskuftq49-40-2302Jgrlwrzfbark Conjugate PCV 20 Kevin Adams MD Work Phone: [facility] HospitalNjfscyrwhl15-39-3483wcijsmicx virus vaccine, unspecified formulationKevin Adams MD Work Phone: [facility] HospitalTdubtidgcj78-45-9104Cxrcxpffa, High-dose Seasonal, Quadrivalent, Preservative Bree Adams MD Work Phone: [facility] HospitalYkkdkaskpx85-40-0244Ukjizugooumg Conjugate PCV 20 Kevin Adams MD Work Phone: [facility] HospitalEzfzpcgjnl66-15-4852dccyglrxd, high dose seasonal, preservative-Bree Adams MD Work Phone: [phone] [place], [place] [address]Lhvabjnlom95-61-9514Ckjfxsma trivalent influenza vaccine, adjuvanted, preservative Bree Adams MD Work Phone: [phone] [place], [place] [address]Yzjjjdlkgk15-49-9016nfayiw vaccine recombinant Kevin Adams MD Work Phone: [phone] [place], [place] [address]Jogsgxwnkz68-19-0624dkhaqgoqc, injectable, quadrivalent, contains preservativeKevin Adams MD Work Phone: [phone] [place], [place] [address]Ummiztaubg17-36-5314dhzovc vaccine recombinant Kevin Adams MD Work Phone: [facility] HospitalUmcojathnh57-89-6165ztjqxmz toxoid, reduced diphtheria toxoid, and acellular pertussis vaccine, adsorbedKevin Adams MD Work Phone: [facility] HospitalWgksykqqip52-87-0094gkjddbirwwcr polysaccharide vaccine, 23 valentKevin Adams MD Work Phone: [facility] HospitalIjcbnhhtsf61-72-5417Igibvtdy trivalent influenza vaccine, adjuvanted, preservative Bree Adams MD Work Phone: [phone] [place], [place] [address]Slqgljfhtu66-05-5919Uqkteckzd, High-dose Seasonal, Quadrivalent, Preservative Bree Adams MD Work Phone: [facility] HospitalQnksdpslyh54-33-1368nemdidqnpyxz conjugate vaccine, 13 Gabriel Adams MD Work Phone: [facility] HospitalFxxqhwcdtw70-40-5262hgrurhbuh, injectable, quadrivalent, preservative Bree Adams MD Work Phone: [phone] TechnologiesRipley County Memorial HospitalDlsnykzejl71-20-4957dxvjbuazjhpq conjugate vaccine, 13 Gabriel Adams MD Work Phone: [phone] TechnologiesRipley County Memorial HospitalItxxztospn92-35-0809hludlvlrzser polysaccharide vaccine, 23 Gabriel Adams MD Work Phone: [phone] TechnologiesRipley County Memorial HospitalKpvimvyova18-22-9077rpbdulal influenza, intradermal, preservative Bree Adams MD Work Phone: [phone] TechnologiesRipley County Memorial HospitalToxenaccuf49-98-9916lmbnwo vaccine, liveDhilario Adams MD Work Phone: [phone] TechnologiesRipley County Memorial HospitalFnmvbcimqw69-54-8506dgjavfvpc, seasonal, injectableKevin Adams MD Work Phone: [facility] HospitalGmkglqengk16-81-4117bidiqlnx influenza, intradermal, preservative Bree Adams MD Work Phone: [phone] TechnologiesRipley County Memorial HospitalZnacvcmkcp89-69-0218aygkjqpvxlfn polysaccharide vaccine, 23 Gabriel Adams MD Work Phone: [phone] [place], [place] [address]Tpwrjjsawm00-69-5757hkoqyei and diphtheria toxoids, adsorbed, preservative free, for adult use (5 Lf of tetanus toxoid and 2 Lf of diphtheria toxoid)Kevin Adams MD Work Phone: [facility] HospitalQrzdlrldse96-72-1038yghjwgh toxoid, reduced diphtheria toxoid, and acellular pertussis vaccine, adsorbedKevin Adams MD Work Phone: [facility] Payers DatePayer CategoryPayerPolicy [id number] MEDICARE ADVANTAGE [id number]-fow [id number] [id number] 2023 [id number] 2023Medicare (Managed Care) AN[employer]M MEDICARE ADVANTAGE Member Subscriber Plan / Payer (Effective 2022- Present) Name: Shasta Lovelace Relation to Subscriber: Self Name: Shasta Lovelace Payer ID: Not on file Group ID: [id number] Type: Not on file Address: [address] [id number] 01-53-4980Lrus-gig99403818750-72-4388AlhnetvOPE05[id number] 2.1.291398.3.57[id number] .1.171186.3.57[id number] .1.482016.3.57[id number] 2.1.230912.3.57[id number] .1.616083.3.57[id number] 2.1.293330.3.57[id number] 2.16.840.1.157780.3.57[id number] 2.16.840.1.044215.3.57[id number] 2.16.840.1.986652.3.57[id number] 2.16.840.1.272561.3.57[id number] 2.16.840.1.347696.3.57[id number] 2.16.840.1.908851.3.579.2.[id number] 2.0.1.389075.3.57[id number] 2.16.840.1.485377.3.57[id number] 2..1.087664.3.579.2.531 Social History DateTypeDetailFacilityStart: 05-13-2023 End: 24-30-8555Zeqvfpe smoking status NHISEx-smoker (finding)[facility] Hospitaltart: 39-83-7033Vfe Assigned At [facility] End: 45-62-0604Gjcchib of tobacco useCurrent smokerNOMS Healthcare End: 05-20-3876Umjikxw of tobacco useCigarette SmokerNOMS HealthcareStart: 25-05-9358Kykroll use and exposureSmokeless tobacco non-userNOMS Healthcare Start: 06-25-2024 End: 53-47-6047Rkywbasda beverage intakeEx-drinker (finding)[facility] Start: 05-09-2023 End: 13-38-8042Zrlzbye of Social functionNOMS Healthcare Work Phone: Start: 05-09-2023 End: 64-27-4226R7333 Health LiteracyN[facility]S Healthcare Work Phone: How often do you need to have someone help you when you read instructions, pamphlets, or other written material from your doctor or pharmacy [SILS]AlwaysN[facility]S Healthcare Work Phone: Within the last year, have you been afraid of your partner or ex-partner?NoNOMS HealthcareAre you now , , , , never or living with a partner?WidowedNOMS HealthcareHow often to you have a drink containing alcohol?Monthly or lessNOMS HealthcareHow many standard drinks containing alcohol do you have on a typical day?1 or 2NOMS HealthcareHow often do you have 6 or more drinks on 1 occasion?NeverNOMS HealthcareDo you feel stress - tense, restless, nervous, or anxious, or unable to sleep at night because yourmind is troubled all the time - these days [OSQ] Only a littleNOMS Healthcare(I/We) worried whether (my/our) food would run out before (I/we) got money to buy more.Never trueNOMS HealthcareStart: 05-13-2023 Tobacco CommentLast smoked : > 10 yearsNOMS HealthcareStart: 75-11-1228Mawkzjz CommentCaffeine intake : 1-2 cup per day coffeeNOMS HealthcareStart: 1940 Sex assigned at birthNot on fileNOAR HealthcareStart: 87-10-5687Qzjihl identity Identifies as female gender (finding)NOMS HealthcareHow often do you need to have someone help you when you read instructions, pamphlets, or other written material from your doctor or pharmacy [SILS]AlwaysN[facility]S Healthcare Work Phone: Start: 30-73-5900XfeSnderi (finding)[facility] Medical Equipment Procedure CodeEquipment CodeEquipment Original TextEquipment IdentifierDates [id number]: 12-17-2022 Clinical Notes 05-17-2024 to 05-23-2025 Note Date & ZucoJaurJibowpuj82-29-7647 History of Present illness Narrative* Kevin Adams MD - 05/23/2025 3:15 PM EDT Images from the original note were not included. HPI Med Refill Additional comments: Lasix--[facility] Last edited by Lidia Chadwick LPN on 05/23/2025 3:29 PM. Subjective Patient ID: Shasta Lovelace is a 85 y.o. female who presents for Diabetes, Med Refill ([facility]ix--[facility]), and Diarrhea. Coronary Artery Disease Patient presents for routine coronary artery disease follow-up. Current symptoms: none. Denies CP,dyspnea.syncope Diabetes Mellitus Patient presents for follow up of diabetes. Current symptoms include: none. Patient denies foot ulcerations, hypoglycemia , nausea, polydipsia, polyuria, visual disturbances, and vomiting. Evaluationto date has included: fasting blood sugar, fasting lipid panel, and hemoglobin A1C. Home sugars: patient does not check sugars. Current treatment: no recent interventions. Pt has had some issues with diarrhea x 4-6 months Diabetes Med Refill Coronary Artery Disease Current Outpatient Medications on [...] day at the same time 100 tablet 3 calcium carbonate 1500 (600 Ca) MG tablet Take 1 tablet by mouth in the morning. donepezil (Aricept) 10 MG tablet Take 1 tablet (10 mg) by mouth at bedtime 90 tablet 3 Lancets (OneTouch Delica Plus Gtoahp95Q) misc USE DAILY FOR FINGER STICK metoprolol tartrate (Lopressor) 25 MG tablet Take 1 tablet (25 mg) by mouth in the morning and 1 tablet (25 mg) before bedtime. 180 tablet 3 MULTIPLE VITAMINS PO Take 1 tablet by mouth 1 (one) time each day. Nutritional Supplements (Boost Compact) liquid Take by mouth. Atira Systemsuch Ultra test strip USE TO TEST ONCE A DAY DIRECTED 100 strip 1 oxybutynin XL (Ditropan-XL) 10 MG 24 hr tablet Take 1 tablet (10 mg) by mouth 1 (one) time each dayat the same time 90 tablet 3 pantoprazole (ProtoNix) 40 MG EC tablet Take 1 tablet (40 mg) by mouth in the morning. Take before meals. 90 tablet 3 potassium chloride CR (Klor-Con M10) 10 MEQ ER tablet Take 1 tablet (10 mEq) by mouth Daily Do not crush or chew. 90 tablet 3 zinc gluconate 50 MG tablet Take 50 mg by mouth Daily [DISCONTINUED] citalopram (CeleXA) 40 MG tablet Take 1 tablet (40 mg) by mouth 1 (one) time each day at the same time 90 tablet 3 [DISCONTINUED] furosemide (Lasix) 20 MG tablet Take 1 tablet by mouth every other day. [DISCONTINUED] meloxicam (Mobic) 15 MG tablet Take 0.5 tablets (7.5 mg) by mouth Daily as needed for moderate pain No current facility-administered medications on file prior [...] rhinitis Anxiety Arthritis Chronic sinusitis Coronary atherosclerosis Depression Diabetes mellitus, type 2 (HCC) Disorder of bone and cartilage Disorder of joint GERD (gastroesophageal reflux disease) HL (hearing loss) Hoarse Joint disorder, unspecified Metrorrhagia Mixed hyperlipidemia Orthostatic hypotension Osteoarthrosis unspecified type of vessel, [place] or graft Rotator cuff tear right Sinusitis Past Surgical History: Procedure Laterality Date CHOLECYSTECTOMY 2006 COLONOSCOPY 2003 COLONOSCOPY 2013 IR JOINT ASPIRATION Right x4 knee IR JOINT ASPIRATION Left x3 knee ROTATOR CUFF REPAIR 2004 SEPTOPLASTY 03/16/2013 and ESS TOTAL ABDOMINAL HYSTERECTOMY 1975 Visit Vitals BP 130/78 Pulse 62 Ht 5' 1 Wt 136 lb SpO2 96% BMI 25.70 kg/m Smoking Status Former BSA 1.63 m Review of Systems Objective Physical Exam Cardiovascular: Rate and Rhythm: Normal rate and regular rhythm. Pulmonary: Effort: Pulmonary effort is normal. Breath sounds: Normal breath sounds. Abdominal: General: Abdomen is flat. Bowel sounds are normal. Palpations: Abdomen is soft. Tenderness: There is no abdominal tenderness. Neurological: General: No focal deficit present. Mental Status: She is oriented to person, place, and time. Office Visit on 05/23/2025 Component Date Value Ref Range Status Hemoglobin A1C 05/23/2025 5.2 Final Assessment/Plan Diagnoses and all orders for this visit: Chronic diastolic congestive heart failure (HCC) - furosemide (Lasix) 20 MG tablet; Take 1 tablet (20 mg) by mouth every other day Chronic obstructive pulmonary disease, unspecified COPD type (HCC) - Handicap Placard 5 Years Type 2 diabetes mellitus without complication, without long-term current use of insulin ([facility]) - POCT Glycated hemoglobin, total Major depressive disorder, recurrent, in remission, unspecified Depressive disorder - citalopram (CeleXA) 20 MG tablet; Take 1 tablet (20 mg) by mouth 1 (one) time each day at the same time - Decrease due to diarrhea Follow up in about 2 months (around 07/23/2025) for F/U med changes. documented in this encounterRipley County Memorial HospitalBhkboeliyc29-78-3826 Evaluation note* Diagnosis Onset Date Resolution Status Admit Date Anemia acuteMay 2024 1:51vxM15 deficiencyacuteMay 2024 1:50pmHearing loss chronicJune 2024 2:32pmMild late onset Alzheimer's dementia without behavioral disturbance, psychochronicJune 2024 2:32pm [facility] Work Phone: [phone]) 248-213605-08-2025 Progress noteUnMethodist [facility] [place] [address] Cancer Center Note Signed Patient: Shasta Lovelace MR#: [id number] : 1940 Acct:[id number] Age/Sex: 84 / F Type: DEP AMB Date of Service: 01/06/25 Copies to: Kevin Adams II, MD~ Assessment & Plan A/P (1) Anemia: Plan: anemia of CKD and anemia of chronic disease mild, unclear chronicity, December 2023 and March 2024 values low but no other recordsprior to this no other cell line abnormalities CKD, creatinine 1.79 on March 2024 labs, improved quite a bit from December 2023 value calcium WNL. she does have chronic CHF and other chronic diseases contributing Epo checked at consult, but patient was not anemic at that time. Jul 2024 hgb remains slightly decreased with elevated creatinine. We again discussed option to check proteins, etc. but she and daughter both decline and prefer monitoring for now. Will plan repeat labs in 3mo and in 6mo with follow- up, sooner if needed. 01/06/2025: Hgb 12.2. EPO 13.9Creatinine level 2.13, she has been having loose/diarrhea stools for a couple months and she has been drinking Liquid IV toreplace electrolytes. She was informed to stop liquid IV, add Metamucil daily. She also reports intermittent rectal bleeding small amounts from external hemorrhoids. No bleeding in the past week. Will plan cbc, iron profile, and ferritin in 3 months then labs with office visit in 6 months. (2) B12 deficiency: Plan: MMA at consult came back elevated, consistent with B12 deficiency. She was initiated on injections folate ok Continues monthly injections as of Jul 2024 01/06/2025:Vitamin B12 injections started 07/2024, dose due today. Labs done 12/30/2024: Hgb 12.2, Hct 37.5, rbc 3.75, MCV 100, PLT 201, EPO 13.9, creatinine level 2.13, GFR 22 Continue monthly B12 injections f/u in 6 months with cbc, cmp, iron profile, ferritin, EPO, vit C93kezdf/folate. 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 STOP drinking Liquid IV. F/u in 6 mo with DUAL HOSE CEMENTER. CBC, CMP, iron and TIBC, ferritin, epo, vit b12/folate, mma in 6 mo Continue b12 injections monthly CHEMO PLAN Treatment Plan Cyanocobalamin (B12) Clinical Indication No Indication Cycle Number Last Admin 10 of 12 Cycle Day Next Admin No Active Chemotherapy History of Present Illness FLACA Vegas is an 84-year-old female with a history of allergic rhinitis, anxiety, arthritis, chronic sinusitis, COPD, small airway disease, aortic stenosis, chronic diastolic CHF, overactive bladder, primary ovarian failure, eosinophilia, coronary atherosclerosis, depression, diabetes, disorder of bone a nd cartilage, disorder of joint, GERD, hearing loss, hoarseness, metrorrhagia, mixed hyperlipidemia, orthostatic hypotension, osteoarthritis, and rotator cuff tear. Surgical history includes cholecystectomy, right knee joint aspiration x 4, left knee joint aspiration x 3, rotator cuff repair, septoplasty and ESS, andtotal abdominal hysterectomy. Medications include albuterol sulfate, vitamin C,aspirin, atorvastatin, calcium carbonate, citalopram, furosemide, metoprolol tartrate, multivitamin, oxybutynin chloride, pantoprazole, potassium chloride ER, and zinc gluconate. No personal history of cancer. Family cancer history includes her paternal aunt with cancer, she is unsure of which type. She is referred by RADHA Crane for macrocytic anemia. Recent labs reveal hemoglobin 10.4 with high MCV and normal MCH. Wbc and platelets WNL. Creatinine 1.79 with normal calcium. B12, folate ok.Reticulocyte WNL, on higher end of normal. Initial Exam 04/06/24: she notes she has never had issues with anemia previously that she is aware of energy is low, she is tired a lot has some dyspnea on exertion. Denies any recent chest pain. gets dizzy and lightheaded sometimes, which her daughter notes this and the dyspnea haven't changedsince even before she was anemic appetite is good. Denies n/v/d/c. Denies black, tarry stool or other s/s of bleeding denies numbness or tingling, headaches, vision changes sometimes has confusion, which isn't anything new. Her daughter thinks she has some dementia. has chronic joint pain, unchanged really over time. She notes this is diffuse denies restless legs or muscle cramps feels cold a lot denies fevers, chills, night sweats, or unintentional weight loss no hair thinning has chronic sinusitis, watery eyes 11/6/24 doing well overall, energy is stable has dyspnea on exertion without chest pain eating ok, admits she doesn't drink water as she doesn't like it. Usually drinksPepsi every day instead denies any n/v/d/c. No fevers, chills, sweats, or other concerns labs stable 01/06/2025: Shasta is here for a 6 month f/u of B12 deficiency and anemia. She reports mid back pain 05/11 currently, she did not take her Tylenol before comingin, has intermittent generalized joint pain, controlled with Tylenol. Denies pica, restless legs, or pagophagia. Denies cardiac or respiratory s ymptoms. Her daughter states she has had loose stools intermittently for the past couple months. Her daughter states she has been giving her liquid IV. She states she has intermittent zeb blood when hemorrhoids flare up. Incontinent of stool when she has diarrhea. Intermittent urinary incontinence. Denies neuropathy. Shehas short term memory issues, with repetitive action to remove her saliva out ofher mouth with tissues. Vitamin B12 injections started 07/2024, dose due today. Labs done 12/30/2024: Hgb 12.2, Hct 37.5, rbc 3.75, MCV 100, PLT 201, EPO 13.9, creatinine level 2.13, GFR 22 Intake Vitals/Pain Assessment 01/06/25 13:57 Height 5 ft 2 in Weight 66.678 kg BMI 26.9 Body Fat % 46.74 BP 114/55 L Blood Pressure Location Lt brachial Position Sitting Temp 97.4 F L Temp Source Temporal Pulse 72 Pulse Source NIBP Respiration 16 Pulse Oximetry (%) 96 Oxygen Delivery Method room air Intake Visit Reasons: Follow Up 6 Month, follow up visit Accompanied by: Daughter Allergies No Known Allergies Allergy (Verified 07/07/24 13:04) Home Medications - Last Reconciled 01/06/25 by JD Viera albuterol sulfate 2.5 mg inhalation TID ascorbic acid (vitamin C) 250 mg PO DAILY aspirin 81 mg PO DAILY atorvastatin 80 mg PO DAILY calcium carbonate 600 mg PO DAILY citalopram 40 mg PO DAILY donepezil 5 mg PO QHS furosemide 20 mg PO DAILY metoprolol tartrate 25 mg PO BID multivitamin (Multiple Vitamins tablet) 1 tab PO DAILY oxybutynin chloride ER 10 mg PO DAILY pantoprazole 40 mg PO DAILY potassium chloride ER (Klor-Con M) 10 mEq PO DAILY zinc gluconate 50 mg PO DAILY Gastrointestinal Is the patient taking opioids for pain control?: No Falls Fall Precaution Measures Taken: Patient in chair Nurse's Note: Patient is here today for a follow up visit for anemia and vitamin B12 deficiency and go over labs [facility] Medical History Medical History (Updated 07/07/24 @ 13:05 by Vivian Benavidez APRN) Rotator cuff tear Osteoarthritis Orthostatic hypotension Mixed hyperlipidemia Metrorrhagia Hearing loss GERD (gastroesophageal reflux disease) Disorder of joint Disorder of bone and cartilage Diabetes mellitus type 2 Depression Coronary atherosclerosis Chronic sinusitis Arthritis Anxiety Allergic rhinitis Surgical History Surgical History (Updated 04/06/24 @ 08:20 by NERISSA Shane) History of total abdominal hysterectomy H/O nasal septoplasty H/O repair of rotator cuff S/P aspiration of joint x3 left knee x4 right knee History of cholecystectomy Social History Social History (Updated 04/06/24 @ 08:21 by NERISSA Shane) Smoking status: Former smoker What tobacco products do you use: cigarettes Smoking quit date/years:>15 years ago Nicotine containing products detail: quit October of 1999 Within the past year, how often did you have a drink containing alcohol: never AUDIT-C Alcohol total score: 0 AUDIT-C Alcohol score interpretation: A score less than 3 is consistent with normal alcohol consumption. In the past 12 months, have you used illegal drugs or prescription drugs for non-medical reasons?: No Review of Systems ROS Details: All systems reviewed & no additional complaints except as documented Physical Exam EXAM ECOG: General: Alert and oriented, well nourished, no acute distress. Eye: PERRL, EOMI, normal conjunctiva. 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 Neck: Supple, non-tender, no carotid bruits, no JVD, no lymphadenopathy. Lungs: Clear to auscultation and percussion, non-labored respiration. Heart: Normal rate, regular rhythm, no murmur, gallop or edema. Abdomen: Soft, non-tender, non-distended, normal bowel sounds, no masses. Musculoskeletal: Normal range of motion and strength, no tenderness or swelling. Skin: Skin is warm, dry and appropriate for ethnicity, no rashes or lesions. Neurologic: Awake, alert and oriented X4, CN II-XII intact. Psychiatric: Cooperative, appropriate mood and affect. Results - [facility] ([facility]) LAB RESULTS No Data to Display Dictated By: Minnie Chou APRN DD/ [id number] Signed By: 01/06/[address] [facility]04[facility] Chief Complaint: Patient here for 1 year follow up CAD, hyperlipidemia, and aortic valve disorder. Echo was not ordered at last visit. Last one was done in Sep 2022. Had labs in Oct. Denies chest pain, SOB, and palpitations. HPI: Shasta Lovelcae is a 84 y.o. female With a history of mild to moderate coronary artery disease. 2012 cath, hypertension, aortic stenosis and dyslipidemia She has been doing well; she has no new cardiovascular complaints Cardiology ROS: Review of Systems HENT: Positive for hearing loss. All other systems reviewed and are negative. Past Medical History She has a past medical history of Coronary artery disease, Heart valve disease, and Hyperlipidemia. Surgical History She has a past surgical history that includes Knee Arthroplasty; Cholecystectomy; Colon surgery; Hysterectomy; Shoulder surgery; and Cardiac catheterization. Social History She reports that she has quit smoking. Her smoking use included cigarettes. She has never used smokeless tobacco. She reports that she does not currently use alcohol. No history on file for drug use. Family History No family history on file. Allergies Patient has no known allergies. Medications Current Outpatient Medications: Klor-Con M10 10 mEq ER tablet, Take by mouth in the morning., Disp: , Rfl: aspirin 81 mg chewable tablet, in the morning., Disp: , Rfl: atorvastatin (Lipitor) 80 mg tablet, atorvastatin 80 mg tablet, Disp: , Rfl: citalopram (CeleXA) 40 mg tablet, citalopram 40 mg tablet, Disp: , Rfl: donepezil (Aricept) 10 mg tablet, Take 10 mg by mouth at bedtime., Disp: , Rfl: furosemide (Lasix) 20 mg [...] or split., Disp: 90 tablet, Rfl: 3 Last Recorded Vitals BP 130/72 (BP Location: Left arm, Patient Position: Sitting) Pulse 62 Ht 1.549 m (5' 1 ) Wt 67.6 kg (149 lb) SpO2 98% BMI 28.15 kg/m??? Physical Examination: GENERAL: alert and oriented x3, well developed, in no acute distress. HEAD: atraumatic, normocephalic. EYES: DENZEL, EOMI. NECK: trachea midline, no JVD present, no carotid bruits present. CARDIAC: S1, S2 present. RRR. No murmur, rubs, or gallops. RESPIRATORY: CTAB, no increased effort of breathing, no rales, rhonchi, or wheezing. ABDOMEN: soft, nontender, nondistended. EXTREMITIES: no lower extremity edema, peripheral pulses are 2+ bilaterally. No rash/skin discoloration present. NEURO: strength/sensation equal and symmetric in bilateral upper and lower extremities. PSYCH: appropriate mood, affect, and judgement. Labs: 11/15/2021 Hgb 11.3, hct35.7 plt 197 [...] Mild elevated right-sided pressures. Treadmill nuclear stress test 04/20/2018; myocardial perfusion study shows no evidence of ischemia. Normal myocardial perfusion study. Normal global left ventricular systolic function. No ischemic EKG changes. Assessment: Coronary artery disease; mild to moderate 2 vessel disease 2011 Aortic valve stenosis Dyslipidemia Gastroesophageal reflux disease Diastolic dysfunction Plan: Continue optimal medical therapy for coronary artery disease including aspirin, statin, and a beta-claudia She is to weigh herself daily; if she notices an increase in weight by 2 pounds or more she is to take an extra dose of Lasix Given her diastolic dysfunction, she should strictly speaking be on an SGLT2 inhibitor. Given her clinical stability and her age, will defer for now. Will order a complete echocardiogram to serially monitor her aortic valve disease Return to clinic in a year or sooner should problems arise Arash Cárdenas MD, MPH, [facility], [facility], [facility] Interventional Cardiology Pager Email: [email or web address] History of Present illness Narrative* Robbie Méndez, PhD - 10/04/2024 12:30 PM EST Images from the original note were not included. Neuropsychology Robbie Méndez, PhD NEUROPSYCHOLOGICAL EVALUATION Shasta Lovelace is a 84 y.o. female referred [...] her in order to shower. Can forget whetheror not she has eaten. Leaves food in [...] Psychiatric history notable for anxiety. History of heavysmoking and drinking, none for several years. Creek language Grenadian. Completed 8 years of formal education. Retired [...] tablet 1 tablet, Every other day Lancets (TM3 SoftwareTouch Delica Plus [id number]) [facility] USE DAILY FOR FINGER STICK meloxicam (MOBIC) 7.5 mg, Oral, Daily PRN metoprolol tartrate (LOPRESSOR) 25 mg, Oral, 2 times daily MULTIPLE VITAMINS PO 1 tablet, Daily Nutritional Supplements (Boost Compact) liquid Take by mouth. TM3 SoftwareTouch Ultra test strip USE TO TEST ONCE [...] Socially very distractible and frequently interrupted testing. D ifficult to keep on track. In addition, she [...] design >16th %ile. Motor/Speed of Processing: Right-handed. Taper/Finisher strength 16th %ile, bilaterally. Speeded graphomotor transcoding [...] list <1st %ile (2-2-3-2-3), delayed recall <1st %ile.Recognition discriminability 2nd %ile. Forced-choice 13/16. Immediate recall [...] on. Most notably, patient struggles with retaining andrecalling newly presented information, as well as with verbal fluency, visual attention, and complex divided visual attention. Overall findings and history raise strong suspicion for mild Alzheimer'sdementia, exacerbated by poor hearing fluctuating sleep quality, [...] memory aids such as smartphone or calendar/daily marine air ground task force planners. Active listening, such as repeating and summarizing [...] of this individual. Please contact me with anyRazoomions at [phone]. documented in this encounterRipley County Memorial [id number] History of Present illness Narrative* Robbie Méndez, - 09/13/2024 1:30 PM EST Images from the original note were not included. Robbie Méndez, PhD NEUROBEHAVIORAL STATUS EXAMINATION Shasta Lovelace is a 84 y.o. female referred [...] her in order to shower. Can forget whetheror not she has eaten. Leaves food in [...] smoking and drinking, none for several years. Creek language Grenadian. Completed 8 years of formal education. Retired [...] Orthostatic hypotension Osteoarthrosis unspecified type of vessel, [place] or graft Rotator cuff tear right Sinusitis [...] Every other day Lancets (OneTouch Delica Plus [id number]) [facility] USE DAILY FOR FINGER STICK meloxicam (MOBIC) 7.5 mg, Oral, Daily PRN metoprolol tartrate (LOPRESSOR) 25 mg, Oral, 2 times daily MULTIPLE VITAMINS PO 1 tablet, Daily Nutritional Supplements (Boost Compact) liquid Take by mouth. TM3 SoftwareTouch Ultra test strip USE TO TEST ONCE [...] of this individual. Please contact me with Mogad at [phone]. documented in this encounterRipley County Memorial [id number] History of Present illness Narrative* Dewayne Gilbert, DO - 09/06/2024 3:30 PM EST Images from the original note were not included. Chief complaint: Memory impairment Subjective Shasta Lovelace, 84 y.o., female Patient presents today [...] her daughter. She states she is having accidentsquite frequently. She is wearing depends all the [...] Orthostatic hypotension Osteoarthrosis unspecified type of vessel, [place] or graft Rotator cuff tear right Sinusitis Past Surgical History: Procedure Laterality Date CHOLECYSTECTOMY 2006 COLONOSCOPY 2003 COLONOSCOPY 2014 IR JOINT ASPIRATION [...] , wrist extensors , wrist flexor , telephone sex worker strength 5/5. LUE Strength deltoid , biceps , triceps , wrist extensors , wrist flexor , telephone sex worker strength 5/5. RLE Strength illopsoas, quadriceps, tibialis [...] reflex 0 . Ashford's sign negative. Coordination: [id number] testing and rapid alternating movements are normal [...] Mini-mental status exam was noted to be and . Patient has been started on Ariceptand seems to tolerate it well. Otherwise, neurological [...] of mental health issues documented in this encounterRipley County Memorial [id number] History of Present illness Narrative* Kevin Adams MD - 07/26/2024 1:30 PM EST Images from the original note were not included. HPI Results Additional comments: Lab results Last edited by Lidia Chadwick LPN on 07/26/2024 1:22 PM. Subjective Patient ID: Shasta Lovelace is a 84 y.o. female who presents for Results (Lab results) and Memory Loss. Pt taking aricept as directed since last office visit-tolerating well Pt and family have not noticed much improvement in memory since starting Labs completed Todays mmse was 22/30 Last mmse was 21/30 Memory Loss Current Outpatient Medications on File [...] tablet by mouth every other day. Lancets (TM3 SoftwareTouch Delica Plus Rosevf46I) misc USE DAILY FOR FINGER STICK meloxicam (Mobic) 15 MG tablet Take 0.5 tablets (7.5 mg) by mouth Daily as needed for moderate pain MULTIPLE VITAMINS PO Take 1 tablet by mouth 1 (one) time each day. Nutritional Supplements (Boost Compact) liquid Take by mouth. [employer] Ultra test strip USE TO TEST ONCE [...] Orthostatic hypotension Osteoarthrosis unspecified type of vessel, [place] or graft Rotator cuff tear right Sinusitis [...] 0.55 - 1.02 mg/dL Final [facility] EGFR-AF [place] 07/02/2024 40 (L) >=60 mL/min/1.73m 2 Final [facility] EGFR-NON AF [place] 07/02/2024 33 (L) >=60 mL/min/1.73m 2 Final [...] all orders for this visit: Depressive disorder (CMS/HCC) - citalopram (CeleXA) 40 MG tablet; Take 1 tablet (40 mg) by mouth 1 (one) time each day at the same time Chronic diastolic congestive heart failure (CMS/HCC) - metoprolol tartrate (Lopressor) 25 MG tablet; Take 1 tablet (25 mg) by mouth in the morning and 1tablet (25 mg) before bedtime. Overactive bladder - [...] 4 months (around 11/23/2024). documented in this encounterRipley County Memorial [id number] History of Present illness Narrative* Kevin Adams MD - 06/25/2024 11:30 AM EDT Images from the original note were not included. HPI HERE FOR MMSE Additional comments: Pt scored low on MWV screening Last edited by Lidia Chadwick LPN on 06/25/2024 11:23 AM. Subjective Patient ID: Shasta Lovelace is a 84 y.o. female who [...] tablet by mouth every other day. Lancets (TM3 SoftwareTouch Delica Plus Bulflr55U) misc USE DAILY FOR FINGER STICK meloxicam [...] Supplements (Boost Compact) liquid Take by mouth. [employer] Ultra test strip USE TO TEST ONCE A DAY DIRECTED 100 strip 1 oxybutynin XL (Ditropan-XL) 10 MG 24 hr tablet Take 1 tablet (10 mg) by mouth 1 (one) time each dayat the same time 90 tablet 3 pantoprazole [...] Orthostatic hypotension Osteoarthrosis unspecified type of vessel, [place] or graft Rotator cuff tear right Sinusitis Past Surgical History: Procedure Laterality Date CHOLECYSTECTOMY 2006 COLONOSCOPY 2004 COLONOSCOPY 2014 IR JOINT ASPIRATION Right x4 [...] No follow-ups on file. documented in this encounterRipley County Memorial [id number] History of Present illness Narrative* Kevin Adams MD - 05/17/2024 3:00 PM EDT Images from the original note were not included. Subjective Patient ID: Shasta Lovelace is a 84 y.o. female who [...] tablet by mouth every other day. Lancets (OneTouch Delica Plus Lirpfs00L) misc USE DAILY FOR FINGER STICK meloxicam [...] Supplements (Boost Compact) liquid Take by mouth. [employer] Systemsuch Ultra test strip USE TO TEST ONCE A DAY DIRECTED 100 strip 1 oxybutynin XL (Ditropan-XL) 10 MG 24 hr tablet Take 1 tablet (10 mg) by mouth 1 (one) time each dayat the same time 90 tablet 3 pantoprazole [...] Orthostatic hypotension Osteoarthrosis unspecified type of vessel, [place] or graft Rotator cuff tear right Sinusitis [...] Greater than 25 minutes was spent in [id number] consultation and coordination of care. Chronic kidney disease, stage 4 (severe) (CMS/HCC) Atherosclerosis of aorta (CMS/HCC) Follow up in about 6 months (around 11/14/2024) for Routine F/U. documented in this encounterNOMS HealthcareEvaluation noteNo assessment information availableRegional Medical Center Work Phone: Evaluation note* Diagnosis Mild cognitive impairment- Primary Mild cognitive impairment, so stated documented in this encounter [facility] HealthcareEvaluation note* Diagnosis Onset Date Resolution Status Anemia [id number] deficiencyacute [facility] Work Phone: Evaluation note* Diagnosis Depressive disorder ([facility]) Depressive disorder, not elsewhere classified Chronic diastolic congestive heart failure ([facility]) Overactive bladder Hypertonicity of bladder Gastroesophageal reflux disease, unspecified whether esophagitis present Mild cognitive impairment Mild cognitive impairment, so stated documented in this encounter [facility] HealthcareEvaluation note* Diagnosis Trigeminal neuralgia pain ([facility])- Primary Trigeminal neuralgia Type 2 diabetes mellitus with diabetic chronic kidney disease ([facility]) Chronic kidney disease, stage 4 (severe) ([facility]) Atherosclerosis of aorta ([facility]) Atherosclerosis of aorta documented in [...] disturbance, psychotic disturbance, mood disturbance, or anxiety ([facility])- Primary Hard of hearing Unspecified hearing loss Other insomnia Other chronic pain documented in this encounter [facility] HealthcareEvaluation note* Diagnosis Onset Date Resolution Status Admit Date Anemia acuteMay 2024 1:[id number] deficiencyacuteMay 2024 1:50pm [facility] Work Phone: Evaluation note* Diagnosis Chronic diastolic congestive heart failure (HCC)- Primary Chronic obstructive pulmonary disease, unspecified COPD type (HCC) Type 2 diabetes mellitus without complication, without long-term current use of insulin (HCC) Major depressive disorder, recurrent, in remission, unspecified Depressive disorder Depressive disorder, not elsewhere classified documented in this encounter [facility] HealthcareProgress note Author Minnie Chou [facility] HospitalNote Date/TimeMay 2024 3:17pmSt. [facility] at [address] [address] Cancer Center Note Signed Patient: Shasta Lovelace MR#: [id number] : 1940 Acct:[id number] Age/Sex: 84 / F Type: DEP AMB Date of Service: 01/06/25 Copies to: Kevin Adams II, MD~ Assessment & Plan A/P (1) Anemia: Plan: anemia of CKD and anemia of chronic disease mild, unclear chronicity, December 2023 and March 2024 values low but no other recordsprior to this no other cell line abnormalities CKD, creatinine 1.79 on March 2024 labs, improved quite a bit from December 2023 value calcium WNL. she does have chronic CHF and other chronic diseases contributing Epo checked at consult, but patient was not anemic at that time. Jul 2024 hgb remains slightly decreased with elevated creatinine. We again discussed option to check proteins, etc. but she and daughter both decline and prefer monitoring for now. Will plan repeat labs in 3mo and in 6mo with follow- up, sooner if needed. 01/06/2025: Hgb 12.2. EPO 13.9Creatinine level 2.13, she has been having loose/diarrhea stools for a couple months and she has been drinking Liquid IV toreplace electrolytes. She was informed to stop liquid IV, add Metamucil daily. She also reports intermittent rectal bleeding small amounts from external hemorrhoids. No bleeding in the past week. Will plan cbc, iron profile, and ferritin in 3 months then labs with office visit in 6 months. (2) B12 deficiency: Plan: MMA at consult came back elevated, consistent with B12 deficiency. She was initiated on injections folate ok Continues monthly injections as of Jul 2024 01/06/2025:Vitamin B12 injections started 07/2024, dose due today. Labs done 12/30/2024: Hgb 12.2, Hct 37.5, rbc 3.75, MCV 100, PLT 201, EPO 13.9, creatinine level 2.13, GFR 22 Continue monthly B12 injections f/u in 6 months with cbc, cmp, iron profile, ferritin, EPO, vit L93npcoi/folate. 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 STOP drinking Liquid IV. F/u in 6 mo with DUAL HOSE CEMENTER. CBC, CMP, iron and TIBC, ferritin, epo, vit b12/folate, mma in 6 mo Continue b12 injections monthly CHEMO PLAN Treatment Plan Cyanocobalamin (B12) Clinical Indication No Indication Cycle Number Last Admin Cycle Day Next Admin No Active Chemotherapy History of Present Illness FLACA Vegas is an 84-year-old female with a history of allergic rhinitis, anxiety, arthritis, chronic sinusitis, COPD, small airway disease, aortic stenosis, chronic diastolic CHF, overactive bladder, primary ovarian failure, eosinophilia, coronary atherosclerosis, depression, diabetes, disorder of bone a nd cartilage, disorder of joint, GERD, hearing loss, hoarseness, metrorrhagia, mixed hyperlipidemia, orthostatic hypotension, osteoarthritis, and rotator cuff tear. Surgical history includes cholecystectomy, right knee joint aspiration x 4, left knee joint aspiration x 3, rotator cuff repair, septoplasty and ESS, andtotal abdominal hysterectomy. Medications include albuterol sulfate, vitamin C,aspirin, atorvastatin, calcium carbonate, citalopram, furosemide, metoprolol tartrate, multivitamin, oxybutynin chloride, pantoprazole, potassium chloride ER, and zinc gluconate. No personal history of cancer. Family cancer history includes her paternal aunt with cancer, she is unsure of which type. She is referred by RADHA Crane for macrocytic anemia. Recent labs reveal hemoglobin 10.4 with high MCV and normal MCH. Wbc and platelets WNL. Creatinine 1.79 with normal calcium. B12, folate ok.Reticulocyte WNL, on higher end of normal. Initial Exam 04/06/24: she notes she has never had issues with anemia previously that she is aware of energy is low, she is tired a lot has some dyspnea on exertion. Denies any recent chest pain. gets dizzy and lightheaded sometimes, which her daughter notes this and the dyspnea haven't changedsince even before she was anemic appetite is good. Denies n/v/d/c. Denies black, tarry stool or other s/s of bleeding denies numbness or tingling, headaches, vision changes sometimes has confusion, which isn't anything new. Her daughter thinks she has some dementia. has chronic joint pain, unchanged really over time. She notes this is diffuse denies restless legs or muscle cramps feels cold a lot denies fevers, chills, night sweats, or unintentional weight loss no hair thinning has chronic sinusitis, watery eyes 07/07/24 doing well overall, energy is stable has dyspnea on exertion without chest pain eating ok, admits she doesn't drink water as she doesn't like it. Usually drinksPepsi every day instead denies any n/v/d/c. No fevers, chills, sweats, or other concerns labs stable 01/06/2025: Shasta is here for a 6 month f/u of B12 deficiency and anemia. She reports mid back pain 05/11 currently, she did not take her Tylenol before comingin, has intermittent generalized joint pain, controlled with Tylenol. Denies pica, restless legs, or pagophagia. Denies cardiac or respiratory s ymptoms. Her daughter states she has had loose stools intermittently for the past couple months. Her daughter states she has been giving her liquid IV. She states she has intermittent zeb blood when hemorrhoids flare up. Incontinent of stool when she has diarrhea. Intermittent urinary incontinence. Denies neuropathy. Shehas short term memory issues, with repetitive action to remove her saliva out ofher mouth with tissues. Vitamin B12 injections started 07/2024, dose due today. Labs done 12/30/2024: Hgb 12.2, Hct 37.5, rbc 3.75, MCV 100, PLT 201, EPO 13.9, creatinine level 2.13, GFR 22 Intake Vitals/Pain Assessment 01/06/25 13:57 Height 5 ft 2 in Weight 66.678 kg BMI 26.9 Body Fat % 46.74 BP 114/55 L Blood Pressure Location Lt brachial Position Sitting Temp 97.4 F L Temp Source Temporal Pulse 72 Pulse Source NIBP Respiration 16 Pulse Oximetry (%) 96 Oxygen Delivery Method room air Intake Visit Reasons: Follow Up 6 Month, follow up visit Accompanied by: Daughter Allergies No Known Allergies Allergy (Verified 07/07/24 13:04) Home Medications - Last Reconciled 01/06/25 by JD Viera albuterol sulfate 2.5 mg inhalation TID ascorbic acid (vitamin C) 250 mg PO DAILY aspirin 81 mg PO DAILY atorvastatin 80 mg PO DAILY calcium carbonate 600 mg PO DAILY citalopram 40 mg PO DAILY donepezil 5 mg PO QHS furosemide 20 mg PO DAILY metoprolol tartrate 25 mg PO BID multivitamin (Multiple Vitamins tablet) 1 tab PO DAILY oxybutynin chloride ER 10 mg PO DAILY pantoprazole 40 mg PO DAILY potassium chloride ER (Klor-Con M) 10 mEq PO DAILY zinc gluconate 50 mg PO DAILY Gastrointestinal Is the patient taking opioids for pain control?: No Falls Fall Precaution Measures Taken: Patient in chair Nurse's Note: Patient is here today for a follow up visit for anemia and vitamin B12 deficiency and go over labs [facility] Medical History Medical History (Updated 07/07/24 @ 13:05 by Vivian Benavidez APRN) Rotator cuff tear Osteoarthritis Orthostatic hypotension Mixed hyperlipidemia Metrorrhagia Hearing loss GERD (gastroesophageal reflux disease) Disorder of joint Disorder of bone and cartilage Diabetes mellitus type 2 Depression Coronary atherosclerosis Chronic sinusitis Arthritis Anxiety Allergic rhinitis Surgical History Surgical History (Updated 04/06/24 @ 08:20 by NERISSA Shane) History of total abdominal hysterectomy H/O nasal septoplasty H/O repair of rotator cuff S/P aspiration of joint x3 left knee x4 right knee History of cholecystectomy Social History Social History (Updated 04/06/24 @ 08:21 by NERISSA Shane) Smoking status: Former smoker What tobacco products do you use: cigarettes Smoking quit date/years:>15 years ago Nicotine containing products detail: quit October of 1999 Within the past year, how often did you have a drink containing alcohol: never AUDIT-C Alcohol total score: 0 AUDIT-C Alcohol score interpretation: A score less than 3 is consistent with normal alcohol consumption. In the past 12 months, have you used illegal drugs or prescription drugs for non-medical reasons?: No Review of Systems ROS Details: All systems reviewed & no additional complaints except as documented Physical Exam EXAM ECOG: General: Alert and oriented, well nourished, no acute distress. Eye: PERRL, EOMI, normal conjunctiva. 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 Neck: Supple, non-tender, no carotid bruits, no JVD, no lymphadenopathy. Lungs: Clear to auscultation and percussion, non-labored respiration. Heart: Normal rate, regular rhythm, no murmur, gallop or edema. Abdomen: Soft, non-tender, non-distended, normal bowel sounds, no masses. Musculoskeletal: Normal range of motion and strength, no tenderness or swelling. Skin: Skin is warm, dry and appropriate for ethnicity, no rashes or lesions. Neurologic: Awake, alert and oriented X4, CN II-XII intact. Psychiatric: Cooperative, appropriate mood and affect. [facility] - [facility] LAB RESULTS No Data to Display Dictated By: Minnie Chou APRN DD/ 1054 Signed By: <Electronically signed by JENNIFER Chou> 01/06/25 1527 [facility] Work Phone: Reason for referral (narrative)No reason for referral information availableRegional [facility] Center Work Phone: Reason for visit Narrative* Consultation (Routine) - Pending ReviewSpecialtyDiagnoses / ProceduresReferred By ContactReferred To ContactNeurology Diagnoses Mild cognitive impairment Procedures [facility] Kevin Adams MD [address] [address] Phone: tel: fax: Dewayne Gilbert DO [address] [address] Phone: tel: fax: Referral IDStatusReasonStart DateExpiration DateVisits RequestedVisits [id number] Review Consult and Treat / [facility] Narrative* Consultation (Routine) - Closed SpecialtyDiagnoses / ProceduresReferred By ContactReferred To Contact Psychology Diagnoses Mild cognitive impairment Procedures [facility] 60 MINUTES Dewayne Gilbert DO [address] [address] Phone: tel: fax: Robbie Méndez, PhD [address] [address] Phone: tel: fax: Referral IDStatusReasonStart DateExpiration DateVisits RequestedVisits [id number] Specialty Services Required [facility] Summary Purpose Family History No Family History Records FoundNo Family History Records FoundNo Family History Records FoundNo Family History Records FoundNo Family History Records FoundNo Family History Records Found Advance Directives No Advanced Directives Records Found Advance Directive Response Recorded Date/ Time Advance Directives No August 5:47pm TypeDate RecordedPatient RepresentativeExplanationAdvance Directives and Living Will DNR CCA Advance Directive Response Recorded Date/ Time Advance Directives No August 4:47pm TypeDate RecordedPatient RepresentativeExplanationAdvance Directives and Living Will DNR CCA Chief Complaint and Reason for Visit Chief Complaint Macrocytic anemia NEW Macrocytic anemia Chief Complaint Follow Up Macrocytic anemiaReason for VisitAnemia B12 deficiency Chief Complaint Admit Date Follow Up 6 Month January 06, 2025 1:50pm Macrocytic anemia January 06, 2025 3:02pm Reason for Visit Admit Date Anemia January 06, 2025 1:50pm B12 deficiency January 06, 2025 1:50pm Chief Complaint Admit Date Follow Up 6 Month January 06, 2025 1:50pm Macrocytic anemia February 08, 2025 2:15 pm 3-4 month f/u February 24, 2025 2:32 pm Reason for Visit Admit Date Anemia January 06, 2025 1:50pm B12 deficiency January 06, 2025 1:50pm Hearing loss February 24, 2025 2:32 pm Mild late onset Alzheimer's dementia without behavioral disturbance, psycho February 24, 2025 2:32pm Additional Source Comments INFORMATION SOURCE (unrecogn ized section and content) DATE CREATED AUTHOR 04/30/2018 [facility] DATE CREATED AUTHOR AUTHOR'S ORGANIZ ATION 09/26/2022 [facility] DATE CREATED AUTHOR AUTHOR'S ORGANIZ ATION 06/29/2024 [facility] DATE CREATED AUTHOR AUTHOR'S ORGANIZ ATION 12/10/2024 [facility] DATE CREATED AUTHOR AUTHOR'S ORGANIZ ATION 05/24/2025 [facility] EPIC DATE CREATED AUTHOR AUTHOR'S ORGANIZ ATION 06/29/2025 [facility] Care Teams (unrecognized sec tion and content) Team Status: Active Member Role Status Dates Kevin Adams II MD Primary Care Provider Active Team Status: Inactive Member Role Status Dates Kevin Adams II MD Primary Care Provider Active Start: July 07, 2024 End: July 07, 2024Vivian Benavidez APRNAttengiovanni ProviderActive Start: July 07, 2024 End: July 07, 2024 Team Status: Active Member Role Status Dates eKvin Adams II MD Primary Care Provider Active Start: July 07, 2024 Vivian Benaivdez , APRNAttengiovanni ProviderActiveStart: July 07, 2024 Leatha Craig DUAL HOSE CEMENTER-CReferring ProviderActiveStart: July 07, 2024 Team Status: Active Member Role Status Dates Kevin Adams II MD Primary Care Provider Active Start: 2024 Vivian Benavidez APRNAttengiovanni ProviderActiveStart: 2024 Leatha Craig , DUAL HOSE CEMENTER-CReferring ProviderActiveStart: 2024 Team Status: Inactive Member Role Status Dates Kevin Adams II MD Primary Care Provider Active Start: 2024 End: April 06, 2024Vivian Benavidez APRNAttengiovanni ProviderActive Start: 2024 End: April 06, 2024Leatha Craig DUAL HOSE CEMENTER-CReferring ProviderActiveStart: 2024 End: April 06, 2024Team MemberRelationshipSpecialtyStart DateEnd Date Kevin Adams MD [address] [facility] [place] [address] [place] [address] PCP - [place]11/30/22 Kevin Adams MD [address] [facility] [place] [address] [place] [address] PCP - GeneralInternal Medicine03/17/23Team MemberRelationshipSpecialtyStart Date End Date Kevin Adams MD [address] [facility] [place] [address] [place] [address] PCP - [place] SHERLYN11/30/22 Kevin Adams MD [address] [place] [address] [place] [address] PCP - GeneralInternal Medicine03/17/23Team MemberRelationshipSpecialtyStart Date End Date Kevin Adams MD [address] [place] [address] [place] [address] PCP - [place] SHERLYN11/30/22 Kevin Adams MD [address] [place] [address] [place] [address] PCP - GeneralInternal [facility]03/17/23Team MemberRelationshipSpecialtyStart Date End Date Kevin Adams MD [address] [place] [address] [place] [address] PCP - [place] SHERLYN11/30/22 Kevin Adams MD [address] [place] [address] [place] [address] PCP - GeneralInternal [facility]03/17/23Team MemberRelationshipSpecialtyStart Date End Date Kevin Adams MD [address] [place] [address] [place] [address] PCP - [place]11/30/22 Kevin Adams MD [address] [place] [address] [place] [address] PCP - GeneralInternal [facility]03/17/23Team MemberRelationshipSpecialtyStart Date End Date Kevin Adams MD [address] [place] [address] [place] [address] PCP - [place]11/30/22 Kevin Adams MD [address] [place] [address] [place] [address] PCP - GeneralInternal Medicine03/17/23Team MemberRelationshipSpecialtyStart Date End Date Kevin Adams MD [address] [place] [address] [place] [address] PCP - [place]11/30/22 Kevin Adams MD [address] [place] [address] [place] [address] PCP - GeneralInternal Medicine03/17/23Team MemberRelationshipSpecialtyStart Date End Date Kevin Adams MD [address] [place] [address] [place] [address] PCP - [place]11/30/22 Kevin Adams MD [address] [place] [address] [place] [address] PCP - GeneralInternal Medicine03/17/23Team MemberRelationshipSpecialtyStart Date End Date Kevin Adams MD [address] [place] [address] [place] [address] PCP - [place]11/30/22 Kevin Adams MD [address] [place] [address] [place] [address] PCP - GeneralInternal Medicine03/17/23 Dewayne Gilbert DO [address] [place] [address] Referring PhysicianNeurolog09/13/24Team MemberRelationshipSpecialtyStart DateEnd Date Kevin Adams MD [address] [place] [address] [place] [address] PCP - [place]11/30/22 Kevin Adams MD [address] [place] [address] [place] [address] PCP - GeneralInternal Medicine03/17/23 Dewayne Gilbert DO [address] [place] [address] Referring PhysicianNeurolog09/13/24Team MemberRelationshipSpecialtyStart DateEnd Date Kevin Adams MD [address] [place] [address] [place] [address] PCP - [place]11/30/22 Kevin Adams MD [address] [place] [address] [place] [address] PCP - GeneralInternal Medicine03/17/23 Dewayne Gilbert DO [address] [place] [address] Referring PhysicianNeurolog09/13/24Team MemberRelationshipSpecialtyStart DateEnd Date Kevin Adams MD [address] [place] [address] [place] [address] PCP - GeneralInternal Medicine03/17/23 Kevin Adams MD [address] [place] [address] [place] [address] PCP - [employer]09/01/24 Dewayne Gilbert DO [address] [place] [id number] Referring PhysicianNeurology1Team MemberRelationshipSpecialtyStart DateEnd Date Kevin Adams MD [address] [place] [address] [place] [address] [facility] - [facility]03/17/23 Kevin Adams MD [address] [place] [address] [place] [address] PCP - [employer]09/01/24 Dewayne Gilbert DO [address] [place], [place] [id number] Referring PhysicianNeurolog09/13/24 Gloria Corley NP [address] [place] [phone] Nurse PractitionerNeurology11/04/24 Team Status: Inactive Member Role Status Dates Kevin Adams II MD Primary Care Provider Active Start: January 06, 2025 End: January 06, 2025Bee Graham ProviderActiveStart: January 06, 2025 End: January 06, 2025 Team Status: Active Member Role Status Dates Kevin Adams II MD Primary Care Provider Active Start: January 06, 2025 Vivian Benavidez APRNAttengiovanni ProviderActiveStart: January 06, 2025 Leatha Craig NP-CReferring ProviderActiveStart: January 06, 2025 Team Status: Active Member Role Status Dates Kevin Adams II MD Primary Care Provider Active Start: February 08, 2025 Aimee Enamoradotengiovanni ProviderActiveStart: February 08, 2025 Leatha Craig NP-CReferring ProviderActiveStart: February 08, 2025 Team Status: Inactive Member Role Status Dates Kevin Adams II MD Primary Care Provider Active Start: February 24, 2025 End: February 24, 2025Gloria Corley APRN-FNP-CAttending ProviderActiveStart: February 24, 2025 End: February 24, 2025Team MemberRelationshipSpecialtyStart DateEnd Date Kevin Adams MD [address] [place] [address] [place] [address] PCP - GeneralInternal Medicine03/17/23 Kevin Adams MD [address] [place] [address] [place] [address] PCP - [employer]09/01/24 Dewayne Gilbert DO [address] [place], [place] [id number] Referring PhysicianNeurology1 Gloria Corley NP [address] [place] [address] [place] [address] Nurse PractitionerNeurology11/04/24Team MemberRelationshipSpecialtyStart DateEnd Date Kevin Adams MD [address] [place] [address] [place] [address] PCP - GeneralInternal Medicine03/17/23 Kevin Adams MD [address] [place] [address] [place] [address] PCP - [employer]09/01/24 Dewayne Gilbert DO [address] [place] [address] Referring PhysicianNeurology1 Gloria Corley NP [address] [place] [address] [place] [address] Nurse PractitionerNeurology11/04/24 Goals (unrecognized section and content) Goals may be documented in a n alternate sectionGoals may be documented in an alternate sectionGoals may be documented in an alternate sectionGoals may be documented in an alternate section Reason for Visit (unrecogniz ed section and content) ReasonCommentsHERE FOR MMSEPt scored low on MWV screeningReasonCommentsResults Lab resultsMemory LossReasonCommentsCoronary Artery DiseaseReasonComments DiabetesMed RefillLasix--cvs bellDiarrhea FOR RECORDS PERTAINING TO PATIENTS WHO ARE [...] BE BASED ON THE PRIMARY CLINICAL RECORDS. [employer] provides no warranty or guarantee of the accuracy or completeness of information in this document.
[2025-07-06 12:03] LABS: Hematocrit 36.8 % (36.0-48.0); Hemoglobin 11.7 g/dL (12.0-16.0); Immature Granulocytes Abs Auto 0.02 10^3/uL (0.00-0.03); Immature Granulocytes Pct Auto 0.3 % (0.0-0.5); Lymphocytes Absolute Auto 2.3 10^3/uL (1.2-3.8); Mean Corpuscular HGB Conc 31.8 g/dL (29.9-35.2); Mean Corpuscular Hemoglobin 31.5 pg (26.7-34.0); Mean Corpuscular Volume 99.2 fL (81.0-99.0); Platelet Count 192 10^3/uL (150-450); Red Blood Count 3.71 10^6/uL (4.20-5.40); White Blood Count 7.3 10^3/uL (4.0-11.0)
[2025-07-06 12:26] LABS: Alanine Aminotransferase 45 U/L (14-59); Albumin Globulin Ratio 0.8; Albumin Level 3.3 g/dL (3.4-5.0); Alkaline Phosphatase 74 U/L (46-116); Anion Gap 14.2; Aspartate Amino Transferase 33 U/L (15-37); Blood Urea Nitrogen 22.0 mg/dL (7.0-18.0); Calcium 9.2 mg/dL (8.5-10.1); Carbon Dioxide 28.3 mmol/L (21.0-32.0); Chloride 107 mmol/L (98-107); Estimated GFR (African America 50 (>=60 mL/min/1.73m^2); Estimated GFR (Non-African Ame 42 (>=60 mL/min/1.73m^2); Globulin 4.0 g/dL; Glucose 92 mg/dL (74-106); Potassium 3.5 mmol/L (3.5-5.1); Sodium 146 mmol/L (136-145); Total Protein 7.3 g/dL (6.4-8.2)
[2025-07-06 12:27] LABS: Iron 63.0 ug/dL (50.0-170.0); Percent Iron Saturation 22.5 %; Total Iron Binding Capacity 280.0 ug/dL (250.0-450.0)
[2025-07-06 13:14] LABS: Ferritin 70.0 ng/mL (8.0-252.0); Folate 38.50 ng/mL (8.60-58.90)
[2025-07-07 07:12] LABS: Vitamin B12 1080 pg/mL (232-1245)
[2025-07-07 17:09] LABS: Erythropoietin (EPO), Serum 22.9 mIU/mL (2.6-18.5)
== END 2025-07-06 11:10 | disposition home or self-care (01) ==
LOC: LAB 11:12
PROVIDERS: PCP Internal Medicine
DX: D64.9 Anemia, unspecified (principal); E53.8 Deficiency of other specified B group vitamins
CPT/HCPCS: 36415; 80053; 82607; 82668; 82728; 82746; 83540; 83550; 83921; 85025